=== PATIENT | female | born 1940 | race Caucasian/White ===

== ENCOUNTER 2020-11-07 09:26 | Emergency (ER) | payer MEDICARE, SELFPAY ==
[2020-11-07 09:35] VITALS: BP 140/78; PULSE 90; RESP 18; TEMP 36.7; O2SAT 95; BMI 16.9
--- NOTE | 2020-11-07 10:45 | ED.PSYCH ---
HPI - Psych General Chief Complaint: Psychiatric Symptoms Stated Complaint: CRISIS Time Seen by Provider: 11/07/20 09:52 Source: patient and family Mode of arrival: ambulatory Limitations: no limitations History of Present Illness HPI Narrative: Patient is brought to the emergency room by her family. Over the last 6 weeks, patient has gradually been decompensating, the family states that the patient has been eating less, unable to function, daily tasks are a major chore. Patient states that she has been depressed, states that she does not want to live but states that she would never hurt herself. According to the family, patient has similar episode 12 years ago, patient went to [place] and was there for 2 weeks, then had 3 weeks of outpatient partial hospitalization. The reports that towards the beginning of September, him and the patient started talking and planning arrangements for both of them, seems that since then the patient has been decompensating. The also states that the patient has problems with her 2 children. Patient has been recently evaluated by her psychiatrist, there have been new medication changes including an increase in dose of mirtazapine and Ativan complaint: feels depressed Related Data Allergies Allergy/AdvReac Type Severity Reaction Status Date / Time No Known Allergies Allergy Verified 11/07/20 10:45 Review of Systems Review of Systems: Constitutional : No Weight loss, No Fever, No Chills, No Night Sweats, No Fatigue, No Malaise ENT/Mouth : No Hearing loss, No Ear Pain, No Nasal Congestion, No Sinus Pain, No Hoarseness, No sore throat, No Rhinorrhea, No Swallowing Difficulty Eyes: No Eye Pain, No Swelling, No Redness, No Foreign Body, No Discharge, No Vision Changes Cardiovascular : No Chest Pain, No SOB, No Dyspnea on Exertion, No Orthopnea, No Edema, No Palpitations Respiratory : No Cough, No Sputum, No Wheezing, No Smoke Exposure, No Dyspnea Gastrointestinal : No Nausea, No Vomiting, No Diarrhea, No Constipation, No abdominal Pain, No Hematochezia, No Melena Genitourinary : no irregular bleeding, No Dysuria, No Urinary Frequency, No Hematuria, No Urinary Incontinence, No Urgency, No Flank Pain, No Urinary Flow Changes, No Hesitancy Musculoskeletal : No joint pain, No Myalgias, No Joint Swelling Skin : No Skin Lesions, No rash Neuro : No Weakness, No Numbness, No Paresthesias, No Loss of Consciousness, No Dizziness, No Headache Psych : Complaining of feeling anxious, depressed, no suicidal or homicidal ideation Heme/Lymph: No Bruising, No Bleeding,No Lymphadenopathy Endocrine : No Polyuria, No Polydipsia, No Temperature Intolerance PMFSH Past Medical History Medical History (Updated 11/07/20 @ 16:21 by Leonora Jimenes MD) Breast cancer Depression Surgical History (Updated 11/07/20 @ 09:38 by Theersa Leavitt RN) H/O mastectomy Social History Social History Smoking Status: Never smoker Use of substances other than those prescribed or required for medical reasons: No Advance Directives: Yes Advance Directives Information Provided: No Advance Directives on File: No Physical Exam Vital Signs: Vital Signs: Last Vital Signs Temp 98.0 F 11/07/20 09:35 Pulse 79 11/07/20 13:59 Resp 16 11/07/20 13:59 BP 131/76 11/07/20 13:59 Pulse Ox 98 11/07/20 13:59 Body Mass Index 16.9 Appearance: Alert. Oriented X3. No acute distress. Eyes: Pupils equal, round and reactive to light. ENT: Pharynx normal. Neck: Normal inspection. Neck supple. No lymph nodes noted. No crepitus CVS: Normal heart rate and rhythm. Pulses normal. Normal S1 and S2 Respiratory: No respiratory distress. Breath sounds normal. No Wheezing. No rales Abdomen: Soft and nontender. No rigidity. No distention. good BS x4 Skin: Skin warm and dry. Normal skin color. Normal skin turgor. Extremities: No lower extremity edema. No lower extremity edema. No Lacerations. No Rash Neuro: Oriented X 3. No motor deficit. No sensory deficit. Moving all extermities. No slurred speech. Psych: Anxious, keeps rolling her hands in circles, states that she is concerned and suspicious of people who are here in the emergency room Course Course Course Narrative: Labs and UA pending, behavioral health network consult pending 12:30 I received a phone call from the patient's psychiatrist, Dr. Oksana Burk. Twelve years ago, patient stabilized on lithium and mirtazapine. Yesterday the mirtazapine dose was increased to 45mg. Patient's psychiatrist strongly suggests that the patient meets inpatient psychiatric care. Earlier today, patient requested Ativan for anxiety. Patient now calm, cooperative. Labs pending. Sign-out given to Dr. Carter, as mentioned above, patient will likely benefit from inpatient level care. Sign-out given to Dr. Pepe [facility] - Psych Lab Data Labs: Lab Results 11/07/20 Range/Units 11:28 Urine Color YELLOW Urine Appearance CLEAR Urine pH 5.5 (5.0-8.0) Ur Specific [place] >= 1.030 H (1.005-1.025) Urine Protein NEG (NEG-TRACE) MG/DL Urine Glucose (UA) NEG (NEG) MG/DL Urine Ketones NEG (NEG) MG/DL Urine Blood NEG (NEG) Urine Nitrite NEG (NEG) Ur Leukocyte Esterase NEG (NEG) Discharge Plan Discharge Clinical Impression: Depression
--- NOTE | 2020-11-07 11:07 | PC.NURSE ---
Pt guarded, does not offer much information on why she is here but reports sadness and doesn't feel right This RN and Dr Jimenes to waiting room to speak to Mk and daughter who state pt has been declining since 09/29 after visiting a home to arrange end of life decisions and since pt has been not eating and little motivation for daily activities such as attending the grocery store. Pt has had similar episode in past approx 12 years ago per after having mastectomy and argument with children. At that time pt went inpatient at [place] for 14 days. Since pt has had no further episodes. Consulted with Dr Oksana Hoang and new med started yesterday, pt also has been trying to have telehealth appts but unable d/t audio issues. Contact for Mk [phone] Pt denies pain/discomfort but does reports issues with constipation and uterine prolapse, seen by OBGYN and had internal exam completed per daughter
[2020-11-07 11:34] VITALS: BP 150/77; PULSE 71; RESP 16; O2SAT 98
[2020-11-07 11:36] LABS: Glucose Urine UA NEG (NEG); Leukocyte Esterase Urine NEG (NEG); Nitrite Urine NEG (NEG); PH 5.5 (5.0-8.0); Specific Gravity - Urine >= 1.030 (1.005-1.025); Urine Blood NEG (NEG); Urine Ketones NEG (NEG); Urine Protein NEG (NEG-TRACE)
[2020-11-07 11:39] LABS: Appearance Urine CLEAR; Color Urine YELLOW
--- NOTE | 2020-11-07 12:45 | PC.NURSE ---
MICHELN called and aware of pt refferral
[2020-11-07] MEDS: LORazepam 1 MG TABLET 2 MG PO (13:51)
[2020-11-07 13:59] VITALS: BP 131/76; PULSE 79; RESP 16; O2SAT 98
--- NOTE | 2020-11-07 14:00 | PC.NURSE ---
Pt visibilly anxious, fidgeting with straw in hand. Agreeable to Ativan 1mg out of 2mg ordered, Dr Jimenes aware. Pt tearful. Encouraged to call but states she will call later
--- NOTE | 2020-11-07 14:43 | PC.NURSE ---
This RN updated , [facility] aware of pt here and will send clinician out to eval when available. upset, refers to prior time when pt was admitted right away This RN relays to proicess in ED at this time and unaware of time exactly when [facility] shall arrive for eval. and pt reassured that pt needs will be met while in ED. Offered lunch but declined at this time.
--- NOTE | 2020-11-07 14:46 | PC.NURSE ---
Pt speaking to on phone at this time
--- NOTE | 2020-11-07 16:24 | PC.NURSE ---
Pt appears much better s/p Ativan given, no longer restless or fidgeting. Request pencil and paper and writing a letter at this time.
[2020-11-07 16:39] LABS: MANUAL DIFF FLAG NO
[2020-11-07 16:42] LABS: Basophils Percent Auto 0.9 % (0-2); Eosinophils Absolute Auto 0.2 X10*3/uL (0.0-0.4); Eosinophils Percent Auto 4.8 % (0-4); Hematocrit 37.7 % (37-47); Hemoglobin 12.4 g/dl (12.0-16.0); Imm Gran Abs Auto 0.01 X10*3/uL (0.00-0.03); Imm Gran Pct Auto 0.2 % (0.0-0.4); Lymphocytes Absolute Auto 1.1 X10*3/uL (1.2-4.9); Lymphocytes Percent Auto 24.3 % (20-40); Mean Corpuscular HGB Conc 32.9 g/dl (31.0-35.0); Mean Corpuscular Volume 97.2 fL (80-98); Monocytes Absolute Auto 0.4 X10*3/uL (0.1-1.2); Monocytes Percent Auto 8.2 % (2-11); Neutrophils Absolute Auto 2.7 X10*3/uL (2.0-8.3); Neutrophils Percent Auto 61.6 % (45-73); Platelet Count 243 X10*3/uL (160-400); Red Blood Count 3.88 X10*6/uL (4.20-5.50); Red Cell Distribution Width 12.3 % (11.0-16.0); White Blood Count 4.4 X10*3/uL (4.8-10.8)
--- NOTE | 2020-11-07 17:15 | PC.NURSE ---
CARE Team speaking with pt at this time
[2020-11-07 17:16] LABS: Alanine Aminotransferase 23 U/L (0-31); Albumin Level 3.8 g/dL (3.5-5.0); Alkaline Phosphatase 52 U/L (39-117); Anion Gap 9 (12-20); Aspartate Amino Transferase 24 U/L (5-31); Bilirubin Direct 0.2 mg/dL (0.0-0.5); Bilirubin Total 0.5 mg/dL (0.0-1.0); Blood Urea Nitrogen 16 mg/dL (9-16); Calcium 8.5 mg/dL (8.4-10.2); Carbon Dioxide 30 mmol/L (22-29); Chloride 99 mmol/L (96-108); Creatinine Clr Calc Pharmacy 42.8; Estimated Glomerular Filt Rate > 60; Glucose Random 169 mg/dL (60-115); Potassium 3.9 mmol/L (3.3-5.1); Sodium 134 mmol/L (135-145); Total Protein 5.9 g/dL (6.5-8.0)
[2020-11-07 18:05] VITALS: BP 121/83; PULSE 69; RESP 16; O2SAT 97
[2020-11-07 18:14] VITALS: BP 157/106; PULSE 88; RESP 16; O2SAT 96
--- NOTE | 2020-11-07 20:44 | MHC.CARE ---
CARE Team has completed assessment. Plan is for pt to discharge home and return to the ED for medical clearance when there is an open bed on M5. agrees to hold a bed for pt.
== END 2020-11-07 21:00 | disposition home or self-care (01) ==
PROVIDERS: Emergency Provider Emergency Medicine; PCP Internal Medicine
DX: F32.9 Major depressive disorder, single episode, unspecified (principal); Z85.3 Personal history of malignant neoplasm of breast; F41.9 Anxiety disorder, unspecified
CPT/HCPCS: 36415; 80048; 80076; 81003; 85025; 99285

== ENCOUNTER 2020-11-11 11:01 | Inpatient (IN) | payer MEDICARE, SELFPAY ==
[2020-11-11 11:06] VITALS: BP 123/73; PULSE 106; RESP 16; TEMP 36.7; O2SAT 96; BMI 17.9
--- NOTE | 2020-11-11 12:04 | PC.NURSE ---
pt alert and oriented, skin pwd, respirations even and unlabored pt reports feeling very restless, keeps moving/shaking her legs, does not want to feel like this, pt slightly vague in her answers. pt keeps stating that she was told there was a bed for her on the [facility] floor. sitter in place
--- NOTE | 2020-11-11 12:11 | PC.NURSE ---
leonardo from care team speaking to pt
--- NOTE | 2020-11-11 13:14 | ED_ITS ---
HPI - Psych General Chief Complaint: Psychiatric Symptoms Stated Complaint: crisis Time Seen by Provider: 11/11/20 13:00 Source: patient Mode of arrival: ambulatory Limitations: no limitations History of Present Illness HPI Narrative: Patient is a 79-year-old female with a past medical history of depression who is on Ativan daily complaining of ?not feeling well?, she cannot articulate how she is feeling but is declining any medical interventions at this time. She says she needs some time to think. Patient denies SI/HI. She only states that she knows she needs to be admitted to the Behavioral Health cerda . Will give the patient some time in reassess in a little while. According to the patient's records, she was just evaluated in this ED 4 days ago. Patient has been gradually be compensating over the last 6 weeks. She eats last unable to function on a daily basis an any tasks she needs to perform become a major chore. The patient's family says that she has been depressed ever since her nurse has been started pre- planning their arrangements. The patient's psychiatrist, Dr. Oksana Burk, called the ED stating that the patient has been taking lithium and mirtazapine since she had a similar episode 12 years ago. Apparently the day before she came into the ED last time, her mirtazapine dose was increased to 45 mg but apparently patient is now 130 mg according to her psychiatrist. And the patient's psychiatrist strongly suggested that she needs inpatient care. However, the patient was discharged. The Care team was texting with patient's psychiatrist today. [place] was restarted yesterday, it needs to be titrated up to the 300, it is unclear what her does she has taken yesterday and today. pt takes trazodone and ativan prn. We will Section 12 the pt and plan for admission. They also spoke with the patient's , he is unable to care for his . He accidentally dialed the Care Team and left a message on her voicemail where he can be heard yelling at his . Spoke with patient again, she is states she does not want to feel like this anymore but does not want to hurt herself, she states she has not been eating much at home, has not been sleeping much and states she washes up daily but not that she takes a shower daily. She states she has not been cleaning her house in isn't much her cooking. Related Data Previous Rx's Medication Instructions Recorded lorazepam [Ativan] 0.5 mg PO TID PRN #7 tab 11/07/20 polyethylene glycol 3350 [Miralax] 17 g PO DAILY #510 g 11/07/20 Allergies Allergy/AdvReac Type Severity Reaction Status Date / Time No Known Allergies Allergy Verified 11/07/20 10:45 Review of Systems Review of Systems: Yes all other systems are reviewed and are negative [facility] Past Medical History Medical History Breast cancer Depression Surgical History H/O mastectomy Social History Social History Smoking Status: Never smoker Use of substances other than those prescribed or required for medical reasons: No Advance Directives: No Advance Directives Information Provided: No Physical Exam Vital Signs: Vital Signs: Last Vital Signs Temp 99.2 F 11/11/20 14:00 Pulse 93 11/11/20 14:00 Resp 18 11/11/20 14:00 BP 136/71 11/11/20 14:00 Pulse Ox 96 11/11/20 14:00 Body Mass Index 17.9 Const: General: cooperative, no acute distress and anxious Nutritional Appearance: thin Orientation/consciousness: patient oriented x3 HENMT: Head: Yes normal to inspection, Yes normocephalic and Yes atraumatic Face and sinus: Yes normal facial exam Eyes: General: appearance normal, both eyes and all related structures Pupils: Equal, round and reactive pupils present Neck: Neck: Yes normal visual inspection, Yes full ROM and Yes supple Resp: Effort & Inspection: normal respiratory effort and able to speak in complete sentences Auscultation: clear to auscultation bilaterally, no crackles, no rales, no rhonchi and no wheezes Cardio: Rate: regular rate Rhythm: regular rhythm Neuro: General: patient oriented x3 Cranial nerves: Yes Equal, round and reactive pupils present Psych: Speech and movement: Restless speech present Affect: Sad affect pr esent and Anxious affect present Attitude: cooperative Thought content: suicidality and no homicidality Insight: Fair insight present (Psych) Judgement: Fair judgement present (Psych) Course Course Course Narrative: 79-year-old female past medical history of depression presents for the 2nd time in the past week for decompensation at home, patient psychiatrist recommends admission to titrate her meds up to a level of where she is functioning. Care team recommends Section 12 patient for admission on M5. We will move her to the pod once medically cleared. Labs and EKG have been ordered. All labs within normal limits, EKG no acute changes, will medically clear patient. 11/11/2020 9pm sign out to Angela Parra NP MDM - Psych Differential Diagnosis Differential diagnosis: Likely depression (Needs medication adjustment) and acute anxiety Lab Data Attestation: I reviewed the patient's lab results. Result diagrams: 11/11/20 14:42 11/11/20 14:42 Labs: Lab Results 11/11/20 11/11/20 11/11/20 Range/Units 14:36 14:42 14:42 WBC 6.8 (4.8-10.8) X10*3/uL RBC 3.96 L (4.20-5.50) X10*6/uL Hgb 12.7 (12.0-16.0) g/dl Hct 38.7 (37-47) % MCV 97.7 (80-98) fL MCH 32.1 (27.0-33.0) pg MCHC 32.8 (31.0-35.0) g/dl RDW 12.4 (11.0-16.0) % Plt Count 254 (160-400) X10*3/uL MPV 9.0 L (9.4-12.3) fL Immature Gran % (Auto) 0.4 (0.0-0.4) % Neut % (Auto) 65.6 (45-73) % Lymph % (Auto) 20.7 (20-40) % [place] % (Auto) 8.7 (2-11) % Eos % (Auto) 3.9 (0-4) % Baso % (Auto) 0.7 (0-2) % Lymph # (Auto) 1.4 (1.2-4.9) X10*3/uL [place] # (Auto) 0.6 (0.1-1.2) X10*3/uL Eos # (Auto) 0.3 (0.0-0.4) X10*3/uL Baso # (Auto) 0.1 (0.0-0.2) X10*3/uL Abs Immat Gran (auto) 0.03 (0.00-0.03) X10*3/uL Absolute Neuts (auto) 4.4 (2.0-8.3) X10*3/uL Absolute Nucleated RBC 0.000 (0.0-0.012) X10*3/uL Nucleated RBC % (auto) 0.0 (0.0-0.2) /100WBC Sodium 140 (135-145) mmol/L Potassium 4.6 (3.3-5.1) mmol/L Chloride 106 (96-108) mmol/L Carbon Dioxide 28 (22-29) mmol/L Anion Gap 11 L (12-20) BUN 27 H D (9-16) mg/dL Creatinine 0.73 (0.5-1.4) mg/dL Estim Creat Clear Calc 43.8 Estimated GFR > 60 Random Glucose 98 D (60-115) mg/dL Calcium 9.3 D (8.4-10.2) mg/dL Total Bilirubin < 0.2 (0.0-1.0) mg/dL AST 25 (5-31) U/L ALT 25 (0-31) U/L Alkaline Phosphatase 66 D (39-117) U/L Total Protein 6.4 L (6.5-8.0) g/dL Albumin 4.1 (3.5-5.0) g/dL Salicylates < 5.0 L (15-30) mg/dL Urine Opiates Screen Not Detected (Not Detect) Acetaminophen < 1 (<30) mcg/mL Ur Barbiturates Screen Not Detected (Not Detect) Ur Phencyclidine Scrn Not Detected (Not Detect) Ur Amphetamines Screen Not Detected (Not Detect) U Benzodiazepines Scrn Not Detected (Not Detect) Urine Cocaine Screen Not Detected (Not Detect) U Marijuana (THC) Screen Not Detected (Not Detect) Ethyl Alcohol mg/dL 11/11/20 Range/Units 14:42 WBC (4.8-10.8) X10*3/uL RBC (4.20-5.50) X10*6/uL Hgb (12.0-16.0) g/dl Hct (37-47) % MCV (80-98) fL MCH (27.0-33.0) pg MCHC (31.0-35.0) g/dl RDW (11.0-16.0) % Plt Count (160-400) X10*3/uL MPV (9.4-12.3) fL Immature Gran % (Auto) (0.0-0.4) % Neut % (Auto) (45-73) % Lymph % (Auto) (20-40) % [place] % (Auto) (2-11) % Eos % (Auto) (0-4) % Baso % (Auto) (0-2) % Lymph # (Auto) (1.2-4.9) X10*3/uL [place] # (Auto) (0.1-1.2) X10*3/uL Eos # (Auto) (0.0-0.4) X10*3/uL Baso # (Auto) (0.0-0.2) X10*3/uL Abs Immat Gran (auto) (0.00-0.03) X10*3/uL Absolute Neuts (auto) (2.0-8.3) X10*3/uL Absolute Nucleated RBC (0.0-0.012) X10*3/uL Nucleated RBC % (auto) (0.0-0.2) /100WBC Sodium (135-145) mmol/L Potassium (3.3-5.1) mmol/L Chloride (96-108) mmol/L Carbon Dioxide (22-29) mmol/L Anion Gap (12-20) BUN (9-16) mg/dL Creatinine (0.5-1.4) mg/dL Estim Creat Clear Calc Estimated GFR Random Glucose (60-115) mg/dL Calcium (8.4-10.2) mg/dL Total Bilirubin (0.0-1.0) mg/dL AST (5-31) U/L ALT (0-31) U/L Alkaline Phosphatase (39-117) U/L Total Protein (6.5-8.0) g/dL Albumin (3.5-5.0) g/dL Salicylates (15-30) mg/dL Urine Opiates Screen (Not Detect) Acetaminophen (<30) mcg/mL Ur Barbiturates Screen (Not Detect) Ur Phencyclidine Scrn (Not Detect) Ur Amphetamines Screen (Not Detect) U Benzodiazepines Scrn (Not Detect) Urine Cocaine Screen (Not Detect) U Marijuana (THC) Screen (Not Detect) Ethyl Alcohol < 10 mg/dL ECG Data Attestation: I personally reviewed and interpreted this ECG as follows: ECG interpretation date: 11/11/20 ECG interpretation time: 14:01 Prior ECG tracings: available for review Interpretation: Peaked T-waves V3, V4 and V5, similar to prior. Q-waves in V1 and V2, septal infarct, age determine. EKG is identical to the one done 4 days ago Discharge Plan Discharge Prescriptions: No Action lorazepam [Ativan] 0.5 mg tablet 0.5 mg PO TID PRN (Reason: anxiety) Qty: 7 RF: 0 polyethylene glycol 3350 [Miralax] 17 gram/dose powder 17 g PO DAILY Qty: 510 RF: 0
--- NOTE | 2020-11-11 13:36 | ECG_ITS ---
Test Reason : AMS Blood Pressure : / mmHG Vent. Rate : 097 BPM Atrial Rate : 097 BPM P-R Int : 180 ms QRS Dur : 064 ms QT Int : 336 ms P-R-T Axes : 078 087 065 degrees QTc Int : 426 ms Normal sinus rhythm with sinus arrhythmia Septal infarct , age undetermined Abnormal ECG No previous ECGs available Referred By: Lizeth Cordero Electronically Signed By:Yaniv Travis
[2020-11-11 14:00] VITALS: BP 136/71; PULSE 93; RESP 18; TEMP 37.3; O2SAT 96
[2020-11-11 14:46] LABS: MANUAL DIFF FLAG NO
[2020-11-11 14:49] LABS: Basophils Absolute Auto 0.1 X10*3/uL (0.0-0.2); Basophils Percent Auto 0.7 % (0-2); Eosinophils Absolute Auto 0.3 X10*3/uL (0.0-0.4); Eosinophils Percent Auto 3.9 % (0-4); Hematocrit 38.7 % (37-47); Hemoglobin 12.7 g/dl (12.0-16.0); Imm Gran Abs Auto 0.03 X10*3/uL (0.00-0.03); Imm Gran Pct Auto 0.4 % (0.0-0.4); Lymphocytes Absolute Auto 1.4 X10*3/uL (1.2-4.9); Lymphocytes Percent Auto 20.7 % (20-40); Mean Corpuscular HGB Conc 32.8 g/dl (31.0-35.0); Mean Corpuscular Hemoglobin 32.1 pg (27.0-33.0); Mean Corpuscular Volume 97.7 fL (80-98); Monocytes Absolute Auto 0.6 X10*3/uL (0.1-1.2); Monocytes Percent Auto 8.7 % (2-11); Neutrophils Absolute Auto 4.4 X10*3/uL (2.0-8.3); Neutrophils Percent Auto 65.6 % (45-73); Platelet Count 254 X10*3/uL (160-400); Red Blood Count 3.96 X10*6/uL (4.20-5.50); Red Cell Distribution Width 12.4 % (11.0-16.0); White Blood Count 6.8 X10*3/uL (4.8-10.8)
[2020-11-11 15:17] LABS: Ethanol < 10 mg/dL
[2020-11-11 15:20] LABS: Amphetamine Screen Urine Not Detected (Not Detect); Barbiturates, Urine Not Detected (Not Detect); Benzodiazepines Screen Urine Not Detected (Not Detect); Cannabinoid Screen Urine Not Detected (Not Detect); Cocaine Screen Urine Not Detected (Not Detect); Opiate Screen Urine Not Detected (Not Detect); Phencyclidine Screen Urine Not Detected (Not Detect)
[2020-11-11] MEDS: LORazepam 0.5 MG TABLET PO ×2 (15:20→22:16)
[2020-11-11 15:23] LABS: Acetaminophen LAB < 1 mcg/mL (<30); Alanine Aminotransferase 25 U/L (0-31); Albumin Level 4.1 g/dL (3.5-5.0); Alkaline Phosphatase 66 U/L (39-117); Anion Gap 11 (12-20); Aspartate Amino Transferase 25 U/L (5-31); Bilirubin Total < 0.2 mg/dL (0.0-1.0); Blood Urea Nitrogen 27 mg/dL (9-16); Calcium 9.3 mg/dL (8.4-10.2); Carbon Dioxide 28 mmol/L (22-29); Chloride 106 mmol/L (96-108); Creatinine Clr Calc Pharmacy 43.8; Estimated Glomerular Filt Rate > 60; Glucose Random 98 mg/dL (60-115); Potassium 4.6 mmol/L (3.3-5.1); Salicylate < 5.0 mg/dL (15-30); Sodium 140 mmol/L (135-145); Total Protein 6.4 g/dL (6.5-8.0)
--- NOTE | 2020-11-11 15:27 | PC.NURSE ---
pt finally took the ativan 0.5mg, pt is very anxious at this time/ fidgety. pt states that she is not sure if the ativan 0.5mg will work pt thinks she might need additional 0.5mg if this one does not work. sitter at bedside
--- NOTE | 2020-11-11 17:36 | PM.EVENT ---
Event Note Date of Service: 11/11/20 Event Note: Psychiatry note: Patient currently in ED awaiting psychiatric admission. Previous evaluation reviewed and communication with outpatient provider regarding current medications. Current home medications ordered. Full consult to be completed in the AM by this typewriter aligner
--- NOTE | 2020-11-11 17:47 | PC.NURSE ---
pt appears to be calmer/relaxed but is concern about being constipated sitter at bedside
--- NOTE | 2020-11-11 18:20 | MHC.CARE ---
Bedsearch note: [facility] (p: [phone] f: [phone]) no beds available tonight, eval faxed for review for tomorrow if there are discharges [facility] (p: [phone] f: [phone]) no beds available tonight, sada faxed for review for tomorrow if there are discharges [facility] (p: [phone] f: [phone]) no bed available tonight, call in morning to check if there are any discharges [facility] (p: [phone] f: [phone]) no beds available tonight, did not fax eval because they lose them if sent ahead of time
[2020-11-11 22:04] LABS: Lithium 0.13 mmol/L (0.60-1.20)
--- NOTE | 2020-11-11 22:05 | PC.NURSE ---
Patient got transferred from main ED, seems scared and anxious, HS PO medication offered, patient was very hesitant and suspicious of her medication seems like trust issues, showed patient her entire pharmacy claim history and prescriber, patient finally agreed to take medication, called her had good conversation, [place] level for lab was added on and it was 0.13, compliant with COVID swabbed result pending, will continue to monitor.,
[2020-11-11] MEDS: Mirtazapine 30 MG TABLET PO (22:16)
[2020-11-11] MEDS: Lithium Carbonate ER 300 MG TABLET.ER PO (22:16)
[2020-11-11] MEDS: traZODone HCL 50 MG TABLET PO (22:16)
[2020-11-11 22:37] LABS: COVID-19 Test Negative (Negative); IDNOW Serial# 9DD0AD1C
[2020-11-12 00:18] VITALS: BP 146/79; PULSE 80; RESP 15; TEMP 36.6; O2SAT 98
[2020-11-12] MEDS: LORazepam 0.5 MG TABLET PO ×2 (06:01→12:02)
[2020-11-12] MEDS: polyethylene glycoL 3350 17 GM POWD.PACK PO (06:57)
--- NOTE | 2020-11-12 08:54 | PC.NURSE ---
SITTING ON BED. CLOSE OBSERVATION MAINTAINED. BEDSEARCH CONTINUES
[2020-11-12 08:57] VITALS: BP 133/72; PULSE 80; RESP 16; TEMP 36.8; O2SAT 97
--- NOTE | 2020-11-12 11:55 | PC.NURSE ---
CARE TEAM IN SPEAKING WITH PT AT [facility]. ALSO SPOKE WITH IN .
--- NOTE | 2020-11-12 15:29 | MHC.CARE ---
CARE team met w pt at length and also with pts privately (due to limited visiting hrs). Pt was ambivalent but after discussion was willing to have a bedsearch to other units. Pt stated she enjoys having contact with staff even if she is not overly talkative. Pt discussed that her feelings of anxiety have increased and she feels she is hopeless about if her sxs will improve. Pt was more willing today to accept as needed medications with staff support. Pt voiced how she fears overuse of medications but also admitted to feeling heightened suffering. Pts continues to offer his support in the bedsearch process as well. CARE spoke with him again for briefing at 1530.
--- NOTE | 2020-11-12 15:35 | P.CNPS_ITS ---
History of Present Illness Date of Service: 11/12/2020 Chief Complaint: crisis Reason for Consult: medication eval Requesting physician: Lizeth Cordero Discussed with referring provider: Yes Sources of Information: patient interviewed and chart reviewed HPI Narrative: Patient is a 79 year old female with history of MDD currently in [facility] awaiting psychiatric admission for worsening depression.. Recently started on Mirtazipine and [place] by psychiatric provider. CARE team evaluation reviewed. Patient evaluated in room 6 of area of ED. Awake, alert, engaged in interview. Visibly anxious, fidgeting with her hands, difficulty answering questions--appearing overwhelmed by information that is provided to her. Help seeking, though also somewhat dismissive of therapeutic recommendations being made. Reports that she is experiencing racing thoughts, perseverating on things in her life, negative self dialogue. She reports poor sleep, though she is sleeping from 10p-5am uninterrupted --but feels that waking that early makes for a very long day . Collateral from psychiatric provider is that patient has not been seen for psychiatric care for about 12 years, until several weeks ago when she re- established care d/t depressive and anxiety sx. Past Psychiatric History: one previous psychiatric admission greater than 10 years ago Medical Evaluation Reviewed: Yes Personal & Social History: Review of Systems Constitutional: Reports lethargy, Reports poor appetite and Reports weight loss Psychiatric: Reports anxiety, Reports change in appetite, Reports depression, Reports difficulty concentrating, Reports hopelessness and Reports anhedonia PMFSH Medical History Breast cancer Depression Surgical History H/O mastectomy Diagnostics Vital Signs (24Hr): Vital Signs - 24 hr 11/12/20 00:18 11/12/20 08:57 Temperature 97.9 F 98.3 F Pulse Rate 80 80 Respiratory Rate 15 16 Blood Pressure 146/79 H 133/72 Pulse Oximetry 98 97 Body Mass Index 17.9 Labs Results: 11/11/20 14:42 11/11/20 14:42 Labs: Laboratory Results - last 48 hr 11/11/20 11/11/20 11/11/20 14:36 14:42 14:42 WBC 6.8 RBC 3.96 L Hgb 12.7 Hct 38.7 MCV 97.7 MCH 32.1 MCHC 32.8 RDW 12.4 Plt Count 254 MPV 9.0 L Immature Gran % (Auto) 0.4 Neut % (Auto) 65.6 Lymph % (Auto) 20.7 Bland % (Auto) 8.7 Eos % (Auto) 3.9 Baso % (Auto) 0.7 Lymph # (Auto) 1.4 Bland # (Auto) 0.6 Eos # (Auto) 0.3 Baso # (Auto) 0.1 Abs Immat Gran (auto) 0.03 Absolute Neuts (auto) 4.4 Absolute Nucleated RBC 0.000 Nucleated RBC % (auto) 0.0 Sodium 140 Potassium 4.6 Chloride 106 Carbon Dioxide 28 Anion Gap 11 L BUN 27 H D Creatinine 0.73 Estim Creat Clear Calc 43.8 Estimated GFR > 60 Random Glucose 98 D Calcium 9.3 D Total Bilirubin < 0.2 AST 25 ALT 25 Alkaline Phosphatase 66 D Total Protein 6.4 L Albumin 4.1 Salicylates < 5.0 L Urine Opiates Screen Not Detected Acetaminophen < 1 Ur Barbiturates Screen Not Detected Ur Phencyclidine Scrn Not Detected Ur Amphetamines Screen Not Detected U Benzodiazepines Scrn Not Detected [place] Urine Cocaine Screen Not Detected U Marijuana (THC) Screen Not Detected Ethyl Alcohol COVID-19 (AV) COVID-19 [place] Friend 11/11/20 11/11/20 11/11/20 14:42 14:42 22:00 WBC RBC Hgb Hct MCV MCH MCHC RDW Plt Count MPV Immature Gran % (Auto) Neut % (Auto) Lymph % (Auto) Bland % (Auto) Eos % (Auto) Baso % (Auto) Lymph # (Auto) Bland # (Auto) Eos # (Auto) Baso # (Auto) Abs Immat Gran (auto) Absolute Neuts (auto) Absolute Nucleated RBC Nucleated RBC % (auto) Sodium Potassium Chloride Carbon Dioxide Anion Gap BUN Creatinine Estim Creat Clear Calc Estimated GFR Random Glucose Calcium Total Bilirubin AST ALT Alkaline Phosphatase Total Protein Albumin Salicylates Urine Opiates Screen Acetaminophen Ur Barbiturates Screen Ur Phencyclidine Scrn Ur Amphetamines Screen U Benzodiazepines Scrn [place] 0.13 L Urine Cocaine Screen U Marijuana (THC) Screen Ethyl Alcohol < 10 COVID-19 (AV) Negative COVID-19 Clin Com See Note Mental Status Exam Mental Status Exam Patient Appearance: Well Grooomed and Appropriate Patient Orientation: Person, Place, Time and Situation Level of Consciousness: Awake, Appropriate, Restless and Alert Patient Behavior: Appropriate, Passive, Anxious and Fearful Mood Description: Anxious Affect Description: Withdrawn and Anxious Patient Cognition Impaired: No Ability to Follow Directions: Excellent Speech Pattern: Soft-Spoken and Long Pauses Memory Description: Intact Hallucinations: None Delusions: Not Present Thought Process: Rumination Thought Content: positive for Perseveration and positive for Slowed Thinking Depressive Symptoms: Increased Anxiety, Diff. Making Decisions, Feelings of Worthlessness, Hopelessness, Feelings of Guilt, Unhappiness, Low Self Esteem, Loss of Energy and Difficulty Concentrating Abnormal Motor Activity Signs and Symptoms: Restlessness Judgement: Fair Medications Medications Current Medications Generic Name Dose Route Start Last Admin Trade Name Freq PRN Reason Stop Dose Admin Docusate Sodium 100 mg 11/12/20 12:22 Docusate Sodium 100 Mg Capsule PO BID PRN Constipation [place] Carbonate 300 mg 11/11/20 21:00 11/11/20 22:16 [place] Carbonate Er 300 Mg Tablet.Er PO 300 mg BEDTIME JILLIAN Administration Lorazepam 0.5 mg 11/11/20 13:37 11/12/20 12:02 Lorazepam 0.5 Mg Tablet PO 0.5 mg Q6H PRN Administration Restlessness Mirtazapine 30 mg 11/11/20 21:00 11/11/20 22:16 Mirtazapine 30 Mg Tablet PO 30 mg BEDTIME JILLIAN Administration Polyethylene Glycol 17 gm 11/12/20 09:00 11/12/20 06:57 Polyethylene Glycol 3350 17 Gm Powd.Pack PO 17 gm DAILY JILLIAN Administration Senna 17.2 mg 11/12/20 12:22 Sennosides 8.6 Mg Tablet PO BEDTIME PRN Constipation Trazodone HCl 50 mg 11/11/20 21:00 11/11/20 22:16 Trazodone Hcl 50 Mg Tablet PO 50 mg BEDTIME JILLIAN Administration Allergies Allergies Allergy/AdvReac Type Severity Reaction Status Date / Time No Known Allergies Allergy Verified 11/07/20 10:45 Assessment & Plan Assessment & Plan (1) Major depressive disorder, severe: Status: Acute Code(s): F32.2 - Major depressive disorder, single episode, severe without psychotic f eatures Recommendations: Discussed case with outpatient provider agreed to trial low dose risperidone Patient agreeable. Will also change lorazepam to klonopin BID encourage fluids Greater than 50% of the session was spent on counseling and/or coordination of care
--- NOTE | 2020-11-12 15:38 | PC.NURSE ---
Report received. Pt awake, sitting on bed at current. No complaints at this time.
[2020-11-12 16:19] VITALS: BP 136/82; PULSE 71; RESP 18; TEMP 36.6; O2SAT 99
--- NOTE | 2020-11-12 17:57 | PC.NURSE ---
Pt resting in bed at current. No complaints at this time. Depressed mood.
[2020-11-12] MEDS: clonazePAM 0.5 MG TABLET PO (18:45)
--- NOTE | 2020-11-12 19:40 | PC.NURSE ---
Patient is on phone talking to her , good behavioral control. no distress reported, came up with questions r/t risperidone she is starting on tonight, educated about the medication, will continue to monitor.
[2020-11-12] MEDS: Lithium Carbonate ER 300 MG TABLET.ER PO (20:29)
[2020-11-12] MEDS: Mirtazapine 30 MG TABLET PO (20:29)
[2020-11-12] MEDS: risperiDONE 0.25 MG TABLET PO (20:29)
[2020-11-12] MEDS: traZODone HCL 50 MG TABLET PO (20:30)
--- NOTE | 2020-11-12 21:56 | PC.NURSE ---
Patient is up in her room, calm and quiet, received her first dose of riperidone 0.25 mg, no adverse reaction so far, will continue to monitor.
[2020-11-13 06:00] VITALS: RESP 16
--- NOTE | 2020-11-13 07:04 | PC.NURSE ---
Report received. PT currently sleeping, respirations even and unlabored, in no apparent distress. PT is inpatient bedsearch.
[2020-11-13] MEDS: clonazePAM 0.5 MG TABLET PO (08:40)
[2020-11-13] MEDS: polyethylene glycoL 3350 17 GM POWD.PACK PO (08:40)
[2020-11-13 09:03] VITALS: BP 130/89; PULSE 88; RESP 18; TEMP 37.1; O2SAT 96
--- NOTE | 2020-11-13 14:15 | MHC.CARE ---
Local bedsearch exhausted. Patient and her were updated that has planned discharges for tomorrow.
[2020-11-13 18:00] VITALS: BP 139/78; PULSE 71; RESP 16; TEMP 36.9; O2SAT 96
[2020-11-13] MEDS: Docusate Sodium 100 MG CAPSULE PO (20:01)
--- NOTE | 2020-11-13 20:06 | PC.NURSE ---
pt co of constipation, pt states she doesnt drink alot of water. pt encouraged to stay hydrated and treated with colace. pt has steady gait, calm and cooperative. skin pink warm and dry.
[2020-11-13] MEDS: Lithium Carbonate ER 300 MG TABLET.ER PO (20:58)
[2020-11-13] MEDS: traZODone HCL 50 MG TABLET PO (20:59)
[2020-11-13] MEDS: Mirtazapine 30 MG TABLET PO (20:59)
[2020-11-13 21:28] VITALS: BP 134/76; PULSE 67; RESP 18; TEMP 36.4; O2SAT 99
[2020-11-13 22:00] VITALS: BP 157/76; RESP 18; TEMP 36.6; O2SAT 97
[2020-11-13] MEDS: risperiDONE 0.25 MG TABLET PO (22:47)
--- NOTE | 2020-11-14 07:05 | PC.NURSE ---
Report received. PT currently resting, calm and cooperative. PT is inpatient bedsearch.
[2020-11-14] MEDS: polyethylene glycoL 3350 17 GM POWD.PACK PO (07:16)
[2020-11-14] MEDS: clonazePAM 0.5 MG TABLET PO (07:16)
[2020-11-14 09:58] VITALS: BP 132/81; PULSE 91; RESP 16; TEMP 37; O2SAT 98
[2020-11-14] MEDS: Docusate Sodium 100 MG CAPSULE PO ×2 (11:05→20:57)
--- NOTE | 2020-11-14 13:40 | PC.NURSE ---
Nurse to Nurse completed with Ana LIVE from
[2020-11-14 15:12] VITALS: BP 157/73; PULSE 69; RESP 18; TEMP 36.3; O2SAT 98
[2020-11-14 17:21] VITALS: BP 157/73; PULSE 69; RESP 18; TEMP 36.3; O2SAT 98
--- NOTE | 2020-11-14 18:42 | PC.ADMIT ---
medications-there are discrepancies with medications per rec done in the er, what patient reports and changes that were made while awaiting placement on M5. will notify .
--- NOTE | 2020-11-14 18:45 | PC.ADMIT ---
this is the first m5 admission for this 79 year old female. legal CV. DX: MDD, UNSPECIFIED ANXIETY D/O. pt was cooperative to admission process and presented with depressed mood/affect. reports that she has been having depression since september. symptoms include low energy, decreased appetite, thoughts of hopelessness. reports some thoughts of wanting to but identifies feeling supported in the hospital environment. no major medical issues does have hx of constipation as patient is on colace. no drug or alcohol issues. reports she feels as if she has a prolapsed uterus but has no formal diagnosis.
--- NOTE | 2020-11-14 18:56 | PC.ADMIT ---
medications per pharmacy-lorazepam 0.5 mg po q8 hrs, lithium 300mg daily, remeron 45 mg po hs, trazodone 50 mg po hs, citalopram 20 mg po daily, polyethylene glycol 17 gn daily.
[2020-11-14 19:29] VITALS: BP 150/81; PULSE 94
[2020-11-14] MEDS: traZODone HCL 50 MG TABLET PO (20:57)
[2020-11-14] MEDS: Lithium Carbonate ER 300 MG TABLET.ER PO (20:57)
[2020-11-14] MEDS: Sennosides 8.6 MG TABLET 17.2 MG PO (20:57)
[2020-11-14] MEDS: risperiDONE 0.25 MG TABLET PO (20:57)
[2020-11-14] MEDS: Mirtazapine 30 MG TABLET PO (20:57)
[2020-11-15] MEDS: clonazePAM 0.5 MG TABLET PO (04:24)
[2020-11-15 06:05] VITALS: BP 119/82; PULSE 95; RESP 16; TEMP 36.6; O2SAT 95
[2020-11-15] MEDS: polyethylene glycoL 3350 17 GM POWD.PACK PO (08:51)
--- NOTE | 2020-11-15 10:19 | P.HPPS_ITS ---
HPI Chief Complaint: SI Sources of Information: patient interviewed, chart reviewed and crisis/core team assessment reviewed HPI Subjective Notes: Conditional Voluntary Narrative: The this is a 79-year-old white woman, outpatient of Dr. Coy. Patient was referred by a who became increasingly concerned about worsening depression. The patient was earlier seen in the emergency room on 11/07/2020 but decided to return home. states that this episode of depression started around September 2020 after they visited with a director writing to make arrangements. Since then the patient has been increasingly anxious unable to sit still increasing the indecisive poor sleep weight loss. In the emergency room patient stated I cannot go on like this things are not good at all. Her there is no obvious comorbid psychotic symptoms but there is a mention of patient stating that she had been tricked. Patient did not elaborate on this. Another stressor is conflict with her daughters who have not been in touch with her for a number of years. Patient denies auditory and visual hallucinations In the emergency room patient was noted to be restless repeatedly pulling hospital gown and scratching at the bed sheets and only spoken whispers. She has not seen Dr. Zack torres for over 10 years but recently was in contact with her after a relapse in symptoms. Patient has made statements stating that she was a bad person and failed appare nt. There is some history of this evaluation and disordered eating in the remote past. No report of suicidality. Patient expressively erick she would never hurt herself. Past Psychiatric History: one previous psychiatric admission greater than 10 years ago at [facility]. Patient also attended partial hospitalization program. Past medication trials not known but should be explored further. Medical Evaluation Reviewed: Yes History of breast cancer with mastectomy. Patient currently has you trying and or rectal prolapse. [facility] Medical History Breast cancer Depression Narrative: Rectal uterine prolapse Surgical History H/O mastectomy Family History: Alcohol use disorder in father depression in patient's mother Social History: Patient lives at home with her Mk. He is supportive and concerned about her deterioration. Patient has 2 daughters in the 50s there is significant stress in that area and no contact with 1 of her daughters in [place] for over 5 years. The reason for friction is not known. Substance History: Unremarkable Trauma History: Unknown Diagnostics Vital Signs (24Hr): Vital Signs - 24 hr 11/14/20 15:12 11/14/20 17:21 11/14/20 19:29 Temperature 97.4 F 97.4 F Pulse Rate 69 69 94 Respiratory Rate 18 18 Blood Pressure 157/73 H 157/73 H 150/81 H Pulse Oximetry 98 98 11/15/20 06:05 Temperature 98 F Pulse Rate 95 Respiratory Rate 16 Blood Pressure 119/82 Pulse Oximetry 95 Body Mass Index 17.9 Labs Results: 11/11/20 14:42 11/11/20 14:42 Meds/Allergies Meds Home Medications Acetaminophen (Acetaminophen 325 Mg Tablet) 650 mg PO Q6H PRN PRN Reason: Headache/Pain Mild Scale (1-3) Al Hydroxide/Mg Hydroxide (Magnesium Hydrox/Alum Hydrox 30 Ml Oral.Susp) 30 ml PO Q6H PRN PRN Reason: Heartburn/Nausea Docusate Sodium (Docusate Sodium 100 Mg Capsule) 100 mg PO BID PRN PRN Reason: Constipation Last Admin: 11/14/20 20:57 Dose: 100 mg Documented by: [place] Carbonate ([place] Carbonate Er 300 Mg Tablet.Er) 300 mg PO BEDTIME JILLIAN Last Admin: 11/14/20 20:57 Dose: 300 mg Documented by: Lorazepam (Lorazepam 0.5 Mg Tablet) 0.5 mg PO TID [facility] Last Admin: 11/15/20 14:48 Dose: 0.5 mg Documented by: Magnesium Hydroxide (Milk Of Magnesia 30 Ml Oral.Susp) 30 ml PO DAILY PRN PRN Reason: Constipation Mirtazapine (Mirtazapine 15 Mg Tablet) 45 mg PO BEDTIME [facility] Polyethylene Glycol (Polyethylene Glycol 3350 17 Gm Powd.Pack) 17 gm PO DAILY JILLIAN Last Admin: 11/15/20 08:51 Dose: 17 gm Documented by: Risperidone (Risperidone 0.25 Mg Tablet) 0.25 mg PO BEDTIME JILLIAN Last Admin: 11/14/20 20:57 Dose: 0.25 mg Documented by: Senna (Sennosides 8.6 Mg Tablet) 17.2 mg PO BEDTIME PRN PRN Reason: Constipation Last Admin: 11/14/20 20:57 Dose: 17.2 mg Documented by: Trazodone HCl (Trazodone Hcl 50 Mg Tablet) 50 mg PO BEDTIME PRN PRN Reason: Insomnia Trazodone HCl (Trazodone Hcl 50 Mg Tablet) 50 mg PO BEDTIME [id number] JILLIAN Allergies Allergies Allergy/AdvReac Type Severity Reaction Status Date / Time erythromycin base Allergy Hives Verified 11/14/20 23:32 Mental Status Exam Mental Status Exam Patient Appearance: Well Grooomed and Fatigued Patient Orientation: Person, Place, Time and Situation Level of Consciousness: Restless Behavior Comments: restless easily overwhelmed with questions Mood Description: Depressed and Fearful Affect Description: Anxious Ability to Follow Directions: Excellent Speech Pattern: Clear, Perseverating, Impoverished and Whisper Memory Description: Intact Hallucinations: None Delusions: Bizarre (Some overvalued ideas about guilt. This should be explored) Thought Process: Goal Oriented Depressive Symptoms: Increased Anxiety Abnormal Motor Activity Signs and Symptoms: Agitation Judgement: Fair Assessment & Plan Assessment & Plan (1) Major depressive disorder, severe: Status: Acute Code(s): F32.2 - Major depressive disorder, single episode, severe without psychotic features Assessment and Plan: Q 15 minutes checks condition on voluntary status. We will continue current medications. Switched to lorazepam as the dose needs to be optimized. Schedule lorazepam to 0.5 mg t.i.d. Increase mirtazapine to 45 mg. Risperidone was added in the ED at a small dose this could be optimized. Increase lithium. I deferred as patient was overwhelmed with changes. Referred to Occupational therapy for MOCA when patient is able and not overwhelmed. Defer imaging to primary team Coordinated care with Dr. Coy. Expected length of stay 2 weeks. Patient educated on: diagnosis Informed Consent: understands Reason for continued inpatient stay Substantial Risk for: inability to function and rapid decompensation
[2020-11-15] MEDS: LORazepam 0.5 MG TABLET PO ×3 (11:18→21:15)
[2020-11-15 15:12] VITALS: BP 128/75; PULSE 97; RESP 16; TEMP 36.9; O2SAT 97
[2020-11-15 17:56] VITALS: BP 144/79; PULSE 86; RESP 16; TEMP 36.6
[2020-11-15] MEDS: Docusate Sodium 100 MG CAPSULE PO (21:14)
[2020-11-15] MEDS: Milk of Magnesia 30 ML ORAL.SUSP PO (21:14)
[2020-11-15] MEDS: Mirtazapine 15 MG TABLET 45 MG PO (21:15)
[2020-11-15] MEDS: risperiDONE 0.25 MG TABLET PO (21:15)
[2020-11-15] MEDS: Lithium Carbonate ER 300 MG TABLET.ER PO (21:15)
[2020-11-15] MEDS: traZODone HCL 50 MG TABLET PO (21:15)
[2020-11-16 06:10] VITALS: BP 120/57; PULSE 72; RESP 16; TEMP 37.1; O2SAT 96
--- NOTE | 2020-11-16 08:03 | HO.PSYCHPN ---
Subjective Subjective Date of Service: 11/16/20 Reason For Visit: SI Subjective Notes: Conditional Voluntary Interim History: Patient had a good night sleep. Appears less anxious. States she is trying to understand the process of improvement. Appears more relaxed. I explained that [place] will need to be increased in the next few days. But no changes for today will defer to primary team. Medication Compliance: Yes Side effects from medications: No Attending Groups: Yes Review of Systems Review of Systems Yes all other systems are reviewed and are negative Constitutional: Reports lethargy, Reports poor appetite and Reports weight loss Psychiatric: Reports anxiety, Reports change in appetite, Reports depression, Reports difficulty concentrating, Reports hopelessness and Reports anhedonia Mental Status Exam Mental Status Exam Patient Appearance: Well Grooomed and Fatigued Patient Orientation: Person, Place, Time and Situation Level of Consciousness: Restless Patient Behavior: Appropriate, Passive, Anxious and Fearful Behavior Comments: restless easily overwhelmed with questions Mood Description: Depressed and Fearful Affect Description: Anxious Patient Cognition Impaired: No Ability to Follow Directions: Excellent Speech Pattern: Clear, Perseverating, Impoverished and Whisper Memory Description: Intact Diagnostics Vital Signs (24Hr): Vital Signs - 24 hr 11/15/20 15:12 11/15/20 17:56 11/16/20 06:10 Temperature 98.5 F 97.8 F 98.8 F Pulse Rate 97 86 72 Respiratory Rate 16 16 16 Blood Pressure 128/75 144/79 H 120/57 L Pulse Oximetry 97 96 Body Mass Index 17.9 Labs Results: 11/11/20 14:42 11/11/20 14:42 Medications Medications Current Medications Generic Name Dose Route Start Last Admin Trade Name Andreq PRN Reason Stop Dose Admin Acetaminophen 650 mg 11/14/20 15:12 Acetaminophen 325 Mg Tablet PO Q6H PRN Headache/Pain Mild Scale (1-3) Al Hydroxide/Mg Hydroxide 30 ml 11/14/20 15:12 Magnesium Hydrox/Alum Hydrox 30 Ml Oral.Susp PO Q6H PRN Heartburn/Nausea Docusate Sodium 100 mg 11/12/20 12:22 11/15/20 21:14 Docusate Sodium 100 Mg Capsule PO 100 mg BID PRN Administration Constipation [place] Carbonate 300 mg 11/11/20 21:00 11/15/20 21:15 [place] Carbonate Er 300 Mg Tablet.Er PO 300 mg BEDTIME JILLIAN Administration Lorazepam 0.5 mg 11/15/20 10:25 11/15/20 21:15 Lorazepam 0.5 Mg Tablet PO 0.5 mg TID JILLIAN Administration Magnesium Hydroxide 30 ml 11/14/20 15:12 11/15/20 21:14 Milk Of Magnesia 30 Ml Oral.Susp PO 30 ml DAILY PRN Administration Constipation Mirtazapine 45 mg 11/15/20 21:00 11/15/20 21:15 Mirtazapine 15 Mg Tablet PO 45 mg BEDTIME JILLIAN Administration Polyethylene Glycol 17 gm 11/12/20 09:00 11/15/20 08:51 Polyethylene Glycol 3350 17 Gm Powd.Pack PO 17 gm DAILY JILLIAN Administration Risperidone 0.25 mg 11/12/20 21:00 11/15/20 21:15 Risperidone 0.25 Mg Tablet PO 0.25 mg BEDTIME JILLIAN Administration Senna 17.2 mg 11/12/20 12:22 11/14/20 20:57 Sennosides 8.6 Mg Tablet PO 17.2 mg BEDTIME PRN Administration Constipation Trazodone HCl 50 mg 11/14/20 21:00 Trazodone Hcl 50 Mg Tablet PO BEDTIME PRN Insomnia Trazodone HCl 50 mg 11/15/20 21:00 11/16/20 07:11 Trazodone Hcl 50 Mg Tablet PO Not Given BEDTIME MRX1 JILLIAN Allergies Allergies Allergy/AdvReac Type Severity Reaction Status Date / Time erythromycin base Allergy Hives Verified 11/14/20 23:32 Assessment & Plan Assessment & Plan (1) Major depressive disorder, severe: Status: Acute Code(s): F32.2 - Major depressive disorder, single episode, severe without psychotic features Assessment and Plan: Q 15 minutes checks condition on voluntary status. We will continue current medications. Switched to lorazepam as the dose needs to be optimized. Schedule lorazepam to 0.5 mg t.i.d. Increase mirtazapine to 45 mg. Risperidone was added in the ED at a small dose this could be optimized. Increase lithium. I deferred as patient was overwhelmed with changes. Referred to Occupational therapy for MOCA when patient is able and not overwhelmed. Defer imaging to primary team Coordinate care with Dr. Burk. Expected length of stay 2 weeks. Greater than 50% of the session was spent on counseling and/or coordination of care Reason for contiued inpatient stay Substantial Risk for: inability to function
[2020-11-16] MEDS: polyethylene glycoL 3350 17 GM POWD.PACK PO (08:19)
[2020-11-16] MEDS: LORazepam 0.5 MG TABLET PO ×3 (08:19→21:07)
[2020-11-16 15:00] VITALS: BP 137/81; PULSE 89; RESP 16; TEMP 36.5; O2SAT 97
[2020-11-16 17:12] VITALS: BP 140/75; PULSE 75; RESP 16; TEMP 36.9
[2020-11-16] MEDS: Mirtazapine 15 MG TABLET 45 MG PO (21:07)
[2020-11-16] MEDS: Lithium Carbonate ER 300 MG TABLET.ER PO (21:07)
[2020-11-16] MEDS: risperiDONE 0.25 MG TABLET PO (21:07)
[2020-11-16] MEDS: traZODone HCL 50 MG TABLET PO (21:07)
[2020-11-16] MEDS: Sennosides 8.6 MG TABLET 17.2 MG PO (21:08)
[2020-11-16] MEDS: Docusate Sodium 100 MG CAPSULE PO (21:08)
[2020-11-17 05:55] VITALS: BP 127/93; PULSE 96; RESP 16; TEMP 37; O2SAT 97
[2020-11-17] MEDS: LORazepam 0.5 MG TABLET PO ×3 (07:14→21:05)
[2020-11-17] MEDS: polyethylene glycoL 3350 17 GM POWD.PACK PO (08:23)
[2020-11-17] MEDS: Docusate Sodium 100 MG CAPSULE PO ×2 (08:37→21:50)
[2020-11-17 18:00] VITALS: BP 145/75; PULSE 89; RESP 16; TEMP 36.8; O2SAT 97
--- NOTE | 2020-11-17 18:25 | HO.PSYCHPN ---
Subjective Subjective Date of Service: 11/17/20 Reason For Visit: SI Subjective Notes: Conditional Voluntary Interim History: Pt seen with clinician Karen. Pt endorses depressed mood, anhedonia. She presents as anxious and very ruminative. She reports decrease concentration as consequence of ruminative thoughts. She reports fair sleep. She endorses passive suicidal ideation but denies any plan or intent. Medication Compliance: Yes Side effects from medications: Yes (polydipsia, constipation) Attending Groups: Intermittent Review of Systems Constitutional: Reports fatigue Cardiovascular: Denies chest pain and Denies dyspnea Respiratory: Denies dyspnea Gastrointestinal: Reports constipation Genitourinary: Reports nocturia Endocrine: Reports fatigue, Reports polydipsia and Reports polyuria Mental Status Exam Mental Status Exam Narrative: Appearance: casually groomed, thin woman appears her stated age, anxious, fair hygiene in NAD Behavior: somewhat guarded but cooperative Psychomotor: some retardation noted Speech: clear, somewhat delayed response rate, regular rhythm, soft volume, spontaneous TP: repetition, mostly linear TC: no overt signs of psychosis, hopeless, very anxious Mood: depressed Affect: blunted VH/AH: none Delusions: none Insight/judgment: fair x 2. Memory/cog: alert, oriented x 3. pending MOCA as mood improves. Diagnostics Vital Signs (24Hr): Vital Signs - 24 hr 11/17/20 05:55 Temperature 98.6 F Pulse Rate 96 Respiratory Rate 16 Blood Pressure 127/93 H Pulse Oximetry 97 Body Mass Index 17.9 Labs Results: 11/11/20 14:42 11/11/20 14:42 Medications Medications Current Medications Generic Name Dose Route Start Last Admin Trade Name Freq PRN Reason Stop Dose Admin Acetaminophen 650 mg 11/14/20 15:12 Acetaminophen 325 Mg Tablet PO Q6H PRN Headache/Pain Mild Scale (1-3) Al Hydroxide/Mg Hydroxide 30 ml 11/14/20 15:12 Magnesium Hydrox/Alum Hydrox 30 Ml Oral.Susp PO Q6H PRN Heartburn/Nausea Docusate Sodium 100 mg 11/12/20 12:22 11/17/20 08:37 Docusate Sodium 100 Mg Capsule PO 100 mg BID PRN Administration Constipation [place] Carbonate 300 mg 11/11/20 21:00 11/16/20 21:07 [place] Carbonate Er 300 Mg Tablet.Er PO 300 mg BEDTIME JILLIAN Administration Lorazepam 0.5 mg 11/15/20 10:25 11/17/20 15:14 Lorazepam 0.5 Mg Tablet PO 0.5 mg TID JILLIAN Administration Magnesium Hydroxide 30 ml 11/14/20 15:12 11/15/20 21:14 Milk Of Magnesia 30 Ml Oral.Susp PO 30 ml DAILY PRN Administration Constipation Mirtazapine 30 mg 11/17/20 21:00 Mirtazapine 30 Mg Tablet PO BEDTIME JILLIAN Polyethylene Glycol 17 gm 11/12/20 09:00 11/17/20 08:23 Polyethylene Glycol 3350 17 Gm Powd.Pack PO 17 gm DAILY JILLIAN Administration Risperidone 0.25 mg 11/17/20 21:00 Risperidone 0.25 Mg Tablet PO BID JILLIAN Senna 17.2 mg 11/12/20 12:22 11/16/20 21:08 Sennosides 8.6 Mg Tablet PO 17.2 mg BEDTIME PRN Administration Constipation Trazodone HCl 50 mg 11/14/20 21:00 Trazodone Hcl 50 Mg Tablet PO BEDTIME PRN Insomnia Trazodone HCl 50 mg 11/15/20 21:00 11/17/20 05:17 Trazodone Hcl 50 Mg Tablet PO Not Given BEDTIME MRX1 JILLIAN Allergies Allergies Allergy/AdvReac Type Severity Reaction Status Date / Time erythromycin base Allergy Hives Verified 11/14/20 23:32 Assessment & Plan Assessment & Plan (1) Major depressive disorder, severe: Status: Acute Code(s): F32.2 - Major depressive disorder, single episode, severe without psychotic features Assessment and Plan: 1. We discussed lowering remeron due to constipation and considering switch to Effexor. 2. continue lithium- pt reports polydipsia/polyuria, will check levels. 3. increase risperidone to 0.25mg po BID for intrusive thoughts/ruminations Greater than 50% of the session was spent on counseling and/or coordination of care Reason for contiued inpatient stay Substantial Risk for: inability to function
[2020-11-17] MEDS: risperiDONE 0.25 MG TABLET PO (21:05)
[2020-11-17] MEDS: traZODone HCL 50 MG TABLET PO (21:05)
[2020-11-17] MEDS: Mirtazapine 30 MG TABLET PO (21:05)
[2020-11-17] MEDS: Lithium Carbonate ER 300 MG TABLET.ER PO (21:27)
[2020-11-17] MEDS: Sennosides 8.6 MG TABLET 17.2 MG PO (21:50)
[2020-11-18 06:10] VITALS: BP 149/69; PULSE 84; RESP 16; TEMP 36.5; O2SAT 97
[2020-11-18] MEDS: LORazepam 0.5 MG TABLET PO ×3 (08:07→20:46)
[2020-11-18] MEDS: polyethylene glycoL 3350 17 GM POWD.PACK PO (08:07)
[2020-11-18] MEDS: risperiDONE 0.25 MG TABLET PO (08:08)
[2020-11-18 08:29] LABS: Estimated Average Glucose 105 mg/dL; Hemoglobin A1c % 5.3 %
[2020-11-18 08:40] LABS: Cholesterol 179 mg/dL; HDL Cholesterol 73 mg/dL; LDL Cholesterol Calculated 95 mg/dl; Triglycerides 56 mg/dL
[2020-11-18 09:02] LABS: TSH reflex Free T4 1.92 uIU/mL (0.32-4.0)
--- NOTE | 2020-11-18 09:18 | P.PNPSI_ITS ---
Subjective Subjective Date of Service: 11/19/20 Reason For Visit: SI Interim History: Pt continues to endorsed depressed mood, anhedonia, low energy. She continues to ruminate about her strained relationships with her daughters and siblings. she reports feeling anxious. She reports passive suicidal ideation but denies any plan or intent. She has been visible in the unit and has attended some groups. She has difficulty making decisions including those related to treatment. Review of Systems Review of Systems Yes all other systems are reviewed and are negative Constitutional: Reports fatigue, Reports lethargy, Reports poor appetite and Reports weight loss Cardiovascular: Denies chest pain and Denies dyspnea Respiratory: Denies dyspnea Gastrointestinal: Reports constipation Psychiatric: Reports anxiety, Reports change in appetite, Reports depression, Reports difficulty concentrating, Reports hopelessness and Reports anhedonia Endocrine: Reports fatigue, Reports polydipsia and Reports polyuria Mental Status Exam Mental Status Exam Narrative: Appearance: casually groomed, thin woman appears her stated age, anxious, fair hygiene in NAD Behavior: somewhat guarded but cooperative Psychomotor: some retardation noted Speech: clear, somewhat delayed response rate, regular rhythm, soft volume, spontaneous TP: repetition, mostly linear TC: no overt signs of psychosis, hopeless, very anxious Mood: depressed Affect: blunted VH/AH: none Delusions: none Insight/judgment: fair x 2. Memory/cog: alert, oriented x 3. pending MOCA as mood improves. Diagnostics Vital Signs (24Hr): Vital Signs - 24 hr 11/18/20 20:23 11/19/20 06:15 11/19/20 20:13 Temperature 97.2 F 99.1 F 98.4 F Pulse Rate 88 79 66 Respiratory Rate 18 16 16 Blood Pressure 142/69 H 126/71 Pulse Oximetry 99 96 98 Body Mass Index 17.9 Labs Results: 11/11/20 14:42 11/19/20 07:50 Labs: Laboratory Results - last 48 hr 11/18/20 11/18/20 11/18/20 07:51 07:51 07:51 Sodium Potassium Chloride Carbon Dioxide Anion Gap BUN Creatinine Estim Creat Clear Calc Estimated GFR Fasting Glucose Estimat Average Glucose Hemoglobin A1c % Calcium Total Bilirubin AST ALT Alkaline Phosphatase Total Protein Albumin Triglycerides 56 Cholesterol 179 LDL Cholesterol, Calc 95 HDL Cholesterol 73 Vitamin B12 566 Folate 19.0 TSH 1.92 11/18/20 11/19/20 07:51 07:50 Sodium 134 L Potassium 4.6 Chloride 98 Carbon Dioxide 29 Anion Gap 12 BUN 15 Creatinine 0.73 Estim Creat Clear Calc 43.8 Estimated GFR > 60 Fasting Glucose 77 Estimat Average Glucose 105 Hemoglobin A1c % 5.3 Calcium 9.1 Total Bilirubin 0.7 AST 27 ALT 22 Alkaline Phosphatase 55 Total Protein 6.2 L Albumin 4.0 Triglycerides Cholesterol LDL Cholesterol, Calc HDL Cholesterol Vitamin B12 Folate TSH Medications Medications Current Medications Generic Name Dose Route Start Last Admin Trade Name Freq PRN Reason Stop Dose Admin Acetaminophen 650 mg 11/14/20 15:12 Acetaminophen 325 Mg Tablet PO Q6H PRN Headache/Pain Mild Scale (1-3) Al Hydroxide/Mg Hydroxide 30 ml 11/14/20 15:12 Magnesium Hydrox/Alum Hydrox 30 Ml Oral.Susp PO Q6H PRN Heartburn/Nausea Docusate Sodium 100 mg 11/12/20 12:22 11/18/20 20:47 Docusate Sodium 100 Mg Capsule PO 100 mg BID PRN Administration Constipation [place] Carbonate 150 mg 11/18/20 21:00 11/18/20 20:46 [place] Carbonate 300 Mg Tablet PO 150 mg BEDTIME JILLIAN Administration Lorazepam 1 mg 11/19/20 21:00 Lorazepam 1 Mg Tablet PO BEDTIME JILLIAN Lorazepam 0.5 mg 11/20/20 09:00 Lorazepam 0.5 Mg Tablet PO DAILY JILLIAN Magnesium Hydroxide 30 ml 11/14/20 15:12 11/15/20 21:14 Milk Of Magnesia 30 Ml Oral.Susp PO 30 ml DAILY PRN Administration Constipation Mirtazapine 15 mg 11/18/20 21:00 11/18/20 20:46 Mirtazapine 15 Mg Tablet PO 15 mg BEDTIME JILLIAN Administration Polyethylene Glycol 17 gm 11/12/20 09:00 11/19/20 09:01 Polyethylene Glycol 3350 17 Gm Powd.Pack PO 17 gm DAILY JILLIAN Administration Senna 17.2 mg 11/12/20 12:22 11/17/20 21:50 Sennosides 8.6 Mg Tablet PO 17.2 mg BEDTIME PRN Administration Constipation Venlafaxine HCl 37.5 mg 11/19/20 09:00 11/19/20 09:01 Venlafaxine Hcl Er 37.5 Mg Cap.Er.24h PO 37.5 mg DAILY JILLIAN Administration Allergies Allergies Allergy/AdvReac Type Severity Reaction Status Date / Time erythromycin base Allergy Hives Verified 11/14/20 23:32 Assessment & Plan Assessment & Plan (1) Major depressive disorder, severe: Status: Acute Code(s): F32.2 - Major depressive disorder, single episode, severe without psychotic features Assessment and Plan: 1. We discussed lowering remeron to 15 mg po qhs. Start Venlafaxine ER 37.5mg po daily. 2. will decrease lithium due to polydipsya/polyuria- will check renal function 3. d/c risperidone dizziness and sedation Greater than 50% of the session was spent on counseling and/or coordination of care Reason for contiued inpatient stay Substantial Risk for: harm to self and inability to function
[2020-11-18 09:19] LABS: Vitamin B12 566 pg/mL (200-900)
[2020-11-18 15:00] VITALS: BP 123/82; PULSE 82; O2SAT 98
[2020-11-18 20:23] VITALS: BP 142/69; PULSE 88; RESP 18; TEMP 36.2; O2SAT 99
[2020-11-18] MEDS: Lithium Carbonate 300 MG TABLET 150 MG PO (20:46)
[2020-11-18] MEDS: Mirtazapine 15 MG TABLET PO (20:46)
[2020-11-18] MEDS: Docusate Sodium 100 MG CAPSULE PO (20:47)
[2020-11-19 06:15] VITALS: PULSE 79; RESP 16; TEMP 37.3; O2SAT 96
[2020-11-19 08:33] LABS: Alanine Aminotransferase 22 U/L (0-31); Alkaline Phosphatase 55 U/L (39-117); Anion Gap 12 (12-20); Aspartate Amino Transferase 27 U/L (5-31); Bilirubin Total 0.7 mg/dL (0.0-1.0); Blood Urea Nitrogen 15 mg/dL (9-16); Calcium 9.1 mg/dL (8.4-10.2); Carbon Dioxide 29 mmol/L (22-29); Chloride 98 mmol/L (96-108); Creatinine Clr Calc Pharmacy 43.8; Estimated Glomerular Filt Rate > 60; Glucose Fasting 77 mg/dL (60-99); Potassium 4.6 mmol/L (3.3-5.1); Sodium 134 mmol/L (135-145); Total Protein 6.2 g/dL (6.5-8.0)
[2020-11-19] MEDS: LORazepam 0.5 MG TABLET PO ×2 (09:01→15:21)
[2020-11-19] MEDS: Venlafaxine HCl ER 37.5 MG CAP.ER.24H PO (09:01)
[2020-11-19] MEDS: polyethylene glycoL 3350 17 GM POWD.PACK PO (09:01)
[2020-11-19 20:13] VITALS: BP 126/71; PULSE 66; RESP 16; TEMP 36.9; O2SAT 98
--- NOTE | 2020-11-19 20:22 | HO.PSYCHPN ---
Subjective Subjective Date of Service: 11/19/20 Reason For Visit: SI Interim History: Pt continues to present with ruminations about the past, strained relationships with siblings and daughters. She ruminates about things she should have done differently. She reports poor sleep, frequent awakenings, feeling tired in the morning. She started Venlafaxine this morning. She continues to endorse passive suicidal thoughts but denies any plan or intent. She has been more visible in the unit, attends some groups. Will increase ativan qhs to 1mg po. Review of Systems Review of Systems Yes all other systems are reviewed and are negative Constitutional: Reports fatigue, Reports lethargy, Reports poor appetite and Reports weight loss Cardiovascular: Denies chest pain and Denies dyspnea Respiratory: Denies dyspnea Gastrointestinal: Reports constipation Psychiatric: Reports anxiety, Reports change in appetite, Reports depression, Reports difficulty concentrating, Reports hopelessness and Reports anhedonia Endocrine: Reports fatigue, Reports polydipsia and Reports polyuria Mental Status Exam Mental Status Exam Narrative: Appearance: casually groomed, thin woman appears her stated age, anxious, fair hygiene in NAD Behavior: somewhat guarded but cooperative Psychomotor: some retardation noted Speech: clear, somewhat delayed response rate, regular rhythm, soft volume, spontaneous TP: repetition, mostly linear TC: no overt signs of psychosis, hopeless, very anxious Mood: depressed Affect: blunted VH/AH: none Delusions: none Insight/judgment: fair x 2. Memory/cog: alert, oriented x 3. pending MOCA as mood improves. Patient Appearance: Well Grooomed and Fatigued Patient Orientation: Person, Place, Time and Situation Level of Consciousness: Restless Patient Behavior: Appropriate, Passive, Anxious and Fearful Behavior Comments: restless easily overwhelmed with questions Mood Description: Depressed and Fearful Affect Description: Anxious Patient Cognition Impaired: No Ability to Follow Directions: Excellent Speech Pattern: Clear, Perseverating, Impoverished and Whisper Memory Description: Intact Diagnostics Vital Signs (24Hr): Vital Signs - 24 hr 11/18/20 20:23 11/19/20 06:15 11/19/20 20:13 Temperature 97.2 F 99.1 F 98.4 F Pulse Rate 88 79 66 Respiratory Rate 18 16 16 Blood Pressure 142/69 H 126/71 Pulse Oximetry 99 96 98 Body Mass Index 17.9 Labs Results: 11/11/20 14:42 11/19/20 07:50 Labs: Laboratory Results - last 48 hr 11/18/20 11/18/20 11/18/20 07:51 07:51 07:51 Sodium Potassium Chloride Carbon Dioxide Anion Gap BUN Creatinine Estim Creat Clear Calc Estimated GFR Fasting Glucose Estimat Average Glucose Hemoglobin A1c % Calcium Total Bilirubin AST ALT Alkaline Phosphatase Total Protein Albumin Triglycerides 56 Cholesterol 179 LDL Cholesterol, Calc 95 HDL Cholesterol 73 Vitamin B12 566 Folate 19.0 TSH 1.92 11/18/20 11/19/20 07:51 07:50 Sodium 134 L Potassium 4.6 Chloride 98 Carbon Dioxide 29 Anion Gap 12 BUN 15 Creatinine 0.73 Estim Creat Clear Calc 43.8 Estimated GFR > 60 Fasting Glucose 77 Estimat Average Glucose 105 Hemoglobin A1c % 5.3 Calcium 9.1 Total Bilirubin 0.7 AST 27 ALT 22 Alkaline Phosphatase 55 Total Protein 6.2 L Albumin 4.0 Triglycerides Cholesterol LDL Cholesterol, Calc HDL Cholesterol Vitamin B12 Folate TSH Medications Medications Current Medications Generic Name Dose Route Start Last Admin Trade Name Freq PRN Reason Stop Dose Admin Acetaminophen 650 mg 11/14/20 15:12 Acetaminophen 325 Mg Tablet PO Q6H PRN Headache/Pain Mild Scale (1-3) Al Hydroxide/Mg Hydroxide 30 ml 11/14/20 15:12 Magnesium Hydrox/Alum Hydrox 30 Ml Oral.Susp PO Q6H PRN Heartburn/Nausea Docusate Sodium 100 mg 11/12/20 12:22 11/18/20 20:47 Docusate Sodium 100 Mg Capsule PO 100 mg BID PRN Administration Constipation [place] Carbonate 150 mg 11/18/20 21:00 11/18/20 20:46 [place] Carbonate 300 Mg Tablet PO 150 mg BEDTIME JILLIAN Administration Lorazepam 1 mg 11/19/20 21:00 Lorazepam 1 Mg Tablet PO BEDTIME JILLIAN Lorazepam 0.5 mg 11/20/20 09:00 Lorazepam 0.5 Mg Tablet PO DAILY JILLIAN Magnesium Hydroxide 30 ml 11/14/20 15:12 11/15/20 21:14 Milk Of Magnesia 30 Ml Oral.Susp PO 30 ml DAILY PRN Administration Constipation Mirtazapine 15 mg 11/18/20 21:00 11/18/20 20:46 Mirtazapine 15 Mg Tablet PO 15 mg BEDTIME JILLIAN Administration Polyethylene Glycol 17 gm 11/12/20 09:00 11/19/20 09:01 Polyethylene Glycol 3350 17 Gm Powd.Pack PO 17 gm DAILY JILLIAN Administration Senna 17.2 mg 11/12/20 12:22 11/17/20 21:50 Sennosides 8.6 Mg Tablet PO 17.2 mg BEDTIME PRN Administration Constipation Venlafaxine HCl 37.5 mg 11/19/20 09:00 11/19/20 09:01 Venlafaxine Hcl Er 37.5 Mg Cap.Er.24h PO 37.5 mg DAILY JILLIAN Administration Allergies Allergies Allergy/AdvReac Type Severity Reaction Status Date / Time erythromycin base Allergy Hives Verified 11/14/20 23:32 Assessment & Plan Assessment & Plan (1) Major depressive disorder, severe: Status: Acute Code(s): F32.2 - Major depressive disorder, single episode, severe without psychotic features Assessment and Plan: 1. We discussed lowering remeron to 15 mg po qhs. Start Venlafaxine ER 37.5mg po daily. 2. will decrease lithium due to polydipsya/polyuria- will check renal function 3. d/c risperidone dizziness and sedation Greater than 50% of the session was spent on counseling and/or coordination of care Reason for contiued inpatient stay Substantial Risk for: harm to self
[2020-11-19] MEDS: LORazepam 1 MG TABLET PO (21:24)
[2020-11-19] MEDS: Lithium Carbonate 300 MG TABLET 150 MG PO (21:24)
[2020-11-19] MEDS: Mirtazapine 15 MG TABLET PO (21:24)
[2020-11-19] MEDS: Sennosides 8.6 MG TABLET 17.2 MG PO (21:25)
[2020-11-19] MEDS: Docusate Sodium 100 MG CAPSULE PO (21:25)
[2020-11-20 06:10] VITALS: BP 132/68; PULSE 80; RESP 16; TEMP 37.3; O2SAT 96
[2020-11-20] MEDS: Venlafaxine HCl ER 37.5 MG CAP.ER.24H PO (08:39)
[2020-11-20] MEDS: LORazepam 0.5 MG TABLET PO (08:39)
[2020-11-20] MEDS: polyethylene glycoL 3350 17 GM POWD.PACK PO (08:39)
[2020-11-20 15:00] VITALS: BP 144/80; PULSE 75; TEMP 36.8
[2020-11-20 18:00] VITALS: BP 174/81; PULSE 78; TEMP 36.8
--- NOTE | 2020-11-20 18:00 | HO.PSYCHPN ---
Subjective Subjective Date of Service: 11/22/20 Reason For Visit: SI Interim History: Pt continues to present with ruminations about the past, strained relationships with siblings and daughters. She ruminates about things she should have done differently. She reports poor sleep, frequent awakenings, feeling tired in the morning. She started Venlafaxine this morning. She continues to endorse passive suicidal thoughts but denies any plan or intent. She has been more visible in the unit, attends some groups. Will increase ativan qhs to 1mg po. Her affect appears more blunted today. Review of Systems Review of Systems Yes all other systems are reviewed and are negative Constitutional: Reports fatigue, Reports lethargy, Reports poor appetite and Reports weight loss Cardiovascular: Denies chest pain and Denies dyspnea Respiratory: Denies dyspnea Gastrointestinal: Reports constipation Psychiatric: Reports anxiety, Reports change in appetite, Reports depression, Reports difficulty concentrating, Reports hopelessness and Reports anhedonia Endocrine: Reports fatigue, Reports polydipsia and Reports polyuria Mental Status Exam Mental Status Exam Patient Appearance: Well Grooomed and Fatigued Diagnostics Vital Signs (24Hr): Vital Signs - 24 hr 11/19/20 20:13 11/20/20 06:10 11/20/20 15:00 Temperature 98.4 F 99.2 F 98.2 F Pulse Rate 66 80 75 Respiratory Rate 16 16 Blood Pressure 126/71 132/68 144/80 H Pulse Oximetry 98 96 Body Mass Index 17.9 Labs Results: 11/11/20 14:42 11/19/20 07:50 Labs: Laboratory Results - last 48 hr 11/19/20 07:50 Sodium 134 L Potassium 4.6 Chloride 98 Carbon Dioxide 29 Anion Gap 12 BUN 15 Creatinine 0.73 Estim Creat Clear Calc 43.8 Estimated GFR > 60 Fasting Glucose 77 Calcium 9.1 Total Bilirubin 0.7 AST 27 ALT 22 Alkaline Phosphatase 55 Total Protein 6.2 L Albumin 4.0 Medications Medications Current Medications Generic Name Dose Route Start Last Admin Trade Name Freq PRN Reason Stop Dose Admin Acetaminophen 650 mg 11/14/20 15:12 Acetaminophen 325 Mg Tablet PO Q6H PRN Headache/Pain Mild Scale (1-3) Al Hydroxide/Mg Hydroxide 30 ml 11/14/20 15:12 Magnesium Hydrox/Alum Hydrox 30 Ml Oral.Susp PO Q6H PRN Heartburn/Nausea Docusate Sodium 100 mg 11/12/20 12:22 11/19/20 21:25 Docusate Sodium 100 Mg Capsule PO 100 mg BID PRN Administration Constipation [place] Carbonate 150 mg 11/18/20 21:00 11/19/20 21:24 [place] Carbonate 300 Mg Tablet PO 150 mg BEDTIME JILLIAN Administration Lorazepam 1 mg 11/19/20 21:00 11/19/20 21:24 Lorazepam 1 Mg Tablet PO 1 mg BEDTIME JILLIAN Administration Lorazepam 0.5 mg 11/20/20 09:00 11/20/20 08:39 Lorazepam 0.5 Mg Tablet PO 0.5 mg DAILY JILLIAN Administration Magnesium Hydroxide 30 ml 11/14/20 15:12 11/15/20 21:14 Milk Of Magnesia 30 Ml Oral.Susp PO 30 ml DAILY PRN Administration Constipation Mirtazapine 15 mg 11/18/20 21:00 11/19/20 21:24 Mirtazapine 15 Mg Tablet PO 15 mg BEDTIME JILLIAN Administration Polyethylene Glycol 17 gm 11/12/20 09:00 11/20/20 08:39 Polyethylene Glycol 3350 17 Gm Powd.Pack PO 17 gm DAILY JILLIAN Administration Senna 17.2 mg 11/12/20 12:22 11/19/20 21:25 Sennosides 8.6 Mg Tablet PO 17.2 mg BEDTIME PRN Administration Constipation Venlafaxine HCl 75 mg 11/21/20 09:00 Venlafaxine Hcl Er 37.5 Mg Cap.Er.24h PO DAILY JILLIAN Allergies Allergies Allergy/AdvReac Type Severity Reaction Status Date / Time erythromycin base Allergy Hives Verified 11/14/20 23:32 Assessment & Plan Assessment & Plan (1) Major depressive disorder, severe: Status: Acute Code(s): F32.2 - Major depressive disorder, single episode, severe without psychotic features Assessment and Plan: 1. We discussed lowering remeron to 15 mg po qhs. Start Venlafaxine ER 37.5mg po daily. 2. will decrease lithium due to polydipsya/polyuria- will check renal function 3. d/c risperidone dizziness and sedation Greater than 50% of the session was spent on counseling and/or coordination of care Reason for contiued inpatient stay Substantial Risk for: inability to function
[2020-11-20] MEDS: Mirtazapine 15 MG TABLET PO (20:18)
[2020-11-20] MEDS: Lithium Carbonate 300 MG TABLET 150 MG PO (20:18)
[2020-11-20] MEDS: LORazepam 1 MG TABLET PO (20:18)
--- NOTE | 2020-11-20 21:15 | PC.NURSE ---
called and feels zoltan is more agitated, not as focused, and having trouble focusing on reading. feels is not doing well. would like prescriber to call him in am.
[2020-11-21 06:00] VITALS: BP 128/63; PULSE 83; RESP 16; TEMP 36.9; O2SAT 96
[2020-11-21] MEDS: LORazepam 0.5 MG TABLET PO (08:17)
[2020-11-21] MEDS: polyethylene glycoL 3350 17 GM POWD.PACK PO (08:17)
[2020-11-21] MEDS: Venlafaxine HCl ER 75 MG CAP.ER.24H PO (08:17)
--- NOTE | 2020-11-21 09:58 | P.PNPSI_ITS ---
Subjective Subjective Date of Service: 11/22/20 Reason For Visit: SI Subjective Notes: Conditional Voluntary Interim History: Pt continues to endorse depressed mood, anhedonia. She is very somatically preoccupied, reports ruminations about not being able to function as she was. She endorses poor energy, anxious mood. She reports passive suicidal ideation but denies plan or intent. Medication Compliance: Yes Side effects from medications: No Attending Groups: Yes Review of Systems Review of Systems Yes all other systems are reviewed and are negative Constitutional: Reports fatigue, Reports lethargy, Reports poor appetite and Reports weight loss Cardiovascular: Denies chest pain and Denies dyspnea Respiratory: Denies dyspnea Gastrointestinal: Reports constipation Psychiatric: Reports anxiety, Reports change in appetite, Reports depression, Reports difficulty concentrating, Reports hopelessness and Reports anhedonia Endocrine: Reports fatigue, Reports polydipsia and Reports polyuria Mental Status Exam Mental Status Exam Narrative: Appearance: casually groomed, thin woman appears her stated age, anxious, fair hygiene in NAD Behavior: somewhat guarded but cooperative Psychomotor: some retardation noted Speech: clear, somewhat delayed response rate, regular rhythm, soft volume, spontaneous TP: repetition, mostly linear TC: no overt signs of psychosis, hopeless, very anxious Mood: depressed Affect: blunted VH/AH: none Delusions: none Insight/judgment: fair x 2. Memory/cog: alert, oriented x 3. pending MOCA as mood improves. Diagnostics Vital Signs (24Hr): Vital Signs - 24 hr 11/21/20 13:43 11/21/20 18:00 11/22/20 06:00 Temperature 97.9 F 98 F 98.4 F Pulse Rate 96 64 76 Respiratory Rate 16 Blood Pressure 142/77 H 145/67 H 121/59 L Pulse Oximetry 96 Body Mass Index 17.9 Labs Results: 11/11/20 14:42 11/19/20 07:50 Medications Medications Current Medications Generic Name Dose Route Start Last Admin Trade Name Freq PRN Reason Stop Dose Admin Acetaminophen 650 mg 11/14/20 15:12 Acetaminophen 325 Mg Tablet PO Q6H PRN Headache/Pain Mild Scale (1-3) Al Hydroxide/Mg Hydroxide 30 ml 11/14/20 15:12 Magnesium Hydrox/Alum Hydrox 30 Ml Oral.Susp PO Q6H PRN Heartburn/Nausea Lactulose 20 gm 11/21/20 11:40 11/22/20 09:40 Lactulose 20 Gm/30 Ml Solution PO Not Given BID JILLIAN [place] Carbonate 300 mg 11/21/20 21:00 11/21/20 20:42 [place] Carbonate 300 Mg Tablet PO 300 mg BEDTIME JILLIAN Administration Lorazepam 1 mg 11/19/20 21:00 11/21/20 20:41 Lorazepam 1 Mg Tablet PO 1 mg BEDTIME JILLIAN Administration Lorazepam 0.5 mg 11/20/20 09:00 11/22/20 08:17 Lorazepam 0.5 Mg Tablet PO 0.5 mg DAILY JILLIAN Administration Magnesium Hydroxide 30 ml 11/14/20 15:12 11/15/20 21:14 Milk Of Magnesia 30 Ml Oral.Susp PO 30 ml DAILY PRN Administration Constipation Mirtazapine 15 mg 11/18/20 21:00 11/21/20 20:42 Mirtazapine 15 Mg Tablet PO 15 mg BEDTIME JILLIAN Administration Polyethylene Glycol 17 gm 11/12/20 09:00 11/22/20 08:17 Polyethylene Glycol 3350 17 Gm Powd.Pack PO 17 gm DAILY JILLIAN Administration Senna 17.2 mg 11/12/20 12:22 11/19/20 21:25 Sennosides 8.6 Mg Tablet PO 17.2 mg BEDTIME PRN Administration Constipation Venlafaxine HCl 75 mg 11/21/20 09:00 11/22/20 08:17 Venlafaxine Hcl Er 75 Mg Cap.Er.24h PO 75 mg DAILY JILLIAN Administration Allergies Allergies Allergy/AdvReac Type Severity Reaction Status Date / Time erythromycin base Allergy Hives Verified 11/14/20 23:32 Assessment & Plan Assessment & Plan (1) Major depressive disorder, severe: Status: Acute Code(s): F32.2 - Major depressive disorder, single episode, severe without psychotic features Assessment and Plan: 1. Continue Venlafaxine 75mg po daily 2. increase lithium to 300mg po qhs 3. continue ativan 0.5mg po in AM and at 2pm, 1mg po qhs 4. consider adding abilify. Greater than 50% of the session was spent on counseling and/or coordination of care Reason for contiued inpatient stay Substantial Risk for: inability to function
[2020-11-21] MEDS: Lactulose 20 GM/30 ML SOLUTION PO ×2 (13:13→20:42)
[2020-11-21 13:43] VITALS: BP 142/77; PULSE 96; TEMP 36.6
[2020-11-21 18:00] VITALS: BP 145/67; PULSE 64; TEMP 36.6
[2020-11-21] MEDS: LORazepam 1 MG TABLET PO (20:41)
[2020-11-21] MEDS: Mirtazapine 15 MG TABLET PO (20:42)
[2020-11-21] MEDS: Lithium Carbonate 300 MG TABLET PO (20:42)
[2020-11-22 06:00] VITALS: BP 121/59; PULSE 76; RESP 16; TEMP 36.9; O2SAT 96
[2020-11-22] MEDS: LORazepam 0.5 MG TABLET PO (08:17)
[2020-11-22] MEDS: polyethylene glycoL 3350 17 GM POWD.PACK PO (08:17)
[2020-11-22] MEDS: Venlafaxine HCl ER 75 MG CAP.ER.24H PO (08:17)
--- NOTE | 2020-11-22 10:03 | HO.PSYCHPN ---
Subjective Subjective Date of Service: 11/22/20 Reason For Visit: SI Interim History: Pt slightly with brighter affect but continues to endorse depressed mood, anhedonia. She is very somatically preoccupied, reports ruminations about not being able to function as she was. She reports feeling frustated by the fact that she couldn't complete coping skill sheet in group today- ruminates about this most of our meeting. She endorses poor energy, anxious mood. She reports passive suicidal ideation but denies plan or intent. She does report improved sleep last night. Review of Systems Review of Systems Yes all other systems are reviewed and are negative Constitutional: Reports fatigue, Reports lethargy, Reports poor appetite and Reports weight loss Cardiovascular: Denies chest pain and Denies dyspnea Respiratory: Denies dyspnea Gastrointestinal: Reports constipation Psychiatric: Reports anxiety, Reports change in appetite, Reports depression, Reports difficulty concentrating, Reports hopelessness and Reports anhedonia Endocrine: Reports fatigue, Reports polydipsia and Reports polyuria Mental Status Exam Mental Status Exam Narrative: Appearance: casually groomed, thin woman appears her stated age, anxious, fair hygiene in NAD Behavior: somewhat guarded but cooperative Psychomotor: some retardation noted Speech: clear, somewhat delayed response rate, regular rhythm, soft volume, spontaneous TP: repetition, mostly linear TC: no overt signs of psychosis, hopeless, very anxious Mood: depressed Affect: blunted VH/AH: none Delusions: none Insight/judgment: fair x 2. Memory/cog: alert, oriented x 3. pending MOCA as mood improves. Patient Appearance: Well Grooomed and Fatigued Patient Orientation: Person, Place, Time and Situation Level of Consciousness: Restless Patient Behavior: Appropriate, Passive, Anxious and Fearful Mood Description: Depressed and Fearful Affect Description: Anxious Patient Cognition Impaired: No Ability to Follow Directions: Excellent Speech Pattern: Clear, Perseverating, Impoverished and Whisper Memory Description: Intact Diagnostics Vital Signs (24Hr): Vital Signs - 24 hr 11/21/20 13:43 11/21/20 18:00 11/22/20 06:00 Temperature 97.9 F 98 F 98.4 F Pulse Rate 96 64 76 Respiratory Rate 16 Blood Pressure 142/77 H 145/67 H 121/59 L Pulse Oximetry 96 Body Mass Index 17.9 Labs Results: 11/11/20 14:42 11/19/20 07:50 Medications Medications Current Medications Generic Name Dose Route Start Last Admin Trade Name Freq PRN Reason Stop Dose Admin Acetaminophen 650 mg 11/14/20 15:12 Acetaminophen 325 Mg Tablet PO Q6H PRN Headache/Pain Mild Scale (1-3) Al Hydroxide/Mg Hydroxide 30 ml 11/14/20 15:12 Magnesium Hydrox/Alum Hydrox 30 Ml Oral.Susp PO Q6H PRN Heartburn/Nausea Lactulose 20 gm 11/21/20 11:40 11/22/20 09:40 Lactulose 20 Gm/30 Ml Solution PO Not Given BID JILLIAN [place] Carbonate 300 mg 11/21/20 21:00 11/21/20 20:42 [place] Carbonate 300 Mg Tablet PO 300 mg BEDTIME JILLIAN Administration Lorazepam 1 mg 11/19/20 21:00 11/21/20 20:41 Lorazepam 1 Mg Tablet PO 1 mg BEDTIME JILLIAN Administration Lorazepam 0.5 mg 11/20/20 09:00 11/22/20 08:17 Lorazepam 0.5 Mg Tablet PO 0.5 mg DAILY JILLIAN Administration Magnesium Hydroxide 30 ml 11/14/20 15:12 11/15/20 21:14 Milk Of Magnesia 30 Ml Oral.Susp PO 30 ml DAILY PRN Administration Constipation Mirtazapine 15 mg 11/18/20 21:00 11/21/20 20:42 Mirtazapine 15 Mg Tablet PO 15 mg BEDTIME JILLIAN Administration Polyethylene Glycol 17 gm 11/12/20 09:00 11/22/20 08:17 Polyethylene Glycol 3350 17 Gm Powd.Pack PO 17 gm DAILY JILLIAN Administration Senna 17.2 mg 11/12/20 12:22 11/19/20 21:25 Sennosides 8.6 Mg Tablet PO 17.2 mg BEDTIME PRN Administration Constipation Venlafaxine HCl 75 mg 11/21/20 09:00 11/22/20 08:17 Venlafaxine Hcl Er 75 Mg Cap.Er.24h PO 75 mg DAILY JILLIAN Administration Allergies Allergies Allergy/AdvReac Type Severity Reaction Status Date / Time erythromycin base Allergy Hives Verified 11/14/20 23:32 Assessment & Plan Assessment & Plan (1) Major depressive disorder, severe: Status: Acute Code(s): F32.2 - Major depressive disorder, single episode, severe without psychotic features Assessment and Plan: 1. Continue Venlafaxine 75mg po daily 2. increase lithium to 300mg po qhs 3. continue ativan 0.5mg po in AM and at 2pm, 1mg po qhs 4. consider adding abilify. Greater than 50% of the session was spent on counseling and/or coordination of care Reason for contiued inpatient stay Substantial Risk for: harm to self and inability to function
--- NOTE | 2020-11-22 14:07 | PC.NURSE ---
PTS IN TO VISIT. WHEN ASKED TO HAVE THE BAG HE BROUGHT IN FOR HER SO WE COULD INVENTORY THE ITEMS AND THAT WE WOULD GIVE HER THE ITEMS SHORTLY. HE INITIALLY WOULD NOT HAND OVER THE BAG AND TRIED TO WALK AWAY FROM [facility]. I TOLD HIM THAT WE HAD TO GO THROUGH THE BAG AND THAT HE WAS NOT ALLOWED TO HAND OVER THE ITEMS WITHOUT US DOING SO.HE BECAME QUITE AGITATED STATING I WAS THE ONLY ONE SINCE HE HAS VISITTED THAT HAS ASKED TO DO SO. TRIED TO EXPLAIN TO HIM THAT WE JUST NEEDED TO MAKE SURE THERE WERENT ANY ITEMS IN THERE THAT WAS NOT ALLOWED AND STATED THERE WASNT ANYTHING THAT WASNT ALLOWED. SO I TOLD HIM WE COULD INVENTORY IT TOGETHER AND A PAIR OF PJ BOTTOMS FOUND WITH LONG TIE STRING AND A CUP OF PILLS (5 PILLS). I TOLD HIM THESE ITEMS WERE NOT ALLOWED. HE SAID THE PILLS WERE ONLY VITAMINS THAT WE ARE NOT GIVING HER HERE. HE STATED THIS HE WAS MORE AGITATED. HE STATED NEXT TIME HE COMES HE WILL JUST KEEP THEM IN HIS POCKET AND GIVE THEM TO HER THEN. I LET HIM KNOW WE COULD NOT ALLOW THAT AND WHEN HE COMES BACK TO VISIT WE WOULD HAVE TO SUPERVISE THE VISITS. I ASKED HIM IF HE PLANNED ON VISITING TOMORROW HE PROBABLY WE WOULD HAVE TO PLAN AHEAD FOR STAFF, HE SAID IT DEPENDS IF I WAS WORKING THEN PROBABLY NOT. ATTEMPTED TO EXPLAIN TO HIM I WAS NOT TRYING TO GIVE HIM A HARD TIME JUST WORRIED ABOUT THE SAFETY OF THE PT AND UNIT. HE ESCALATED AND WALKED AWAY FROM ME. 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
[2020-11-22 16:30] VITALS: BP 131/67; PULSE 69; TEMP 36.8
[2020-11-22] MEDS: LORazepam 1 MG TABLET PO (20:56)
[2020-11-22] MEDS: Mirtazapine 15 MG TABLET PO (20:56)
[2020-11-22] MEDS: Lithium Carbonate 300 MG TABLET PO (20:57)
[2020-11-23 06:10] VITALS: BP 132/67; PULSE 80; RESP 16; TEMP 37.3; O2SAT 95
[2020-11-23] MEDS: Venlafaxine HCl ER 75 MG CAP.ER.24H PO (08:53)
[2020-11-23] MEDS: LORazepam 0.5 MG TABLET PO ×2 (08:53→15:14)
--- NOTE | 2020-11-23 10:39 | HO.PSYCHPN ---
Subjective Subjective Date of Service: 11/23/20 Reason For Visit: SI Interim History: Pt slightly with brighter affect but continues to endorse depressed mood, anhedonia. She is very somatically preoccupied, reports ruminations about not being able to function as she was. She reports feeling frustated by the fact that she couldn't complete coping skill sheet in group today- ruminates about this most of our meeting. She endorses poor energy, anxious mood. She reports passive suicidal ideation but denies plan or intent. She does report improved sleep last night. Review of Systems Review of Systems Yes all other systems are reviewed and are negative Constitutional: Reports fatigue, Reports lethargy, Reports poor appetite and Reports weight loss Cardiovascular: Denies chest pain and Denies dyspnea Respiratory: Denies dyspnea Gastrointestinal: Reports constipation Psychiatric: Reports anxiety, Reports change in appetite, Reports depression, Reports difficulty concentrating, Reports hopelessness and Reports anhedonia Endocrine: Reports fatigue, Reports polydipsia and Reports polyuria Mental Status Exam Mental Status Exam Narrative: Appearance: casually groomed, thin woman appears her stated age, anxious, fair hygiene in NAD Behavior: somewhat guarded but cooperative Psychomotor: some retardation noted Speech: clear, somewhat delayed response rate, regular rhythm, soft volume, spontaneous TP: repetition, mostly linear TC: no overt signs of psychosis, hopeless, very anxious Mood: depressed Affect: blunted VH/AH: none Delusions: none Insight/judgment: fair x 2. Memory/cog: alert, oriented x 3. pending MOCA as mood improves. Diagnostics Vital Signs (24Hr): Vital Signs - 24 hr 11/22/20 16:30 11/23/20 06:10 Temperature 98.2 F 99.2 F Pulse Rate 69 80 Respiratory Rate 16 Blood Pressure 131/67 132/67 Pulse Oximetry 95 Body Mass Index 17.9 Labs Results: 11/11/20 14:42 11/19/20 07:50 Medications Medications Current Medications Generic Name Dose Route Start Last Admin Trade Name Freq PRN Reason Stop Dose Admin Acetaminophen 650 mg 11/14/20 15:12 Acetaminophen 325 Mg Tablet PO Q6H PRN Headache/Pain Mild Scale (1-3) Al Hydroxide/Mg Hydroxide 30 ml 11/14/20 15:12 Magnesium Hydrox/Alum Hydrox 30 Ml Oral.Susp PO Q6H PRN Heartburn/Nausea Aripiprazole 2 mg 11/23/20 10:40 Aripiprazole 2 Mg Tablet PO DAILY JILLIAN [place] Carbonate 300 mg 11/21/20 21:00 11/22/20 20:57 [place] Carbonate 300 Mg Tablet PO 300 mg BEDTIME JILLIAN Administration Lorazepam 1 mg 11/19/20 21:00 11/22/20 20:56 Lorazepam 1 Mg Tablet PO 1 mg BEDTIME JILLIAN Administration Lorazepam 0.5 mg 11/20/20 09:00 11/23/20 08:53 Lorazepam 0.5 Mg Tablet PO 0.5 mg DAILY JILLIAN Administration Magnesium Hydroxide 30 ml 11/14/20 15:12 11/15/20 21:14 Milk Of Magnesia 30 Ml Oral.Susp PO 30 ml DAILY PRN Administration Constipation Mirtazapine 15 mg 11/18/20 21:00 11/22/20 20:56 Mirtazapine 15 Mg Tablet PO 15 mg BEDTIME JILLIAN Administration Senna 17.2 mg 11/12/20 12:22 11/19/20 21:25 Sennosides 8.6 Mg Tablet PO 17.2 mg BEDTIME PRN Administration Constipation Venlafaxine HCl 75 mg 11/21/20 09:00 11/23/20 08:53 Venlafaxine Hcl Er 75 Mg Cap.Er.24h PO 75 mg DAILY JILLIAN Administration Allergies Allergies Allergy/AdvReac Type Severity Reaction Status Date / Time erythromycin base Allergy Hives Verified 11/14/20 23:32 Assessment & Plan Assessment & Plan (1) Major depressive disorder, severe: Status: Acute Code(s): F32.2 - Major depressive disorder, single episode, severe without psychotic features Assessment and Plan: 1. Continue Venlafaxine 75mg po daily 2. increase lithium to 300mg po qhs 3. continue ativan 0.5mg po in AM and at 2pm, 1mg po qhs 4. Start abilify 2 mg po daily. Greater than 50% of the session was spent on counseling and/or coordination of care Reason for contiued inpatient stay Substantial Risk for: inability to function
[2020-11-23] MEDS: ARIPiprazole 2 MG TABLET PO (11:11)
[2020-11-23] MEDS: Cholecalciferol (Vitamin D3) 10 MCG TABLET PO (12:16)
[2020-11-23 15:00] VITALS: BP 157/76; PULSE 69; TEMP 37
[2020-11-23 18:00] VITALS: BP 148/80; PULSE 78; TEMP 37.1
[2020-11-23] MEDS: Lithium Carbonate 300 MG TABLET PO (21:31)
[2020-11-23] MEDS: Mirtazapine 15 MG TABLET PO (21:31)
[2020-11-23] MEDS: LORazepam 1 MG TABLET PO (21:31)
[2020-11-24 05:55] VITALS: BP 118/68; PULSE 75; RESP 16; TEMP 36.9; O2SAT 99
[2020-11-24] MEDS: LORazepam 0.5 MG TABLET PO (08:27)
[2020-11-24] MEDS: Cholecalciferol (Vitamin D3) 10 MCG TABLET PO (08:28)
[2020-11-24] MEDS: Venlafaxine HCl ER 75 MG CAP.ER.24H PO (08:28)
[2020-11-24] MEDS: ARIPiprazole 2 MG TABLET PO (08:28)
--- NOTE | 2020-11-24 16:07 | HO.PSYCHPN ---
Subjective Subjective Date of Service: 11/24/20 Reason For Visit: SI Interim History: Pt presents with much brighter affect. She is not as somatically preoccupied, she is increasingly future oriented and not feeling as overwhelmed about relationship with daughters. She reports she slept well. She has been visible in the unit. She reports less ruminations. She smiled several times during our interview, which is a significant improvement. She denies SI/HI. Review of Systems Review of Systems Yes all other systems are reviewed and are negative Constitutional: Reports fatigue, Reports lethargy, Reports poor appetite and Reports weight loss Cardiovascular: Denies chest pain and Denies dyspnea Respiratory: Denies dyspnea Gastrointestinal: Reports constipation Psychiatric: Reports anxiety, Reports change in appetite, Reports depression, Reports difficulty concentrating, Reports hopelessness and Reports anhedonia Endocrine: Reports fatigue, Reports polydipsia and Reports polyuria Mental Status Exam Mental Status Exam Narrative: Appearance: casually groomed, thin woman appears her stated age, anxious, good hygiene in NAD Behavior: calmer, cooperative Psychomotor: no retardation or agitation noted Speech: clear, regular rate, regular rhythm, soft volume, spontaneous TP: repetition, mostly linear TC: no signs of psychosis, much less somatically preoccupied, future oriented Mood: better Affect: brighter, non labile VH/AH: none Delusions: none Insight/judgment: fair x 2. Memory/cog: alert, oriented x 3. Diagnostics Vital Signs (24Hr): Vital Signs - 24 hr 11/23/20 18:00 11/24/20 05:55 Temperature 98.8 F 98.4 F Pulse Rate 78 75 Respiratory Rate 16 Blood Pressure 148/80 H 118/68 Pulse Oximetry 99 Body Mass Index 17.9 Labs Results: 11/11/20 14:42 11/19/20 07:50 Medications Medications Current Medications Generic Name Dose Route Start Last Admin Trade Name Freq PRN Reason Stop Dose Admin Acetaminophen 650 mg 11/14/20 15:12 Acetaminophen 325 Mg Tablet PO Q6H PRN Headache/Pain Mild Scale (1-3) Al Hydroxide/Mg Hydroxide 30 ml 11/14/20 15:12 Magnesium Hydrox/Alum Hydrox 30 Ml Oral.Susp PO Q6H PRN Heartburn/Nausea Aripiprazole 2 mg 11/23/20 10:40 11/24/20 08:28 Aripiprazole 2 Mg Tablet PO 2 mg DAILY JILLIAN Administration [place] Carbonate 300 mg 11/21/20 21:00 11/23/20 21:31 [place] Carbonate 300 Mg Tablet PO 300 mg BEDTIME JILLIAN Administration Lorazepam 1 mg 11/19/20 21:00 11/23/20 21:31 Lorazepam 1 Mg Tablet PO 1 mg BEDTIME JILLIAN Administration Lorazepam 0.5 mg 11/20/20 09:00 11/24/20 08:27 Lorazepam 0.5 Mg Tablet PO 0.5 mg DAILY JILLIAN Administration Magnesium Hydroxide 30 ml 11/14/20 15:12 11/15/20 21:14 Milk Of Magnesia 30 Ml Oral.Susp PO 30 ml DAILY PRN Administration Constipation Mirtazapine 15 mg 11/18/20 21:00 11/23/20 21:31 Mirtazapine 15 Mg Tablet PO 15 mg BEDTIME JILLIAN Administration Multivitamins 1 tab 11/23/20 11:15 11/24/20 08:28 B-Complex With Vitamin C Tablet PO 1 tab DAILY JILLIAN Administration Pt Own: Kerasal 2 each 11/23/20 21:00 11/24/20 10:05 Topical Solution BUCCAL 2 each BID JILLIAN Administration Senna 17.2 mg 11/12/20 12:22 11/19/20 21:25 Sennosides 8.6 Mg Tablet PO 17.2 mg BEDTIME PRN Administration Constipation Venlafaxine HCl 75 mg 11/21/20 09:00 11/24/20 08:28 Venlafaxine Hcl Er 75 Mg Cap.Er.24h PO 75 mg DAILY JILLIAN Administration Vitamin D 10 mcg 11/23/20 11:15 11/24/20 08:28 Cholecalciferol (Vitamin D3) 10 Mcg Tablet PO 10 mcg DAILY JILLIAN Administration Allergies Allergies Allergy/AdvReac Type Severity Reaction Status Date / Time erythromycin base Allergy Hives Verified 11/14/20 23:32 Assessment & Plan Assessment & Plan (1) Major depressive disorder, severe: Status: Acute Code(s): F32.2 - Major depressive disorder, single episode, severe without psychotic features Assessment and Plan: 1. Increase Venlafaxine 112.5mg po daily 2. continue lithium to 300mg po qhs 3. continue ativan 0.5mg po in AM and at 2pm, 1mg po qhs 4. continue abilify 2 mg po daily. Greater than 50% of the session was spent on counseling and/or coordination of care Reason for contiued inpatient stay Substantial Risk for: inability to function
[2020-11-24 18:00] VITALS: BP 139/71; PULSE 79; TEMP 36.4
[2020-11-24] MEDS: Lithium Carbonate 300 MG TABLET PO (21:05)
[2020-11-24] MEDS: Mirtazapine 15 MG TABLET PO (21:05)
[2020-11-24] MEDS: LORazepam 1 MG TABLET PO (21:06)
[2020-11-25 06:05] VITALS: BP 118/64; PULSE 84; RESP 16; TEMP 36.6; O2SAT 98
[2020-11-25] MEDS: Venlafaxine HCl ER 75 MG CAP.ER.24H PO (09:02)
[2020-11-25] MEDS: Cholecalciferol (Vitamin D3) 10 MCG TABLET PO (09:02)
[2020-11-25] MEDS: ARIPiprazole 2 MG TABLET PO (09:02)
[2020-11-25] MEDS: LORazepam 0.5 MG TABLET PO ×3 (09:03→14:09)
--- NOTE | 2020-11-25 09:20 | P.PNPSI_ITS ---
Subjective Subjective Date of Service: 11/26/20 Reason For Visit: SI Interim History: Pt today again more ruminative, negative outlook about her future, thinking she may not get better from this episode of depression. She also presents as somewhat irritable. She reports waking up few times at night but overall sleeping better. She denies SI/HI. She reports that this morning was difficult to get out of bed. We discussed increasing venlafaxine to 112.5mg po daily and abilify to 5mg po daily. Review of Systems Review of Systems Yes all other systems are reviewed and are negative Constitutional: Reports fatigue, Reports lethargy, Reports poor appetite and Reports weight loss Cardiovascular: Denies chest pain and Denies dyspnea Respiratory: Denies dyspnea Gastrointestinal: Reports constipation Psychiatric: Reports anxiety, Reports change in appetite, Reports depression, Reports difficulty concentrating, Reports hopelessness and Reports anhedonia Endocrine: Reports fatigue, Reports polydipsia and Reports polyuria Mental Status Exam Mental Status Exam Narrative: Appearance: casually groomed, thin woman appears her stated age, anxious, good hygiene in NAD Behavior: calmer, cooperative Psychomotor: no retardation or agitation noted Speech: clear, regular rate, regular rhythm, soft volume, spontaneous TP: repetition, mostly linear TC: no signs of psychosis, somatically preoccupied, future oriented Mood: anxious Affect:blunted, some irritable edge VH/AH: none Delusions: none Insight/judgment: fair x 2. Memory/cog: alert, oriented x 3. Patient Appearance: Well Grooomed and Fatigued Patient Orientation: Person, Place, Time and Situation Level of Consciousness: Restless Patient Behavior: Appropriate, Passive, Anxious and Fearful Mood Description: Depressed and Fearful Affect Description: Anxious Patient Cognition Impaired: No Ability to Follow Directions: Excellent Speech Pattern: Clear, Perseverating, Impoverished and Whisper Memory Description: Intact Diagnostics Vital Signs (24Hr): Vital Signs - 24 hr 11/25/20 15:00 11/25/20 19:05 11/26/20 06:00 Temperature 98.5 F 98.5 F 98 F Pulse Rate 79 79 68 Respiratory Rate 18 18 Blood Pressure 107/63 107/63 133/62 Body Mass Index 17.9 Labs Results: 11/11/20 14:42 11/19/20 07:50 Medications Medications Current Medications Generic Name Dose Route Start Last Admin Trade Name Freq PRN Reason Stop Dose Admin Acetaminophen 650 mg 11/14/20 15:12 Acetaminophen 325 Mg Tablet PO Q6H PRN Headache/Pain Mild Scale (1-3) Al Hydroxide/Mg Hydroxide 30 ml 11/14/20 15:12 Magnesium Hydrox/Alum Hydrox 30 Ml Oral.Susp PO Q6H PRN Heartburn/Nausea Aripiprazole 5 mg 11/27/20 09:00 Aripiprazole 5 Mg Tablet PO DAILY JILLIAN [place] Carbonate 300 mg 11/21/20 21:00 11/25/20 20:56 [place] Carbonate 300 Mg Tablet PO 300 mg BEDTIME JILLIAN Administration Lorazepam 1 mg 11/19/20 21:00 11/25/20 20:54 Lorazepam 1 Mg Tablet PO 1 mg BEDTIME JILLIAN Administration Lorazepam 0.5 mg 11/20/20 09:00 11/26/20 08:08 Lorazepam 0.5 Mg Tablet PO 0.5 mg DAILY JILLIAN Administration Lorazepam 0.5 mg 11/25/20 14:00 11/25/20 14:09 Lorazepam 0.5 Mg Tablet PO 0.5 mg DAILY@1400 JILLIAN Administration Magnesium Hydroxide 30 ml 11/14/20 15:12 11/15/20 21:14 Milk Of Magnesia 30 Ml Oral.Susp PO 30 ml DAILY PRN Administration Constipation Mirtazapine 15 mg 11/18/20 21:00 11/25/20 20:54 Mirtazapine 15 Mg Tablet PO 15 mg BEDTIME JILLIAN Administration Multivitamins 1 tab 11/23/20 11:15 11/26/20 08:07 B-Complex With Vitamin C Tablet PO 1 tab DAILY JILLIAN Administration Pt Own: Kerasal 2 each 11/23/20 21:00 11/25/20 21:00 Topical Solution BUCCAL Not Given BID JILLIAN Senna 17.2 mg 11/12/20 12:22 11/19/20 21:25 Sennosides 8.6 Mg Tablet PO 17.2 mg BEDTIME PRN Administration Constipation Venlafaxine HCl 112.5 mg 11/27/20 09:00 Venlafaxine Hcl Er 75 Mg Cap.Er.24h PO DAILY JILLIAN Venlafaxine HCl 37.5 mg 11/26/20 09:19 Venlafaxine Hcl Er 37.5 Mg Cap.Er.24h PO 11/26/20 09:20 ONCE ONE Vitamin D 10 mcg 11/23/20 11:15 11/26/20 08:07 Cholecalciferol (Vitamin D3) 10 Mcg Tablet PO 10 mcg DAILY JILLIAN Administration Allergies Allergies Allergy/AdvReac Type Severity Reaction Status Date / Time erythromycin base Allergy Hives Verified 11/14/20 23:32 Assessment & Plan Assessment & Plan (1) Major depressive disorder, severe: Status: Acute Code(s): F32.2 - Major depressive disorder, single episode, severe without psychotic features Assessment and Plan: 1. Increase Venlafaxine 112.5mg po daily 2. continue lithium to 300mg po qhs 3. continue ativan 0.5mg po in AM and at 2pm, 1mg po qhs 4. Increase abilify 5 mg po daily. Greater than 50% of the session was spent on counseling and/or coordination of care Reason for contiued inpatient stay Substantial Risk for: inability to function
[2020-11-25 15:00] VITALS: BP 107/63; PULSE 79; RESP 18; TEMP 36.9
[2020-11-25 19:05] VITALS: BP 107/63; PULSE 79; RESP 18; TEMP 36.9
[2020-11-25] MEDS: LORazepam 1 MG TABLET PO (20:54)
[2020-11-25] MEDS: Mirtazapine 15 MG TABLET PO (20:54)
[2020-11-25] MEDS: Lithium Carbonate 300 MG TABLET PO (20:56)
[2020-11-26 06:00] VITALS: BP 133/62; PULSE 68; TEMP 36.6
[2020-11-26] MEDS: Venlafaxine HCl ER 75 MG CAP.ER.24H PO (08:06)
[2020-11-26] MEDS: Cholecalciferol (Vitamin D3) 10 MCG TABLET PO (08:07)
[2020-11-26] MEDS: ARIPiprazole 2 MG TABLET PO ×2 (08:07→10:33)
[2020-11-26] MEDS: LORazepam 0.5 MG TABLET PO ×2 (08:08→14:17)
[2020-11-26] MEDS: Venlafaxine HCl ER 37.5 MG CAP.ER.24H PO ×2 (11:25→11:26)
--- NOTE | 2020-11-26 13:52 | HO.PSYCHPN ---
Subjective Subjective Date of Service: 11/27/20 Reason For Visit: SI Interim History: Pt reports feeling anxious and depressed. She reports having difficulty getting up from bed. She continues to present with ruminations about what the triggers to the depression are, not being able to complete worksheet during psych groups. She reports fair sleep. She started higher dose of antidepressant today as well as higher dose of abilify. She reports passive suicidal ideation but denies any plan or intent. Review of Systems Review of Systems Yes all other systems are reviewed and are negative Constitutional: Reports fatigue, Reports lethargy, Reports poor appetite and Reports weight loss Cardiovascular: Denies chest pain and Denies dyspnea Respiratory: Denies dyspnea Gastrointestinal: Reports constipation Psychiatric: Reports anxiety, Reports change in appetite, Reports depression, Reports difficulty concentrating, Reports hopelessness and Reports anhedonia Endocrine: Reports fatigue, Reports polydipsia and Reports polyuria Mental Status Exam Mental Status Exam Narrative: Appearance: casually groomed, thin woman appears her stated age, anxious, good hygiene in NAD Behavior: calmer, cooperative Psychomotor: no retardation or agitation noted Speech: clear, regular rate, regular rhythm, soft volume, spontaneous TP: repetition, mostly linear TC: no signs of psychosis, somatically preoccupied, future oriented Mood: anxious Affect:blunted, some irritable edge VH/AH: none Delusions: none Insight/judgment: fair x 2. Memory/cog: alert, oriented x 3. Patient Appearance: Well Grooomed and Fatigued Patient Orientation: Person, Place, Time and Situation Level of Consciousness: Restless Patient Behavior: Appropriate, Passive, Anxious and Fearful Mood Description: Depressed and Fearful Affect Description: Anxious Patient Cognition Impaired: No Ability to Follow Directions: Excellent Speech Pattern: Clear, Perseverating, Impoverished and Whisper Memory Description: Intact Diagnostics Vital Signs (24Hr): Vital Signs - 24 hr 11/26/20 15:00 11/26/20 16:51 11/27/20 06:00 Temperature 97.9 F 97.9 F 98.8 F Pulse Rate 89 68 80 Respiratory Rate 16 16 14 Blood Pressure 106/58 L 144/66 H 130/83 Pulse Oximetry 96 96 Body Mass Index 17.9 Labs Results: 11/11/20 14:42 11/19/20 07:50 Medications Medications Current Medications Generic Name Dose Route Start Last Admin Trade Name Freq PRN Reason Stop Dose Admin Acetaminophen 650 mg 11/14/20 15:12 Acetaminophen 325 Mg Tablet PO Q6H PRN Headache/Pain Mild Scale (1-3) Al Hydroxide/Mg Hydroxide 30 ml 11/14/20 15:12 Magnesium Hydrox/Alum Hydrox 30 Ml Oral.Susp PO Q6H PRN Heartburn/Nausea Aripiprazole 5 mg 11/27/20 09:00 11/27/20 09:27 Aripiprazole 5 Mg Tablet PO 5 mg DAILY JILLIAN Administration [place] Carbonate 300 mg 11/21/20 21:00 11/26/20 20:38 [place] Carbonate 300 Mg Tablet PO 300 mg BEDTIME JILLIAN Administration Lorazepam 1 mg 11/19/20 21:00 11/26/20 20:38 Lorazepam 1 Mg Tablet PO 1 mg BEDTIME JILLIAN Administration Lorazepam 0.5 mg 11/20/20 09:00 11/27/20 09:27 Lorazepam 0.5 Mg Tablet PO 0.5 mg DAILY JILLIAN Administration Lorazepam 0.5 mg 11/25/20 14:00 11/26/20 14:17 Lorazepam 0.5 Mg Tablet PO 0.5 mg DAILY@1400 JILLIAN Administration Magnesium Hydroxide 30 ml 11/14/20 15:12 11/15/20 21:14 Milk Of Magnesia 30 Ml Oral.Susp PO 30 ml DAILY PRN Administration Constipation Mirtazapine 15 mg 11/18/20 21:00 11/26/20 20:38 Mirtazapine 15 Mg Tablet PO 15 mg BEDTIME JILLIAN Administration Multivitamins 1 tab 11/23/20 11:15 11/27/20 09:27 B-Complex With Vitamin C Tablet PO 1 tab DAILY JILLIAN Administration Pt Own: Kerasal 2 each 11/23/20 21:00 11/27/20 11:13 Topical Solution BUCCAL 2 each BID JILLIAN Administration Senna 17.2 mg 11/12/20 12:22 11/19/20 21:25 Sennosides 8.6 Mg Tablet PO 17.2 mg BEDTIME PRN Administration Constipation Venlafaxine HCl 75 mg 11/27/20 09:00 11/27/20 11:13 Venlafaxine Hcl Er 75 Mg Cap.Er.24h PO 75 mg DAILY JILLIAN Administration Venlafaxine HCl 37.5 mg 11/27/20 09:00 11/27/20 09:28 Venlafaxine Hcl Er 37.5 Mg Cap.Er.24h PO 37.5 mg DAILY JILLIAN Administration Vitamin D 10 mcg 11/23/20 11:15 11/27/20 09:27 Cholecalciferol (Vitamin D3) 10 Mcg Tablet PO 10 mcg DAILY JILLIAN Administration Allergies Allergies Allergy/AdvReac Type Severity Reaction Status Date / Time erythromycin base Allergy Hives Verified 11/14/20 23:32 Assessment & Plan Assessment & Plan (1) Major depressive disorder, severe: Status: Acute Code(s): F32.2 - Major depressive disorder, single episode, severe without psychotic features Assessment and Plan: 1. continue Venlafaxine 112.5mg po daily- started on 11/26/2020 2. continue lithium to 300mg po qhs 3. continue ativan 0.5mg po in AM and at 2pm, 1mg po qhs 4. continue abilify 5 mg po daily - started on 11/26/2020 Greater than 50% of the session was spent on counseling and/or coordination of care Reason for contiued inpatient stay Substantial Risk for: inability to function
[2020-11-26 15:00] VITALS: BP 106/58; PULSE 89; RESP 16; TEMP 36.6; O2SAT 96
[2020-11-26 16:51] VITALS: BP 144/66; PULSE 68; RESP 16; TEMP 36.6
[2020-11-26] MEDS: Mirtazapine 15 MG TABLET PO (20:38)
[2020-11-26] MEDS: Lithium Carbonate 300 MG TABLET PO (20:38)
[2020-11-26] MEDS: LORazepam 1 MG TABLET PO (20:38)
[2020-11-27 06:00] VITALS: BP 130/83; PULSE 80; RESP 14; TEMP 37.1; O2SAT 96
[2020-11-27] MEDS: Cholecalciferol (Vitamin D3) 10 MCG TABLET PO (09:27)
[2020-11-27] MEDS: ARIPiprazole 5 MG TABLET PO (09:27)
[2020-11-27] MEDS: LORazepam 0.5 MG TABLET PO ×3 (09:27→14:06)
[2020-11-27] MEDS: Venlafaxine HCl ER 37.5 MG CAP.ER.24H PO (09:28)
[2020-11-27] MEDS: Venlafaxine HCl ER 75 MG CAP.ER.24H PO (11:13)
--- NOTE | 2020-11-27 13:55 | P.PNPSI_ITS ---
Subjective Subjective Date of Service: 11/27/20 Reason For Visit: SI Interim History: Pt continues to present as hopeless, helpless, prominent ruminations are noted in that she can't think of triggers for this depression. She also ruminates about her health, vague concerns no specific symptoms. She reports cognitive fogginess She reports some passive suicidal thoughts but denies any plan or intent. She reports poor sleep last night. Review of Systems Review of Systems Yes all other systems are reviewed and are negative Constitutional: Reports fatigue, Reports lethargy, Reports poor appetite and Reports weight loss Cardiovascular: Denies chest pain and Denies dyspnea Respiratory: Denies dyspnea Gastrointestinal: Reports constipation Psychiatric: Reports anxiety, Reports change in appetite, Reports depression, Reports difficulty concentrating, Reports hopelessness and Reports anhedonia Endocrine: Reports fatigue, Reports polydipsia and Reports polyuria Mental Status Exam Mental Status Exam Narrative: Appearance: casually groomed, thin woman appears her stated age, anxious, good hygiene in NAD Behavior: calmer, cooperative Psychomotor: no retardation or agitation noted Speech: clear, regular rate, regular rhythm, soft volume, spontaneous TP: repetition, mostly linear TC: no signs of psychosis, somatically preoccupied, future oriented Mood: anxious Affect:blunted, some irritable edge VH/AH: none Delusions: none Insight/judgment: fair x 2. Memory/cog: alert, oriented x 3. Diagnostics Vital Signs (24Hr): Vital Signs - 24 hr 11/26/20 15:00 11/26/20 16:51 11/27/20 06:00 Temperature 97.9 F 97.9 F 98.8 F Pulse Rate 89 68 80 Respiratory Rate 16 16 14 Blood Pressure 106/58 L 144/66 H 130/83 Pulse Oximetry 96 96 Body Mass Index 17.9 Labs Results: 11/11/20 14:42 11/19/20 07:50 Medications Medications Current Medications Generic Name Dose Route Start Last Admin Trade Name Freq PRN Reason Stop Dose Admin Acetaminophen 650 mg 11/14/20 15:12 Acetaminophen 325 Mg Tablet PO Q6H PRN Headache/Pain Mild Scale (1-3) Al Hydroxide/Mg Hydroxide 30 ml 11/14/20 15:12 Magnesium Hydrox/Alum Hydrox 30 Ml Oral.Susp PO Q6H PRN Heartburn/Nausea Aripiprazole 5 mg 11/27/20 09:00 11/27/20 09:27 Aripiprazole 5 Mg Tablet PO 5 mg DAILY JILLIAN Administration [place] Carbonate 300 mg 11/21/20 21:00 11/26/20 20:38 [place] Carbonate 300 Mg Tablet PO 300 mg BEDTIME JILLIAN Administration Lorazepam 1 mg 11/19/20 21:00 11/26/20 20:38 Lorazepam 1 Mg Tablet PO 1 mg BEDTIME JILLIAN Administration Lorazepam 0.5 mg 11/20/20 09:00 11/27/20 09:27 Lorazepam 0.5 Mg Tablet PO 0.5 mg DAILY JILLIAN Administration Lorazepam 0.5 mg 11/25/20 14:00 11/26/20 14:17 Lorazepam 0.5 Mg Tablet PO 0.5 mg DAILY@1400 JILLIAN Administration Magnesium Hydroxide 30 ml 11/14/20 15:12 11/15/20 21:14 Milk Of Magnesia 30 Ml Oral.Susp PO 30 ml DAILY PRN Administration Constipation Mirtazapine 15 mg 11/18/20 21:00 11/26/20 20:38 Mirtazapine 15 Mg Tablet PO 15 mg BEDTIME JILLIAN Administration Multivitamins 1 tab 11/23/20 11:15 11/27/20 09:27 B-Complex With Vitamin C Tablet PO 1 tab DAILY JILLIAN Administration Pt Own: Kerasal 2 each 11/23/20 21:00 11/27/20 11:13 Topical Solution BUCCAL 2 each BID JILLIAN Administration Senna 17.2 mg 11/12/20 12:22 11/19/20 21:25 Sennosides 8.6 Mg Tablet PO 17.2 mg BEDTIME PRN Administration Constipation Venlafaxine HCl 75 mg 11/27/20 09:00 11/27/20 11:13 Venlafaxine Hcl Er 75 Mg Cap.Er.24h PO 75 mg DAILY JILLIAN Administration Venlafaxine HCl 37.5 mg 11/27/20 09:00 11/27/20 09:28 Venlafaxine Hcl Er 37.5 Mg Cap.Er.24h PO 37.5 mg DAILY JILLIAN Administration Vitamin D 10 mcg 11/23/20 11:15 11/27/20 09:27 Cholecalciferol (Vitamin D3) 10 Mcg Tablet PO 10 mcg DAILY JILLIAN Administration Allergies Allergies Allergy/AdvReac Type Severity Reaction Status Date / Time erythromycin base Allergy Hives Verified 11/14/20 23:32 Assessment & Plan Assessment & Plan (1) Major depressive disorder, severe: Status: Acute Code(s): F32.2 - Major depressive disorder, single episode, severe without psychotic features Assessment and Plan: 1. continue Venlafaxine 112.5mg po daily- started on 11/26/2020 2. continue lithium to 300mg po qhs- lithium level on 11/27/2020 will titrate dose as needed. 3. continue ativan 0.5mg po in AM and at 2pm, 1mg po qhs 4. continue abilify 5 mg po daily - started on 11/26/2020 Greater than 50% of the session was spent on counseling and/or coordination of care Reason for contiued inpatient stay Substantial Risk for: inability to function
[2020-11-27 14:09] VITALS: BMI 17.2
[2020-11-27 15:29] VITALS: BP 119/63; PULSE 75; RESP 18; TEMP 36.6; O2SAT 98
[2020-11-27 17:44] VITALS: BP 111/65; PULSE 77; TEMP 36.5
[2020-11-27 18:23] LABS: Alanine Aminotransferase 26 U/L (0-31); Albumin Level 4.2 g/dL (3.5-5.0); Alkaline Phosphatase 53 U/L (39-117); Anion Gap 16 (12-20); Aspartate Amino Transferase 33 U/L (5-31); Bilirubin Total 0.2 mg/dL (0.0-1.0); Blood Urea Nitrogen 19 mg/dL (9-16); Carbon Dioxide 25 mmol/L (22-29); Chloride 92 mmol/L (96-108); Creatinine Clr Calc Pharmacy 46.6; Estimated Glomerular Filt Rate > 60; Glucose Fasting 92 mg/dL (60-99); Potassium 4.6 mmol/L (3.3-5.1); Sodium 128 mmol/L (135-145); Total Protein 6.5 g/dL (6.5-8.0)
[2020-11-27 18:43] LABS: TSH reflex Free T4 2.51 uIU/mL (0.32-4.0)
[2020-11-27] MEDS: Milk of Magnesia 30 ML ORAL.SUSP PO (20:31)
[2020-11-27] MEDS: LORazepam 1 MG TABLET PO (21:22)
[2020-11-27] MEDS: Lithium Carbonate 300 MG TABLET PO (21:22)
[2020-11-27] MEDS: Mirtazapine 15 MG TABLET PO (21:22)
[2020-11-28 05:50] VITALS: BP 126/59; PULSE 72; RESP 16; TEMP 36.8; O2SAT 98
[2020-11-28 08:31] VITALS: BP 133/72; PULSE 69; RESP 18; TEMP 36.8; O2SAT 96
[2020-11-28] MEDS: ARIPiprazole 5 MG TABLET PO (08:56)
[2020-11-28] MEDS: Venlafaxine HCl ER 75 MG CAP.ER.24H PO (08:57)
[2020-11-28] MEDS: Venlafaxine HCl ER 37.5 MG CAP.ER.24H PO (08:57)
[2020-11-28] MEDS: Cholecalciferol (Vitamin D3) 10 MCG TABLET PO (08:57)
[2020-11-28 11:29] LABS: Alanine Aminotransferase 25 U/L (0-31); Alkaline Phosphatase 51 U/L (39-117); Anion Gap 12 (12-20); Aspartate Amino Transferase 30 U/L (5-31); Bilirubin Total 0.5 mg/dL (0.0-1.0); Blood Urea Nitrogen 17 mg/dL (9-16); Calcium 8.8 mg/dL (8.4-10.2); Carbon Dioxide 28 mmol/L (22-29); Chloride 93 mmol/L (96-108); Creatinine Clr Calc Pharmacy 43.4; Estimated Glomerular Filt Rate > 60; Glucose Random 85 mg/dL (60-115); Potassium 5.2 mmol/L (3.3-5.1); Sodium 128 mmol/L (135-145); Total Protein 6.2 g/dL (6.5-8.0)
[2020-11-28] MEDS: LORazepam 0.5 MG TABLET PO (14:20)
--- NOTE | 2020-11-28 16:59 | P.PNPSI_ITS ---
Subjective Subjective Date of Service: 11/28/20 Reason For Visit: SI Interim History: Pt continues to present as hopeless, helpless, prominent ruminations are noted in that she can't think of triggers for this depression. She also ruminates about her health, vague concerns no specific symptoms. She reports cognitive fogginess She reports some passive suicidal thoughts but denies any plan or intent. She reports poor sleep last night. Review of Systems Review of Systems Yes all other systems are reviewed and are negative Constitutional: Reports fatigue, Reports lethargy, Reports poor appetite and Reports weight loss Cardiovascular: Denies chest pain and Denies dyspnea Respiratory: Denies dyspnea Gastrointestinal: Reports constipation Psychiatric: Reports anxiety, Reports change in appetite, Reports depression, Reports difficulty concentrating, Reports hopelessness and Reports anhedonia Endocrine: Reports fatigue, Reports polydipsia and Reports polyuria Mental Status Exam Mental Status Exam Narrative: Appearance: casually groomed, thin woman appears her stated age, anxious, good hygiene in NAD Behavior: calmer, cooperative Psychomotor: no retardation or agitation noted Speech: clear, regular rate, regular rhythm, soft volume, spontaneous TP: repetition, mostly linear TC: no signs of psychosis, somatically preoccupied, future oriented Mood: anxious Affect:blunted, some irritable edge VH/AH: none Delusions: none Insight/judgment: fair x 2. Memory/cog: alert, oriented x 3. Patient Appearance: Well Grooomed and Fatigued Patient Orientation: Person, Place, Time and Situation Level of Consciousness: Restless Patient Behavior: Appropriate, Passive, Anxious and Fearful Mood Description: Depressed and Fearful Affect Description: Anxious Patient Cognition Impaired: No Ability to Follow Directions: Excellent Speech Pattern: Clear, Perseverating, Impoverished and Whisper Memory Description: Intact Diagnostics Vital Signs (24Hr): Vital Signs - 24 hr 11/27/20 17:44 11/28/20 05:50 11/28/20 08:31 Temperature 97.7 F 98.3 F 98.2 F Pulse Rate 77 72 69 Respiratory Rate 16 18 Blood Pressure 111/65 126/59 L 133/72 Pulse Oximetry 98 96 Body Mass Index 17.2 Labs Results: 11/11/20 14:42 11/28/20 10:54 Labs: Laboratory Results - last 48 hr 11/27/20 11/27/20 11/27/20 17:45 17:46 17:46 Sodium 128 L Potassium 4.6 Chloride 92 L Carbon Dioxide 25 Anion Gap 16 BUN 19 H Creatinine 0.66 Estim Creat Clear Calc 46.6 Estimated GFR > 60 Random Glucose Fasting Glucose 92 Calcium 9.0 Total Bilirubin 0.2 AST 33 H ALT 26 Alkaline Phosphatase 53 Total Protein 6.5 Albumin 4.2 TSH 2.51 [place] 0.30 L 11/28/20 10:54 Sodium 128 L Potassium 5.2 H Chloride 93 L Carbon Dioxide 28 Anion Gap 12 BUN 17 H Creatinine 0.71 Estim Creat Clear Calc 43.4 Estimated GFR > 60 Random Glucose 85 Fasting Glucose Calcium 8.8 Total Bilirubin 0.5 AST 30 ALT 25 Alkaline Phosphatase 51 Total Protein 6.2 L Albumin 4.0 TSH [place] Medications Medications Current Medications Generic Name Dose Route Start Last Admin Trade Name Freq PRN Reason Stop Dose Admin Acetaminophen 650 mg 11/14/20 15:12 Acetaminophen 325 Mg Tablet PO Q6H PRN Headache/Pain Mild Scale (1-3) Al Hydroxide/Mg Hydroxide 30 ml 11/14/20 15:12 Magnesium Hydrox/Alum Hydrox 30 Ml Oral.Susp PO Q6H PRN Heartburn/Nausea Aripiprazole 5 mg 11/27/20 09:00 11/28/20 08:56 Aripiprazole 5 Mg Tablet PO 5 mg DAILY JILLIAN Administration Lorazepam 1 mg 11/19/20 21:00 11/27/20 21:22 Lorazepam 1 Mg Tablet PO 1 mg BEDTIME JILLIAN Administration Lorazepam 0.5 mg 11/20/20 09:00 11/27/20 14:04 Lorazepam 0.5 Mg Tablet PO 0.5 mg DAILY JILLIAN Administration Lorazepam 0.5 mg 11/25/20 14:00 11/28/20 14:20 Lorazepam 0.5 Mg Tablet PO 0.5 mg DAILY@1400 JILLIAN Administration Magnesium Hydroxide 30 ml 11/14/20 15:12 11/27/20 20:31 Milk Of Magnesia 30 Ml Oral.Susp PO 30 ml DAILY PRN Administration Constipation Mirtazapine 15 mg 11/18/20 21:00 11/27/20 21:22 Mirtazapine 15 Mg Tablet PO 15 mg BEDTIME JILLIAN Administration Multivitamins 1 tab 11/23/20 11:15 11/28/20 08:57 B-Complex With Vitamin C Tablet PO 1 tab DAILY JILLIAN Administration Pt Own: Kerasal 2 each 11/23/20 21:00 11/28/20 10:08 Topical Solution BUCCAL 2 each BID JILLIAN Administration Senna 17.2 mg 11/12/20 12:22 11/19/20 21:25 Sennosides 8.6 Mg Tablet PO 17.2 mg BEDTIME PRN Administration Constipation Venlafaxine HCl 75 mg 11/27/20 09:00 11/28/20 08:57 Venlafaxine Hcl Er 75 Mg Cap.Er.24h PO 75 mg DAILY JILLIAN Administration Venlafaxine HCl 37.5 mg 11/27/20 09:00 11/28/20 08:57 Venlafaxine Hcl Er 37.5 Mg Cap.Er.24h PO 37.5 mg DAILY JILLIAN Administration Vitamin D 10 mcg 11/23/20 11:15 11/28/20 08:57 Cholecalciferol (Vitamin D3) 10 Mcg Tablet PO 10 mcg DAILY JILLIAN Administration Allergies Allergies Allergy/AdvReac Type Severity Reaction Status Date / Time erythromycin base Allergy Hives Verified 11/14/20 23:32 Assessment & Plan Assessment & Plan (1) Major depressive disorder, severe: Status: Acute Code(s): F32.2 - Major depressive disorder, single episode, severe without psychotic features Assessment and Plan: 1. continue Venlafaxine 112.5mg po daily- started on 11/26/2020 2. D/C lithium- due to possible hyponatremia, pending consult 3. continue ativan 0.5mg po in AM and at 2pm, 1mg po qhs 4. continue abilify 5 mg po daily - started on 11/26/2020 Greater than 50% of the session was spent on counseling and/or coordination of care Reason for contiued inpatient stay Substantial Risk for: inability to function
[2020-11-28 18:00] VITALS: BP 162/79; PULSE 73; TEMP 36.9
[2020-11-28 18:02] LABS: MANUAL DIFF FLAG NO
[2020-11-28 18:05] LABS: Basophils Percent Auto 0.5 % (0-2); Eosinophils Absolute Auto 0.3 X10*3/uL (0.0-0.4); Hematocrit 36.3 % (37-47); Hemoglobin 12.4 g/dl (12.0-16.0); Imm Gran Abs Auto 0.02 X10*3/uL (0.00-0.03); Imm Gran Pct Auto 0.3 % (0.0-0.4); Lymphocytes Absolute Auto 1.3 X10*3/uL (1.2-4.9); Lymphocytes Percent Auto 21.9 % (20-40); Mean Corpuscular HGB Conc 34.2 g/dl (31.0-35.0); Mean Corpuscular Hemoglobin 32.4 pg (27.0-33.0); Mean Corpuscular Volume 94.8 fL (80-98); Mean Platelet Volume 9.1 fL (9.4-12.3); Monocytes Absolute Auto 0.6 X10*3/uL (0.1-1.2); Monocytes Percent Auto 10.3 % (2-11); Neutrophils Absolute Auto 3.6 X10*3/uL (2.0-8.3); Platelet Count 266 X10*3/uL (160-400); Red Blood Count 3.83 X10*6/uL (4.20-5.50); Red Cell Distribution Width 11.8 % (11.0-16.0); White Blood Count 5.8 X10*3/uL (4.8-10.8)
[2020-11-28 18:07] LABS: Glucose Urine UA NEG (NEG); Leukocyte Esterase Urine NEG (NEG); Nitrite Urine NEG (NEG); PH 6.5 (5.0-8.0); Urine Blood NEG (NEG); Urine Ketones NEG (NEG); Urine Protein NEG (NEG-TRACE)
[2020-11-28 18:13] LABS: Appearance Urine CLEAR; Color Urine YELLOW
[2020-11-28 18:30] LABS: RBC Urine 0 /HPF (0); Renal Epithelial Cells Urine TRACE /LPF; Squamous Epithelial Cell Urine TRACE /LPF; WBC Urine 0-2 /HPF (0-4)
[2020-11-28 18:42] LABS: Alanine Aminotransferase 29 U/L (0-31); Albumin Level 4.1 g/dL (3.5-5.0); Alkaline Phosphatase 56 U/L (39-117); Anion Gap 14 (12-20); Aspartate Amino Transferase 33 U/L (5-31); Bilirubin Total 0.4 mg/dL (0.0-1.0); Blood Urea Nitrogen 18 mg/dL (9-16); Calcium 8.6 mg/dL (8.4-10.2); Carbon Dioxide 27 mmol/L (22-29); Chloride 89 mmol/L (96-108); Creatinine Clr Calc Pharmacy 46.6; Estimated Glomerular Filt Rate > 60; Glucose Random 102 mg/dL (60-115); Potassium 4.6 mmol/L (3.3-5.1); Sodium 125 mmol/L (135-145); Total Protein 6.2 g/dL (6.5-8.0)
--- NOTE | 2020-11-28 18:58 | PM.IMCN ---
History of Present Illness Data of Consult Service Date: 11/28/20 Primary Care Provider: Swapnil Dukes MD [facility] Reason for consult: HypOnatremia 79 year female with history of breasth cancer s/p surgery about 12 years ago, no chemo per her report. She is presently admitted for increasing depression and is being managed pharmacologically with Efffexor, Onton, Remron and lorazepam. At home she is on Remron, trazadone, ativan and Citalopram. I am asked to assess for worsening hyponatremia. On 11/19 there was a sodium level of 135, on 11/27 128, repeated 11/28 128, then later same day 125. She reports no symptoms associated with this. She admit to drinking lots of water.She also reports that she get some burning vaginal area at night only, no adelina dysuria, no discharge, no itch, and no redness, no fever Review of Systems Review of Systems: Gen: no fever Resp: no sob, no cough CV: no chest, no LOVETT, no leg edema GI: No n/v, no abd pain Neuro: No confusion : vaginal area burning as stated Yes all other systems are reviewed and are negative [facility] Medical History Breast cancer Depression Pertinent family history: Mother had colon cancer and father had heart disease Family history: reviewed and not pertinent Surgical History H/O mastectomy Social History Household Members: Spouse Housing: House Do you presently have visiting nurse or other home services: No Smoking Status: Never smoker Use of substances other than those prescribed or required for medical reasons: No Currently Displaying Signs/Symptoms of Drug Intoxication Withdrawal: No Have you been hit, kicked, punched, or otherwise hurt by someone within the past year? If so, by whom?: No Do you feel safe in your current relationship?: Yes Is there a partner from a previous relationship who is making you feel unsafe now?: No Are you made to feel afraid or neglected: No Advance Directives: No Advance Directives Information Provided: No Do you have thoughts of harming others: None Do you have a plan to hurt others: No Plan Recently lost weight without trying: Yes service: No Sexual orientation: Straight/Heterosexual Narrative: 79/with depression on SSRI and lithium with worsening hyponatremia, no symptoms at this ... I suspect hypOnatremia liekely related to medication such as SSRI, Onton and possibly polydypsia.. -Obtain urine studies -Fluid restriction -repeat level tomorrow and if worsening Nephrology consult Burning in vaginal area--This as been ongoing for weeks, UA is clean, she doesn't want to be examined at this time and may change her mind later, and it is not affecting her in any signficant way at this time.--I had female RN as escort during this portion of her evaluation.. Meds Allergies Allergy/AdvReac Type Severity Reaction Status Date / Time erythromycin base Allergy Hives Verified 11/14/20 23:32 Active Medications: Current Medications Generic Name Dose Route Start Last Admin Trade Name Freq PRN Reason Stop Dose Admin Acetaminophen 650 mg 11/14/20 15:12 Acetaminophen 325 Mg Tablet PO Q6H PRN Headache/Pain Mild Scale (1-3) Al Hydroxide/Mg Hydroxide 30 ml 11/14/20 15:12 Magnesium Hydrox/Alum Hydrox 30 Ml Oral.Susp PO Q6H PRN Heartburn/Nausea Aripiprazole 5 mg 11/27/20 09:00 11/28/20 08:56 Aripiprazole 5 Mg Tablet PO 5 mg DAILY JILLIAN Administration Lorazepam 1 mg 11/19/20 21:00 11/27/20 21:22 Lorazepam 1 Mg Tablet PO 1 mg BEDTIME JILLIAN Administration Lorazepam 0.5 mg 11/20/20 09:00 11/27/20 14:04 Lorazepam 0.5 Mg Tablet PO 0.5 mg DAILY JILLIAN Administration Lorazepam 0.5 mg 11/25/20 14:00 11/28/20 14:20 Lorazepam 0.5 Mg Tablet PO 0.5 mg DAILY@1400 JILLIAN Administration Magnesium Hydroxide 30 ml 11/14/20 15:12 11/27/20 20:31 Milk Of Magnesia 30 Ml Oral.Susp PO 30 ml DAILY PRN Administration Constipation Mirtazapine 15 mg 11/18/20 21:00 11/27/20 21:22 Mirtazapine 15 Mg Tablet PO 15 mg BEDTIME JILLIAN Administration Multivitamins 1 tab 11/23/20 11:15 11/28/20 08:57 B-Complex With Vitamin C Tablet PO 1 tab DAILY JILLIAN Administration Pt Own: Kerasal 2 each 11/23/20 21:00 11/28/20 10:08 Topical Solution BUCCAL 2 each BID JILLIAN Administration Senna 17.2 mg 11/12/20 12:22 11/19/20 21:25 Sennosides 8.6 Mg Tablet PO 17.2 mg BEDTIME PRN Administration Constipation Venlafaxine HCl 75 mg 11/27/20 09:00 11/28/20 08:57 Venlafaxine Hcl Er 75 Mg Cap.Er.24h PO 75 mg DAILY JILLIAN Administration Venlafaxine HCl 37.5 mg 11/27/20 09:00 11/28/20 08:57 Venlafaxine Hcl Er 37.5 Mg Cap.Er.24h PO 37.5 mg DAILY JILLIAN Administration Vitamin D 10 mcg 11/23/20 11:15 11/28/20 08:57 Cholecalciferol (Vitamin D3) 10 Mcg Tablet PO 10 mcg DAILY JILLIAN Administration Home Medications Medication Instructions Recorded Confirmed Last Taken Type Remeron 45 mg PO BEDTIME 11/14/20 11/14/20 Unknown History citalopram 20 mg PO DAILY 11/14/20 11/14/20 Unknown History lithium carbonate 300 mg PO DAILY 11/14/20 11/14/20 Unknown History trazodone 50 mg PO BEDTIME 11/14/20 11/14/20 Unknown History Physical Exam Vital Signs and Narrative: Vital Signs: Last Vital Signs Temp 98.2 F 11/28/20 08:31 Pulse 69 11/28/20 08:31 Resp 18 11/28/20 08:31 BP 133/72 11/28/20 08:31 Pulse Ox 96 11/28/20 08:31 Body Mass Index 17.2 Constitutional Awake and Alert, No apparent distress Neck Supple, No lymphadenopathy Cardiovascular RRR, No M/R/G, S1 S2, No S3 S4, No pedal edema Respiratory Lungs clear, No respiratory distress Gastrointestinal Non tender, Non-distended exam deffered Skin No rash Neurological Alert & oriented x3 Psychological Appropriate affect Results Labs CBC and Chem 7: 11/28/20 17:47 11/28/20 17:47 Labs: Laboratory Results - last 24 hr 11/11/20 11/19/20 11/27/20 14:42 07:50 17:45 MCV MCH MCHC RDW Plt Count MPV Immature Gran % (Auto) Neut % (Auto) Lymph % (Auto) [place] % (Auto) Eos % (Auto) Baso % (Auto) Lymph # (Auto) [place] # (Auto) Eos # (Auto) Baso # (Auto) Abs Immat Gran (auto) Absolute Neuts (auto) Absolute Nucleated RBC Nucleated RBC % (auto) Sodium 140 134 L 128 L Anion Gap Estim Creat Clear Calc Estimated GFR Random Glucose Calcium Total Bilirubin AST ALT Alkaline Phosphatase Total Protein Albumin Urine Color Urine Appearance Urine pH Ur Specific [place] Urine Protein Urine Glucose (UA) Urine Ketones Urine Blood Urine Nitrite Ur Leukocyte Esterase Urine RBC Urine WBC Ur Squamous Epith Cells Ur Renal Epithelial Cell Urine Bacteria 11/28/20 11/28/20 11/28/20 10:54 17:00 17:47 MCV 94.8 MCH 32.4 MCHC 34.2 RDW 11.8 Plt Count 266 MPV 9.1 L Immature Gran % (Auto) 0.3 Neut % (Auto) 62.0 Lymph % (Auto) 21.9 [place] % (Auto) 10.3 Eos % (Auto) 5.0 H Baso % (Auto) 0.5 Lymph # (Auto) 1.3 [place] # (Auto) 0.6 Eos # (Auto) 0.3 Baso # (Auto) 0.0 Abs Immat Gran (auto) 0.02 Absolute Neuts (auto) 3.6 Absolute Nucleated RBC 0.000 Nucleated RBC % (auto) 0.0 Sodium 128 L Anion Gap 12 Estim Creat Clear Calc 43.4 Estimated GFR > 60 Random Glucose 85 Calcium 8.8 Total Bilirubin 0.5 AST 30 ALT 25 Alkaline Phosphatase 51 Total Protein 6.2 L Albumin 4.0 Urine Color YELLOW Urine Appearance CLEAR Urine pH 6.5 Ur Specific [place] 1.020 Urine Protein NEG Urine Glucose (UA) NEG Urine Ketones NEG Urine Blood NEG Urine Nitrite NEG Ur Leukocyte Esterase NEG Urine RBC 0 Urine WBC 0-2 Ur Squamous Epith Cells TRACE Ur Renal Epithelial Cell TRACE Urine Bacteria NONE 11/28/20 17:47 MCV MCH MCHC RDW Plt Count MPV Immature Gran % (Auto) Neut % (Auto) Lymph % (Auto) [place] % (Auto) Eos % (Auto) Baso % (Auto) Lymph # (Auto) [place] # (Auto) Eos # (Auto) Baso # (Auto) Abs Immat Gran (auto) Absolute Neuts (auto) Absolute Nucleated RBC Nucleated RBC % (auto) Sodium 125 L Anion Gap 14 Estim Creat Clear Calc 46.6 Estimated GFR > 60 Random Glucose 102 Calcium 8.6 Total Bilirubin 0.4 AST 33 H ALT 29 Alkaline Phosphatase 56 Total Protein 6.2 L Albumin 4.1 Urine Color Urine Appearance Urine pH Ur Specific [place] Urine Protein Urine Glucose (UA) Urine Ketones Urine Blood Urine Nitrite Ur Leukocyte Esterase Urine RBC Urine WBC Ur Squamous Epith Cells Ur Renal Epithelial Cell Urine Bacteria
[2020-11-28] MEDS: Mirtazapine 15 MG TABLET PO (20:54)
[2020-11-28] MEDS: LORazepam 1 MG TABLET PO (20:54)
[2020-11-28 22:15] VITALS: BP 145/78; PULSE 80
[2020-11-29 06:00] VITALS: BP 115/57; PULSE 80; TEMP 37.1
[2020-11-29 08:00] VITALS: BP 100/61; PULSE 71; RESP 16; TEMP 37; O2SAT 100
[2020-11-29] MEDS: Venlafaxine HCl ER 75 MG CAP.ER.24H PO (08:34)
[2020-11-29] MEDS: ARIPiprazole 5 MG TABLET PO (08:35)
[2020-11-29] MEDS: Venlafaxine HCl ER 37.5 MG CAP.ER.24H PO (08:35)
[2020-11-29] MEDS: Cholecalciferol (Vitamin D3) 10 MCG TABLET PO (08:35)
[2020-11-29] MEDS: LORazepam 0.5 MG TABLET PO ×2 (08:35→14:07)
[2020-11-29 09:02] LABS: Anion Gap 14 (12-20); Blood Urea Nitrogen 14 mg/dL (9-16); Calcium 8.8 mg/dL (8.4-10.2); Carbon Dioxide 28 mmol/L (22-29); Chloride 94 mmol/L (96-108); Creatinine Clr Calc Pharmacy 44.6; Estimated Glomerular Filt Rate > 60; Glucose Random 88 mg/dL (60-115); Sodium 131 mmol/L (135-145)
--- NOTE | 2020-11-29 15:32 | HO.PSYCHPN ---
Subjective Subjective Date of Service: 11/29/20 Reason For Visit: SI Subjective Notes: Conditional Voluntary Interim History: Pt reports she is OK, but depressed. Denies sx. Team reports lability, anxiety, depression. Na 131, an increase from 125 11/28. K=5.0. Pt has declined vaginal exam for sx reported. Fluid restriction in place. Pt reports no adverse medication SE. Denies SI, HI. Visable on the unit Medication Compliance: Yes Side effects from medications: Yes (?Hyponatremia) Review of Systems Review of Systems Yes Other (pt denies-watching electrolytes) Psychiatric: Reports anxiety, Reports depression, Reports mood swings and Reports suicidal ideation (denies) Mental Status Exam Mental Status Exam Patient Appearance: Appropriate Patient Orientation: Person, Place and Situation Level of Consciousness: Alert Patient Behavior: Appropriate Mood Description: Depressed Affect Description: Depressed and Flat Patient Cognition Impaired: No Ability to Follow Directions: Good Speech Pattern: Spontaneous Speech and Soft-Spoken Hallucinations: None (denied) Thought Process: Intact Thought Content: positive for Intact Depressive Symptoms: Hopelessness Judgement: Fair Diagnostics Vital Signs (24Hr): Vital Signs - 24 hr 11/28/20 18:00 11/28/20 22:15 11/29/20 06:00 Temperature 98.5 F 98.7 F Pulse Rate 73 80 80 Respiratory Rate Blood Pressure 162/79 H 145/78 H 115/57 L Pulse Oximetry 11/29/20 08:00 Temperature 98.6 F Pulse Rate 71 Respiratory Rate 16 Blood Pressure 100/61 Pulse Oximetry 100 Body Mass Index 17.2 Labs Results: 11/28/20 17:47 11/29/20 08:24 Labs: Laboratory Results - last 48 hr 11/27/20 11/27/20 11/27/20 17:45 17:46 17:46 WBC RBC Hgb Hct MCV MCH MCHC RDW Plt Count MPV Immature Gran % (Auto) Neut % (Auto) Lymph % (Auto) [place] % (Auto) Eos % (Auto) Baso % (Auto) Lymph # (Auto) [place] # (Auto) Eos # (Auto) Baso # (Auto) Abs Immat Gran (auto) Absolute Neuts (auto) Absolute Nucleated RBC Nucleated RBC % (auto) Sodium 128 L Potassium 4.6 Chloride 92 L Carbon Dioxide 25 Anion Gap 16 BUN 19 H Creatinine 0.66 Estim Creat Clear Calc 46.6 Estimated GFR > 60 Random Glucose Fasting Glucose 92 Calcium 9.0 Total Bilirubin 0.2 AST 33 H ALT 26 Alkaline Phosphatase 53 Total Protein 6.5 Albumin 4.2 TSH 2.51 Urine Color Urine Appearance Urine pH Ur Specific [place] Urine Protein Urine Glucose (UA) Urine Ketones Urine Blood Urine Nitrite Ur Leukocyte Esterase Urine RBC Urine WBC Ur Squamous Epith Cells Ur Renal Epithelial Cell Urine Bacteria [place] 0.30 L 11/28/20 11/28/20 11/28/20 10:54 17:00 17:47 WBC 5.8 RBC 3.83 L Hgb 12.4 Hct 36.3 L MCV 94.8 MCH 32.4 MCHC 34.2 RDW 11.8 Plt Count 266 MPV 9.1 L Immature Gran % (Auto) 0.3 Neut % (Auto) 62.0 Lymph % (Auto) 21.9 [place] % (Auto) 10.3 Eos % (Auto) 5.0 H Baso % (Auto) 0.5 Lymph # (Auto) 1.3 [place] # (Auto) 0.6 Eos # (Auto) 0.3 Baso # (Auto) 0.0 Abs Immat Gran (auto) 0.02 Absolute Neuts (auto) 3.6 Absolute Nucleated RBC 0.000 Nucleated RBC % (auto) 0.0 Sodium 128 L Potassium 5.2 H Chloride 93 L Carbon Dioxide 28 Anion Gap 12 BUN 17 H Creatinine 0.71 Estim Creat Clear Calc 43.4 Estimated GFR > 60 Random Glucose 85 Fasting Glucose Calcium 8.8 Total Bilirubin 0.5 AST 30 ALT 25 Alkaline Phosphatase 51 Total Protein 6.2 L Albumin 4.0 TSH Urine Color YELLOW Urine Appearance CLEAR Urine pH 6.5 Ur Specific [place] 1.020 Urine Protein NEG Urine Glucose (UA) NEG Urine Ketones NEG Urine Blood NEG Urine Nitrite NEG Ur Leukocyte Esterase NEG Urine RBC 0 Urine WBC 0-2 Ur Squamous Epith Cells TRACE Ur Renal Epithelial Cell TRACE Urine Bacteria NONE [place] 11/28/20 11/29/20 17:47 08:24 WBC RBC Hgb Hct MCV MCH MCHC RDW Plt Count MPV Immature Gran % (Auto) Neut % (Auto) Lymph % (Auto) [place] % (Auto) Eos % (Auto) Baso % (Auto) Lymph # (Auto) [place] # (Auto) Eos # (Auto) Baso # (Auto) Abs Immat Gran (auto) Absolute Neuts (auto) Absolute Nucleated RBC Nucleated RBC % (auto) Sodium 125 L 131 L Potassium 4.6 5.0 Chloride 89 L 94 L Carbon Dioxide 27 28 Anion Gap 14 14 BUN 18 H 14 Creatinine 0.66 0.69 Estim Creat Clear Calc 46.6 44.6 Estimated GFR > 60 > 60 Random Glucose 102 88 Fasting Glucose Calcium 8.6 8.8 Total Bilirubin 0.4 AST 33 H ALT 29 Alkaline Phosphatase 56 Total Protein 6.2 L Albumin 4.1 TSH Urine Color Urine Appearance Urine pH Ur Specific [place] Urine Protein Urine Glucose (UA) Urine Ketones Urine Blood Urine Nitrite Ur Leukocyte Esterase Urine RBC Urine WBC Ur Squamous Epith Cells Ur Renal Epithelial Cell Urine Bacteria [place] Medications Medications Current Medications Generic Name Dose Route Start Last Admin Trade Name Freq PRN Reason Stop Dose Admin Acetaminophen 650 mg 11/14/20 15:12 Acetaminophen 325 Mg Tablet PO Q6H PRN Headache/Pain Mild Scale (1-3) Al Hydroxide/Mg Hydroxide 30 ml 11/14/20 15:12 Magnesium Hydrox/Alum Hydrox 30 Ml Oral.Susp PO Q6H PRN Heartburn/Nausea Aripiprazole 5 mg 11/27/20 09:00 11/29/20 08:35 Aripiprazole 5 Mg Tablet PO 5 mg DAILY JILLIAN Administration Lorazepam 1 mg 11/19/20 21:00 11/28/20 20:54 Lorazepam 1 Mg Tablet PO 1 mg BEDTIME JILLIAN Administration Lorazepam 0.5 mg 11/20/20 09:00 11/29/20 08:35 Lorazepam 0.5 Mg Tablet PO 0.5 mg DAILY JILLIAN Administration Lorazepam 0.5 mg 11/25/20 14:00 11/29/20 14:07 Lorazepam 0.5 Mg Tablet PO 0.5 mg DAILY@1400 JILLIAN Administration Magnesium Hydroxide 30 ml 11/14/20 15:12 11/27/20 20:31 Milk Of Magnesia 30 Ml Oral.Susp PO 30 ml DAILY PRN Administration Constipation Mirtazapine 15 mg 11/18/20 21:00 11/28/20 20:54 Mirtazapine 15 Mg Tablet PO 15 mg BEDTIME JILLIAN Administration Multivitamins 1 tab 11/23/20 11:15 11/29/20 08:35 B-Complex With Vitamin C Tablet PO 1 tab DAILY JILLIAN Administration Pt Own: Kerasal 2 each 11/23/20 21:00 11/29/20 10:05 Topical Solution BUCCAL 2 each BID JILLIAN Administration Senna 17.2 mg 11/12/20 12:22 11/19/20 21:25 Sennosides 8.6 Mg Tablet PO 17.2 mg BEDTIME PRN Administration Constipation Venlafaxine HCl 75 mg 11/27/20 09:00 11/29/20 08:34 Venlafaxine Hcl Er 75 Mg Cap.Er.24h PO 75 mg DAILY JILLIAN Administration Venlafaxine HCl 37.5 mg 11/27/20 09:00 11/29/20 08:35 Venlafaxine Hcl Er 37.5 Mg Cap.Er.24h PO 37.5 mg DAILY JILLIAN Administration Vitamin D 10 mcg 11/23/20 11:15 11/29/20 08:35 Cholecalciferol (Vitamin D3) 10 Mcg Tablet PO 10 mcg DAILY JILLIAN Administration Allergies Allergies Allergy/AdvReac Type Severity Reaction Status Date / Time erythromycin base Allergy Hives Verified 11/14/20 23:32 Assessment & Plan Assessment & Plan (1) Major depressive disorder, severe: Status: Acute Code(s): F32.2 - Major depressive disorder, single episode, severe without psychotic features Greater than 50% of the session was spent on counseling and/or coordination of care Reason for contiued inpatient stay Substantial Risk for: rapid decompensation
[2020-11-29 18:00] VITALS: BP 146/74; PULSE 79; RESP 18; TEMP 36.2; O2SAT 98
[2020-11-29] MEDS: LORazepam 1 MG TABLET PO (20:52)
[2020-11-29] MEDS: Mirtazapine 15 MG TABLET PO (20:52)
[2020-11-30 06:55] VITALS: BP 129/70; PULSE 73; RESP 16; TEMP 37.3; O2SAT 98
[2020-11-30 08:00] VITALS: BP 142/76; PULSE 83; RESP 16; TEMP 36.7; O2SAT 98
[2020-11-30] MEDS: LORazepam 0.5 MG TABLET PO ×2 (08:15→14:49)
[2020-11-30] MEDS: Cholecalciferol (Vitamin D3) 10 MCG TABLET PO (08:15)
[2020-11-30] MEDS: Venlafaxine HCl ER 37.5 MG CAP.ER.24H PO (08:15)
[2020-11-30] MEDS: ARIPiprazole 5 MG TABLET PO (08:15)
[2020-11-30] MEDS: Venlafaxine HCl ER 75 MG CAP.ER.24H PO (08:15)
--- NOTE | 2020-11-30 08:28 | HO.PSYCHPN ---
Subjective Subjective Date of Service: 11/30/20 Reason For Visit: SI Subjective Notes: Conditional Voluntary Interim History: I felt better yesterday. I am not feeling well today, depressed. Pt requested to meet today and discussed her current symptoms. Reports feeling an increase of depressive sx with hopelessness, helplessness, feeling overwhelmed and unable to function as she would if feeling well. Reports blurred vision-?SE of Abilify which was recently started. Pt asked several questions about medications, took notes, had technical proposal writer review labs with her. Discussed [place]-possible effects upon her electrolytes. States she was feeling somewhat improved with [place] and is sorry it has had this effect. Discussed physical concerns-vaginal infection sx are primarily at night-pt believes she has a prolapse (record affirms this). Also believes she has chronic constipation/diarrhea and sx are increased with prolapse and straining. Asks for a prn strong laxative-decided upon colace 100 mg daily as needed to begin. Review of Systems Eyes: Reports blurry vision Gastrointestinal: Reports constipation and Reports diarrhea Genitourinary: Reports prolapse symptoms and Reports vaginal discharge Psychiatric: Reports anxiety, Reports depression, Reports difficulty concentrating, Reports hopelessness and Reports anhedonia Mental Status Exam Mental Status Exam Patient Appearance: Well Grooomed Patient Orientation: Person, Place and Situation Level of Consciousness: Alert Patient Behavior: Talkative, Cooperative, Passive, Anxious, Fearful, Fatigued and Good Eye Contact Mood Description: Depressed, Anxious and Angry Affect Description: Flat Patient Cognition Impaired: No Ability to Follow Directions: Good Speech Pattern: Spontaneous Speech, Soft-Spoken, Delayed and Long Pauses (3) Memory Description: Episodic Impaired Hallucinations: None Delusions: Not Present Thought Process: Rumination and Slowed Thinking Thought Content: positive for [place], positive for Perseveration, positive for Slowed Thinking, positive for Logical and positive for Suicidal Ideation (denies currently) Depressive Symptoms: Increased Anxiety, Hopelessness, Unhappiness, Increased Fatigue, Loss of Energy and Difficulty Concentrating Judgement: Fair Diagnostics Vital Signs (24Hr): Vital Signs - 24 hr 11/29/20 18:00 11/30/20 06:55 Temperature 97.2 F 99.2 F Pulse Rate 79 73 Respiratory Rate 18 16 Blood Pressure 146/74 H 129/70 Pulse Oximetry 98 98 Body Mass Index 17.2 Labs Results: 11/28/20 17:47 11/29/20 08:24 Labs: Laboratory Results - last 48 hr 11/28/20 11/28/20 11/28/20 10:54 17:00 17:47 WBC 5.8 RBC 3.83 L Hgb 12.4 Hct 36.3 L MCV 94.8 MCH 32.4 MCHC 34.2 RDW 11.8 Plt Count 266 MPV 9.1 L Immature Gran % (Auto) 0.3 Neut % (Auto) 62.0 Lymph % (Auto) 21.9 [place] % (Auto) 10.3 Eos % (Auto) 5.0 H Baso % (Auto) 0.5 Lymph # (Auto) 1.3 [place] # (Auto) 0.6 Eos # (Auto) 0.3 Baso # (Auto) 0.0 Abs Immat Gran (auto) 0.02 Absolute Neuts (auto) 3.6 Absolute Nucleated RBC 0.000 Nucleated RBC % (auto) 0.0 Sodium 128 L Potassium 5.2 H Chloride 93 L Carbon Dioxide 28 Anion Gap 12 BUN 17 H Creatinine 0.71 Estim Creat Clear Calc 43.4 Estimated GFR > 60 Random Glucose 85 Calcium 8.8 Total Bilirubin 0.5 AST 30 ALT 25 Alkaline Phosphatase 51 Total Protein 6.2 L Albumin 4.0 Urine Color YELLOW Urine Appearance CLEAR Urine pH 6.5 Ur Specific [place] 1.020 Urine Protein NEG Urine Glucose (UA) NEG Urine Ketones NEG Urine Blood NEG Urine Nitrite NEG Ur Leukocyte Esterase NEG Urine RBC 0 Urine WBC 0-2 Ur Squamous Epith Cells TRACE Ur Renal Epithelial Cell TRACE Urine Bacteria NONE 11/28/20 11/29/20 17:47 08:24 WBC RBC Hgb Hct MCV MCH MCHC RDW Plt Count MPV Immature Gran % (Auto) Neut % (Auto) Lymph % (Auto) [place] % (Auto) Eos % (Auto) Baso % (Auto) Lymph # (Auto) [place] # (Auto) Eos # (Auto) Baso # (Auto) Abs Immat Gran (auto) Absolute Neuts (auto) Absolute Nucleated RBC Nucleated RBC % (auto) Sodium 125 L 131 L Potassium 4.6 5.0 Chloride 89 L 94 L Carbon Dioxide 27 28 Anion Gap 14 14 BUN 18 H 14 Creatinine 0.66 0.69 Estim Creat Clear Calc 46.6 44.6 Estimated GFR > 60 > 60 Random Glucose 102 88 Calcium 8.6 8.8 Total Bilirubin 0.4 AST 33 H ALT 29 Alkaline Phosphatase 56 Total Protein 6.2 L Albumin 4.1 Urine Color Urine Appearance Urine pH Ur Specific [place] Urine Protein Urine Glucose (UA) Urine Ketones Urine Blood Urine Nitrite Ur Leukocyte Esterase Urine RBC Urine WBC Ur Squamous Epith Cells Ur Renal Epithelial Cell Urine Bacteria Medications Medications Current Medications Generic Name Dose Route Start Last Admin Trade Name Freq PRN Reason Stop Dose Admin Acetaminophen 650 mg 11/14/20 15:12 Acetaminophen 325 Mg Tablet PO Q6H PRN Headache/Pain Mild Scale (1-3) Al Hydroxide/Mg Hydroxide 30 ml 11/14/20 15:12 Magnesium Hydrox/Alum Hydrox 30 Ml Oral.Susp PO Q6H PRN Heartburn/Nausea Aripiprazole 5 mg 11/27/20 09:00 11/30/20 08:15 Aripiprazole 5 Mg Tablet PO 5 mg DAILY JILLIAN Administration Lorazepam 1 mg 11/19/20 21:00 11/29/20 20:52 Lorazepam 1 Mg Tablet PO 1 mg BEDTIME JILLIAN Administration Lorazepam 0.5 mg 11/20/20 09:00 11/30/20 08:15 Lorazepam 0.5 Mg Tablet PO 0.5 mg DAILY JILLIAN Administration Lorazepam 0.5 mg 11/25/20 14:00 11/29/20 14:07 Lorazepam 0.5 Mg Tablet PO 0.5 mg DAILY@1400 JILLIAN Administration Magnesium Hydroxide 30 ml 11/14/20 15:12 11/27/20 20:31 Milk Of Magnesia 30 Ml Oral.Susp PO 30 ml DAILY PRN Administration Constipation Mirtazapine 15 mg 11/18/20 21:00 11/29/20 20:52 Mirtazapine 15 Mg Tablet PO 15 mg BEDTIME JILLIAN Administration Multivitamins 1 tab 11/23/20 11:15 11/30/20 08:15 B-Complex With Vitamin C Tablet PO 1 tab DAILY JILLIAN Administration Pt Own: Kerasal 2 each 11/23/20 21:00 11/29/20 20:52 Topical Solution BUCCAL Not Given BID JILLIAN Senna 17.2 mg 11/12/20 12:22 11/19/20 21:25 Sennosides 8.6 Mg Tablet PO 17.2 mg BEDTIME PRN Administration Constipation Venlafaxine HCl 75 mg 11/27/20 09:00 11/30/20 08:15 Venlafaxine Hcl Er 75 Mg Cap.Er.24h PO 75 mg DAILY JILLIAN Administration Venlafaxine HCl 37.5 mg 11/27/20 09:00 11/30/20 08:15 Venlafaxine Hcl Er 37.5 Mg Cap.Er.24h PO 37.5 mg DAILY JILLIAN Administration Vitamin D 10 mcg 11/23/20 11:15 11/30/20 08:15 Cholecalciferol (Vitamin D3) 10 Mcg Tablet PO 10 mcg DAILY JILLIAN Administration Allergies Allergies Allergy/AdvReac Type Severity Reaction Status Date / Time erythromycin base Allergy Hives Verified 11/14/20 23:32 Assessment & Plan Assessment & Plan (1) Major depressive disorder, severe: Status: Acute Code(s): F32.2 - Major depressive disorder, single episode, severe without psychotic features Assessment and Plan: -Repeat labs on 12/01/20. -Decrease Abilify to 2 mg daily due to pt reporting blurred vision. Greater than 50% of the session was spent on counseling and/or coordination of care Reason for contiued inpatient stay Substantial Risk for: inability to function, rapid decompensation and med/psych decompensation
[2020-11-30 15:26] LABS: Osmolality Urine 737 mosm/kg (373-1093)
[2020-11-30 16:51] VITALS: BP 131/63; PULSE 72; RESP 16; TEMP 36.3; O2SAT 99
[2020-11-30] MEDS: LORazepam 1 MG TABLET PO (20:44)
[2020-11-30] MEDS: Mirtazapine 15 MG TABLET PO (20:44)
[2020-12-01 05:50] VITALS: BP 120/56; PULSE 75; RESP 14; TEMP 37.1; O2SAT 95
[2020-12-01 08:00] VITALS: BP 120/56; PULSE 75; RESP 18; TEMP 37.1; O2SAT 95
[2020-12-01 08:23] LABS: MANUAL DIFF FLAG NO
[2020-12-01 08:42] LABS: Basophils Percent Auto 0.9 % (0-2); Eosinophils Absolute Auto 0.4 X10*3/uL (0.0-0.4); Eosinophils Percent Auto 9.4 % (0-4); Hematocrit 35.4 % (37-47); Imm Gran Abs Auto 0.01 X10*3/uL (0.00-0.03); Imm Gran Pct Auto 0.2 % (0.0-0.4); Lymphocytes Absolute Auto 1.7 X10*3/uL (1.2-4.9); Lymphocytes Percent Auto 38.7 % (20-40); Mean Corpuscular HGB Conc 33.9 g/dl (31.0-35.0); Mean Corpuscular Volume 94.4 fL (80-98); Mean Platelet Volume 9.2 fL (9.4-12.3); Monocytes Absolute Auto 0.5 X10*3/uL (0.1-1.2); Monocytes Percent Auto 12.2 % (2-11); Neutrophils Absolute Auto 1.7 X10*3/uL (2.0-8.3); Neutrophils Percent Auto 38.6 % (45-73); Platelet Count 269 X10*3/uL (160-400); Red Blood Count 3.75 X10*6/uL (4.20-5.50); Red Cell Distribution Width 11.8 % (11.0-16.0); White Blood Count 4.3 X10*3/uL (4.8-10.8)
[2020-12-01 08:59] LABS: Alanine Aminotransferase 27 U/L (0-31); Albumin Level 3.5 g/dL (3.5-5.0); Alkaline Phosphatase 50 U/L (39-117); Anion Gap 12 (12-20); Aspartate Amino Transferase 28 U/L (5-31); Bilirubin Total 0.6 mg/dL (0.0-1.0); Blood Urea Nitrogen 13 mg/dL (9-16); Calcium 8.4 mg/dL (8.4-10.2); Carbon Dioxide 28 mmol/L (22-29); Chloride 94 mmol/L (96-108); Creatinine Clr Calc Pharmacy 44.6; Estimated Glomerular Filt Rate > 60; Glucose Random 83 mg/dL (60-115); Potassium 5.1 mmol/L (3.3-5.1); Sodium 129 mmol/L (135-145); Total Protein 5.4 g/dL (6.5-8.0)
[2020-12-01] MEDS: Venlafaxine HCl ER 37.5 MG CAP.ER.24H PO (09:40)
[2020-12-01] MEDS: LORazepam 0.5 MG TABLET PO (09:40)
[2020-12-01] MEDS: Cholecalciferol (Vitamin D3) 10 MCG TABLET PO (09:41)
[2020-12-01] MEDS: Venlafaxine HCl ER 75 MG CAP.ER.24H PO (09:43)
[2020-12-01] MEDS: ARIPiprazole 2 MG TABLET PO (09:45)
--- NOTE | 2020-12-01 14:32 | HO.PSYCHPN ---
Subjective Subjective Date of Service: 12/01/20 Reason For Visit: SI Interim History: The patient reported that she has some tremors with Abilify. On physical exam, there was no evidence of shakes or tremors. She remains withdrawn but able to contract for safety. Over the weekend, she discussed other treatment options besides [place] or Abilify and she wanted to explore about Lamictal. Her reported that she has an intake at [facility] on and he is hoping to get the discharge earlier. Medication Compliance: Yes Side effects from medications: No Review of Systems Acute medical concerns: No Medical Review of Systems: changed Mental Status Exam Mental Status Exam Patient Appearance: Well Grooomed Patient Orientation: Person, Place and Situation Level of Consciousness: Awake Patient Behavior: Cooperative Mood Description: Calm Affect Description: Withdrawn Patient Cognition Impaired: Yes Ability to Follow Directions: Good Speech Pattern: Clear Hallucinations: None Delusions: Not Present Thought Process: Intact Thought Content: positive for Circumstantial Diagnostics Vital Signs (24Hr): Vital Signs - 24 hr 11/30/20 16:51 12/01/20 05:50 12/01/20 08:00 Temperature 97.3 F 98.8 F 98.8 F Pulse Rate 72 75 75 Respiratory Rate 16 14 18 Blood Pressure 131/63 120/56 L 120/56 L Pulse Oximetry 99 95 95 Body Mass Index 17.2 Labs Results: 12/01/20 07:37 12/01/20 07:37 Labs: Laboratory Results - last 48 hr 11/30/20 11/30/20 12/01/20 15:01 15:01 07:37 WBC RBC Hgb Hct MCV MCH MCHC RDW Plt Count MPV Immature Gran % (Auto) Neut % (Auto) Lymph % (Auto) [place] % (Auto) Eos % (Auto) Baso % (Auto) Lymph # (Auto) [place] # (Auto) Eos # (Auto) Baso # (Auto) Abs Immat Gran (auto) Absolute Neuts (auto) Absolute Nucleated RBC Nucleated RBC % (auto) Sodium 129 L Potassium 5.1 Chloride 94 L Carbon Dioxide 28 Anion Gap 12 BUN 13 Creatinine 0.69 Estim Creat Clear Calc 44.6 Estimated GFR > 60 Random Glucose 83 Calcium 8.4 Total Bilirubin 0.6 AST 28 ALT 27 Alkaline Phosphatase 50 Total Protein 5.4 L Albumin 3.5 Urine Osmolality 737 Ur Random Sodium 23.0 12/01/20 07:37 WBC 4.3 L RBC 3.75 L Hgb 12.0 Hct 35.4 L MCV 94.4 MCH 32.0 MCHC 33.9 RDW 11.8 Plt Count 269 MPV 9.2 L Immature Gran % (Auto) 0.2 Neut % (Auto) 38.6 L Lymph % (Auto) 38.7 [place] % (Auto) 12.2 H Eos % (Auto) 9.4 H Baso % (Auto) 0.9 Lymph # (Auto) 1.7 [place] # (Auto) 0.5 Eos # (Auto) 0.4 Baso # (Auto) 0.0 Abs Immat Gran (auto) 0.01 Absolute Neuts (auto) 1.7 L Absolute Nucleated RBC 0.000 Nucleated RBC % (auto) 0.0 Sodium Potassium Chloride Carbon Dioxide Anion Gap BUN Creatinine Estim Creat Clear Calc Estimated GFR Random Glucose Calcium Total Bilirubin AST ALT Alkaline Phosphatase Total Protein Albumin Urine Osmolality Ur Random Sodium Medications Medications Current Medications Generic Name Dose Route Start Last Admin Trade Name Freq PRN Reason Stop Dose Admin Acetaminophen 650 mg 11/14/20 15:12 Acetaminophen 325 Mg Tablet PO Q6H PRN Headache/Pain Mild Scale (1-3) Al Hydroxide/Mg Hydroxide 30 ml 11/14/20 15:12 Magnesium Hydrox/Alum Hydrox 30 Ml Oral.Susp PO Q6H PRN Heartburn/Nausea Aripiprazole 2 mg 12/01/20 09:00 12/01/20 09:45 Aripiprazole 2 Mg Tablet PO 2 mg DAILY JILLIAN Administration Docusate Sodium 100 mg 11/30/20 11:32 Docusate Sodium 100 Mg Capsule PO DAILY PRN Constipation Lorazepam 1 mg 11/19/20 21:00 11/30/20 20:44 Lorazepam 1 Mg Tablet PO 1 mg BEDTIME JILLIAN Administration Lorazepam 0.5 mg 11/20/20 09:00 12/01/20 09:40 Lorazepam 0.5 Mg Tablet PO 0.5 mg DAILY JILLIAN Administration Lorazepam 0.5 mg 12/01/20 14:00 11/30/20 14:49 Lorazepam 0.5 Mg Tablet PO 0.5 mg 1400 JILLIAN Administration Magnesium Hydroxide 30 ml 11/14/20 15:12 11/27/20 20:31 Milk Of Magnesia 30 Ml Oral.Susp PO 30 ml DAILY PRN Administration Constipation Mirtazapine 15 mg 11/18/20 21:00 11/30/20 20:44 Mirtazapine 15 Mg Tablet PO 15 mg BEDTIME JILLIAN Administration Multivitamins 1 tab 11/23/20 11:15 12/01/20 09:40 B-Complex With Vitamin C Tablet PO 1 tab DAILY JILLIAN Administration Pt Own: Kerasal 2 each 11/23/20 21:00 12/01/20 11:08 Topical Solution BUCCAL 2 each BID JILLIAN Administration Senna 17.2 mg 11/12/20 12:22 11/19/20 21:25 Sennosides 8.6 Mg Tablet PO 17.2 mg BEDTIME PRN Administration Constipation Venlafaxine HCl 75 mg 11/27/20 09:00 12/01/20 09:43 Venlafaxine Hcl Er 75 Mg Cap.Er.24h PO 75 mg DAILY JILLIAN Administration Venlafaxine HCl 37.5 mg 11/27/20 09:00 12/01/20 09:40 Venlafaxine Hcl Er 37.5 Mg Cap.Er.24h PO 37.5 mg DAILY JILLIAN Administration Vitamin D 10 mcg 11/23/20 11:15 12/01/20 09:41 Cholecalciferol (Vitamin D3) 10 Mcg Tablet PO 10 mcg DAILY JILLIAN Administration Allergies Allergies Allergy/AdvReac Type Severity Reaction Status Date / Time erythromycin base Allergy Hives Verified 11/14/20 23:32 Assessment & Plan Assessment & Plan (1) Major depressive disorder, severe: Status: Acute Code(s): F32.2 - Major depressive disorder, single episode, severe without psychotic features Assessment and Plan: Continue with same treatment. MOCA test when her mood is brighter. Greater than 50% of the session was spent on counseling and/or coordination of care Reason for contiued inpatient stay Substantial Risk for: inability to function
[2020-12-01 16:17] VITALS: BP 145/65; PULSE 68; RESP 16; TEMP 36.5; O2SAT 98
[2020-12-01] MEDS: Mirtazapine 15 MG TABLET PO (20:51)
[2020-12-01] MEDS: LORazepam 1 MG TABLET PO (20:51)
[2020-12-02 06:20] VITALS: BP 119/56; BP 128/60; PULSE 75; PULSE 77; RESP 16; RESP 18; TEMP 36.9; TEMP 37.2; O2SAT 97; O2SAT 98
[2020-12-02] MEDS: Cholecalciferol (Vitamin D3) 10 MCG TABLET PO (08:39)
[2020-12-02] MEDS: ARIPiprazole 2 MG TABLET PO (08:39)
[2020-12-02] MEDS: LORazepam 0.5 MG TABLET PO ×2 (08:41→14:25)
[2020-12-02] MEDS: Venlafaxine HCl ER 75 MG CAP.ER.24H PO (08:41)
[2020-12-02] MEDS: Venlafaxine HCl ER 37.5 MG CAP.ER.24H PO (08:42)
--- NOTE | 2020-12-02 14:27 | PC.NURSE ---
Pt participated on [facility] screen, 7.1 version, on this date. Pt scored 26/30, indicating cognition is within normal limits. ROLL SLICING MACHINE TENDER made aware.
--- NOTE | 2020-12-02 14:42 | HO.PSYCHPN ---
Subjective Subjective Date of Service: 12/02/20 Reason For Visit: SI Interim History: Pt reports minimal improvement in symptoms of depression. She reports having difficulty in the morning, getting up from bed. She reports improved sleep. She reports eating better. She denies SI/HI. She continues to present as anxious but slightly less ruminative. She had MOCA completed today, score 26/30, most difficulty with recall 3/5, otherwise intact. Review of Systems Review of Systems Gen: no fever Resp: no sob, no cough CV: no chest, no LOVETT, no leg edema GI: No n/v, no abd pain Neuro: No confusion : vaginal area burning as stated Yes all other systems are reviewed and are negative and Other (pt denies-watching electrolytes) Constitutional: Reports fatigue, Reports lethargy, Reports poor appetite and Reports weight loss Eyes: Reports blurry vision Cardiovascular: Denies chest pain and Denies dyspnea Respiratory: Denies dyspnea Gastrointestinal: Reports constipation and Reports diarrhea Psychiatric: Reports anxiety, Reports change in appetite, Reports depression, Reports difficulty concentrating, Reports hopelessness, Reports anhedonia, Reports mood swings and Reports suicidal ideation (denies) Endocrine: Reports fatigue, Reports polydipsia and Reports polyuria Mental Status Exam Mental Status Exam Narrative: Appearance: casually groomed, thin woman appears her stated age, anxious, good hygiene in NAD Behavior: calmer, cooperative Psychomotor: no retardation or agitation noted Speech: clear, regular rate, regular rhythm, soft volume, spontaneous TP: repetition, mostly linear TC: no signs of psychosis, somatically preoccupied, future oriented Mood: depressed Affect: blunted, brighten at times VH/AH: none Delusions: none Insight/judgment: fair x 2. Memory/cog: alert, oriented x 3. Diagnostics Vital Signs (24Hr): Vital Signs - 24 hr 12/01/20 16:17 12/02/20 06:20 Temperature 97.7 F 98.4 F Pulse Rate 68 77 Respiratory Rate 16 18 Blood Pressure 145/65 H 119/56 L Pulse Oximetry 98 98 Body Mass Index 17.2 Labs Results: 12/01/20 07:37 12/01/20 07:37 Labs: Laboratory Results - last 48 hr 11/30/20 11/30/20 12/01/20 15:01 15:01 07:37 WBC RBC Hgb Hct MCV MCH MCHC RDW Plt Count MPV Immature Gran % (Auto) Neut % (Auto) Lymph % (Auto) [place] % (Auto) Eos % (Auto) Baso % (Auto) Lymph # (Auto) [place] # (Auto) Eos # (Auto) Baso # (Auto) Abs Immat Gran (auto) Absolute Neuts (auto) Absolute Nucleated RBC Nucleated RBC % (auto) Sodium 129 L Potassium 5.1 Chloride 94 L Carbon Dioxide 28 Anion Gap 12 BUN 13 Creatinine 0.69 Estim Creat Clear Calc 44.6 Estimated GFR > 60 Random Glucose 83 Calcium 8.4 Total Bilirubin 0.6 AST 28 ALT 27 Alkaline Phosphatase 50 Total Protein 5.4 L Albumin 3.5 Urine Osmolality 737 Ur Random Sodium 23.0 12/01/20 07:37 WBC 4.3 L RBC 3.75 L Hgb 12.0 Hct 35.4 L MCV 94.4 MCH 32.0 MCHC 33.9 RDW 11.8 Plt Count 269 MPV 9.2 L Immature Gran % (Auto) 0.2 Neut % (Auto) 38.6 L Lymph % (Auto) 38.7 [place] % (Auto) 12.2 H Eos % (Auto) 9.4 H Baso % (Auto) 0.9 Lymph # (Auto) 1.7 [place] # (Auto) 0.5 Eos # (Auto) 0.4 Baso # (Auto) 0.0 Abs Immat Gran (auto) 0.01 Absolute Neuts (auto) 1.7 L Absolute Nucleated RBC 0.000 Nucleated RBC % (auto) 0.0 Sodium Potassium Chloride Carbon Dioxide Anion Gap BUN Creatinine Estim Creat Clear Calc Estimated GFR Random Glucose Calcium Total Bilirubin AST ALT Alkaline Phosphatase Total Protein Albumin Urine Osmolality Ur Random Sodium Medications Medications Current Medications Generic Name Dose Route Start Last Admin Trade Name Freq PRN Reason Stop Dose Admin Acetaminophen 650 mg 11/14/20 15:12 Acetaminophen 325 Mg Tablet PO Q6H PRN Headache/Pain Mild Scale (1-3) Al Hydroxide/Mg Hydroxide 30 ml 11/14/20 15:12 Magnesium Hydrox/Alum Hydrox 30 Ml Oral.Susp PO Q6H PRN Heartburn/Nausea Aripiprazole 2 mg 12/01/20 09:00 12/02/20 08:39 Aripiprazole 2 Mg Tablet PO 2 mg DAILY JILLIAN Administration Docusate Sodium 100 mg 11/30/20 11:32 Docusate Sodium 100 Mg Capsule PO DAILY PRN Constipation Lorazepam 1 mg 11/19/20 21:00 12/01/20 20:51 Lorazepam 1 Mg Tablet PO 1 mg BEDTIME JILLIAN Administration Lorazepam 0.5 mg 11/20/20 09:00 12/02/20 08:41 Lorazepam 0.5 Mg Tablet PO 0.5 mg DAILY JILLIAN Administration Lorazepam 0.5 mg 12/01/20 14:00 12/02/20 14:25 Lorazepam 0.5 Mg Tablet PO 0.5 mg 1400 JILLIAN Administration Magnesium Hydroxide 30 ml 11/14/20 15:12 11/27/20 20:31 Milk Of Magnesia 30 Ml Oral.Susp PO 30 ml DAILY PRN Administration Constipation Mirtazapine 15 mg 11/18/20 21:00 12/01/20 20:51 Mirtazapine 15 Mg Tablet PO 15 mg BEDTIME JILLIAN Administration Multivitamins 1 tab 11/23/20 11:15 12/02/20 08:39 B-Complex With Vitamin C Tablet PO 1 tab DAILY JILLIAN Administration Pt Own: Kerasal 2 each 11/23/20 21:00 12/02/20 08:39 Topical Solution BUCCAL 2 each BID JILLIAN Administration Senna 17.2 mg 11/12/20 12:22 11/19/20 21:25 Sennosides 8.6 Mg Tablet PO 17.2 mg BEDTIME PRN Administration Constipation Venlafaxine HCl 75 mg 11/27/20 09:00 12/02/20 08:41 Venlafaxine Hcl Er 75 Mg Cap.Er.24h PO 75 mg DAILY JILLIAN Administration Venlafaxine HCl 37.5 mg 11/27/20 09:00 12/02/20 08:42 Venlafaxine Hcl Er 37.5 Mg Cap.Er.24h PO 37.5 mg DAILY JILLIAN Administration Vitamin D 10 mcg 11/23/20 11:15 12/02/20 08:39 Cholecalciferol (Vitamin D3) 10 Mcg Tablet PO 10 mcg DAILY JILLIAN Administration Allergies Allergies Allergy/AdvReac Type Severity Reaction Status Date / Time erythromycin base Allergy Hives Verified 11/14/20 23:32 Assessment & Plan Assessment & Plan (1) Major depressive disorder, severe: Status: Acute Code(s): F32.2 - Major depressive disorder, single episode, severe without psychotic features Assessment and Plan: Continue with same treatment. MOCA test when her mood is brighter. Greater than 50% of the session was spent on counseling and/or coordination of care Reason for contiued inpatient stay Substantial Risk for: inability to function
[2020-12-02 18:00] VITALS: BP 159/77; PULSE 75; TEMP 37.1
[2020-12-02] MEDS: LORazepam 1 MG TABLET PO (21:09)
[2020-12-02] MEDS: Mirtazapine 15 MG TABLET PO (21:09)
[2020-12-03 05:49] VITALS: BP 133/62; PULSE 71; RESP 16; TEMP 37.3; O2SAT 97
[2020-12-03] MEDS: ARIPiprazole 2 MG TABLET PO (08:07)
[2020-12-03] MEDS: Cholecalciferol (Vitamin D3) 10 MCG TABLET PO (08:08)
[2020-12-03] MEDS: Venlafaxine HCl ER 37.5 MG CAP.ER.24H PO (08:08)
[2020-12-03] MEDS: LORazepam 0.5 MG TABLET PO ×2 (08:08→14:05)
[2020-12-03] MEDS: Venlafaxine HCl ER 75 MG CAP.ER.24H PO (08:08)
[2020-12-03 12:14] LABS: Alanine Aminotransferase 31 U/L (0-31); Albumin Level 3.9 g/dL (3.5-5.0); Alkaline Phosphatase 53 U/L (39-117); Anion Gap 12 (12-20); Aspartate Amino Transferase 30 U/L (5-31); Bilirubin Total 0.4 mg/dL (0.0-1.0); Blood Urea Nitrogen 17 mg/dL (9-16); Calcium 8.6 mg/dL (8.4-10.2); Carbon Dioxide 28 mmol/L (22-29); Chloride 92 mmol/L (96-108); Creatinine Clr Calc Pharmacy 44.6; Estimated Glomerular Filt Rate > 60; Glucose Random 85 mg/dL (60-115); Potassium 4.4 mmol/L (3.3-5.1); Sodium 128 mmol/L (135-145)
--- NOTE | 2020-12-03 15:24 | P.PNPSI_ITS ---
Subjective Subjective Date of Service: 12/03/20 Reason For Visit: SI Interim History: Pt reports improved sleep. She reports some improvement in symptoms of depression in that she is eating and sleeping better. She is less hopeless. She reports slight decrease in depressed mood. She is less anxious. She does continue to worry that she may not complete get better. She continues to show ambivalence when making decisions. She denies SI/HI. Pt continues to have hyponatremia. Pt should continue fluid restriction to 1200ml. No symptoms noted or reported. Review of Systems Review of Systems Gen: no fever Resp: no sob, no cough CV: no chest, no LOVETT, no leg edema GI: No n/v, no abd pain Neuro: No confusion : vaginal area burning as stated Yes all other systems are reviewed and are negative and Other (pt denies- watching electrolytes) Constitutional: Reports fatigue, Reports lethargy, Reports poor appetite and Reports weight loss Eyes: Reports blurry vision Cardiovascular: Denies chest pain and Denies dyspnea Respiratory: Denies dyspnea Gastrointestinal: Reports constipation and Reports diarrhea Psychiatric: Reports anxiety, Reports change in appetite, Reports depression, Reports difficulty concentrating, Reports hopelessness, Reports anhedonia, Reports mood swings and Reports suicidal ideation (denies) Endocrine: Reports fatigue, Reports polydipsia and Reports polyuria Mental Status Exam Mental Status Exam Narrative: Appearance: casually groomed, thin woman appears her stated age, anxious, good hygiene in NAD Behavior: calmer, cooperative Psychomotor: no retardation or agitation noted Speech: clear, regular rate, regular rhythm, soft volume, spontaneous TP: repetition, mostly linear TC: no signs of psychosis, somatically preoccupied, future oriented Mood: depressed Affect: blunted, brighten at times VH/AH: none Delusions: none Insight/judgment: fair x 2. Memory/cog: alert, oriented x 3. Diagnostics Vital Signs (24Hr): Vital Signs - 24 hr 12/02/20 18:00 12/03/20 05:49 Temperature 98.7 F 99.2 F Pulse Rate 75 71 Respiratory Rate 16 Blood Pressure 159/77 H 133/62 Pulse Oximetry 97 Body Mass Index 17.2 Labs Results: 12/01/20 07:37 12/03/20 11:23 Labs: Laboratory Results - last 48 hr 12/03/20 11:23 Sodium 128 L Potassium 4.4 Chloride 92 L Carbon Dioxide 28 Anion Gap 12 BUN 17 H Creatinine 0.69 Estim Creat Clear Calc 44.6 Estimated GFR > 60 Random Glucose 85 Calcium 8.6 Total Bilirubin 0.4 AST 30 ALT 31 Alkaline Phosphatase 53 Total Protein 6.0 L Albumin 3.9 Medications Medications Current Medications Generic Name Dose Route Start Last Admin Trade Name Freq PRN Reason Stop Dose Admin Acetaminophen 650 mg 11/14/20 15:12 Acetaminophen 325 Mg Tablet PO Q6H PRN Headache/Pain Mild Scale (1-3) Al Hydroxide/Mg Hydroxide 30 ml 11/14/20 15:12 Magnesium Hydrox/Alum Hydrox 30 Ml Oral.Susp PO Q6H PRN Heartburn/Nausea Aripiprazole 2 mg 12/01/20 09:00 12/03/20 08:07 Aripiprazole 2 Mg Tablet PO 2 mg DAILY JILLIAN Administration Docusate Sodium 100 mg 11/30/20 11:32 Docusate Sodium 100 Mg Capsule PO DAILY PRN Constipation Lorazepam 1 mg 11/19/20 21:00 12/02/20 21:09 Lorazepam 1 Mg Tablet PO 1 mg BEDTIME JILLIAN Administration Lorazepam 0.5 mg 11/20/20 09:00 12/03/20 08:08 Lorazepam 0.5 Mg Tablet PO 0.5 mg DAILY JILLIAN Administration Lorazepam 0.5 mg 12/01/20 14:00 12/03/20 14:05 Lorazepam 0.5 Mg Tablet PO 0.5 mg 1400 JILLIAN Administration Magnesium Hydroxide 30 ml 11/14/20 15:12 11/27/20 20:31 Milk Of Magnesia 30 Ml Oral.Susp PO 30 ml DAILY PRN Administration Constipation Multivitamins 1 tab 11/23/20 11:15 12/03/20 08:08 B-Complex With Vitamin C Tablet PO 1 tab DAILY JILLIAN Administration Pt Own: Kerasal 2 each 11/23/20 21:00 12/03/20 08:41 Topical Solution BUCCAL 2 each BID JILLIAN Administration Senna 17.2 mg 11/12/20 12:22 11/19/20 21:25 Sennosides 8.6 Mg Tablet PO 17.2 mg BEDTIME PRN Administration Constipation Venlafaxine HCl 75 mg 11/27/20 09:00 12/03/20 08:08 Venlafaxine Hcl Er 75 Mg Cap.Er.24h PO 75 mg DAILY JILLIAN Administration Venlafaxine HCl 37.5 mg 11/27/20 09:00 12/03/20 08:08 Venlafaxine Hcl Er 37.5 Mg Cap.Er.24h PO 37.5 mg DAILY JILLIAN Administration Vitamin D 10 mcg 11/23/20 11:15 12/03/20 08:08 Cholecalciferol (Vitamin D3) 10 Mcg Tablet PO 10 mcg DAILY JILLIAN Administration Allergies Allergies Allergy/AdvReac Type Severity Reaction Status Date / Time erythromycin base Allergy Hives Verified 11/14/20 23:32 Assessment & Plan Assessment & Plan (1) Major depressive disorder, severe: Status: Acute Code(s): F32.2 - Major depressive disorder, single episode, severe without psychotic features Assessment and Plan: 1. continue current treatment. Greater than 50% of the session was spent on counseling and/or coordination of care Reason for contiued inpatient stay Substantial Risk for: inability to function
[2020-12-03 16:37] VITALS: BP 136/73; PULSE 75; RESP 16; TEMP 37.1; O2SAT 96
[2020-12-03] MEDS: LORazepam 1 MG TABLET PO (21:23)
[2020-12-04 06:07] VITALS: BP 108/63; PULSE 83; RESP 16; TEMP 36.7; O2SAT 96
[2020-12-04] MEDS: ARIPiprazole 2 MG TABLET PO (08:47)
[2020-12-04] MEDS: LORazepam 0.5 MG TABLET PO ×2 (08:47→13:35)
[2020-12-04] MEDS: Venlafaxine HCl ER 37.5 MG CAP.ER.24H PO (08:47)
[2020-12-04] MEDS: Cholecalciferol (Vitamin D3) 10 MCG TABLET PO (08:47)
[2020-12-04] MEDS: Venlafaxine HCl ER 75 MG CAP.ER.24H PO (08:47)
[2020-12-04 13:22] LABS: Anion Gap 12 (12-20); Blood Urea Nitrogen 17 mg/dL (9-16); Calcium 8.6 mg/dL (8.4-10.2); Carbon Dioxide 30 mmol/L (22-29); Chloride 92 mmol/L (96-108); Creatinine Clr Calc Pharmacy 46.6; Estimated Glomerular Filt Rate > 60; Glucose Random 84 mg/dL (60-115); Potassium 4.6 mmol/L (3.3-5.1); Sodium 129 mmol/L (135-145)
--- NOTE | 2020-12-04 13:23 | PM.CNNEP ---
History of Present Illness Reason for Consult Consult date: 12/04/20 Reason for consult: Hyponatremia Chief Complaint Chief complaint: SI History of Present Illness Narrative: 79 year female with history of breast cancer s/p surgery about 12 years ago presently admitted for increasing depression and is being managed pharmacologically with Effexor, [place], Remron and lorazepam. At home she is on Remron, trazadone, ativan and Citalopram. She is having hyponatremia. She reports no symptoms due to hyponatremia. She does not have any nausea, vomiting, diarrhea, SOB, edema, PND or orthopnea. She has no H/O hyperkalemia, renal insufficiency, uncontrolled hypothyroidism, congestive failure or liver failure. She has no edema and admit to drinking lots of water. Nephrology has been consulted to assist in the management of her hyponatremia. Review of Systems Review of Systems Yes all other systems are reviewed and are negative PMF Past Medical History Medical History Breast cancer Depression Family History Family history: reviewed and not pertinent Surgical History Surgical History H/O mastectomy Social History Social History Household Members: Spouse Housing: House Do you presently have visiting nurse or other home services: No Smoking Status: Never smoker Use of substances other than those prescribed or required for medical reasons: No Currently Displaying Signs/Symptoms of Drug Intoxication Withdrawal: No Have you been hit, kicked, punched, or otherwise hurt by someone within the past year? If so, by whom?: No Do you feel safe in your current relationship?: Yes Is there a partner from a previous relationship who is making you feel unsafe now?: No Are you made to feel afraid or neglected: No Advance Directives: No Advance Directives Information Provided: No Do you have thoughts of harming others: None Do you have a plan to hurt others: No Plan Recently lost weight without trying: Yes service: No Sexual orientation: Straight/Heterosexual Meds Allergies Allergy/AdvReac Type Severity Reaction Status Date / Time erythromycin base Allergy Hives Verified 11/14/20 23:32 Active Medications: Current Medications Generic Name Dose Route Start Last Admin Trade Name Freq PRN Reason Stop Dose Admin Acetaminophen 650 mg 11/14/20 15:12 Acetaminophen 325 Mg Tablet PO Q6H PRN Headache/Pain Mild Scale (1-3) Al Hydroxide/Mg Hydroxide 30 ml 11/14/20 15:12 Magnesium Hydrox/Alum Hydrox 30 Ml Oral.Susp PO Q6H PRN Heartburn/Nausea Aripiprazole 2 mg 12/01/20 09:00 12/04/20 08:47 Aripiprazole 2 Mg Tablet PO 2 mg DAILY JILLIAN Administration Docusate Sodium 100 mg 11/30/20 11:32 Docusate Sodium 100 Mg Capsule PO DAILY PRN Constipation Lorazepam 1 mg 11/19/20 21:00 12/03/20 21:23 Lorazepam 1 Mg Tablet PO 1 mg BEDTIME JILLIAN Administration Lorazepam 0.5 mg 11/20/20 09:00 12/04/20 08:47 Lorazepam 0.5 Mg Tablet PO 0.5 mg DAILY JILLIAN Administration Lorazepam 0.5 mg 12/01/20 14:00 12/03/20 14:05 Lorazepam 0.5 Mg Tablet PO 0.5 mg 1400 JILLIAN Administration Magnesium Hydroxide 30 ml 11/14/20 15:12 11/27/20 20:31 Milk Of Magnesia 30 Ml Oral.Susp PO 30 ml DAILY PRN Administration Constipation Multivitamins 1 tab 11/23/20 11:15 12/04/20 08:47 B-Complex With Vitamin C Tablet PO 1 tab DAILY JILLIAN Administration Pt Own: Kerasal 2 each 11/23/20 21:00 12/04/20 08:47 Topical Solution BUCCAL 2 each BID JILLIAN Administration Senna 17.2 mg 11/12/20 12:22 11/19/20 21:25 Sennosides 8.6 Mg Tablet PO 17.2 mg BEDTIME PRN Administration Constipation Venlafaxine HCl 75 mg 11/27/20 09:00 12/04/20 08:47 Venlafaxine Hcl Er 75 Mg Cap.Er.24h PO 75 mg DAILY JILLIAN Administration Venlafaxine HCl 37.5 mg 11/27/20 09:00 12/04/20 08:47 Venlafaxine Hcl Er 37.5 Mg Cap.Er.24h PO 37.5 mg DAILY JILLIAN Administration Vitamin D 10 mcg 11/23/20 11:15 12/04/20 08:47 Cholecalciferol (Vitamin D3) 10 Mcg Tablet PO 10 mcg DAILY JILLIAN Administration Home Medications Medication Instructions Recorded Confirmed Last Taken Type Remeron 45 mg PO BEDTIME 11/14/20 11/14/20 Unknown History citalopram 20 mg PO DAILY 11/14/20 11/14/20 Unknown History lithium carbonate 300 mg PO DAILY 11/14/20 11/14/20 Unknown History trazodone 50 mg PO BEDTIME 11/14/20 11/14/20 Unknown History Physical Exam Vital Signs: Last Vital Signs Temp 98.0 F 12/04/20 06:07 Pulse 83 12/04/20 06:07 Resp 16 12/04/20 06:07 BP 108/63 12/04/20 06:07 Pulse Ox 96 12/04/20 06:07 Body Mass Index 17.2 Const General: no acute distress HENMT Other: Moist mucous membranes Neck Neck: Yes normal visual inspection Resp Effort & Inspection: no respiratory distress Cardio Jugular venous distension: no JVD GI Palpation (GI): Soft to palpation Neuro Other: No edema General: moves all extremities Results Lab Results Result Diagrams: 12/01/20 07:37 12/04/20 12:30 Lab results: Chemistry 12/03/20 12/04/20 11:23 12:30 Sodium 128 L 129 L Potassium 4.4 4.6 Carbon Dioxide 28 30 H BUN 17 H 17 H Creatinine 0.69 0.66 Calcium 8.6 8.6 Assessment and Plan (1) Hyponatremia: Problem details: Euvolemic Hyponatremia due to excess ADH No hyperkalemia, orthostasis or hypervolemia No H/O renal failure/CHF / liver failure or uncontrolled hypothyroidism Continue to fluid restrict 40 oz of fluid/24 hours No indication for PO urea, demeclocycline or NaCl tablets Could be discharged home from a renal perspective Shall be happy to arrange outpatient follow up Follow up blood work to be done by PCP next week if D/Jonathan Status: Acute
--- NOTE | 2020-12-04 14:21 | PM.PSYDC ---
DS: Providers Provider Date of Service: 12/12/20 <Lizzie Juliennicholas - Last Filed: 12/12/20 10:50> 12/18/20 <Enoc Guzman MD - Last Filed: 12/18/20 21:07> Date of admission: 11/14/20 15:12 <Lizzie Jo - Last Filed: 12/12/20 10:50> Primary care physician: Swapnil Dukes MD <Lizzie Wilynicholas - Last Filed: 12/12/20 10:50> Consults: 11/28/20 15:45 Consult to Hospitalist Stat Consulting Provider: Hospitalist Reason For Exam: hyponatremia/hyperkalemia 11/28/20 19:16 Consult to Nephrology Routine Consulting Provider: Luciano Mondragon Reason for consultation: Hyponatremia Has provider been notified: No <Lizzie Jo - Last Filed: 12/12/20 10:50> DS: Diagnosis Discharge Diagnosis (1) Hyponatremia: Status: Acute <Lizzie Jo - Last Filed: 12/12/20 10:50> Problem details: Euvolemic Hyponatremia due to excess ADH No hyperkalemia, orthostasis or hypervolemia No H/O renal failure/CHF / liver failure or uncontrolled hypothyroidism Continue to fluid restrict 40 oz of fluid/24 hours No indication for PO urea, demeclocycline or NaCl tablets Could be discharged home from a renal perspective Shall be happy to arrange outpatient follow up Follow up blood work to be done by PCP next week if D/Jonathan <Lizzie Rutherfordkiana - Last Filed: 12/12/20 10:50> (2) Major depressive disorder, recurrent episode, severe with anxious distress: Status: Acute <Lizzie Jo - Last Filed: 12/12/20 10:50> DS: Medications Discharge Medications Home Medications: Previous Rx's Medication Instructions Recorded B-complex with vitamin C 1 tab PO DAILY 30 Days #30 tab 12/04/20 aripiprazole [Abilify] 2 mg PO DAILY 30 Days #30 tab 12/04/20 cholecalciferol (vitamin D3) 10 mcg PO DAILY 30 Days #30 tab 12/04/20 [Vitamin D3] docusate sodium 100 mg PO DAILY PRN 30 Days #30 cap 04/01/21 lorazepam 0.5 mg PO 1400 30 Days #30 tab 12/04/20 lorazepam 0.5 mg PO DAILY 30 Days #30 tab 12/04/20 venlafaxine 37.5 mg PO DAILY 30 Days #30 cap 12/04/20 venlafaxine 75 mg PO DAILY 30 Days #30 cap 12/04/20 <Lizzie Juliennicholas - Last Filed: 12/12/20 10:50> Discharge Plan Discharge Patient Disposition: Home, Self-Care <Lizzie Juliennicholas - Last Filed: 12/12/20 10:50> Discharge Diagnosis: major depression recurrent <Lizzie Jo - Last Filed: 12/12/20 10:50> major depression recurrent <Enoc Guzman MD - Last Filed: 12/18/20 21:07> Referrals: Oksana Coy (psychiatrist) [Other] - 12/23/20 10:00 am (Video appointment) Theresa Cervantes (therapist) [Other] - 12/24/20 2:00 pm (Telehealth appointment) [facility] [Other] - 12/05/20 8:15 am (You will start the program after completing the intake. Expect for the day to finish around 2:30/2:45pm. Lunch is provided, although you can bring your own food. A mask will be provided for you to wear. Please bring your insurance card and photo ID for intake appointment) Swapnil Dukes MD [Primary Care Provider] - 12/12/20 3:00 pm (IN HOUSE) <Lizziejeimy Juliennicholas - Last Filed: 12/12/20 10:50> Discharge Medications: New aripiprazole [Abilify] 2 mg Tablet 2 mg PO DAILY 30 Days Qty: 30 RF: 0 lorazepam 0.5 mg Tablet 0.5 mg PO DAILY 30 Days Qty: 30 RF: 0 lorazepam 0.5 mg Tablet 0.5 mg PO 1400 30 Days Qty: 30 RF: 0 venlafaxine 37.5 mg Capsule,Extended Release 24hr 37.5 mg PO DAILY 30 Days Qty: 30 RF: 0 venlafaxine 75 mg Capsule,Extended Release 24hr 75 mg PO DAILY 30 Days Qty: 30 RF: 0 docusate sodium 100 mg Capsule 100 mg PO DAILY PRN (Reason: Constipation) 30 Days Qty: 30 RF: 0 B-complex with vitamin C Tablet 1 tab PO DAILY 30 Days Qty: 30 RF: 0 cholecalciferol (vitamin D3) [Vitamin D3] 10 mcg (400 unit) Tablet 10 mcg PO DAILY 30 Days Qty: 30 RF: 0 trazodone 50 mg tablet 50 mg PO BEDTIME 30 Days Qty: 30 RF: 0 Discontinued lithium carbonate 300 mg tablet 300 mg PO DAILY RF: 0 Remeron 45 mg tablet 45 mg PO BEDTIME RF: 0 citalopram 20 MG tablet 20 mg PO DAILY RF: 0 trazodone 50 mg tablet 50 mg PO BEDTIME RF: 0 lorazepam [Ativan] 0.5 mg tablet 0.5 mg PO TID PRN (Reason: anxiety) Qty: 7 RF: 0 polyethylene glycol 3350 [Miralax] 17 gram/dose powder 17 g PO DAILY Qty: 510 RF: 0 <Lizzie Jo - Last Filed: 12/12/20 10:50> Discharge Orders: Discharge Order (Routine); Ordered 12/04/20 Ordered By: Lizzie Jo <Lizzie Jo - Last Filed: 12/12/20 10:50> Diet: regular diet <Lizzie Jo - Last Filed: 12/12/20 10:50> regular diet <Enoc Guzman MD - Last Filed: 12/18/20 21:07> Activity on Discharge: As tolerated <Lizzie Jo - Last Filed: 12/12/20 10:50> As tolerated <Enoc Guzman MD - Last Filed: 12/18/20 21:07> Stand Alone Forms: Patient Portal Discharge page, Community Support <Lizzie Jo - Last Filed: 12/12/20 10:50> Care Plan Goals: 1. Follow up with referrals <Lizzie Jo - Last Filed: 12/12/20 10:50> Health Concerns: 1. Follow up PCP <Lizzie Jo - Last Filed: 12/12/20 10:50> Plan of Treatment: 1. Take medications as prescribed. <Lizzie Jo - Last Filed: 12/12/20 10:50> Assessment: Stable <Lizzie Jo - Last Filed: 12/12/20 10:50> Discharge Date/Time: 12/04/20 16:30 <Lizzie Jo - Last Filed: 12/12/20 10:50> Mental Status Exam Mental Status Exam Narrative: Appearance: casually groomed, thin woman appears her stated age, anxious, good hygiene in NAD Behavior: calmer, cooperative Psychomotor: no retardation or agitation noted Speech: clear, regular rate, regular rhythm, soft volume, spontaneous TP: repetition, mostly linear TC: no signs of psychosis, somatically preoccupied, future oriented Mood: better Affect: brighten at times VH/AH: none Delusions: none Insight/judgment: fair x 2. Memory/cog: alert, oriented x 3. MOCA , most difficulty with recall 3/5, visual spatial (trail). <Lizzie Jo - Last Filed: 12/12/20 10:50> Data Data Completed and Pending Completed studies during hospitalization [Text1]: 11/27/20 11/27/20 11/27/20 17:45 17:46 17:46 WBC RBC Hgb Hct MCV MCH MCHC RDW Plt Count MPV Immature Gran % (Auto) Neut % (Auto) Lymph % (Auto) [place] % (Auto) Eos % (Auto) Baso % (Auto) Lymph # (Auto) [place] # (Auto) Eos # (Auto) Baso # (Auto) Abs Immat Gran (auto) Absolute Neuts (auto) Absolute Nucleated RBC Nucleated RBC % (auto) Sodium 128 L Potassium 4.6 Chloride 92 L Carbon Dioxide 25 Anion Gap 16 BUN 19 H Creatinine 0.66 Estim Creat Clear Calc 46.6 Estimated GFR > 60 Random Glucose Fasting Glucose 92 Calcium 9.0 Total Bilirubin 0.2 AST 33 H ALT 26 Alkaline Phosphatase 53 Total Protein 6.5 Albumin 4.2 TSH 2.51 Urine Color Urine Appearance Urine pH Ur Specific [place] Urine Protein Urine Glucose (UA) Urine Ketones Urine Blood Urine Nitrite Ur Leukocyte Esterase Urine RBC Urine WBC Ur Squamous Epith Cells Ur Renal Epithelial Cell Urine Bacteria Urine Osmolality Ur Random Sodium [place] 0.30 L 11/28/20 11/28/20 11/28/20 10:54 17:00 17:47 WBC 5.8 RBC 3.83 L Hgb 12.4 Hct 36.3 L MCV 94.8 MCH 32.4 MCHC 34.2 RDW 11.8 Plt Count 266 MPV 9.1 L Immature Gran % (Auto) 0.3 Neut % (Auto) 62.0 Lymph % (Auto) 21.9 [place] % (Auto) 10.3 Eos % (Auto) 5.0 H Baso % (Auto) 0.5 Lymph # (Auto) 1.3 [place] # (Auto) 0.6 Eos # (Auto) 0.3 Baso # (Auto) 0.0 Abs Immat Gran (auto) 0.02 Absolute Neuts (auto) 3.6 Absolute Nucleated RBC 0.000 Nucleated RBC % (auto) 0.0 Sodium 128 L Potassium 5.2 H Chloride 93 L Carbon Dioxide 28 Anion Gap 12 BUN 17 H Creatinine 0.71 Estim Creat Clear Calc 43.4 Estimated GFR > 60 Random Glucose 85 Fasting Glucose Calcium 8.8 Total Bilirubin 0.5 AST 30 ALT 25 Alkaline Phosphatase 51 Total Protein 6.2 L Albumin 4.0 TSH Urine Color YELLOW Urine Appearance CLEAR Urine pH 6.5 Ur Specific [place] 1.020 Urine Protein NEG Urine Glucose (UA) NEG Urine Ketones NEG Urine Blood NEG Urine Nitrite NEG Ur Leukocyte Esterase NEG Urine RBC 0 Urine WBC 0-2 Ur Squamous Epith Cells TRACE Ur Renal Epithelial Cell TRACE Urine Bacteria NONE Urine Osmolality Ur Random Sodium [place] 11/28/20 11/29/20 11/30/20 17:47 08:24 15:01 WBC RBC Hgb Hct MCV MCH MCHC RDW Plt Count MPV Immature Gran % (Auto) Neut % (Auto) Lymph % (Auto) [place] % (Auto) Eos % (Auto) Baso % (Auto) Lymph # (Auto) [place] # (Auto) Eos # (Auto) Baso # (Auto) Abs Immat Gran (auto) Absolute Neuts (auto) Absolute Nucleated RBC Nucleated RBC % (auto) Sodium 125 L 131 L Potassium 4.6 5.0 Chloride 89 L 94 L Carbon Dioxide 27 28 Anion Gap 14 14 BUN 18 H 14 Creatinine 0.66 0.69 Estim Creat Clear Calc 46.6 44.6 Estimated GFR > 60 > 60 Random Glucose 102 88 Fasting Glucose Calcium 8.6 8.8 Total Bilirubin 0.4 AST 33 H ALT 29 Alkaline Phosphatase 56 Total Protein 6.2 L Albumin 4.1 TSH Urine Color Urine Appearance Urine pH Ur Specific [place] Urine Protein Urine Glucose (UA) Urine Ketones Urine Blood Urine Nitrite Ur Leukocyte Esterase Urine RBC Urine WBC Ur Squamous Epith Cells Ur Renal Epithelial Cell Urine Bacteria Urine Osmolality Ur Random Sodium 23.0 [place] 11/30/20 12/01/20 12/01/20 15:01 07:37 07:37 WBC 4.3 L RBC 3.75 L Hgb 12.0 Hct 35.4 L MCV 94.4 MCH 32.0 MCHC 33.9 RDW 11.8 Plt Count 269 MPV 9.2 L Immature Gran % (Auto) 0.2 Neut % (Auto) 38.6 L Lymph % (Auto) 38.7 [place] % (Auto) 12.2 H Eos % (Auto) 9.4 H Baso % (Auto) 0.9 Lymph # (Auto) 1.7 [place] # (Auto) 0.5 Eos # (Auto) 0.4 Baso # (Auto) 0.0 Abs Immat Gran (auto) 0.01 Absolute Neuts (auto) 1.7 L Absolute Nucleated RBC 0.000 Nucleated RBC % (auto) 0.0 Sodium 129 L Potassium 5.1 Chloride 94 L Carbon Dioxide 28 Anion Gap 12 BUN 13 Creatinine 0.69 Estim Creat Clear Calc 44.6 Estimated GFR > 60 Random Glucose 83 Fasting Glucose Calcium 8.4 Total Bilirubin 0.6 AST 28 ALT 27 Alkaline Phosphatase 50 Total Protein 5.4 L Albumin 3.5 TSH Urine Color Urine Appearance Urine pH Ur Specific [place] Urine Protein Urine Glucose (UA) Urine Ketones Urine Blood Urine Nitrite Ur Leukocyte Esterase Urine RBC Urine WBC Ur Squamous Epith Cells Ur Renal Epithelial Cell Urine Bacteria Urine Osmolality 737 Ur Random Sodium [place] 12/03/20 12/04/20 11:23 12:30 WBC RBC Hgb Hct MCV MCH MCHC RDW Plt Count MPV Immature Gran % (Auto) Neut % (Auto) Lymph % (Auto) [place] % (Auto) Eos % (Auto) Baso % (Auto) Lymph # (Auto) [place] # (Auto) Eos # (Auto) Baso # (Auto) Abs Immat Gran (auto) Absolute Neuts (auto) Absolute Nucleated RBC Nucleated RBC % (auto) Sodium 128 L 129 L Potassium 4.4 4.6 Chloride 92 L 92 L Carbon Dioxide 28 30 H Anion Gap 12 12 BUN 17 H 17 H Creatinine 0.69 0.66 Estim Creat Clear Calc 44.6 46.6 Estimated GFR > 60 > 60 Random Glucose 85 84 Fasting Glucose Calcium 8.6 8.6 Total Bilirubin 0.4 AST 30 ALT 31 Alkaline Phosphatase 53 Total Protein 6.0 L Albumin 3.9 TSH Urine Color Urine Appearance Urine pH Ur Specific [place] Urine Protein Urine Glucose (UA) Urine Ketones Urine Blood Urine Nitrite Ur Leukocyte Esterase Urine RBC Urine WBC Ur Squamous Epith Cells Ur Renal Epithelial Cell Urine Bacteria Urine Osmolality Ur Random Sodium [place] 11/28/20 00:00 Urine clean catch - Clean Catch Midstream Urine Culture - Final No growth. <Lizzie Jo - Last Filed: 12/12/20 10:50> DS: Summary Hospital Course Hospital Course: HPI: Mrs. Huber is a 79-year-old white woman, outpatient of Dr. Coy. Patient was referred by a who became increasingly concerned about worsening depression. The patient was earlier seen in the emergency room on 11/07/2020 but decided to return home. states that this episode of depression started around September 2020 after they visited with a director quality assurance to make arrangements. Since then the patient has been increasingly anxious unable to sit still increasing the indecisive poor sleep weight loss. In the emergency room patient stated I cannot go on like this things are not good at all. Her there is no obvious comorbid psychotic symptoms but there is a mention of patient stating that she had been tricked. Patient did not elaborate on this. Another stressor is conflict with her daughters who have not been in touch with her for a number of years. Patient denies auditory and visual hallucinations In the emergency room patient was noted to be restless repeatedly pulling hospital gown and scratching at the bed sheets and only spoken whispers. She has not seen Dr. Zack torres for over 10 years but recently was in contact with her after a relapse in symptoms. Patient has made statements stating that she was a bad person and failed parent. HOSPITAL COURSE Mrs. Huber was placed on 15 minutes checks for safety. On the unit, she presented with mostly neurovegetative symptoms of depression including poor sleep, poor appetite, anhedonia, ruminative thoughts, unable to make decisions, significant anxious mood. She expressed passive suicidal ideation but denied any plan or intent to hurt herself. After discussing risks, benefits and alternative treatment options, pt agreed to continue psychotropic medication that in past had been helpful including combination of remeron and lithium. She had recently been on citalopram prescribed by her PCP, which was discontinued prior to this admission. Pt reported constipation with remeron and continued to present severely depressed after trial of remeron at 45mg for about 5 weeks. We discussed switching to effexor, which was gradually titrated to 112.5mg po daily. remeron was kept on low dose for sleep. Pt was continued on dose of lithium 300mg po qhs. However, she developed euvolemic hyponatremia that was possibly caused by combination of decrease sodium reabsorption in renal tubules and decrease sensitivity to ADH in kidneys secondary to lithium in addition to polydypsia. Pt was taken off lithium for this reason. Pt was seen by nephrology who recommended fluid restriction and follow up OP. Her affect gradually brighten, but she continued to endorse depressed mood, anxious mood although to lesser degree. She denied SI/HI. She was sleeping and eating better. Her ruminative thoughts decrease as well as inability to make decisions. However, she was not fully back to her baseline. Plan was to continue PHP for further treatment, which both patient and her agreed. As mood improved, MOCA was completed to screen for underlying cognitive/memory impairments. Pt scored 26/30 most difficulty with recall (3/5), visual spatial (trail). Pt was visible in the unit. She attended assigned groups. There were no incidences of disruptive behaviors nor use of restraints. <Lizzie Jo - Last Filed: 12/12/20 10:50> Status at Discharge Cognitive/behavioral status at discharge: Pt presents with less symptoms of depression, especially improve sleep and appetite. She also reports decreased anxious mood, less depressed mood although not back to baseline. She denied SI/HI. No signs of aggression towards self or others. <Lizzie Jo - Last Filed: 12/12/20 10:50> Functional status at discharge: independent ambulation <Lizzie Jo - Last Filed: 12/12/20 10:50> Overall status at discharge: patient is progressing back to baseline <Lizzie Jo - Last Filed: 12/12/20 10:50> Time Spent with Patient Time attestation: Total time spent providing and/or coordinating discharge services: <Lizzie Jo - Last Filed: 12/12/20 10:50> Time spent: Greater than 30 minutes <Lizzie Jo - Last Filed: 12/12/20 10:50>
== END 2020-12-04 16:30 | disposition home or self-care (01) | DRG 885 ==
LOC: HO.ED 21:19 → HO.PM5 11-14 15:21
PROVIDERS: Clinical Nurse Specialist Psychiatric/Mental Health, Adult; Internal Medicine; Nurse Practitioner Family; Physician Assistant; Admitting Provider Psychiatry & Neurology Psychiatry; Emergency Provider Emergency Medicine Emergency Medical Services; PCP Internal Medicine; Visit Provider Social Worker
DX: F32.2 Major depressive disorder, single episode, severe without psychotic features (principal); R45.851 Suicidal ideations; E87.1 Hypo-osmolality and hyponatremia; Z85.3 Personal history of malignant neoplasm of breast; Z20.822 Contact with and (suspected) exposure to COVID-19; Z79.899 Other long term (current) drug therapy
CPT/HCPCS: 36415; 80048; 80053; 80061; 80143; 80178; 80179; 80307; 80320; 81001; 82607; 82746; 83036; 83935; 84300; 84443; 85025; 87086; 87635; 93005; 99232; 99283; 99285

== ENCOUNTER 2021-11-19 18:07 | Inpatient (IN) | payer MEDICARE, SELFPAY ==
--- NOTE | 2021-11-19 | ECG_ITS ---
Test Reason : PRE ETC EGK Blood Pressure : / mmHG Vent. Rate : 062 BPM Atrial Rate : 062 BPM P-R Int : 178 ms QRS Dur : 066 ms QT Int : 444 ms P-R-T Axes : 072 073 064 degrees QTc Int : 450 ms Normal sinus rhythm Normal ECG When compared with ECG of 11-NOV-2020 13:46, Vent. rate has decreased BY 35 BPM Referred By: Generic ED Physician Electronically Signed By:LAURENCE VASQUEZ
--- NOTE | ~2021-11-19 | US_ITS ---
EXAMINATION: US ABDOMEN COMPLETE CLINICAL INFORMATION: Transaminitis. COMPARISON: None TECHNIQUE: Real-time imaging of the abdominal viscera. FINDINGS: PANCREAS: Normal. ABDOMINAL AORTA: The proximal, mid, and distal segments are normal in caliber. INFERIOR VENA CAVA: Visualized portions are normal. LIVER: Normal in size and contour. Normal parenchymal echogenicity. Subtle 1.3 x 1.6 x 1.1 cm hyperechoic lesion is noted in the right hepatic lobe (image 50 to 54/105). No intrahepatic biliary ductal dilatation. GALLBLADDER: The gallbladder is physiologically distended. Mobile gallstone versus sludge wall measuring 2.7 x 1.1 x 1.6 cm. Wall of the gallbladder is not thickened. No pericholecystic fluid. COMMON BILE DUCT: The visualized common bile duct is normal in caliber measuring 0.1 cm in diameter. RIGHT KIDNEY: Normal. No hydronephrosis. No renal calculi or focal parenchymal lesions. The kidney measures 10.0 cm in maximum dimension. LEFT KIDNEY: Normal. No hydronephrosis. No renal calculi or focal parenchymal lesions. The kidney measures 9.0 cm in maximum dimension. SPLEEN: Normal. The spleen measures 7.9 cm in maximum dimension. FREE FLUID: None. US/US abdomen complete IMPRESSION: 1. No sonographic evidence of abnormal liver parenchymal echogenicity. Subtle hyperechoic lesion in the right hepatic lobe statistically may represent a hemangioma. If clinically deemed necessary, contrast-enhanced abdominal MRI will be helpful for further evaluation. 2. Sludge versus mobile gallstone in the gallbladder. No sonographic evidence of acute cholecystitis. No biliary ductal dilatation.
--- NOTE | ~2021-11-19 | CT_ITS ---
EXAMINATION: CT HEAD WITHOUT CONTRAST CLINICAL INFORMATION: Pre-ECT. Cognitive slowing. COMPARISON: Previous head CT November 2007 TECHNIQUE: Contiguous axial imaging was performed from the skull base to vertex without intravenous administration of contrast. This CT examination was performed using dose optimization techniques as appropriate, variously including the following: *Automated exposure control *Adjustment of mA and/or kV according to patient size (this includes techniques or standardized protocols for targeted exams where dose is matched to indication/reason for exam; i.e. extremities or head) *Use of iterative reconstruction technique DLP: 712 mGy-cm FINDINGS: There is no evidence of acute intracranial hemorrhage or territorial infarction. No abnormal mass effect or midline shift is seen. [place] to white matter differentiation is well preserved. No extra-axial fluid collections are identified. The ventricles are normal in size. There is no abnormal attenuation within the brain parenchyma. The osseous structures and soft tissues are normal. There is soft tissue thickening in the right maxillary sinus. The mastoid air cells and visualized portions of the paranasal sinuses are otherwise clear. CT/CT head/brain wo con IMPRESSION: No acute intracranial pathology.
[2021-11-19 18:34] VITALS: BP 115/64; PULSE 67; RESP 18; TEMP 36.5; O2SAT 95; BMI 18.8
--- NOTE | 2021-11-19 18:57 | MHC.CARE ---
CARE Team is in communication with Dr. Oksana Burk pt's outpatient psychiatrist, who reports that pt is profoundly depressed, not functioning well at all and has very poor quality of life. Pt has not been responding to outpatient medication changes, so was referred for ECT consult. Dr. Guzman met with this pt and agrees that pt meets criteria for IPLOC. Plan is for pt to be medically cleared and then admitted to S1 to start ECT. CARE Team speaks to pt's who is in support of this plan and brings pt to ED for med clearance.
[2021-11-19 19:13] LABS: MANUAL DIFF FLAG NO
[2021-11-19 19:15] LABS: Basophils Percent Auto 0.2 % (0-2); Eosinophils Absolute Auto 0.4 X10*3/uL (0.0-0.4); Hematocrit 37.3 % (37.0-47.0); Hemoglobin 11.8 g/dl (12.0-16.0); Imm Gran Abs Auto 0.01 X10*3/uL (0.00-0.03); Imm Gran Pct Auto 0.2 % (0.0-0.4); Lymphocytes Absolute Auto 1.1 X10*3/uL (1.2-4.9); Lymphocytes Percent Auto 24.7 % (20-40); Mean Corpuscular HGB Conc 31.6 g/dl (31.0-35.0); Mean Corpuscular Volume 101.1 fL (80.0-98.0); Mean Platelet Volume 9.3 fL (9.4-12.3); Monocytes Absolute Auto 0.6 X10*3/uL (0.1-1.2); Monocytes Percent Auto 13.7 % (2-11); Neutrophils Absolute Auto 2.2 x10*3/uL (2.0-8.3); Neutrophils Percent Auto 51.2 % (45-73); Platelet Count 216 X10*3/uL (160-400); Red Blood Count 3.69 X10*6/uL (4.20-5.50); Red Cell Distribution Width 13.6 % (11.0-16.0); White Blood Count 4.4 X10*3/uL (4.8-10.8)
[2021-11-19 19:31] LABS: Alanine Aminotransferase 70 U/L (0-31); Albumin Level 3.9 g/dL (3.5-5.0); Alkaline Phosphatase 78 U/L (39-117); Anion Gap 13 (12-20); Aspartate Amino Transferase 46 U/L (5-31); Bilirubin Total < 0.2 mg/dL (0.0-1.0); Blood Urea Nitrogen 14 mg/dL (9-16); COVID-19 Test Negative (Negative); Calcium 8.8 mg/dL (8.4-10.2); Carbon Dioxide 28 mmol/L (22-29); Chloride 103 mmol/L (96-108); Creatinine Clr Calc Pharmacy 43.6; Estimated Glomerular Filt Rate > 60; Glucose Random 100 mg/dL (60-115); Potassium 4.6 mmol/L (3.3-5.1); Sodium 139 mmol/L (135-145); Total Protein 6.2 g/dL (6.5-8.0)
[2021-11-19 19:33] LABS: Amphetamine Screen Urine Not Detected (Not Detect); Barbiturates, Urine Not Detected (Not Detect); Benzodiazepines Screen Urine Not Detected (Not Detect); Cannabinoid Screen Urine Not Detected (Not Detect); Cocaine Screen Urine Not Detected (Not Detect); Fentanyl, urine POSITIVE (Not Detect); Opiate Screen Urine Not Detected (Not Detect); Phencyclidine Screen Urine Not Detected (Not Detect)
--- NOTE | 2021-11-19 20:37 | ED.MEDCLEAR ---
HPI - Medical Clearance General Chief complaint: Medical Clearance Stated complaint: ref by Time Seen by Provider: 11/19/21 20:37 Source: patient Mode of arrival: ambulatory Limitations: no limitations History of Present Illness HPI Narrative: This is a 80-year-old female past medical history significant for treatment resistant chronic depression presenting to the emergency department for medical clearance. Patient is scheduled for a admission on to the [facility] psych self 1 unit. At this time patient reports severe depression. No specific triggers. She is hoping to get ECT therapy while here. She denies SI and HI. Denies visual, auditory and tactile hallucinations. Denies drugs, alcohol and tobacco. MD complaint: medical clearance requested Alleged Intoxication: No Compliant with Home Medications: Yes Traumatic Symptoms: denies traumatic injury Associated Symptoms: denies other symptoms Treatments Prior to Arrival: none Related Information Previous Rx's Medication Instructions Recorded B-complex with vitamin C 1 tab PO DAILY 30 Days #30 tab 12/04/20 aripiprazole 2 mg tablet (Abilify) 2 mg PO DAILY 30 Days #30 tab 12/04/20 cholecalciferol (vitamin D3) 10 10 mcg PO DAILY 30 Days #30 tab 12/04/20 mcg (400 unit) tablet (Vitamin D3) docusate sodium 100 mg capsule 100 mg PO DAILY PRN 30 Days #30 cap 12/04/20 lorazepam 0.5 mg tablet 0.5 mg PO 1400 30 Days #30 tab 12/04/20 lorazepam 0.5 mg tablet 0.5 mg PO DAILY 30 Days #30 tab 12/04/20 trazodone 50 mg tablet 50 mg PO BEDTIME 30 Days #30 tab 12/04/20 venlafaxine 37.5 mg 37.5 mg PO DAILY 30 Days #30 cap 12/04/20 capsule,extended release 24 hr venlafaxine 75 mg capsule,extended 75 mg PO DAILY 30 Days #30 cap 12/04/20 release 24 hr Allergies Allergy/AdvReac Type Severity Reaction Status Date / Time erythromycin base Allergy Hives Verified 11/19/21 18:34 Review of Systems Review of Systems: Constitutional : No Fever, No Chills ENT/Mouth : No Ear Pain, No Nasal Congestion, No sore throat Eyes: No Eye Pain, No Swelling, No Redness Cardiovascular : No Chest Pain, No SOB Respiratory : No Cough, No Sputum, No Dyspnea Gastrointestinal : No Nausea, No Vomiting, No Diarrhea, No Hematochezia, No Melena Genitourinary : No Dysuria, No Urinary Frequency, No Hematuria Musculoskeletal : No Myalgias Skin : No Skin Lesions, No rash Neuro : No Weakness, No Numbness, No Paresthesias, No Dizziness, No Headache Psych : No Anxiety, positive Depression, No SI/HI All other systems reviewed and are negative Yes all other systems are reviewed and are negative [facility] Past Medical History Attestation statement: The following information was validated with the patient. Source: old records reviewed and nursing notes reviewed Medical History Breast cancer Surgical History H/O mastectomy Social History Social History Household Members: Spouse Housing: House Do you presently have visiting nurse or other home services: No Advance Directives: No Advance Directives Information Provided: Yes service: No Sexual orientation: Straight/Heterosexual Physical Exam Vital Signs: Vital Signs: Last Vital Signs Temp 97.7 F 11/19/21 18:34 Pulse 67 11/19/21 18:34 Resp 18 11/19/21 18:34 BP 115/64 11/19/21 18:34 Pulse Ox 95 11/19/21 18:34 BMI result Body Mass Index 18.8 Vital signs stable. Appearance: Alert.? Oriented X3.? No acute distress.? Head: Normocephalic, atraumatic, no step-offs or deformities Eyes: Pupils equal, round and reactive to light.? ENT: Pharynx normal.? Neck: Normal inspection.? Neck supple.? CVS: Normal heart rate and rhythm.? Pulses normal.? Respiratory: No respiratory distress.? Breath sounds normal.? Abdomen: Soft and nontender.? Skin: Skin warm and dry.? Normal skin color.? Normal skin turgor.? Extremities: No lower extremity edema.? No calf ttp. 5/5 strength to bilateral upper and lower extremities Neuro: Oriented X 3.? No motor deficit.? No sensory deficit. CN 2-12 intact Course Reevaluation(s) Reevaluation #1: Patient appears to have a leukopenia at baseline. CBC appears to be at baseline. Chemistry with no acute electrolyte abnormalities. Transaminases slightly elevated however patient not complaining of abdominal pain. Urine positive for fentanyl. Patient is COVID negative. Time: 20:47 Reevaluation #2: UA clean. This time patient will be placed in physician observation to allow more time for patient to go upstairs status [address] psychiatric unit. At time observation was started patient, cooperative no acute distress. Time: 21:03 MDM - Medical Clearance MDM Narrative Medical decision making narrative: 20[birth year] 80 yo F pmhx significant for treatment resistant chronic depression presents for medical clearance to be admitted on to [address] No medical complaints at this time Physical exam benign Plan is basic labs, urine and medical clearance. Medical Records Attestation: I reviewed the patient's medical records. Lab Data Attestation: I reviewed the patient's lab results. Result diagrams: 11/19/21 19:07 11/19/21 19:07 Labs: Lab Results 11/19/21 11/19/21 11/19/21 Range/Units 19:07 19:07 19:07 WBC 4.4 L (4.8-10.8) X10*3/uL RBC 3.69 L (4.20-5.50) X10*6/uL Hgb 11.8 L (12.0-16.0) g/dl Hct 37.3 (37.0-47.0) % MCV 101.1 H (80.0-98.0) fL MCH 32.0 (27.0-33.0) pg MCHC 31.6 (31.0-35.0) g/dl RDW 13.6 (11.0-16.0) % Plt Count 216 (160-400) X10*3/uL MPV 9.3 L (9.4-12.3) fL Immature Gran % (Auto) 0.2 (0.0-0.4) % Neut % (Auto) 51.2 (45-73) % Lymph % (Auto) 24.7 (20-40) % [place] % (Auto) 13.7 H (2-11) % Eos % (Auto) 10.0 H (0-4) % Baso % (Auto) 0.2 (0-2) % Lymph # (Auto) 1.1 L (1.2-4.9) X10*3/uL [place] # (Auto) 0.6 (0.1-1.2) X10*3/uL Eos # (Auto) 0.4 (0.0-0.4) X10*3/uL Baso # (Auto) 0.0 (0.0-0.2) X10*3/uL Abs Immat Gran (auto) 0.01 (0.00-0.03) X10*3/uL Absolute Neuts (auto) 2.2 (2.0-8.3) x10*3/uL Absolute Nucleated RBC 0.000 (0.0-0.012) X10*3/uL Nucleated RBC % (auto) 0.0 (0.0-0.2) /100WBC Sodium 139 (135-145) mmol/L Potassium 4.6 (3.3-5.1) mmol/L Chloride 103 (96-108) mmol/L Carbon Dioxide 28 (22-29) mmol/L Anion Gap 13 (12-20) BUN 14 (9-16) mg/dL Creatinine 0.76 (0.5-1.4) mg/dL Estim Creat Clear Calc 43.6 Estimated GFR > 60 Random Glucose 100 (60-115) mg/dL Calcium 8.8 (8.4-10.2) mg/dL Total Bilirubin < 0.2 (0.0-1.0) mg/dL AST 46 H D (5-31) U/L ALT 70 H (0-31) U/L Alkaline Phosphatase 78 D (39-117) U/L Total Protein 6.2 L (6.5-8.0) g/dL Albumin 3.9 (3.5-5.0) g/dL Urine Color Urine Appearance Urine pH (5.0-8.0) Ur Specific [place] (1.005-1.025) Urine Protein (NEG-TRACE) MG/DL Urine Glucose (UA) (NEG) MG/DL Urine Ketones (NEG) MG/DL Urine Blood (NEG) Urine Nitrite (NEG) Ur Leukocyte Esterase (NEG) Urine Opiates Screen (Not Detect) Urine Fentanyl Screen (Not Detect) Ur Barbiturates Screen (Not Detect) Ur Phencyclidine Scrn (Not Detect) Ur Amphetamines Screen (Not Detect) U Benzodiazepines Scrn (Not Detect) Urine Cocaine Screen (Not Detect) U Marijuana (THC) Screen (Not Detect) COVID-19 (AV) Negative (Negative) COVID-19 Clin Com See Note 11/19/21 11/19/21 Range/Units 19:07 19:07 WBC (4.8-10.8) X10*3/uL RBC (4.20-5.50) X10*6/uL Hgb (12.0-16.0) g/dl Hct (37.0-47.0) % MCV (80.0-98.0) fL MCH (27.0-33.0) pg MCHC (31.0-35.0) g/dl RDW (11.0-16.0) % Plt Count (160-400) X10*3/uL MPV (9.4-12.3) fL Immature Gran % (Auto) (0.0-0.4) % Neut % (Auto) (45-73) % Lymph % (Auto) (20-40) % [place] % (Auto) (2-11) % Eos % (Auto) (0-4) % Baso % (Auto) (0-2) % Lymph # (Auto) (1.2-4.9) X10*3/uL [place] # (Auto) (0.1-1.2) X10*3/uL Eos # (Auto) (0.0-0.4) X10*3/uL Baso # (Auto) (0.0-0.2) X10*3/uL Abs Immat Gran (auto) (0.00-0.03) X10*3/uL Absolute Neuts (auto) (2.0-8.3) x10*3/uL Absolute Nucleated RBC (0.0-0.012) X10*3/uL Nucleated RBC % (auto) (0.0-0.2) /100WBC Sodium (135-145) mmol/L Potassium (3.3-5.1) mmol/L Chloride (96-108) mmol/L Carbon Dioxide (22-29) mmol/L Anion Gap (12-20) BUN (9-16) mg/dL Creatinine (0.5-1.4) mg/dL Estim Creat Clear Calc Estimated GFR Random Glucose (60-115) mg/dL Calcium (8.4-10.2) mg/dL Total Bilirubin (0.0-1.0) mg/dL AST (5-31) U/L ALT (0-31) U/L Alkaline Phosphatase (39-117) U/L Total Protein (6.5-8.0) g/dL Albumin (3.5-5.0) g/dL Urine Color YELLOW Urine Appearance CLEAR Urine pH 5.5 (5.0-8.0) Ur Specific [place] 1.020 (1.005-1.025) Urine Protein NEG (NEG-TRACE) MG/DL Urine Glucose (UA) NEG (NEG) MG/DL Urine Ketones NEG (NEG) MG/DL Urine Blood NEG (NEG) Urine Nitrite NEG (NEG) Ur Leukocyte Esterase NEG (NEG) Urine Opiates Screen Not Detected (Not Detect) Urine Fentanyl Screen POSITIVE H (Not Detect) Ur Barbiturates Screen Not Detected (Not Detect) Ur Phencyclidine Scrn Not Detected (Not Detect) Ur Amphetamines Screen Not Detected (Not Detect) U Benzodiazepines Scrn Not Detected (Not Detect) Urine Cocaine Screen Not Detected (Not Detect) U Marijuana (THC) Screen Not Detected (Not Detect) COVID-19 (AV) (Negative) COVID-19 Clin Com Critical Care Time Critical Care Time Critical Care Time: No Discharge Plan Discharge Clinical Impression: Major depressive disorder, severe Patient Disposition: Still a Patient
[2021-11-19 21:01] LABS: Appearance Urine CLEAR; Color Urine YELLOW; Glucose Urine UA NEG (NEG); Leukocyte Esterase Urine NEG (NEG); Nitrite Urine NEG (NEG); PH 5.5 (5.0-8.0); Urine Blood NEG (NEG); Urine Ketones NEG (NEG); Urine Protein NEG (NEG-TRACE)
--- NOTE | 2021-11-19 21:08 | PC.NURSE ---
assumed care of pt. pt resting in hallway stretcher in nad. pt awaiting to go upstairs for admission.
--- NOTE | 2021-11-19 21:17 | PC.NURSE ---
Report given to RN. Security called for transport to floor.
--- NOTE | 2021-11-19 21:21 | PHA.MEDREC ---
Addendum entered by Luz Duran RPh 11/20/21 11:45: Confirm with patient's Mk that patient is no longer on lithium. Medication was discontinued last week. Original Note: Pharmacy Consult ? Medication Reconciliation Pharmacy has completed the medication reconciliation. Patient had list of medications in chart that matched claim history. Will need to follow up in the morning - unsure if patient is on lithium (looks like med was filled at pharmacy on 10/15/21).
[2021-11-19 21:31] LABS: Appearance Urine CLEAR; Color Urine YELLOW; Glucose Urine UA NEG (NEG); Leukocyte Esterase Urine TRACE (NEG); Nitrite Urine NEG (NEG); PH 5.5 (5.0-8.0); UACC Culture Trigger YES; Urine Blood NEG (NEG); Urine Ketones NEG (NEG); Urine Protein NEG (NEG-TRACE)
[2021-11-19 21:45] VITALS: BP 136/74; PULSE 92; RESP 18; TEMP 36.2; O2SAT 97
[2021-11-19 21:50] LABS: RBC Urine 0 /HPF (0); Squamous Epithelial Cell Urine TRACE /LPF; WBC Urine 0-2 /HPF (0-4)
[2021-11-19] MEDS: traZODone HCL 100 MG TABLET PO (22:42)
[2021-11-19] MEDS: LORazepam 0.5 MG TABLET PO (22:43)
--- NOTE | 2021-11-20 02:11 | PC.ADMIT ---
PT is 80 year old, , female admitted from home at 2126 for MDD severe without psychotic features and ECT PT signed on CV before coming into unit. It was reported to CARE team by PT psychiatrist DR Oksana Burk, that PT has not been responding to outpatient medication changes and PT decompensating and has poor quality of life. Orders received from MD Rey Devi, PT calm and compliant during admission process, med compliant. PT reports anxiety, depression and 'being in a funk'. When asked about an old scab on her right stephens PT replied that she fell. PT is A+Ox4, walks independently and looks younger than stated age. PT lives with , it was reported to this contract technical writer that was screaming and being mean to PT while in ER. PT refused flu vaccine, PT COVID negative, urine tox in ED tested positive for fentanyl. PT VSS, EKG done in ED but MD wants repeat EKG in am.
[2021-11-20 08:00] VITALS: BP 157/77; PULSE 65; RESP 16; TEMP 36.3; O2SAT 96
[2021-11-20 08:05] LABS: Estimated Average Glucose 97 mg/dL
[2021-11-20 08:08] LABS: Alanine Aminotransferase 64 U/L (0-31); Albumin Level 3.6 g/dL (3.5-5.0); Alkaline Phosphatase 73 U/L (39-117); Anion Gap 11 (12-20); Aspartate Amino Transferase 43 U/L (5-31); Bilirubin Total 0.3 mg/dL (0.0-1.0); Blood Urea Nitrogen 11 mg/dL (9-16); Calcium 8.8 mg/dL (8.4-10.2); Carbon Dioxide 28 mmol/L (22-29); Chloride 106 mmol/L (96-108); Creatinine Clr Calc Pharmacy 45.5; Estimated Glomerular Filt Rate > 60; Glucose Fasting 82 mg/dL (60-99); Magnesium 2.1 mg/dL (1.6-2.6); Potassium 4.1 mmol/L (3.3-5.1); Sodium 141 mmol/L (135-145); Total Protein 5.8 g/dL (6.5-8.0)
[2021-11-20 08:28] LABS: Free T4 (Free Thyroxine) 0.93 ng/dL (0.71-1.85)
[2021-11-20 08:45] LABS: Folate 8.2 ng/mL (> or = 4.0); Vitamin B12 407 pg/mL (200-900)
[2021-11-20 12:46] LABS: HBc Num1 0.04 S/CO (0.00-0.79); Hepatitis B Core Antibody Nonreactive (Nonreactive); ~Hepatitis A Antibody IgM Nonreactive (Nonreactive); ~Hepatitis B Surface Antibody NONREACTIVE (Nonreactive); ~Hepatitis C Antibody Nonreactive (Nonreactive)
--- NOTE | 2021-11-20 13:06 | HO.PSYADMNOT ---
[facility] Date of Service: 11/20/21 Chief Complaint: Depression severe referred for ECT Sources of Information: patient interviewed and chart reviewed Additional Sources of Information: Records reviewed from hospital and Dr. Zack torres [facility] Subjective Notes: [place] Warning and Conditional Voluntary Guardianship: No Medical Problems Affecting Mental Status: No Narrative: The patient is a 80-year-old female recently seen in outpatient evaluation for ECT referred by Dr. Oksana torres secondary to unremitting profound depression. Patient has recently been on lorazepam up to 1 mg 3 times a day citalopram 20 mg a day quetiapine to 3 times a day as needed. Patient has been increasingly hopeless helpless despondent thinking that no treatment will be helpful. Her has become increasingly overwhelmed over the past year peer the patient has had trials of spravato citalopram fluoxetine quetiapine Abilify Risperdal mirtazapine venlafaxine and lithium has been increasingly hopeless helpless thinking that nothing can not help her. Past Psychiatric History: Had psychiatric hospitalization on [facility] psychiatric unit at [facility] last year continues to see Dr. Oksana torres one previous psychiatric admission greater than 10 years ago at [facility]. Patient also attended partial hospitalization program. Past medication trials not known but should be explored further. Medical Evaluation Reviewed: Hospitalist Eval Pending LFTs noted mild increased MCV noted to be increased PMFSH Medical History Breast cancer Surgical History H/O mastectomy Family History: Alcohol use disorder in father depression in patient's mother Social History: Patient lives at home with her Mk. He is supportive and concerned about her deterioration. Patient has 2 daughters in the 50s there is significant stress in that area and no contact with 1 of her daughters in [place] for over 5 years. The reason for friction is not known. Patient with limited current functioning taking care of most things Substance History: None noted Trauma History: Unknown Diagnostics Vital Signs (24Hr): Vital Signs - 24 hr 11/19/21 18:34 11/19/21 21:45 11/20/21 08:00 Temperature 97.7 F 97.2 F 97.4 F Pulse Rate 67 92 65 Respiratory Rate 18 18 16 Blood Pressure 115/64 136/74 157/77 H Pulse Oximetry 95 97 96 BMI result Body Mass Index 18.8 Labs Results: 11/19/21 19:07 11/20/21 07:40 Labs: Laboratory Results - last 48 hr 11/19/21 11/19/21 11/19/21 19:07 19:07 19:07 WBC 4.4 L RBC 3.69 L Hgb 11.8 L Hct 37.3 MCV 101.1 H MCH 32.0 MCHC 31.6 RDW 13.6 Plt Count 216 MPV 9.3 L Immature Gran % (Auto) 0.2 Neut % (Auto) 51.2 Lymph % (Auto) 24.7 [place] % (Auto) 13.7 H Eos % (Auto) 10.0 H Baso % (Auto) 0.2 Lymph # (Auto) 1.1 L [place] # (Auto) 0.6 Eos # (Auto) 0.4 Baso # (Auto) 0.0 Abs Immat Gran (auto) 0.01 Absolute Neuts (auto) 2.2 Absolute Nucleated RBC 0.000 Nucleated RBC % (auto) 0.0 Sodium 139 Potassium 4.6 Chloride 103 Carbon Dioxide 28 Anion Gap 13 BUN 14 Creatinine 0.76 Estim Creat Clear Calc 43.6 Estimated GFR > 60 Random Glucose 100 Fasting Glucose Estimat Average Glucose Hemoglobin A1c % Calcium 8.8 Magnesium Total Bilirubin < 0.2 AST 46 H D ALT 70 H Alkaline Phosphatase 78 D Total Protein 6.2 L Albumin 3.9 Vitamin B12 Folate Free T4 Urine Color Urine Appearance Urine pH Ur Specific [place] Urine Protein Urine Glucose (UA) Urine Ketones Urine Blood Urine Nitrite Ur Leukocyte Esterase Urine RBC Urine WBC Ur Squamous Epith Cells Urine Bacteria Urine Opiates Screen Urine Fentanyl Screen Ur Barbiturates Screen Ur Phencyclidine Scrn Ur Amphetamines Screen U Benzodiazepines Scrn Urine Cocaine Screen U Marijuana (THC) Screen COVID-19 (AV) Negative COVID-19 Clin Com See Note 11/19/21 11/19/21 11/19/21 19:07 19:07 21:22 WBC RBC Hgb Hct MCV MCH MCHC RDW Plt Count MPV Immature Gran % (Auto) Neut % (Auto) Lymph % (Auto) [place] % (Auto) Eos % (Auto) Baso % (Auto) Lymph # (Auto) [place] # (Auto) Eos # (Auto) Baso # (Auto) Abs Immat Gran (auto) Absolute Neuts (auto) Absolute Nucleated RBC Nucleated RBC % (auto) Sodium Potassium Chloride Carbon Dioxide Anion Gap BUN Creatinine Estim Creat Clear Calc Estimated GFR Random Glucose Fasting Glucose Estimat Average Glucose Hemoglobin A1c % Calcium Magnesium Total Bilirubin AST ALT Alkaline Phosphatase Total Protein Albumin Vitamin B12 Folate Free T4 Urine Color YELLOW YELLOW Urine Appearance CLEAR CLEAR Urine pH 5.5 5.5 Ur Specific [place] 1.020 1.020 Urine Protein NEG NEG Urine Glucose (UA) NEG NEG Urine Ketones NEG NEG Urine Blood NEG NEG Urine Nitrite NEG NEG Ur Leukocyte Esterase NEG TRACE H Urine RBC 0 Urine WBC 0-2 Ur Squamous Epith Cells TRACE Urine Bacteria NONE Urine Opiates Screen Not Detected Urine Fentanyl Screen POSITIVE H Ur Barbiturates Screen Not Detected Ur Phencyclidine Scrn Not Detected Ur Amphetamines Screen Not Detected U Benzodiazepines Scrn Not Detected Urine Cocaine Screen Not Detected U Marijuana (THC) Screen Not Detected COVID-19 (AV) COVID-19 [place] Com 11/20/21 11/20/21 11/20/21 07:40 07:40 07:40 WBC RBC Hgb Hct MCV MCH MCHC RDW Plt Count MPV Immature Gran % (Auto) Neut % (Auto) Lymph % (Auto) [place] % (Auto) Eos % (Auto) Baso % (Auto) Lymph # (Auto) [place] # (Auto) Eos # (Auto) Baso # (Auto) Abs Immat Gran (auto) Absolute Neuts (auto) Absolute Nucleated RBC Nucleated RBC % (auto) Sodium 141 Potassium 4.1 Chloride 106 Carbon Dioxide 28 Anion Gap 11 L BUN 11 Creatinine 0.73 Estim Creat Clear Calc 45.5 Estimated GFR > 60 Random Glucose Fasting Glucose 82 Estimat Average Glucose 97 Hemoglobin A1c % 5.0 Calcium 8.8 Magnesium 2.1 Total Bilirubin 0.3 AST 43 H ALT 64 H Alkaline Phosphatase 73 Total Protein 5.8 L Albumin 3.6 Vitamin B12 407 Folate 8.2 Free T4 0.93 Urine Color Urine Appearance Urine pH Ur Specific [place] Urine Protein Urine Glucose (UA) Urine Ketones Urine Blood Urine Nitrite Ur Leukocyte Esterase Urine RBC Urine WBC Ur Squamous Epith Cells Urine Bacteria Urine Opiates Screen Urine Fentanyl Screen Ur Barbiturates Screen Ur Phencyclidine Scrn Ur Amphetamines Screen U Benzodiazepines Scrn Urine Cocaine Screen U Marijuana (THC) Screen COVID-19 (AV) COVID-19 Clin Com Imaging Radiology Impressions: ITS Impressions Head CT 11/20/21 08:58 IMPRESSION: No acute intracranial pathology. Meds/Allergies Meds Home Medications Acetaminophen (Acetaminophen 325 Mg Tablet) 650 mg PO Q6H PRN PRN Reason: Headache/Pain Mild Scale (1-3) Al Hydroxide/Mg Hydroxide (Magnesium Hydrox/Alum Hydrox 30 Ml Oral.Susp) 30 ml PO Q6H PRN PRN Reason: Heartburn/Nausea Escitalopram Oxalate (Escitalopram Oxalate 10 Mg Tablet) 10 mg PO DAILY [facility] Last Admin: 11/20/21 15:02 Dose: 10 mg Documented by: Lorazepam (Lorazepam 0.5 Mg Tablet) 0.5 mg PO ONCE PRN PRN Reason: anxiety Last Admin: 11/19/21 22:43 Dose: 0.5 mg Documented by: Lorazepam (Lorazepam 1 Mg Tablet) 1 mg PO TID [facility] Last Admin: 11/20/21 21:54 Dose: 1 mg Documented by: Magnesium Hydroxide (Milk Of Magnesia 30 Ml Oral.Susp) 30 ml PO DAILY PRN PRN Reason: Constipation Nf Med Biotene (Lozenges) 1 each BUCCAL Q1H PRN PRN Reason: Dry Mouth Oxybutynin Chloride (Oxybutynin Chloride Er 5 Mg Tab.Er.24) 5 mg PO BEDTIME [facility] Last Admin: 11/20/21 21:54 Dose: 5 mg Documented by: Pharmacy Consult (Consult Rx Perform Med Rec) 1 each MISCELLANE ONCE PRN PRN Reason: Consult order Polyethylene Glycol (Polyethylene Glycol 3350 17 Gm Powd.Pack) 17 gm PO Q2D [facility] Quetiapine Fumarate (Quetiapine Fumarate 25 Mg Tablet) 25 mg PO BID@1000,1600 [facility] Last Admin: 11/20/21 16:06 Dose: 25 mg Documented by: Quetiapine Fumarate (Quetiapine Fumarate 50 Mg Tablet) 50 mg PO BEDTIME PRN PRN Reason: sleep Senna (Senna [place] Extract Oral Syrup 15 Ml Syrup) 7.5 ml PO BEDTIME [facility] Last Admin: 11/20/21 21:53 Dose: Not Given Documented by: Trazodone HCl (Trazodone Hcl 100 Mg Tablet) 100 mg PO BEDTIME [facility] Last Admin: 11/20/21 21:53 Dose: 100 mg Documented by: Allergies Allergies Allergy/AdvReac Type Severity Reaction Status Date / Time erythromycin base Allergy Hives Verified 11/19/21 18:34 Mental Status Exam Mental Status Exam Patient Appearance: Well Grooomed Patient Orientation: Person, Place and Situation Level of Consciousness: Awake Patient Behavior: Appropriate, Guarded and Passive Mood Description: Withdrawn, Constricted, Depressed and Apprehensive Affect Description: Constricted, Depressed and Apprehensive Speech Pattern: Clear and Monotone Memory Description: Intact Hallucinations: None Delusions: Not Present Thought Process: Rumination and Linear Depressive Symptoms: Increased Anxiety, Diff. Making Decisions, Loss of Int. in Activity, Hopelessness, Isolating-Friends/Family, Thoughts of /Suicide and Loss of Energy Judgement: Fair Judgement and Insight: Patient does have difficulty seeing how any treatment can help her has difficulty seeing her condition as an illness that can be helped Does listen to information Assessment & Plan Assessment & Plan (1) Major depressive disorder, recurrent episode, severe with anxious distress: Status: Acute Code(s): F33.2 - Major depressive disorder, recurrent severe without psychotic features Plan Patient with a history of severe depression unremitting failed multiple medication trials including multiple antidepressants TMS Chu Ramos referred by Dr. Zack torres for ECT evaluation and then referred for inpatient treatment to start ECT as soon as possible. Patient has been quite ambivalent extensive Education to patient and her she has reviewed material as did her . Will need to use flumazenil with ECT has patient is on lorazepam t.i.d. Head CT scan unremarkable slight increase in liver function test MCV mildly increased hospitalist consult ordered ECT ordered The patient is quite ambivalent profoundly depressed but actively suicidal. Plan and hopefully to start ECT I discussed with patient her transitioning is in is possible to outpatient ECT. Risks benefits and alternatives have been reviewed Patient educated on: diagnosis, ECT and medical condition Informed Consent: understands Reason for continued inpatient stay Substantial Risk for: inability to function and rapid decompensation
[2021-11-20 13:16] LABS: HBsAGNum1 0.21 S/CO (0.00-0.99); Hepatitis B Surface Antigen Negative (Negative)
[2021-11-20] MEDS: Escitalopram Oxalate 10 MG TABLET PO (15:02)
[2021-11-20] MEDS: LORazepam 1 MG TABLET PO ×2 (15:02→21:54)
[2021-11-20 15:24] VITALS: BMI 18.8
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
[2021-11-20] MEDS: QUEtiapine Fumarate 25 MG TABLET PO (16:06)
[2021-11-20 20:20] VITALS: BP 146/66; PULSE 62; RESP 16; TEMP 36.1; O2SAT 98
[2021-11-20] MEDS: traZODone HCL 100 MG TABLET PO (21:53)
[2021-11-21 08:00] VITALS: BP 135/64; PULSE 63; TEMP 36.5; O2SAT 96
[2021-11-21] MEDS: LORazepam 1 MG TABLET PO ×3 (08:52→21:56)
[2021-11-21] MEDS: QUEtiapine Fumarate 25 MG TABLET PO ×2 (08:53→16:36)
[2021-11-21] MEDS: Escitalopram Oxalate 10 MG TABLET PO (08:53)
[2021-11-21] MEDS: polyethylene glycoL 3350 17 GM POWD.PACK PO (08:59)
[2021-11-21 20:13] VITALS: BP 137/63; PULSE 63; RESP 16; TEMP 36.6; O2SAT 97
[2021-11-21] MEDS: traZODone HCL 100 MG TABLET PO (21:56)
[2021-11-22 08:00] VITALS: BP 146/72; PULSE 64; TEMP 36.2; O2SAT 95
[2021-11-22] MEDS: QUEtiapine Fumarate 25 MG TABLET PO (08:33)
[2021-11-22] MEDS: LORazepam 1 MG TABLET PO ×3 (08:33→20:03)
[2021-11-22] MEDS: Escitalopram Oxalate 10 MG TABLET PO (08:33)
--- NOTE | 2021-11-22 10:48 | HO.PSYCHPN ---
Subjective Subjective Date of Service: 11/22/21 Reason For Visit: Depression severe referred for ECT Subjective Notes: Conditional Voluntary Interim History: The patient is visible in the unit, cooperative, pleasant. On interview, she denied new symptoms, waiting for ECT tomorrow AM. She verbalized that she is very anxious for the procedure. Mental Status Exam Mental Status Exam Patient Appearance: Well Grooomed Patient Orientation: Person Level of Consciousness: Awake Patient Behavior: Cooperative Mood Description: Withdrawn Affect Description: Constricted Patient Cognition Impaired: No Ability to Follow Directions: Good Speech Pattern: Clear Hallucinations: None Delusions: Not Present Thought Process: Distracted Thought Content: positive for Circumstantial Judgement: Fair Diagnostics Vital Signs (24Hr): Vital Signs - 24 hr 11/21/21 20:13 Temperature 97.8 F Pulse Rate 63 Respiratory Rate 16 Blood Pressure 137/63 Pulse Oximetry 97 BMI result Body Mass Index 18.8 Labs Results: 11/19/21 19:07 11/20/21 07:40 Labs: Laboratory Results - last 48 hr 11/20/21 07:40 Hepatitis A IgM Ab Nonreactive Hep Bs Antigen Negative Hep Bs Antibody NONREACTIVE Hep B Core Total Ab Nonreactive Hepatitis C Ab (EIA) Nonreactive Imaging Radiology Impressions: ITS Impressions Head CT 11/20/21 08:58 IMPRESSION: No acute intracranial pathology. Abdomen Ultrasound 11/21/21 08:39 IMPRESSION: 1. No sonographic evidence of abnormal liver parenchymal echogenicity. Subtle hyperechoic lesion in the right hepatic lobe statistically may represent a hemangioma. If clinically deemed necessary, contrast-enhanced abdominal MRI will be helpful for further evaluation. 2. Sludge versus mobile gallstone in the gallbladder. No sonographic evidence of acute cholecystitis. No biliary ductal dilatation. Medications Medications Current Medications Acetaminophen (Acetaminophen 325 Mg Tablet) 650 mg PO Q6H PRN PRN Reason: Headache/Pain Mild Scale (1-3) Al Hydroxide/Mg Hydroxide (Magnesium Hydrox/Alum Hydrox 30 Ml Oral.Susp) 30 ml PO Q6H PRN PRN Reason: Heartburn/Nausea Escitalopram Oxalate (Escitalopram Oxalate 10 Mg Tablet) 10 mg PO DAILY [facility] Last Admin: 11/22/21 08:33 Dose: 10 mg Documented by: Lorazepam (Lorazepam 0.5 Mg Tablet) 0.5 mg PO ONCE PRN PRN Reason: anxiety Last Admin: 11/19/21 22:43 Dose: 0.5 mg Documented by: Lorazepam (Lorazepam 1 Mg Tablet) 1 mg PO TID [facility] Last Admin: 11/22/21 08:33 Dose: 1 mg Documented by: Magnesium Hydroxide (Milk Of Magnesia 30 Ml Oral.Susp) 30 ml PO DAILY PRN PRN Reason: Constipation Nf Med Biotene (Lozenges) 1 each BUCCAL Q1H PRN PRN Reason: Dry Mouth Last Admin: 11/21/21 08:53 Dose: 1 each Documented by: Oxybutynin Chloride (Oxybutynin Chloride Er 5 Mg Tab.Er.24) 5 mg PO BEDTIME [facility] Last Admin: 11/21/21 21:55 Dose: 5 mg Documented by: Pharmacy Consult (Consult Rx Perform Med Rec) 1 each MISCELLANE ONCE PRN PRN Reason: Consult order Polyethylene Glycol (Polyethylene Glycol 3350 17 Gm Powd.Pack) 17 gm PO Q2D [facility] Last Admin: 11/21/21 08:59 Dose: 17 gm Documented by: Quetiapine Fumarate (Quetiapine Fumarate 25 Mg Tablet) 25 mg PO BID@1000,1600 [facility] Last Admin: 11/22/21 08:33 Dose: 25 mg Documented by: Quetiapine Fumarate (Quetiapine Fumarate 50 Mg Tablet) 50 mg PO BEDTIME PRN PRN Reason: sleep Senna (Senna [place] Extract Oral Syrup 15 Ml Syrup) 7.5 ml PO BEDTIME [facility] Last Admin: 11/21/21 21:56 Dose: 7.5 ml Documented by: Trazodone HCl (Trazodone Hcl 100 Mg Tablet) 100 mg PO BEDTIME [facility] Last Admin: 11/21/21 21:56 Dose: 100 mg Documented by: Allergies Allergies Allergy/AdvReac Type Severity Reaction Status Date / Time erythromycin base Allergy Hives Verified 11/19/21 18:34 Assessment & Plan Assessment & Plan (1) Major depressive disorder, recurrent episode, severe with anxious distress: Status: Acute Code(s): F33.2 - Major depressive disorder, recurrent severe without psychotic features Plan Patient with a history of severe depression unremitting failed multiple medication trials including multiple antidepressants TMS Abilify Risperdal referred by Dr. Zack torres for ECT evaluation and then referred for inpatient treatment to start ECT as soon as possible. Patient has been quite ambivalent extensive Education to patient and her she has reviewed material as did her . Will need to use flumazenil with ECT has patient is on lorazepam t.i.d. Head CT scan unremarkable slight increase in liver function test MCV mildly increased hospitalist consult ordered ECT ordered The patient is quite ambivalent profoundly depressed but actively suicidal. Plan and hopefully to start ECT I discussed with patient her transitioning is in is possible to outpatient ECT. Risks benefits and alternatives have been reviewed I spent ___20___ minutes with the patient and/or on the patient floor today, greater than?50% of which was spent counseling/coordinating care. Patient educated on: diagnosis, ECT and therapeutic strategies Informed Consent: understands Reason for contiued inpatient stay Substantial Risk for: inability to function, rapid decompensation and med/psych decompensation
--- NOTE | 2021-11-22 10:49 | HO.PSYCHPN ---
Subjective Subjective Date of Service: 11/21/21 Reason For Visit: Depression severe referred for ECT Interim History: The patient reported that she feels safe in the unit, calm and cooperative. On interview, she was aware of ECT on Tuesday, still depressed. Mental Status Exam Mental Status Exam Patient Appearance: Well Grooomed Patient Orientation: Person Level of Consciousness: Awake Patient Behavior: Suspicious Mood Description: Depressed Affect Description: Constricted Patient Cognition Impaired: No Ability to Follow Directions: Good Speech Pattern: Clear Hallucinations: None Delusions: Not Present Thought Process: Linear Thought Content: positive for Circumstantial Judgement: Fair Diagnostics Vital Signs (24Hr): Vital Signs - 24 hr 11/21/21 20:13 Temperature 97.8 F Pulse Rate 63 Respiratory Rate 16 Blood Pressure 137/63 Pulse Oximetry 97 BMI result Body Mass Index 18.8 Labs Results: 11/19/21 19:07 11/20/21 07:40 Labs: Laboratory Results - last 48 hr 11/20/21 07:40 Hepatitis A IgM Ab Nonreactive Hep Bs Antigen Negative Hep Bs Antibody NONREACTIVE Hep B Core Total Ab Nonreactive Hepatitis C Ab (EIA) Nonreactive Imaging Radiology Impressions: ITS Impressions Head CT 11/20/21 08:58 IMPRESSION: No acute intracranial pathology. Abdomen Ultrasound 11/21/21 08:39 IMPRESSION: 1. No sonographic evidence of abnormal liver parenchymal echogenicity. Subtle hyperechoic lesion in the right hepatic lobe statistically may represent a hemangioma. If clinically deemed necessary, contrast-enhanced abdominal MRI will be helpful for further evaluation. 2. Sludge versus mobile gallstone in the gallbladder. No sonographic evidence of acute cholecystitis. No biliary ductal dilatation. Medications Medications Current Medications Acetaminophen (Acetaminophen 325 Mg Tablet) 650 mg PO Q6H PRN PRN Reason: Headache/Pain Mild Scale (1-3) Al Hydroxide/Mg Hydroxide (Magnesium Hydrox/Alum Hydrox 30 Ml Oral.Susp) 30 ml PO Q6H PRN PRN Reason: Heartburn/Nausea Escitalopram Oxalate (Escitalopram Oxalate 10 Mg Tablet) 10 mg PO DAILY [facility] Last Admin: 11/22/21 08:33 Dose: 10 mg Documented by: Lorazepam (Lorazepam 0.5 Mg Tablet) 0.5 mg PO ONCE PRN PRN Reason: anxiety Last Admin: 11/19/21 22:43 Dose: 0.5 mg Documented by: Lorazepam (Lorazepam 1 Mg Tablet) 1 mg PO TID [facility] Last Admin: 11/22/21 08:33 Dose: 1 mg Documented by: Magnesium Hydroxide (Milk Of Magnesia 30 Ml Oral.Susp) 30 ml PO DAILY PRN PRN Reason: Constipation Nf Med Biotene (Lozenges) 1 each BUCCAL Q1H PRN PRN Reason: Dry Mouth Last Admin: 11/21/21 08:53 Dose: 1 each Documented by: Oxybutynin Chloride (Oxybutynin Chloride Er 5 Mg Tab.Er.24) 5 mg PO BEDTIME [facility] Last Admin: 11/21/21 21:55 Dose: 5 mg Documented by: Pharmacy Consult (Consult Rx Perform Med Rec) 1 each MISCELLANE ONCE PRN PRN Reason: Consult order Polyethylene Glycol (Polyethylene Glycol 3350 17 Gm Powd.Pack) 17 gm PO Q2D [facility] Last Admin: 11/21/21 08:59 Dose: 17 gm Documented by: Quetiapine Fumarate (Quetiapine Fumarate 25 Mg Tablet) 25 mg PO BID@1000,1600 [facility] Last Admin: 11/22/21 08:33 Dose: 25 mg Documented by: Quetiapine Fumarate (Quetiapine Fumarate 50 Mg Tablet) 50 mg PO BEDTIME PRN PRN Reason: sleep Senna (Senna [place] Extract Oral Syrup 15 Ml Syrup) 7.5 ml PO BEDTIME [facility] Last Admin: 11/21/21 21:56 Dose: 7.5 ml Documented by: Trazodone HCl (Trazodone Hcl 100 Mg Tablet) 100 mg PO BEDTIME [facility] Last Admin: 11/21/21 21:56 Dose: 100 mg Documented by: Allergies Allergies Allergy/AdvReac Type Severity Reaction Status Date / Time erythromycin base Allergy Hives Verified 11/19/21 18:34 Assessment & Plan Assessment & Plan (1) Major depressive disorder, recurrent episode, severe with anxious distress: Status: Acute Code(s): F33.2 - Major depressive disorder, recurrent severe without psychotic features Plan Patient with a history of severe depression unremitting failed multiple medication trials including multiple antidepressants TMS Abilify Risperdal referred by Dr. Zack torres for ECT evaluation and then referred for inpatient treatment to start ECT as soon as possible. Patient has been quite ambivalent extensive Education to patient and her she has reviewed material as did her . Will need to use flumazenil with ECT has patient is on lorazepam t.i.d. Head CT scan unremarkable slight increase in liver function test MCV mildly increased hospitalist consult ordered ECT ordered The patient is quite ambivalent profoundly depressed but actively suicidal. Plan and hopefully to start ECT I discussed with patient her transitioning is in is possible to outpatient ECT. Risks benefits and alternatives have been reviewed I spent ___20___ minutes with the patient and/or on the patient floor today, greater than?50% of which was spent counseling/coordinating care. Patient educated on: diagnosis and ECT Guardian/Caregiver educated on: diagnosis and ECT Reason for contiued inpatient stay Substantial Risk for: inability to function, rapid decompensation and med/psych decompensation
[2021-11-22 20:00] VITALS: BP 160/74; PULSE 67; TEMP 36.2; O2SAT 97
[2021-11-22] MEDS: traZODone HCL 100 MG TABLET PO (20:03)
[2021-11-23] VITALS (10 sets, daily range): BP systolic 107–158; BP diastolic 64–78; PULSE 60–106; RESP 16–22; TEMP 36.6–37.3; O2SAT 93–99
--- NOTE | 2021-11-23 09:07 | MHC.SHP ---
Pre-Procedural Eval Section A Date of Service: 11/23/21 The patient is an INPATIENT: Yes Changes since office visit: Yes New Medical Problems and Yes Patient answered all questions; No Cold of Flu in the past 2 weeks and No Changes in Medication The History & Physical has been completed within 30 days and I have reviewed it.: Yes Section B Chief Complaint: Depression severe referred for ECT Allergies: Allergies Allergy/AdvReac Type Severity Reaction Status Date / Time erythromycin base Allergy Hives Verified 11/19/21 18:34 Plan I have reviewed the history and physical and performed a pertinent physical examination on my patient. No changes have occurred unless specified.
--- NOTE | 2021-11-23 09:13 | HO.ECTPROC ---
ECT Procedure Note Diagnosis/Treatment Date of Service: 11/23/21 Diagnosis: Major Depressive Disorder Current Treatment Number: 1 Treatment: Series Interval Clinical Notes: pt quite depressed flat anxious ruminating on lorazepam 1 tid will need flumazenil informed consent obtained ECT Settings Device: THYMATRON DGx Electrode Placement: Right Unilateral Program/Pulse Width: 0.25 Energy Percent: 100 Seizure Duration By EEG (in seconds): 78 Medications Administration General Anesthetic: Etomidate (12) Muscle Relaxant: Succinylcholine (80) Ancillary Medications Anti-emetics: Zofran - Pre ECT Miscillaneous Medications: Propofol, Midazolam (2mg ) and Flumazenil (250 mg after etomidate ) Airway Management Airway Management: Bag Mask Ventilation Treatment Recommendations Energy Percent: 50 Notes: would decrease midazolam 1 mg no zofran brief transient tachycardia resolved quickly Pt Tolerated Procedure w/o Issue: Yes
--- NOTE | 2021-11-23 09:38 | HO.PSYCHPN ---
Subjective Subjective Date of Service: 11/23/21 Reason For Visit: Depression severe referred for ECT Subjective Notes: Conditional Voluntary Guardianship: No Medical Problems Affecting Mental Status: No Interim History: pt had first ect was sedated out of soirts after Medication Compliance: Yes Attending Groups: No Review of Systems Acute medical concerns: No Mental Status Exam Mental Status Exam Patient Appearance: Well Grooomed Patient Orientation: Person Level of Consciousness: Awake Patient Behavior: Guarded and Passive Mood Description: Depressed Affect Description: Constricted Patient Cognition Impaired: No Ability to Follow Directions: Good Speech Pattern: Clear Hallucinations: None Delusions: Not Present Thought Process: Linear Thought Content: positive for Circumstantial Judgement: Fair Diagnostics Vital Signs (24Hr): Vital Signs - 24 hr 11/22/21 20:00 11/23/21 06:38 11/23/21 07:15 Temperature 97.1 F 97.8 F 99.2 F Pulse Rate 67 95 76 Respiratory Rate 18 18 Blood Pressure 160/74 H 133/64 131/72 Pulse Oximetry 97 94 99 BMI result Body Mass Index 18.8 Labs Results: 11/19/21 19:07 11/20/21 07:40 Imaging Radiology Impressions: ITS Impressions Head CT 11/20/21 08:58 IMPRESSION: No acute intracranial pathology. Abdomen Ultrasound 11/21/21 08:39 IMPRESSION: 1. No sonographic evidence of abnormal liver parenchymal echogenicity. Subtle hyperechoic lesion in the right hepatic lobe statistically may represent a hemangioma. If clinically deemed necessary, contrast-enhanced abdominal MRI will be helpful for further evaluation. 2. Sludge versus mobile gallstone in the gallbladder. No sonographic evidence of acute cholecystitis. No biliary ductal dilatation. Medications Medications Current Medications Acetaminophen (Acetaminophen 325 Mg Tablet) 650 mg PO Q6H PRN PRN Reason: Headache/Pain Mild Scale (1-3) Al Hydroxide/Mg Hydroxide (Magnesium Hydrox/Alum Hydrox 30 Ml Oral.Susp) 30 ml PO Q6H PRN PRN Reason: Heartburn/Nausea Escitalopram Oxalate (Escitalopram Oxalate 10 Mg Tablet) 10 mg PO DAILY [facility] Last Admin: 11/22/21 08:33 Dose: 10 mg Documented by: Lorazepam (Lorazepam 1 Mg Tablet) 1 mg PO TID [facility] Last Admin: 11/22/21 20:03 Dose: 1 mg Documented by: Magnesium Hydroxide (Milk Of Magnesia 30 Ml Oral.Susp) 30 ml PO DAILY PRN PRN Reason: Constipation Nf Med Biotene (Lozenges) 1 each BUCCAL Q1H PRN PRN Reason: Dry Mouth Last Admin: 11/21/21 08:53 Dose: 1 each Documented by: Oxybutynin Chloride (Oxybutynin Chloride Er 5 Mg Tab.Er.24) 5 mg PO BEDTIME [facility] Last Admin: 11/22/21 20:02 Dose: 5 mg Documented by: Pharmacy Consult (Consult Rx Perform Med Rec) 1 each MISCELLANE ONCE PRN PRN Reason: Consult order Polyethylene Glycol (Polyethylene Glycol 3350 17 Gm Powd.Pack) 17 gm PO Q2D [facility] Last Admin: 11/21/21 08:59 Dose: 17 gm Documented by: Quetiapine Fumarate (Quetiapine Fumarate 25 Mg Tablet) 25 mg PO BID@1000,1600 [facility] Last Admin: 11/22/21 18:21 Dose: Not Given Documented by: Quetiapine Fumarate (Quetiapine Fumarate 50 Mg Tablet) 50 mg PO BEDTIME PRN PRN Reason: sleep Senna (Senna [place] Extract Oral Syrup 15 Ml Syrup) 7.5 ml PO BEDTIME [facility] Last Admin: 11/22/21 20:02 Dose: 7.5 ml Documented by: Trazodone HCl (Trazodone Hcl 100 Mg Tablet) 100 mg PO BEDTIME [facility] Last Admin: 11/22/21 20:03 Dose: 100 mg Documented by: Allergies Allergies Allergy/AdvReac Type Severity Reaction Status Date / Time erythromycin base Allergy Hives Verified 11/19/21 18:34 Assessment & Plan Assessment & Plan (1) Major depressive disorder, recurrent episode, severe with anxious distress: Status: Acute Code(s): F33.2 - Major depressive disorder, recurrent severe without psychotic features Plan Patient with a history of severe depression unremitting failed multiple medication trials including multiple antidepressants TMS Abilify Risperdal referred by Dr. Zack torres for ECT evaluation and then referred for inpatient treatment to start ECT as soon as possible. Patient has been quite ambivalent extensive Education to patient and her she has reviewed material as did her . Will need to use flumazenil with ECT has patient is on lorazepam t.i.d. Head CT scan unremarkable slight increase in liver function test MCV mildly increased hospitalist consult ordered ECT ordered The patient is quite ambivalent profoundly depressed but actively suicidal. Plan and hopefully to start ECT I discussed with patient her transitioning is in is possible to outpatient ECT. Risks benefits and alternatives have been reviewed 11/23/21 had 1st ect will avoid flumazenil limit dosing of ect and meds next tx see ect note I spent minutes with the patient and/or on the patient floor today, greater than?50% of which was spent counseling/coordinating care. Reason for contiued inpatient stay Substantial Risk for: inability to function and rapid decompensation
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
--- NOTE | 2021-11-23 09:54 | HO.POSTANES ---
Post Anesthesia Evaluation Post Anesthesia Evaluation Vital Signs: Vital Signs Temp Pulse Resp BP Pulse Ox 11/23/21 09:52 106 H 22 H 98 11/23/21 09:47 104 H 18 11/23/21 09:42 60 17 137/78 97 11/23/21 09:36 98.4 F 60 16 126/74 99 11/23/21 07:15 99.2 F 76 18 131/72 99 11/23/21 06:38 97.8 F 95 18 133/64 94 Anesthesia: General Mental Status: Awake Pain Control: Satisfactory Nausea/Vomiting: None Hydration: Adequate Anesthesia-Related Issues: No Anes. Related Issues
[2021-11-23] MEDS: QUEtiapine Fumarate 25 MG TABLET PO ×2 (11:06→16:25)
[2021-11-23] MEDS: Escitalopram Oxalate 10 MG TABLET PO (11:06)
[2021-11-23] MEDS: polyethylene glycoL 3350 17 GM POWD.PACK PO (11:44)
[2021-11-23] MEDS: LORazepam 1 MG TABLET PO ×2 (14:22→21:57)
--- NOTE | 2021-11-23 15:19 | MHC.CLN ---
F/U DIET=REGULAR. DISLIKES SUPPLEMENTS. NPO FOR ECT TUESDAY, TUESDAY, TUESDAY IN AM. VISITED PATIENT AFTER LUNCH. APPEARED TIRED AND DID NOT EAT LUNCH. CONTINUE TO FOLLOW INTAKE AT MEALS.
[2021-11-23] MEDS: traZODone HCL 100 MG TABLET PO (21:58)
[2021-11-24 07:25] VITALS: BP 107/55; PULSE 110; RESP 16; TEMP 37.4; O2SAT 95
[2021-11-24] MEDS: QUEtiapine Fumarate 25 MG TABLET PO ×2 (09:01→16:40)
[2021-11-24] MEDS: LORazepam 1 MG TABLET PO ×2 (09:01→14:01)
[2021-11-24] MEDS: Escitalopram Oxalate 10 MG TABLET PO (09:01)
[2021-11-24] MEDS: polyethylene glycoL 3350 17 GM POWD.PACK PO (09:40)
--- NOTE | 2021-11-24 17:08 | P.PNPSI_ITS ---
Subjective Subjective Date of Service: 11/24/21 Reason For Visit: Depression severe referred for ECT Subjective Notes: Conditional Voluntary Healthcare Proxy: No Guardianship: No Medical Problems Affecting Mental Status: No Interim History: The patient is status post ECT x1 day ECT 1.. She was somewhat over-sedated that day and discussed with patient lowering medication from anesthesia. P atient has some dukes affect improved mood more verbal regarding issues related to her daughter's how her and she met and is generally more forthcoming Medication Compliance: Yes Side effects from medications: Yes (Some sedation) Attending Groups: No Review of Systems Some confusion status post ECT Review of Systems: Mild neck pain noted Mental Status Exam Mental Status Exam Patient Appearance: Well Grooomed Patient Orientation: Person, Place and Situation Level of Consciousness: Awake Patient Behavior: Cooperative and Passive Behavior Comments: Less guarded Mood Description: Constricted and Depressed Affect Description: Constricted, Depressed and Apprehensive Patient Cognition Impaired: No Ability to Follow Directions: Good Speech Pattern: Clear Memory Description: Immediate Impaired Hallucinations: None Delusions: Not Present Thought Process: Linear Thought Content: positive for Circumstantial and positive for Poverty of Content Depressive Symptoms: Increased Anxiety, Diff. Making Decisions and Thoughts of /Suicide Judgement: Fair Judgement and Insight: Dukes affect noted more engaged in treatment Diagnostics Vital Signs (24Hr): Vital Signs - 24 hr 11/23/21 20:40 11/24/21 07:25 Temperature 98.4 F 99.3 F Pulse Rate 92 110 H Respiratory Rate 16 16 Blood Pressure 107/64 107/55 L Pulse Oximetry 93 95 BMI result Body Mass Index 18.8 Labs Results: 11/19/21 19:07 11/20/21 07:40 Imaging Radiology Impressions: ITS Impressions Head CT 11/20/21 08:58 IMPRESSION: No acute intracranial pathology. Abdomen Ultrasound 11/21/21 08:39 IMPRESSION: 1. No sonographic evidence of abnormal liver parenchymal echogenicity. Subtle hyperechoic lesion in the right hepatic lobe statistically may represent a hemangioma. If clinically deemed necessary, contrast-enhanced abdominal MRI will be helpful for further evaluation. 2. Sludge versus mobile gallstone in the gallbladder. No sonographic evidence of acute cholecystitis. No biliary ductal dilatation. Medications Medications Current Medications Acetaminophen (Acetaminophen 325 Mg Tablet) 650 mg PO Q6H PRN PRN Reason: Headache/Pain Mild Scale (1-3) Al Hydroxide/Mg Hydroxide (Magnesium Hydrox/Alum Hydrox 30 Ml Oral.Susp) 30 ml PO Q6H PRN PRN Reason: Heartburn/Nausea Escitalopram Oxalate (Escitalopram Oxalate 10 Mg Tablet) 10 mg PO DAILY [facility] Last Admin: 11/24/21 09:01 Dose: 10 mg Documented by: Lorazepam (Lorazepam 1 Mg Tablet) 1 mg PO TID [facility] Last Admin: 11/24/21 14:01 Dose: 1 mg Documented by: Magnesium Hydroxide (Milk Of Magnesia 30 Ml Oral.Susp) 30 ml PO DAILY PRN PRN Reason: Constipation Nf Med Biotene (Lozenges) 1 each BUCCAL Q1H PRN PRN Reason: Dry Mouth Last Admin: 11/21/21 08:53 Dose: 1 each Documented by: Oxybutynin Chloride (Oxybutynin Chloride Er 5 Mg Tab.Er.24) 5 mg PO BEDTIME [facility] Last Admin: 11/23/21 21:57 Dose: 5 mg Documented by: Pharmacy Consult (Consult Rx Perform Med Rec) 1 each MISCELLANE ONCE PRN PRN Reason: Consult order Polyethylene Glycol (Polyethylene Glycol 3350 17 Gm Powd.Pack) 17 gm PO Q2D [facility] Last Admin: 11/24/21 09:40 Dose: 17 gm Documented by: Quetiapine Fumarate (Quetiapine Fumarate 25 Mg Tablet) 25 mg PO BID@1000,1600 [facility] Last Admin: 11/24/21 09:01 Dose: 25 mg Documented by: Quetiapine Fumarate (Quetiapine Fumarate 50 Mg Tablet) 50 mg PO BEDTIME PRN PRN Reason: sleep Senna (Senna [place] Extract Oral Syrup 15 Ml Syrup) 7.5 ml PO BEDTIME [facility] Last Admin: 11/23/21 21:58 Dose: 7.5 ml Documented by: Trazodone HCl (Trazodone Hcl 100 Mg Tablet) 100 mg PO BEDTIME [facility] Last Admin: 11/23/21 21:58 Dose: 100 mg Documented by: Allergies Allergies Allergy/AdvReac Type Severity Reaction Status Date / Time erythromycin base Allergy Hives Verified 11/19/21 18:34 Assessment & Plan Assessment & Plan (1) Major depressive disorder, recurrent episode, severe with anxious distress: Status: Acute Code(s): F33.2 - Major depressive disorder, recurrent severe without psychotic features Plan Patient with a history of severe depression unremitting failed multiple medication trials including multiple antidepressants TMS Abilify Risperdal referred by Dr. Zack torres for ECT evaluation and then referred for inpatient treatment to start ECT as soon as possible. Patient has been quite ambivalent extensive Education to patient and her she has reviewed material as did her . Will need to use flumazenil with ECT has patient is on lorazepam t.i.d. Head CT scan unremarkable slight increase in liver function test MCV mildly increased hospitalist consult ordered ECT ordered The patient is quite ambivalent profoundly depressed but actively suicidal. Plan and hopefully to start ECT I discussed with patient her transitioning is in is possible to outpatient ECT. Risks benefits and alternatives have been reviewed 11/23/21 had 1st ect will avoid flumazenil limit dosing of ect and meds next tx see ect note 11/24/2021 Patient on escitalopram automatic switch from citalopram consider lowering lorazepam Case also reviewed with and patient seen I spent ___30___ minutes with the patient and/or on the patient floor today, greater than?50% of which was spent counseling/coordinating care. Patient educated on: diagnosis, medication risk/benefits, ECT and medical condition Informed Consent: further education needed Reason for contiued inpatient stay Substantial Risk for: inability to function and rapid decompensation
[2021-11-24 20:34] VITALS: BP 122/57; PULSE 75; RESP 16; TEMP 36.4; O2SAT 97
[2021-11-24] MEDS: traZODone HCL 100 MG TABLET PO (20:42)
[2021-11-25] VITALS (12 sets, daily range): BP systolic 113–151; BP diastolic 58–78; PULSE 54–96; RESP 14–17; TEMP 36.3–36.8; O2SAT 95–99
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
--- NOTE | 2021-11-25 07:07 | MHC.SHP ---
Pre-Procedural Eval Section A Date of Service: 11/25/21 The patient is an INPATIENT: Yes Changes since office visit: Yes Changes in Medication and Yes Patient answered all questions; No Cold of Flu in the past 2 weeks and No New Medical Problems The History & Physical has been completed within 30 days and I have reviewed it.: Yes Section B Chief Complaint: Depression severe referred for ECT Allergies: Allergies Allergy/AdvReac Type Severity Reaction Status Date / Time erythromycin base Allergy Hives Verified 11/19/21 18:34 Plan I have reviewed the history and physical and performed a pertinent physical examination on my patient. No changes have occurred unless specified.
--- NOTE | 2021-11-25 07:27 | HO.ECTPROC ---
ECT Procedure Note Diagnosis/Treatment Date of Service: 11/25/21 Diagnosis: Major Depressive Disorder Previous ECT Date: 11/23/21 Current Treatment Number: 2 Treatment: Series Interval Clinical Notes: PT WITH SOME MATTHEWS AFFECT ECT Settings Device: THYMATRON DGx Electrode Placement: Right Unilateral Program/Pulse Width: 0.25 Energy Percent: 40 Seizure Duration By EEG (in seconds): 72 Medications Administration General Anesthetic: Etomidate (10) Muscle Relaxant: Succinylcholine (80) Ancillary Medications Analgesics: Torodol - Pre ECT (15) Miscillaneous Medications: Propofol (30) Airway Management Airway Management: Bag Mask Ventilation Treatment Recommendations Electrode Placement: Right Unilateral Program/Pulse Width: 0.25 Energy Percent: 25 Notes: needed to move hairpeace briefly to place stimulus electrodes NO FLUMAZENIL ! DID NOT TOLERATE FIRST TX LOWER ENERGY Pt Tolerated Procedure w/o Issue: Yes
[2021-11-25] MEDS: Lactated Ringers 1,000 ML 50 ML IVCONT (09:09)
[2021-11-25] MEDS: LORazepam 1 MG TABLET PO ×3 (09:26→21:50)
[2021-11-25] MEDS: Escitalopram Oxalate 10 MG TABLET PO (09:26)
[2021-11-25] MEDS: QUEtiapine Fumarate 25 MG TABLET PO ×2 (09:26→15:16)
--- NOTE | 2021-11-25 14:31 | MHC.CLN ---
F/U DIET=REGULAR. FAIR INTAKE. DISLIKES SUPPLEMENTS. CONTINUE TO ENCOURAGE PATIENT TO EAT IN COMMON AREA AND ENCOURAGE INTAKE AT MEALS.
[2021-11-25] MEDS: traZODone HCL 100 MG TABLET PO (21:51)
[2021-11-26 06:00] VITALS: BP 104/58; PULSE 84; RESP 12; TEMP 37.3; O2SAT 96
[2021-11-26 07:00] VITALS: BMI 18.4
[2021-11-26] MEDS: LORazepam 1 MG TABLET PO (08:37)
[2021-11-26] MEDS: QUEtiapine Fumarate 25 MG TABLET PO (08:37)
[2021-11-26] MEDS: Escitalopram Oxalate 10 MG TABLET PO (08:37)
[2021-11-26 10:00] VITALS: BP 104/58; PULSE 84; RESP 12; TEMP 37.3; O2SAT 96
--- NOTE | 2021-11-26 12:10 | P.PNPSI_ITS ---
Subjective Subjective Date of Service: 11/25/21 Reason For Visit: Depression severe referred for ECT Subjective Notes: Conditional Voluntary Healthcare Proxy: No Guardianship: No Medical Problems Affecting Mental Status: No Interim History: pt seen in f/u with flat dysphoric has some improvenet in range affect alert o x 3 discussed tx ooptions pt and needs much encouragement Diagnostics Vital Signs (24Hr): Vital Signs - 24 hr 11/26/21 06:00 11/26/21 10:00 Temperature 99.1 F 99.1 F Pulse Rate 84 84 Respiratory Rate 12 12 Blood Pressure 104/58 L 104/58 L Pulse Oximetry 96 96 BMI result Body Mass Index 18.8 Labs Results: 11/19/21 19:07 11/20/21 07:40 Imaging Radiology Impressions: ITS Impressions Head CT 11/20/21 08:58 IMPRESSION: No acute intracranial pathology. Abdomen Ultrasound 11/21/21 08:39 IMPRESSION: 1. No sonographic evidence of abnormal liver parenchymal echogenicity. Subtle hyperechoic lesion in the right hepatic lobe statistically may represent a hemangioma. If clinically deemed necessary, contrast-enhanced abdominal MRI will be helpful for further evaluation. 2. Sludge versus mobile gallstone in the gallbladder. No sonographic evidence of acute cholecystitis. No biliary ductal dilatation. Medications Medications Current Medications Acetaminophen (Acetaminophen 325 Mg Tablet) 650 mg PO Q6H PRN PRN Reason: Headache/Pain Mild Scale (1-3) Al Hydroxide/Mg Hydroxide (Magnesium Hydrox/Alum Hydrox 30 Ml Oral.Susp) 30 ml PO Q6H PRN PRN Reason: Heartburn/Nausea Escitalopram Oxalate (Escitalopram Oxalate 10 Mg Tablet) 10 mg PO DAILY [facility] Last Admin: 11/26/21 08:37 Dose: 10 mg Documented by: Lactated Ringer's (Lr) 1,000 mls @ 50 mls/hr IVCONT .Q20H [facility] Last Infusion: 11/25/21 09:10 Dose: Infused Documented by: Lorazepam (Lorazepam 0.5 Mg Tablet) 0.5 mg PO BID@0830,1430 [facility] Lorazepam (Lorazepam 1 Mg Tablet) 1 mg PO BEDTIME [facility] Magnesium Hydroxide (Milk Of Magnesia 30 Ml Oral.Susp) 30 ml PO DAILY PRN PRN Reason: Constipation Nf Med Biotene (Lozenges) 1 each BUCCAL Q1H PRN PRN Reason: Dry Mouth Last Admin: 11/21/21 08:53 Dose: 1 each Documented by: Oxybutynin Chloride (Oxybutynin Chloride Er 5 Mg Tab.Er.24) 5 mg PO BEDTIME [facility] Last Admin: 11/25/21 21:50 Dose: 5 mg Documented by: Pharmacy Consult (Consult Rx Perform Med Rec) 1 each MISCELLANE ONCE PRN PRN Reason: Consult order Polyethylene Glycol (Polyethylene Glycol 3350 17 Gm Powd.Pack) 17 gm PO Q2D [facility] Last Admin: 11/25/21 09:31 Dose: Not Given Documented by: Quetiapine Fumarate (Quetiapine Fumarate 50 Mg Tablet) 50 mg PO BEDTIME PRN PRN Reason: sleep Quetiapine Fumarate (Quetiapine Fumarate 25 Mg Tablet) 25 mg PO BID@1000,1600 PRN PRN Reason: anxiety Senna (Senna [place] Extract Oral Syrup 15 Ml Syrup) 7.5 ml PO BEDTIME [facility] Last Admin: 11/25/21 21:51 Dose: 7.5 ml Documented by: Trazodone HCl (Trazodone Hcl 100 Mg Tablet) 100 mg PO BEDTIME [facility] Last Admin: 11/25/21 21:51 Dose: 100 mg Documented by: Allergies Allergies Allergy/AdvReac Type Severity Reaction Status Date / Time erythromycin base Allergy Hives Verified 11/19/21 18:34 Assessment & Plan Assessment & Plan (1) Major depressive disorder, recurrent episode, severe with anxious distress: Status: Acute Code(s): F33.2 - Major depressive disorder, recurrent severe without psychotic features Plan Patient with a history of severe depression unremitting failed multiple medication trials including multiple antidepressants TMS Abilify Risperdal referred by Dr. Zack torres for ECT evaluation and then referred for inpatient treatment to start ECT as soon as possible. Patient has been quite ambivalent extensive Education to patient and her she has reviewed material as did her . Will need to use flumazenil with ECT has patient is on lorazepam t.i.d. Head CT scan unremarkable slight increase in liver function test MCV mildly increased hospitalist consult ordered ECT ordered The patient is quite ambivalent profoundly depressed but actively suicidal. Plan and hopefully to start ECT I discussed with patient her transitioning is in is possible to outpatient ECT. Risks benefits and alternatives have been reviewed 11/23/21 had 1st ect will avoid flumazenil limit dosing of ect and meds next tx see ect note 11/24/2021 Patient on escitalopram automatic switch from citalopram consider lowering lorazepam Case also reviewed with and patient seen 11/25/21 See ect note pt seen with needs much encouragement education intense hopelessness tolerated tx well I spent minutes with the patient and/or on the patient floor today, greater than?50% of which was spent counseling/coordinating care. Reason for contiued inpatient stay Substantial Risk for: inability to function and rapid decompensation
[2021-11-26] MEDS: LORazepam 0.5 MG TABLET PO (15:29)
[2021-11-26] MEDS: traZODone HCL 100 MG TABLET PO (20:51)
[2021-11-26] MEDS: Milk of Magnesia 30 ML ORAL.SUSP PO (20:52)
[2021-11-26 21:10] VITALS: BP 115/57; PULSE 77; RESP 17; TEMP 36.8; O2SAT 96
--- NOTE | 2021-11-26 23:07 | P.PNPSI_ITS ---
Subjective Subjective Date of Service: 11/26/21 Reason For Visit: Depression severe referred for ECT Subjective Notes: Conditional Voluntary Healthcare Proxy: No Guardianship: No Medical Problems Affecting Mental Status: No Interim History: Pt flat remains somewhat hopeless helpless sedated agreeable to decreasing lorazepam cont ect felt better after first tx Medication Compliance: Yes Side effects from medications: Yes Attending Groups: No Mental Status Exam Mental Status Exam Patient Appearance: Well Grooomed Patient Orientation: Person, Place and Situation Level of Consciousness: Awake Patient Behavior: Cooperative and Passive Behavior Comments: Less guarded Mood Description: Constricted, Depressed, Blunted and Apprehensive Affect Description: Constricted, Depressed, Blunted and Apprehensive Patient Cognition Impaired: No Ability to Follow Directions: Fair Speech Pattern: Clear Memory Description: Immediate Impaired Hallucinations: None Delusions: Not Present Thought Process: Linear Thought Content: positive for Circumstantial and positive for Poverty of Content Depressive Symptoms: Increased Anxiety, Diff. Making Decisions and Thoughts of /Suicide Judgement: Fair Judgement and Insight: Dukes affect noted more engaged in treatment Diagnostics Vital Signs (24Hr): Vital Signs - 24 hr 11/26/21 06:00 11/26/21 10:00 11/26/21 21:10 Temperature 99.1 F 99.1 F 98.3 F Pulse Rate 84 84 77 Respiratory Rate 12 12 17 Blood Pressure 104/58 L 104/58 L 115/57 L Pulse Oximetry 96 96 96 BMI result Body Mass Index 18.8 Labs Results: 11/19/21 19:07 11/20/21 07:40 Imaging Radiology Impressions: ITS Impressions Head CT 11/20/21 08:58 IMPRESSION: No acute intracranial pathology. Abdomen Ultrasound 11/21/21 08:39 IMPRESSION: 1. No sonographic evidence of abnormal liver parenchymal echogenicity. Subtle hyperechoic lesion in the right hepatic lobe statistically may represent a hemangioma. If clinically deemed necessary, contrast-enhanced abdominal MRI will be helpful for further evaluation. 2. Sludge versus mobile gallstone in the gallbladder. No sonographic evidence of acute cholecystitis. No biliary ductal dilatation. Medications Medications Current Medications Acetaminophen (Acetaminophen 325 Mg Tablet) 650 mg PO Q6H PRN PRN Reason: Headache/Pain Mild Scale (1-3) Al Hydroxide/Mg Hydroxide (Magnesium Hydrox/Alum Hydrox 30 Ml Oral.Susp) 30 ml PO Q6H PRN PRN Reason: Heartburn/Nausea Escitalopram Oxalate (Escitalopram Oxalate 10 Mg Tablet) 10 mg PO DAILY [facility] Last Admin: 11/26/21 08:37 Dose: 10 mg Documented by: Lactated Ringer's (Lr) 1,000 mls @ 50 mls/hr IVCONT .Q20H [facility] Last Admin: 11/26/21 13:54 Dose: Not Given Documented by: Lorazepam (Lorazepam 0.5 Mg Tablet) 0.5 mg PO BID@0830,1430 [facility] Last Admin: 11/26/21 15:29 Dose: 0.5 mg Documented by: Lorazepam (Lorazepam 1 Mg Tablet) 1 mg PO BEDTIME [facility] Last Admin: 11/26/21 22:38 Dose: Not Given Documented by: Magnesium Hydroxide (Milk Of Magnesia 30 Ml Oral.Susp) 30 ml PO DAILY PRN PRN Reason: Constipation Last Admin: 11/26/21 20:52 Dose: 30 ml Documented by: Nf Med Biotene (Lozenges) 1 each BUCCAL Q1H PRN PRN Reason: Dry Mouth Last Admin: 11/21/21 08:53 Dose: 1 each Documented by: Oxybutynin Chloride (Oxybutynin Chloride Er 5 Mg Tab.Er.24) 5 mg PO BEDTIME [facility] Last Admin: 11/26/21 20:50 Dose: 5 mg Documented by: Pharmacy Consult (Consult Rx Perform Med Rec) 1 each MISCELLANE ONCE PRN PRN Reason: Consult order Polyethylene Glycol (Polyethylene Glycol 3350 17 Gm Powd.Pack) 17 gm PO Q2D [facility] Last Admin: 11/25/21 09:31 Dose: Not Given Documented by: Quetiapine Fumarate (Quetiapine Fumarate 50 Mg Tablet) 50 mg PO BEDTIME PRN PRN Reason: sleep Quetiapine Fumarate (Quetiapine Fumarate 25 Mg Tablet) 25 mg PO BID@1000,1600 PRN PRN Reason: anxiety Senna (Senna [place] Extract Oral Syrup 15 Ml Syrup) 7.5 ml PO BEDTIME [facility] Last Admin: 11/26/21 20:51 Dose: 7.5 ml Documented by: Trazodone HCl (Trazodone Hcl 100 Mg Tablet) 100 mg PO BEDTIME [facility] Last Admin: 11/26/21 20:51 Dose: 100 mg Documented by: Allergies Allergies Allergy/AdvReac Type Severity Reaction Status Date / Time erythromycin base Allergy Hives Verified 11/19/21 18:34 Assessment & Plan Assessment & Plan (1) Major depressive disorder, recurrent episode, severe with anxious distress: Status: Acute Code(s): F33.2 - Major depressive disorder, recurrent severe without psychotic features Plan Patient with a history of severe depression unremitting failed multiple me dication trials including multiple antidepressants TMS Abilify Risperdal referred by Dr. Zack torres for ECT evaluation and then referred for inpatient treatment to start ECT as soon as possible. Patient has been quite ambivalent extensive Education to patient and her she has reviewed material as did her . Will need to use flumazenil with ECT has patient is on lorazepam t.i.d. Head CT scan unremarkable slight increase in liver function test MCV mildly increased hospitalist consult ordered ECT ordered The patient is quite ambivalent profoundly depressed but actively suicidal. Plan and hopefully to start ECT I discussed with patient her transitioning is in is possible to outpatient ECT. Risks benefits and alternatives have been reviewed 11/23/21 had 1st ect will avoid flumazenil limit dosing of ect and meds next tx see ect note 11/24/2021 Patient on escitalopram automatic switch from citalopram consider lowering lorazepam Case also reviewed with and patient seen 11/25/21 See ect note pt seen with needs much encouragement education intense hop elessness tolerated tx well 11/26/21 Pt seen with lower lorazepam cont ect discussed diff options ? d/c sat vs recommendation of tue after 4 ect I spent minutes with the patient and/or on the patient floor today, greater than?50% of which was spent counseling/coordinating care. Reason for contiued inpatient stay Substantial Risk for: inability to function and rapid decompensation
[2021-11-27] VITALS (8 sets, daily range): BP systolic 94–137; BP diastolic 48–69; PULSE 56–85; RESP 16–18; TEMP 36.2–36.9; O2SAT 92–98
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
--- NOTE | 2021-11-27 07:05 | MHC.SHP ---
Pre-Procedural Eval Section A Date of Service: 11/27/21 The patient is an INPATIENT: Yes Changes since office visit: No Cold of Flu in the past 2 weeks, No New Medical Problems, No Changes in Medication and No Patient answered all questions The History & Physical has been completed within 30 days and I have reviewed it.: Yes Section B Chief Complaint: Depression severe referred for ECT Allergies: Allergies Allergy/AdvReac Type Severity Reaction Status Date / Time erythromycin base Allergy Hives Verified 11/19/21 18:34 Plan I have reviewed the history and physical and performed a pertinent physical examination on my patient. No changes have occurred unless specified.
--- NOTE | 2021-11-27 07:06 | HO.ECTPROC ---
ECT Procedure Note Diagnosis/Treatment Date of Service: 11/27/21 Diagnosis: Major Depressive Disorder Previous ECT Date: 11/25/21 Current Treatment Number: 3 Treatment: Series Interval Clinical Notes: The paitient reported mild improvement of dysphoria. No side effects with previous ECT. ECT Settings Device: THYMATRON DGx Electrode Placement: Right Unilateral Program/Pulse Width: 0.25 Energy Percent: 40 Seizure Duration By EEG (in seconds): 61 By Motor Observation (in seconds): 40 Medications Administration General Anesthetic: Etomidate (10) Muscle Relaxant: Succinylcholine (80) Ancillary Medications Anti-emetics: Zofran - Pre ECT Airway Management Airway Management: Bag Mask Ventilation Treatment Recommendations No Changes Recommended: No change Pt Tolerated Procedure w/o Issue: Yes
--- NOTE | 2021-11-27 09:09 | HO.POSTANES ---
Post Anesthesia Evaluation Post Anesthesia Evaluation Vital Signs: Vital Signs Temp Pulse Resp BP Pulse Ox 11/27/21 08:18 98.5 F 62 18 137/65 95 11/27/21 08:03 98.1 F 82 18 133/48 L 95 11/27/21 07:48 98.2 F 85 17 105/69 93 11/27/21 07:43 79 18 96/69 93 11/27/21 07:38 80 17 121/50 L 92 11/27/21 07:33 98.5 F 56 16 118/52 L 98 11/27/21 05:36 98.3 F 80 17 94/60 93 11/26/21 21:10 98.3 F 77 17 115/57 L 96 Anesthesia: General Mental Status: Awake Pain Control: Satisfactory Nausea/Vomiting: None Hydration: Adequate Anesthesia-Related Issues: No Anes. Related Issues
[2021-11-27] MEDS: Escitalopram Oxalate 10 MG TABLET PO (09:32)
[2021-11-27] MEDS: polyethylene glycoL 3350 17 GM POWD.PACK PO (09:41)
--- NOTE | 2021-11-27 12:56 | HO.PSYCHPN ---
Subjective Subjective Date of Service: 11/27/21 Reason For Visit: Depression severe referred for ECT Subjective Notes: Conditional Voluntary Interim History: The nursing staff reported the patient has been pleasant and cooperative, fully compliant with treatment. Yesterday she was a little irritable. Today we have ECT without any complications. Today after the ECT, several hours after the procedure, she reported that she is doing fine her mood is much better. No side effects with ECT Mental Status Exam Mental Status Exam Patient Appearance: Well Grooomed Patient Orientation: Person Level of Consciousness: Awake and Alert Patient Behavior: Cooperative Mood Description: Depressed Affect Description: Constricted Patient Cognition Impaired: No Ability to Follow Directions: Good Speech Pattern: Clear Hallucinations: None Delusions: Not Present Thought Process: Linear Thought Content: positive for Circumstantial Judgement: Fair Diagnostics Vital Signs (24Hr): Vital Signs - 24 hr 11/26/21 21:10 11/27/21 05:36 11/27/21 07:33 Temperature 98.3 F 98.3 F 98.5 F Pulse Rate 77 80 56 Respiratory Rate 17 17 16 Blood Pressure 115/57 L 94/60 118/52 L Pulse Oximetry 96 93 98 11/27/21 07:38 11/27/21 07:43 11/27/21 07:48 Temperature 98.2 F Pulse Rate 80 79 85 Respiratory Rate 17 18 17 Blood Pressure 121/50 L 96/69 105/69 Pulse Oximetry 92 93 93 11/27/21 08:03 11/27/21 08:18 11/27/21 09:10 Temperature 98.1 F 98.5 F 97.2 F Pulse Rate 82 62 73 Respiratory Rate 18 18 16 Blood Pressure 133/48 L 137/65 123/58 L Pulse Oximetry 95 95 93 BMI result Body Mass Index 18.4 Labs Results: 11/19/21 19:07 11/20/21 07:40 Imaging Radiology Impressions: ITS Impressions Head CT 11/20/21 08:58 IMPRESSION: No acute intracranial pathology. Abdomen Ultrasound 11/21/21 08:39 IMPRESSION: 1. No sonographic evidence of abnormal liver parenchymal echogenicity. Subtle hyperechoic lesion in the right hepatic lobe statistically may represent a hemangioma. If clinically deemed necessary, contrast-enhanced abdominal MRI will be helpful for further evaluation. 2. Sludge versus mobile gallstone in the gallbladder. No sonographic evidence of acute cholecystitis. No biliary ductal dilatation. Medications Medications Current Medications Acetaminophen (Acetaminophen 325 Mg Tablet) 650 mg PO Q6H PRN PRN Reason: Headache/Pain Mild Scale (1-3) Al Hydroxide/Mg Hydroxide (Magnesium Hydrox/Alum Hydrox 30 Ml Oral.Susp) 30 ml PO Q6H PRN PRN Reason: Heartburn/Nausea Escitalopram Oxalate (Escitalopram Oxalate 10 Mg Tablet) 10 mg PO DAILY [facility] Last Admin: 11/27/21 09:32 Dose: 10 mg Documented by: Lorazepam (Lorazepam 0.5 Mg Tablet) 0.5 mg PO BID@0830,1430 [facility] Last Admin: 11/27/21 09:41 Dose: Not Given Documented by: Lorazepam (Lorazepam 1 Mg Tablet) 1 mg PO BEDTIME [facility] Last Admin: 11/26/21 22:38 Dose: Not Given Documented by: Magnesium Hydroxide (Milk Of Magnesia 30 Ml Oral.Susp) 30 ml PO DAILY PRN PRN Reason: Constipation Last Admin: 11/26/21 20:52 Dose: 30 ml Documented by: Nf Med Biotene (Lozenges) 1 each BUCCAL Q1H PRN PRN Reason: Dry Mouth Last Admin: 11/21/21 08:53 Dose: 1 each Documented by: Oxybutynin Chloride (Oxybutynin Chloride Er 5 Mg Tab.Er.24) 5 mg PO BEDTIME [facility] Last Admin: 11/26/21 20:50 Dose: 5 mg Documented by: Pharmacy Consult (Consult Rx Perform Med Rec) 1 each MISCELLANE ONCE PRN PRN Reason: Consult order Polyethylene Glycol (Polyethylene Glycol 3350 17 Gm Powd.Pack) 17 gm PO Q2D [facility] Last Admin: 11/27/21 09:41 Dose: 17 gm Documented by: Quetiapine Fumarate (Quetiapine Fumarate 50 Mg Tablet) 50 mg PO BEDTIME PRN PRN Reason: sleep Quetiapine Fumarate (Quetiapine Fumarate 25 Mg Tablet) 25 mg PO BID@1000,1600 PRN PRN Reason: anxiety Senna (Senna [place] Extract Oral Syrup 15 Ml Syrup) 7.5 ml PO BEDTIME [facility] Last Admin: 11/26/21 20:51 Dose: 7.5 ml Documented by: Trazodone HCl (Trazodone Hcl 100 Mg Tablet) 100 mg PO BEDTIME [facility] Last Admin: 11/26/21 20:51 Dose: 100 mg Documented by: Allergies Allergies Allergy/AdvReac Type Severity Reaction Status Date / Time erythromycin base Allergy Hives Verified 11/19/21 18:34 Assessment & Plan Assessment & Plan (1) Major depressive disorder, recurrent episode, severe with anxious distress: Status: Acute Code(s): F33.2 - Major depressive disorder, recurrent severe without psychotic features Plan Patient with a history of severe depression unremitting failed multiple medication trials including multiple antidepressants TMS Chu Ramos referred by Dr. Zack torres for ECT evaluation and then referred for inpatient treatment to start ECT as soon as possible. Patient has been quite ambivalent extensive Education to patient and her she has reviewed material as did her . Will need to use flumazenil with ECT has patient is on lorazepam t.i.d. Head CT scan unremarkable slight increase in liver function test MCV mildly increased hospitalist consult ordered ECT ordered The patient is quite ambivalent profoundly depressed but actively suicidal. Plan and hopefully to start ECT I discussed with patient her transitioning is in is possible to outpatient ECT. Risks benefits and alternatives have been reviewed 11/23/21 had 1st ect will avoid flumazenil limit dosing of ect and meds next tx see ect note 11/24/2021 Patient on escitalopram automatic switch from citalopram consider lowering lorazepam Case also reviewed with and patient seen 11/25/21 See ect note pt seen with needs much encouragement education intense hopelessness tolerated tx well 11/26/21 Pt seen with lower lorazepam cont ect discussed diff options ? d/c sat vs recommendation of tue after 4 ect I spent ___20___ minutes with the patient and/or on the patient floor today, greater than?50% of which was spent counseling/coordinating care. Reason for contiued inpatient stay Substantial Risk for: inability to function, rapid decompensation and med/psych decompensation
--- NOTE | 2021-11-27 13:25 | MHC.CLN ---
F/U DIET=REGULAR. VISITED WITH PATIENT AT LUNCH. ATE VERY WELL. SEATED IN COMMON AREA. CONTINUE TO ENCOURAGE INTAKE AT MEALS. RD TO FOLLOW WEEKLY.
--- NOTE | 2021-11-27 14:12 | PM.PSYDC ---
DS: Providers Provider Date of Service: 11/27/21 Date of admission: 11/19/21 20:37 Date of discharge: 11/28/21 Primary care physician: Swapnil Dukes MD DS: Diagnosis Discharge Diagnosis (1) Major depressive disorder, recurrent episode, severe with anxious distress: Status: Acute DS: Medications Discharge Medications Home Medications: Home Medications Medication Instructions Recorded Confirmed citalopram 20 mg tablet 1 tab PO DAILY 11/19/21 11/19/21 lorazepam 1 mg tablet 1 tab PO TID 11/19/21 11/19/21 oxybutynin chloride 5 mg 1 tab PO BEDTIME 11/19/21 11/19/21 tablet,extended release 24 hr quetiapine 25 mg tablet 1 tab PO BID@1000,1600 11/19/21 11/19/21 sennosides 8.6 mg-docusate sodium 1 tab-cap PO BID 11/19/21 11/19/21 50 mg capsule (Senna Plus) trazodone 50 mg tablet 2 tab PO BEDTIME 11/19/21 11/19/21 polyethylene glycol 3350 17 gram 17 g PO Q48H 11/20/21 11/20/21 oral powder packet (Miralax) Mental Status Exam Mental Status Exam Patient Appearance: Well Grooomed Patient Orientation: Person Level of Consciousness: Awake Patient Behavior: Cooperative Mood Description: Appropriate Affect Description: Constricted Patient Cognition Impaired: Yes Ability to Follow Directions: Good Speech Pattern: Clear Memory Description: Intact Hallucinations: None Delusions: Not Present Thought Process: Linear Thought Content: positive for Circumstantial Judgement: Fair Data Data Completed and Pending Completed studies during hospitalization [Text1]: 11/19/21 Unknown Urine clean catch - Urine long top Urine Culture - Final No growth. Imaging Diagnostic Imaging Impressions Head CT 11/20/21 08:58 IMPRESSION: No acute intracranial pathology. Abdomen Ultrasound 11/21/21 08:39 IMPRESSION: 1. No sonographic evidence of abnormal liver parenchymal echogenicity. Subtle hyperechoic lesion in the right hepatic lobe statistically may represent a hemangioma. If clinically deemed necessary, contrast-enhanced abdominal MRI will be helpful for further evaluation. 2. Sludge versus mobile gallstone in the gallbladder. No sonographic evidence of acute cholecystitis. No biliary ductal dilatation. DS: Summary Hospital Course Hospital Course: The patient was admitted for exacerbation of depression and she needed ECT please see H&P of the admission note for further details. On admission, the patient was restarted on her regular antidepressants and we started a workout for ECT. She received at least 3 treatments of ECT. On her last 2 treatments, the parameters of the ACT was changed, increased from frequency from 0.252.5 by the same person touch. Her seizure activity was much better. The patient's mood improved, she was pleasant and cooperative she stated that she was feeling much better and since there were no safety concerns discharge planning was discussed. Time spent discussing smoking cessation with patient: 3 to 10 minutes Status at Discharge Cognitive/behavioral status at discharge: at baseline Functional status at discharge: independent ambulation Overall status at discharge: patient is back to baseline Time Spent with Patient Time attestation: Total time spent providing and/or coordinating discharge services: Time spent: Less than 30 minutes Discharge Plan Discharge Patient Disposition: Home, Self-Care Discharge Diagnosis: major depressive disorder recurrent episode severe Referrals: Oksana Burk [Other] - 12/08/21 2:20 pm (Your next appointment with Oksana Burk is on Tuesday12/08/21 at 2:20pm. ) Swapnil Dukes MD [Primary Care Provider] - 1 Week Discharge Medications: New quetiapine 25 mg Tablet 25 mg PO BID@1000,1600 PRN (Reason: anxiety) 30 Days Qty: 60 0RF lorazepam 0.5 mg Tablet 0.5 mg PO BID@0830,1430 30 Days Qty: 60 0RF trazodone 100 mg Tablet 100 mg PO BEDTIME 30 Days Qty: 30 0RF lorazepam 1 mg Tablet 1 mg PO BEDTIME 30 Days Qty: 30 0RF escitalopram oxalate 10 mg Tablet 10 mg PO DAILY 30 Days Qty: 30 0RF quetiapine 50 mg Tablet 50 mg PO BEDTIME PRN (Reason: sleep) 30 Days Qty: 30 0RF Continued polyethylene glycol 3350 [Miralax] 17 gram Powder In Packet 17 g PO Q48H 30 Days Qty: 30 0RF oxybutynin chloride 5 mg tablet extended release 24 hr 1 tab PO BEDTIME 30 Days Qty: 30 0RF Senna Plus 8.6-50 mg Capsule 1 tab-cap PO BID 30 Days Qty: 60 0RF Discontinued quetiapine 25 mg tablet 1 tab PO BID@1000,1600 0RF trazodone 50 mg tablet 2 tab PO BEDTIME 0RF citalopram 20 mg tablet 1 tab PO DAILY 0RF lorazepam 1 mg tablet 1 tab PO TID 0RF Discharge Orders: Discharge Order (Routine); Ordered 11/28/21 Ordered By: Gold Peacock Diet: advance to usual diet Activity on Discharge: As tolerated Stand Alone Forms: Patient Portal Discharge page Care Plan Goals: care plan goals achieved in this admission Health Concerns: continue treatment by primary care physician Plan of Treatment: continue treatment with regular prescriber Assessment: elderly female with a long history of major depressive disorder recurrent episode that was admitted for exacerbation of depression and to start ECT. ECT was started with for improvement, at this moment safe to be discharged in the community
[2021-11-27] MEDS: LORazepam 0.5 MG TABLET PO (14:52)
[2021-11-27] MEDS: LORazepam 1 MG TABLET PO (20:16)
[2021-11-27] MEDS: traZODone HCL 100 MG TABLET PO (20:16)
[2021-11-28] MEDS: Escitalopram Oxalate 10 MG TABLET PO (08:10)
[2021-11-28] MEDS: LORazepam 0.5 MG TABLET PO (08:10)
[2021-11-28 09:01] VITALS: BP 118/62; PULSE 76; RESP 16; TEMP 36.4; O2SAT 94
--- NOTE | 2021-11-28 10:58 | P.PNGPS_ITS ---
Subjective/Objective Subjective Date of Service: 11/28/21 Interval History: Patient being discharged today- primary team have completed relevant discharge paperwork etc.. Overall patient seen, agree with discharge plan and evaluation. Patient looking forward to 4th ECT as outpatient after weekend. Family involved and supportive. No SI, HI , psychosis etc.. Aware of crisis services and h ospital if needed again in the future Current Medications: Active Medications Generic Name Dose Route Start Last Admin Trade Name Freq PRN Reason Stop Dose Admin Acetaminophen 650 mg 11/19/21 20:36 Acetaminophen 325 Mg Tablet PO Q6H PRN Headache/Pain Mild Scale (1-3) Al Hydroxide/Mg Hydroxide 30 ml 11/19/21 20:36 Magnesium Hydrox/Alum Hydrox 30 Ml Oral.Susp PO Q6H PRN Heartburn/Nausea Escitalopram Oxalate 10 mg 11/20/21 14:50 11/28/21 08:10 Escitalopram Oxalate 10 Mg Tablet PO 10 mg DAILY JILLIAN Administration Lorazepam 0.5 mg 11/26/21 14:30 11/28/21 08:10 Lorazepam 0.5 Mg Tablet PO 0.5 mg BID@0830,1430 JILLIAN Administration Lorazepam 1 mg 11/26/21 21:00 11/27/21 20:16 Lorazepam 1 Mg Tablet PO 1 mg BEDTIME JILLIAN Administration Magnesium Hydroxide 30 ml 11/19/21 20:36 11/26/21 20:52 Milk Of Magnesia 30 Ml Oral.Susp PO 30 ml DAILY PRN Administration Constipation Nf Med Biotene 1 each 11/20/21 14:50 11/21/21 08:53 Lozenges BUCCAL 1 each Q1H PRN Administration Dry Mouth Oxybutynin Chloride 5 mg 11/20/21 21:00 11/27/21 20:16 Oxybutynin Chloride Er 5 Mg Tab.Er.24 PO 5 mg BEDTIME JILILAN Administration Pharmacy Consult 1 each 11/19/21 20:38 Consult Rx Perform Med Rec MISCELLANE ONCE PRN Consult order Polyethylene Glycol 17 gm 11/21/21 09:00 11/27/21 09:41 Polyethylene Glycol 3350 17 Gm Powd.Pack PO 17 gm Q2D JILLIAN Administration Quetiapine Fumarate 50 mg 11/20/21 22:12 Quetiapine Fumarate 50 Mg Tablet PO BEDTIME PRN sleep Quetiapine Fumarate 25 mg 11/26/21 11:43 Quetiapine Fumarate 25 Mg Tablet PO BID@1000,1600 PRN anxiety Senna 7.5 ml 11/20/21 21:00 11/27/21 20:17 Senna [place] Extract Oral Syrup 15 Ml Syrup PO 7.5 ml BEDTIME JILLIAN Administration Trazodone HCl 100 mg 11/20/21 21:00 11/27/21 20:16 Trazodone Hcl 100 Mg Tablet PO 100 mg BEDTIME JILLIAN Administration Data Labs CBC & Chem 7: 11/19/21 19:07 11/20/21 07:40
--- NOTE | 2021-11-28 12:03 | PC.NURSE ---
Patient alert and oriented. Memory intact. Expresses readiness for discharge. Dressed appropriately and neatly. All discharge instructions/medications/appointments reviewed with patient who vebralized understanding. Patient was walked to front of hospital with and staff.
--- NOTE | 2021-11-28 16:42 | P.PNPSI_ITS ---
Subjective Subjective Date of Service: 11/28/21 Reason For Visit: Depression severe referred for ECT Subjective Notes: Conditional Voluntary Interim History: Patient being discharged today- primary team have completed relevant discharge paperwork etc.. Overall patient seen, agree with discharge plan and evaluation. Patient looking forward to 4th ECT as outpatient after weekend. Brighter mood. SLeep better. No SI. No psychosis. Aware of crisis services and hospital if needed again in the future Medication Compliance: Yes Side effects from medications: No Attending Groups: Yes Review of Systems Acute medical concerns: No Review of Systems Review of Systems unremarkable Mental Status Exam Mental Status Exam Narrative: pleasant and engaged. Organized, articulate. Affect is restricted, but reportedly brighter than admission. No SI. No psychosis. No agitation. Insight and judgment fair Diagnostics Vital Signs (24Hr): Vital Signs - 24 hr 11/28/21 09:01 Temperature 97.6 F Pulse Rate 76 Respiratory Rate 16 Blood Pressure 118/62 Pulse Oximetry 94 BMI result Body Mass Index 18.4 Labs Results: 11/19/21 19:07 11/20/21 07:40 Imaging Radiology Impressions: ITS Impressions Head CT 11/20/21 08:58 IMPRESSION: No acute intracranial pathology. Abdomen Ultrasound 11/21/21 08:39 IMPRESSION: 1. No sonographic evidence of abnormal liver parenchymal echogenicity. Subtle hyperechoic lesion in the right hepatic lobe statistically may represent a hemangioma. If clinically deemed necessary, contrast-enhanced abdominal MRI will be helpful for further evaluation. 2. Sludge versus mobile gallstone in the gallbladder. No sonographic evidence of acute cholecystitis. No biliary ductal dilatation. Medications Allergies Allergies Allergy/AdvReac Type Severity Reaction Status Date / Time erythromycin base Allergy Hives Verified 11/19/21 18:34 Assessment & Plan Assessment & Plan (1) Major depressive disorder, recurrent episode, severe with anxious distress: Status: Acute Code(s): F33.2 - Major depressive disorder, recurrent severe without psychotic features Plan Patient with a history of severe depression unremitting failed multiple medication trials including multiple antidepressants TMS Abilify Risperdal referred by Dr. Zack torres for ECT evaluation and then referred for inpatient treatment to start ECT as soon as possible. Patient has been quite ambivalent extensive Education to patient and her she has reviewed material as did her . Will need to use flumazenil with ECT has patient is on lorazepam t.i.d. Head CT scan unremarkable slight increase in liver function test MCV mildly increased hospitalist consult ordered ECT ordered The patient is quite ambivalent profoundly depressed but actively suicidal. Plan and hopefully to start ECT I discussed with patient her transitioning is in is possible to outpatient ECT. Risks benefits and alter natives have been reviewed 11/23/21 had 1st ect will avoid flumazenil limit dosing of ect and meds next tx see ect note 11/24/2021 Patient on escitalopram automatic switch from citalopram consider lowering lorazepam Case also reviewed with and patient seen 11/25/21 See ect note pt seen with needs much encouragement education intense hopelessness tolerated tx well 11/26/21 Pt seen with lower lorazepam cont ect discussed diff options ? d/c sat vs recommendation of mon tue after 4 ect 11/28/2021: Discharge today as planned with primary treatment team and family. Will continue ECT as an outpatient I spent minutes with the patient and/or on the patient floor today, greater than?50% of which was spent counseling/coordinating care. Patient educated on: ECT Reason for contiued inpatient stay Substantial Risk for: stable for discharge
== END 2021-11-28 11:55 | disposition home or self-care (01) | DRG 885 ==
LOC: HO.ED 20:37 → HO.PGERI 20:46
PROVIDERS: Physician Assistant; Psychiatry & Neurology Psychiatry; Admitting Provider Clinical Nurse Specialist Psychiatric/Mental Health, Adult; Emergency Provider Emergency Medicine; PCP Internal Medicine; Visit Provider Psychiatry & Neurology Psychiatry
PROC: (CPT 90870; principal; 2021-11-23 16:40)
PROC: GZB4ZZZ Other Electroconvulsive Therapy (ICD-10-PCS; CPT 90870; principal; 2021-11-25 08:00)
DX: F32.2 Major depressive disorder, single episode, severe without psychotic features (principal); Z20.822 Contact with and (suspected) exposure to COVID-19; Z79.899 Other long term (current) drug therapy
CPT/HCPCS: 36415; 70450; 76700; 80053; 80307; 81001; 81003; 82607; 82746; 83036; 83735; 84439; 85025; 86704; 86706; 86709; 86803; 87086; 87340; 87635; 90870; 93005; 99285; J0330; J2250; J2405

== ENCOUNTER → 2021-11-30 07:32 | Day surgery (SDC) | payer MEDICARE, SELFPAY | PROVIDERS: Visit Provider Psychiatry & Neurology Psychiatry | DX: F33.3 Major depressive disorder, recurrent, severe with psychotic symptoms (principal); Z53.8 Procedure and treatment not carried out for other reasons ==

== ENCOUNTER 2021-12-02 05:56 | Day surgery (SDC) | payer MEDICARE, SELFPAY ==
[2021-12-02] VITALS (9 sets, daily range): BP systolic 126–150; BP diastolic 63–77; PULSE 53–78; RESP 15–19; TEMP 36.7–37.3; O2SAT 95–100; BMI 17.4
--- NOTE | 2021-12-02 06:46 | HO.ANESPROP2 ---
[facility] Active Problems Active Problems: All Active Problems (Updated 11/19/21 @ 20:47 by GARY Prater) Major depressive disorder, recurrent episode, severe with anxious distress (Acute) Hyponatremia (Acute) Major depressive disorder, severe (Acute) Past Medical History Medical History Breast cancer Family History Family history of problems with anesthesia: No Surgical History Surgical History H/O mastectomy History of Problems with Anesthesia: No Social History Social History Household Members: Spouse Housing: House Do you presently have visiting nurse or other home services: No Patient Tobacco Use Status: Never used Tobacco e-Cigarette/Vaping Use: Never Used Second Hand Smoke Exposure: Yes Advance Directives: No Advance Directives Information Provided: Yes service: No Sexual orientation: Straight/Heterosexual Meds Allergies Allergy/AdvReac Type Severity Reaction Status Date / Time erythromycin base Allergy Hives Verified 11/19/21 18:34 Active Medications: Current Medications Lactated Ringer's (Lr) 1,000 mls @ 50 mls/hr IVCONT .Q20H JILLIAN Exam Exam Date and Time: December 02, 2021 0646 Height,Weight and Vital Signs: Height 5 ft 2 in Weight 43.091 kg Last Vital Signs Temp 98.1 F 12/02/21 06:34 Pulse 53 12/02/21 06:34 Resp 18 12/02/21 06:34 BP 140/70 H 12/02/21 06:34 Pulse Ox 100 12/02/21 06:34 Airway Mallampati Class: II TM Dist: >3cm Neck ROM: Full Partial: Upper and Lower Heart: rrr Lungs: cta Assessment and Plan Assessment Anesthesia Assessment: Anesthesia Plan Discussed and Chart Reviewed Final Anesthetic Review Family History of Problems with Anesthesia: No History of Problems with Anesthesia: No NPO: Yes ASA Class: III Final Preanesthetic Review: No Changes in Pt Med Stat, Meds/Allgs Chart Reviewed and Consent Obtained/Reviewed Patient Risk: Intermediate Procedure Risk: Intermediate Anesthetic Plan Anesthetic Plan: GA Disposition: Standard PACU
[2021-12-02 06:47] LABS: COVID-19 Test Negative (Negative)
--- NOTE | 2021-12-02 07:07 | MHC.SHP ---
Pre-Procedural Eval Section A Date of Service: 12/02/21 The patient is an INPATIENT: No Changes since office visit: Yes Patient answered all questions; No Cold of Flu in the past 2 weeks, No New Medical Problems and No Changes in Medication The History & Physical has been completed within 30 days and I have reviewed it.: Yes Section B Chief Complaint: depression Allergies: Allergies Allergy/AdvReac Type Severity Reaction Status Date / Time erythromycin base Allergy Hives Verified 11/19/21 18:34 Plan I have reviewed the history and physical and performed a pertinent physical examination on my patient. No changes have occurred unless specified.
--- NOTE | 2021-12-02 07:23 | HO.ECTPROC ---
ECT Procedure Note Diagnosis/Treatment Date of Service: 12/02/21 Diagnosis: Major Depressive Disorder Previous ECT Date: 11/27/21 Current Treatment Number: 4 Treatment: Series Interval Clinical Notes: pt with some liu affect ECT Settings Device: THYMATRON DGx Electrode Placement: Right Unilateral Program/Pulse Width: 0.25 Energy Percent: 35 Seizure Duration By EEG (in seconds): 65 Medications Administration General Anesthetic: Etomidate (10) Muscle Relaxant: Succinylcholine (80) Ancillary Medications Anti-emetics: Zofran - Pre ECT Miscillaneous Medications: Propofol (30) and Flumazenil (250 pre tx ) Airway Management Airway Management: Bag Mask Ventilation Treatment Recommendations No Changes Recommended: No change Notes: continue tx series Pt Tolerated Procedure w/o Issue: Yes
== END 2021-12-02 09:09 | disposition home or self-care (01) ==
PROVIDERS: PCP Internal Medicine; Visit Provider Psychiatry & Neurology Psychiatry
PROC: (CPT 90870; principal; 2021-12-02 07:30)
DX: F33.2 Major depressive disorder, recurrent severe without psychotic features (principal); Z85.3 Personal history of malignant neoplasm of breast; Z20.822 Contact with and (suspected) exposure to COVID-19; Z88.1 Allergy status to other antibiotic agents
CPT/HCPCS: 87635; 90870; J0330; J2405

== ENCOUNTER 2021-12-04 05:56 | Day surgery (SDC) | payer MEDICARE, SELFPAY ==
[2021-12-04] VITALS (7 sets, daily range): BP systolic 122–148; BP diastolic 62–71; PULSE 54–79; RESP 16–22; TEMP 36.7–36.8; O2SAT 94–99; BMI 17.4
[2021-12-04 06:40] LABS: COVID-19 Test Negative (Negative); IDNOW Serial# 08D9AD1C
--- NOTE | 2021-12-04 06:50 | P.CONAN_ITS ---
[facility] Active Problems Active Problems: All Active Problems (Updated 11/19/21 @ 20:47 by GARY Prater) Major depressive disorder, recurrent episode, severe with anxious distress (Acute) Hyponatremia (Acute) Major depressive disorder, severe (Acute) Past Medical History Medical History Breast cancer Family History Family history of problems with anesthesia: No Surgical History Surgical History H/O mastectomy History of Problems with Anesthesia: No Social History Social History Household Members: Spouse Housing: House Do you presently have visiting nurse or other home services: No Patient Tobacco Use Status: Never used Tobacco e-Cigarette/Vaping Use: Never Used Second Hand Smoke Exposure: Yes Advance Directives: No Advance Directives Information Provided: Yes service: No Sexual orientation: Straight/Heterosexual Meds Allergies Allergy/AdvReac Type Severity Reaction Status Date / Time erythromycin base Allergy Hives Verified 11/19/21 18:34 Exam Exam Date and Time: December 04, 2021 0650 Height,Weight and Vital Signs: Height 5 ft 2 in Weight 43.091 kg Last Vital Signs Temp 98.3 F 12/04/21 06:34 Pulse 54 12/04/21 06:34 Resp 16 12/04/21 06:34 BP 144/68 H 12/04/21 06:34 Pulse Ox 97 12/04/21 06:34 Airway Mallampati Class: II TM Dist: >3cm Neck ROM: Full Partial: Upper and Lower Heart: rrr Lungs: cta Assessment and Plan Assessment Anesthesia Assessment: Anesthesia Plan Discussed and Chart Reviewed Final Anesthetic Review Family History of Problems with Anesthesia: No History of Problems with Anesthesia: No NPO: Yes ASA Class: III Final Preanesthetic Review: No Changes in Pt Med Stat, Meds/Allgs Chart Reviewed and Consent Obtained/Reviewed Patient Risk: Intermediate Procedure Risk: Intermediate Anesthetic Plan Anesthetic Plan: GA Disposition: Standard PACU
--- NOTE | 2021-12-04 07:28 | MHC.SHP ---
Pre-Procedural Eval Section A Date of Service: 12/04/21 The patient is an INPATIENT: No Changes since office visit: Yes Cold of Flu in the past 2 weeks, Yes New Medical Problems, Yes Changes in Medication and Yes Patient answered all questions The History & Physical has been completed within 30 days and I have reviewed it.: Yes Section B Chief Complaint: depression Allergies: Allergies Allergy/AdvReac Type Severity Reaction Status Date / Time erythromycin base Allergy Hives Verified 11/19/21 18:34 Plan I have reviewed the history and physical and performed a pertinent physical examination on my patient. No changes have occurred unless specified.
--- NOTE | 2021-12-04 07:29 | HO.ECTPROC ---
ECT Procedure Note Diagnosis/Treatment Date of Service: 12/04/21 Diagnosis: Major Depressive Disorder Previous ECT Date: 12/02/21 Current Treatment Number: 5 Treatment: Series Interval Clinical Notes: The patient reports improvement of mood, no side effects with the previous procedure besides mild headache. ECT Settings Device: THYMATRON DGx Electrode Placement: Right Unilateral Program/Pulse Width: 0.25 Energy Percent: 35 Seizure Duration By EEG (in seconds): 0 (but seizure activity seen until 62s) By Motor Observation (in seconds): 31 Medications Administration General Anesthetic: Etomidate (12) Muscle Relaxant: Succinylcholine (80) Ancillary Medications Analgesics: Torodol - Pre ECT Anti-emetics: Zofran - Pre ECT Miscillaneous Medications: Propofol and Flumazenil Airway Management Airway Management: Bag Mask Ventilation Treatment Recommendations No Changes Recommended: No change Pt Tolerated Procedure w/o Issue: Yes
== END 2021-12-04 09:02 | disposition home or self-care (01) ==
PROVIDERS: PCP Internal Medicine; Visit Provider Psychiatry & Neurology Psychiatry
PROC: (CPT 90870; principal; 2021-12-04 07:30)
DX: F33.2 Major depressive disorder, recurrent severe without psychotic features (principal); Z20.822 Contact with and (suspected) exposure to COVID-19
CPT/HCPCS: 87635; 90870; J0330; J2405

== ENCOUNTER 2021-12-07 05:56 | Day surgery (SDC) | payer MEDICARE, SELFPAY ==
[2021-12-07] VITALS (7 sets, daily range): BP systolic 148–158; BP diastolic 69–80; PULSE 54–84; RESP 10–18; TEMP 36.4–36.9; O2SAT 97–100; BMI 17.4
[2021-12-07 06:45] LABS: COVID-19 Test Negative (Negative)
--- NOTE | 2021-12-07 07:05 | HO.ECTPROC ---
ECT Procedure Note Diagnosis/Treatment Date of Service: 12/07/21 Diagnosis: Major Depressive Disorder Previous ECT Date: 12/04/21 Current Treatment Number: 6 Treatment: Series Interval Clinical Notes: pt with much liu range of affect ECT Settings Device: THYMATRON DGx Electrode Placement: Right Unilateral Program/Pulse Width: 0.25 Energy Percent: 45 Seizure Duration By EEG (in seconds): 61 Medications Administration General Anesthetic: Etomidate (10) and Propofol (30 mg at 33 s) Muscle Relaxant: Succinylcholine (80) Ancillary Medications Anti-emetics: Zofran - Pre ECT Miscillaneous Medications: Flumazenil (250 mg) Airway Management Airway Management: Bag Mask Ventilation Treatment Recommendations No Changes Recommended: No change Notes: pt showing significant improvement propofol 30 mg at 33 s Pt Tolerated Procedure w/o Issue: Yes
--- NOTE | 2021-12-07 07:05 | MHC.SHP ---
Pre-Procedural Eval Section A Date of Service: 12/07/21 The patient is an INPATIENT: No Changes since office visit: Yes Patient answered all questions; No Cold of Flu in the past 2 weeks, No New Medical Problems and No Changes in Medication The History & Physical has been completed within 30 days and I have reviewed it.: Yes Section B Chief Complaint: depression Allergies: Allergies Allergy/AdvReac Type Severity Reaction Status Date / Time erythromycin base Allergy Hives Verified 11/19/21 18:34 Plan I have reviewed the history and physical and performed a pertinent physical examination on my patient. No changes have occurred unless specified.
--- NOTE | 2021-12-07 07:16 | HO.ANESPROP2 ---
[facility], [facility] Active Problems Active Problems: All Active Problems (Updated 11/19/21 @ 20:47 by GARY Prater) Major depressive disorder, recurrent episode, severe with anxious distress (Acute) Hyponatremia (Acute) Major depressive disorder, severe (Acute) Past Medical History Medical History Breast cancer Family History Family history of problems with anesthesia: No Surgical History Surgical History H/O mastectomy History of Problems with Anesthesia: No Social History Social History Household Members: Spouse Housing: House Do you presently have visiting nurse or other home services: No Patient Tobacco Use Status: Never used Tobacco e-Cigarette/Vaping Use: Never Used Second Hand Smoke Exposure: Yes Advance Directives: No Advance Directives Information Provided: Yes service: No Sexual orientation: Straight/Heterosexual Meds Allergies Allergy/AdvReac Type Severity Reaction Status Date / Time erythromycin base Allergy Hives Verified 11/19/21 18:34 Exam Exam Date and Time: December 07, 2021 0716 Height,Weight and Vital Signs: Height 5 ft 2 in Weight 43.091 kg Last Vital Signs Temp 97.6 F 12/07/21 06:37 Pulse 54 12/07/21 06:37 Resp 18 12/07/21 06:37 BP 153/71 H 12/07/21 06:37 Pulse Ox 98 12/07/21 06:37 Pertinent Lab Results Pertinent Lab Results: Laboratory Tests 12/07/21 06:16 COVID-19 (AV) Negative COVID-19 Clin Com See Note Airway Mallampati Class: II TM Dist: >3cm Neck ROM: Full Loose/Missing/Broken Teeth: No Heart: RRR Lungs: CTA Assessment and Plan Assessment Anesthesia Assessment: Anesthesia Plan Discussed and Chart Reviewed Final Anesthetic Review Family History of Problems with Anesthesia: No History of Problems with Anesthesia: No ASA Class: II Final Preanesthetic Review: Meds/Allgs Chart Reviewed, Consent Obtained/Reviewed and Anes Risks/Benef Reviewed Patient Risk: Low Procedure Risk: Intermediate Anesthetic Plan Anesthetic Plan: GA Disposition: Standard PACU
== END 2021-12-07 08:25 | disposition home or self-care (01) ==
PROVIDERS: Psychiatry & Neurology Psychiatry; PCP Internal Medicine; Visit Provider Psychiatry & Neurology Psychiatry
PROC: (CPT 90870; principal; 2021-12-07 07:30)
DX: F33.2 Major depressive disorder, recurrent severe without psychotic features (principal); R79.89 Other specified abnormal findings of blood chemistry; Z85.3 Personal history of malignant neoplasm of breast; Z79.899 Other long term (current) drug therapy; Z20.822 Contact with and (suspected) exposure to COVID-19
CPT/HCPCS: 87635; 90870; J0330; J2405

== ENCOUNTER 2021-12-14 05:57 | Day surgery (SDC) | payer MEDICARE, SELFPAY ==
[2021-12-14] VITALS (7 sets, daily range): BP systolic 131–162; BP diastolic 56–84; PULSE 55–77; RESP 16–18; TEMP 36.2–36.4; O2SAT 95–100; BMI 17.2
[2021-12-14 06:46] LABS: COVID-19 Test Negative (Negative); IDNOW Serial# 16C4AD1C
--- NOTE | 2021-12-14 06:48 | P.CONAN_ITS ---
[facility] Active Problems Active Problems: All Active Problems (Updated 11/19/21 @ 20:47 by GARY Prater) Major depressive disorder, recurrent episode, severe with anxious distress (Acute) Hyponatremia (Acute) Major depressive disorder, severe (Acute) Past Medical History Medical History Breast cancer Family History Family history of problems with anesthesia: No Surgical History Surgical History H/O mastectomy History of Problems with Anesthesia: No Social History Social History Household Members: Spouse Housing: House Do you presently have visiting nurse or other home services: No Patient Tobacco Use Status: Never used Tobacco e-Cigarette/Vaping Use: Never Used Second Hand Smoke Exposure: Yes Use of substances other than those prescribed or required for medical reasons: No Are you DNR?: No Advance Directives: No Advance Directives Information Provided: Yes Recently lost weight without trying: No Patient : No service: No Sexual orientation: Straight/Heterosexual Meds Allergies Allergy/AdvReac Type Severity Reaction Status Date / Time erythromycin base Allergy Hives Verified 11/19/21 18:34 Active Medications: Current Medications Lactated Ringer's (Lr) 1,000 mls @ 50 mls/hr IVCONT .Q20H JILLIAN Exam Exam Date and Time: December 14, 2021 0648 Height,Weight and Vital Signs: Height 5 ft 2 in Weight 42.638 kg Pertinent Lab Results Pertinent Lab Results: Laboratory Tests 12/14/21 06:10 COVID-19 (AV) Negative COVID-19 Clin Com See Note Airway Mallampati Class: II TM Dist: >3cm Neck ROM: Full Partial: Upper Heart: rrr Lungs: cta Assessment and Plan Assessment Anesthesia Assessment: Anesthesia Plan Discussed and Chart Reviewed Final Anesthetic Review Family History of Problems with Anesthesia: No History of Problems with Anesthesia: No NPO: Yes ASA Class: III Final Preanesthetic Review: No Changes in Pt Med Stat, Meds/Allgs Chart Reviewed and Consent Obtained/Reviewed Patient Risk: Intermediate Procedure Risk: Intermediate Anesthetic Plan Anesthetic Plan: GA Disposition: Standard PACU
[2021-12-14] MEDS: Lactated Ringers 1,000 ML 50 ML IVCONT (06:58)
--- NOTE | 2021-12-14 07:07 | MHC.SHP ---
Pre-Procedural Eval Section A Date of Service: 12/14/21 The patient is an INPATIENT: No Changes since office visit: Yes Patient answered all questions; No Cold of Flu in the past 2 weeks, No New Medical Problems and No Changes in Medication The History & Physical has been completed within 30 days and I have reviewed it.: Yes Section B Chief Complaint: depression Allergies: Allergies Allergy/AdvReac Type Severity Reaction Status Date / Time erythromycin base Allergy Hives Verified 11/19/21 18:34 Plan I have reviewed the history and physical and performed a pertinent physical examination on my patient. No changes have occurred unless specified.
--- NOTE | 2021-12-14 07:23 | HO.ECTPROC ---
ECT Procedure Note Diagnosis/Treatment Date of Service: 12/14/21 Diagnosis: Major Depressive Disorder Previous ECT Date: 12/07/21 Current Treatment Number: 7 Treatment: Maintenance Interval Clinical Notes: pt continues to feel well much improved ECT Settings Device: THYMATRON DGx Electrode Placement: Right Unilateral Program/Pulse Width: 0.25 Energy Percent: 30 Seizure Duration By EEG (in seconds): 76 Medications Administration General Anesthetic: Etomidate (10) and Propofol (30) Muscle Relaxant: Succinylcholine (80) Ancillary Medications Anti-emetics: Zofran - Pre ECT Miscillaneous Medications: Flumazenil (250 mcg pre tx) Airway Management Airway Management: Bag Mask Ventilation Treatment Recommendations Energy Percent: 20 Notes: f/u 1 week Pt Tolerated Procedure w/o Issue: Yes
== END 2021-12-14 08:40 | disposition home or self-care (01) ==
PROVIDERS: PCP Internal Medicine; Visit Provider Psychiatry & Neurology Psychiatry
PROC: (CPT 90870; principal; 2021-12-14 07:30)
DX: F33.9 Major depressive disorder, recurrent, unspecified (principal); Z20.822 Contact with and (suspected) exposure to COVID-19
CPT/HCPCS: 87635; 90870; J0330; J2405

== ENCOUNTER 2021-12-23 05:59 | Day surgery (SDC) | payer MEDICARE, SELFPAY ==
[2021-12-23] VITALS (9 sets, daily range): BP systolic 133–161; BP diastolic 60–79; PULSE 57–82; RESP 12–18; TEMP 36.2–37.2; O2SAT 97–100; BMI 17.4
[2021-12-23 06:35] LABS: COVID-19 Test Negative (Negative)
--- NOTE | 2021-12-23 06:52 | MHC.SHP ---
Pre-Procedural Eval Section A Date of Service: 12/23/21 The patient is an INPATIENT: No Changes since office visit: Yes Patient answered all questions; No Cold of Flu in the past 2 weeks, No New Medical Problems and No Changes in Medication Section B Chief Complaint: depression Relevant Family History (Specify if Yes): No Relevant Social History: None Present Medications: see Short Stay Collaborative assessment History of Previous Operations: Relevant previous surgery/procedure and date(s) (ect) Allergies: Allergies Allergy/AdvReac Type Severity Reaction Status Date / Time erythromycin base Allergy Hives Verified 11/19/21 18:34 Review of Systems Sugical H&P ROS: Negative: Cardiovascular and Respiratory Exam Surgical H&P Exam: Normal: Heart and Normal: Lungs Plan Diagnosis/Plan: Unchanged I have reviewed the history and physical and performed a pertinent physical examination on my patient. No changes have occurred unless specified.
--- NOTE | 2021-12-23 07:08 | P.CONAN_ITS ---
[facility] Active Problems Active Problems: All Active Problems (Updated 11/19/21 @ 20:47 by GARY Prater) Major depressive disorder, recurrent episode, severe with anxious distress (Acute) Hyponatremia (Acute) Major depressive disorder, severe (Acute) Past Medical History Medical History Breast cancer Family History Family history of problems with anesthesia: No Surgical History Surgical History H/O mastectomy History of Problems with Anesthesia: No Social History Social History Household Members: Spouse Housing: House Do you presently have visiting nurse or other home services: No Patient Tobacco Use Status: Never used Tobacco e-Cigarette/Vaping Use: Never Used Second Hand Smoke Exposure: Yes Advance Directives: No Advance Directives Information Provided: Yes service: No Sexual orientation: Straight/Heterosexual Meds Allergies Allergy/AdvReac Type Severity Reaction Status Date / Time erythromycin base Allergy Hives Verified 11/19/21 18:34 Exam Exam Date and Time: December 23, 2021 0708 Height,Weight and Vital Signs: Height 5 ft 2 in Weight 43.091 kg Last Vital Signs Temp 98.1 F 12/23/21 06:27 Pulse 57 12/23/21 06:27 Resp 16 12/23/21 06:27 BP 137/60 12/23/21 06:27 Pulse Ox 97 12/23/21 06:27 Pertinent Lab Results Pertinent Lab Results: Laboratory Tests 12/23/21 06:12 COVID-19 (AV) Negative COVID-19 Clin Com See Note Airway Mallampati Class: III TM Dist: >3cm Neck ROM: Full Loose/Missing/Broken Teeth: No Heart: RRR Lungs: CTA Assessment and Plan Assessment Anesthesia Assessment: Anesthesia Plan Discussed and Chart Reviewed Final Anesthetic Review Family History of Problems with Anesthesia: No History of Problems with Anesthesia: No NPO: Yes ASA Class: II Final Preanesthetic Review: Meds/Allgs Chart Reviewed, Consent Obtained/Reviewed and Anes Risks/Benef Reviewed Patient Risk: Low Procedure Risk: Intermediate Anesthetic Plan Anesthetic Plan: GA Disposition: Standard PACU
--- NOTE | 2021-12-23 07:21 | HO.ECTPROC ---
ECT Procedure Note Diagnosis/Treatment Date of Service: 12/23/21 Diagnosis: Major Depressive Disorder Previous ECT Date: 12/16/21 Current Treatment Number: 8 Treatment: Maintenance Interval Clinical Notes: Pt generally stable minimal breakthrough ECT Settings Device: THYMATRON DGx Electrode Placement: Right Unilateral Program/Pulse Width: 0.25 Energy Percent: 20 Seizure Duration By EEG (in seconds): 88 Medications Administration General Anesthetic: Etomidate (10) Muscle Relaxant: Succinylcholine (80) Ancillary Medications Miscillaneous Medications: Propofol (30) and Flumazenil Treatment Recommendations Notes: can d/c flumazenil f/u tx 1 week Pt Tolerated Procedure w/o Issue: Yes
== END 2021-12-23 09:38 | disposition home or self-care (01) ==
PROVIDERS: PCP Internal Medicine; Visit Provider Psychiatry & Neurology Psychiatry
PROC: (CPT 90870; principal; 2021-12-23 07:00)
DX: F33.9 Major depressive disorder, recurrent, unspecified (principal); Z20.822 Contact with and (suspected) exposure to COVID-19
CPT/HCPCS: 87635; 90870; J0330; J2405

== ENCOUNTER 2022-01-04 05:55 | Day surgery (SDC) | payer MEDICARE, SELFPAY ==
[2022-01-04] VITALS (8 sets, daily range): BP systolic 136–165; BP diastolic 57–87; PULSE 64–78; RESP 10–18; TEMP 36.5–37.2; O2SAT 95–98; BMI 17.4
--- NOTE | 2022-01-04 06:44 | P.CONAN_ITS ---
[facility] Active Problems Active Problems: All Active Problems (Updated 11/19/21 @ 20:47 by GARY Prater) Major depressive disorder, recurrent episode, severe with anxious distress (Acute) Hyponatremia (Acute) Major depressive disorder, severe (Acute) Past Medical History Medical History Breast cancer Family History Family history of problems with anesthesia: No Surgical History Surgical History H/O mastectomy History of Problems with Anesthesia: No Social History Social History Household Members: Spouse Housing: House Do you presently have visiting nurse or other home services: No Patient Tobacco Use Status: Never used Tobacco e-Cigarette/Vaping Use: Never Used Second Hand Smoke Exposure: Yes Advance Directives: No Advance Directives Information Provided: Yes service: No Sexual orientation: Straight/Heterosexual Meds Allergies Allergy/AdvReac Type Severity Reaction Status Date / Time erythromycin base Allergy Hives Verified 11/19/21 18:34 Exam Exam Date and Time: January 04, 2022 0644 Height,Weight and Vital Signs: Height 5 ft 2 in Weight 43.091 kg Last Vital Signs Temp 98.0 F 01/04/22 06:38 Pulse 64 01/04/22 06:38 Resp 16 01/04/22 06:38 BP 149/69 H 01/04/22 06:38 Pulse Ox 98 01/04/22 06:38 Airway Mallampati Class: II TM Dist: >3cm Neck ROM: Full Heart: rrr Lungs: cta Assessment and Plan Assessment Anesthesia Assessment: Anesthesia Plan Discussed and Chart Reviewed Final Anesthetic Review Family History of Problems with Anesthesia: No History of Problems with Anesthesia: No NPO: Yes ASA Class: III Final Preanesthetic Review: No Changes in Pt Med Stat, Meds/Allgs Chart Reviewed and Consent Obtained/Reviewed Patient Risk: Intermediate Procedure Risk: Intermediate Anesthetic Plan Anesthetic Plan: GA Disposition: Standard PACU
[2022-01-04 07:07] LABS: COVID-19 Test Negative (Negative); IDNOW Serial# 16C4AD1C
--- NOTE | 2022-01-04 07:09 | MHC.SHP ---
Pre-Procedural Eval Section A Date of Service: 01/04/22 Changes since office visit: Yes Patient answered all questions; No Cold of Flu in the past 2 weeks, No New Medical Problems and No Changes in Medication The History & Physical has been completed within 30 days and I have reviewed it.: Yes Section B Chief Complaint: depression Allergies: Allergies Allergy/AdvReac Type Severity Reaction Status Date / Time erythromycin base Allergy Hives Verified 11/19/21 18:34 Review of Systems Sugical H&P ROS: Negative: Constitution, Cardiovascular and Respiratory and Yes, Specify: Psychiatric (some dysphoria ) Exam Surgical H&P Exam: Normal: Heart, Normal: Lungs and Normal: Neurological Plan Diagnosis/Plan: Unchanged I have reviewed the history and physical and performed a pertinent physical examination on my patient. No changes have occurred unless specified.
--- NOTE | 2022-01-04 07:24 | HO.ECTPROC ---
ECT Procedure Note Diagnosis/Treatment Date of Service: 01/04/22 Diagnosis: Major Depressive Disorder Previous ECT Date: 12/23/21 Current Treatment Number: 9 Treatment: Maintenance Interval Clinical Notes: pt with some breakthrough anxiety mild depressive sx ECT Settings Device: THYMATRON DGx Electrode Placement: Right Unilateral Program/Pulse Width: 0.25 Energy Percent: 25 Seizure Duration By EEG (in seconds): 78 Medications Administration General Anesthetic: Etomidate (10) Muscle Relaxant: Succinylcholine (80) Ancillary Medications Miscillaneous Medications: Propofol (30mg) and Flumazenil (250) Airway Management Airway Management: Bag Mask Ventilation Treatment Recommendations No Changes Recommended: No change Notes: f/u tx in 1 week sooner if needed Pt Tolerated Procedure w/o Issue: Yes
== END 2022-01-04 08:47 | disposition home or self-care (01) ==
PROVIDERS: PCP Internal Medicine; Visit Provider Psychiatry & Neurology Psychiatry
PROC: (CPT 90870; principal; 2022-01-04 07:30)
DX: F33.2 Major depressive disorder, recurrent severe without psychotic features (principal); F41.8 Other specified anxiety disorders; E87.1 Hypo-osmolality and hyponatremia; Z85.3 Personal history of malignant neoplasm of breast; Z79.899 Other long term (current) drug therapy; Z88.1 Allergy status to other antibiotic agents; Z20.822 Contact with and (suspected) exposure to COVID-19
CPT/HCPCS: 87635; 90870; J0330; J2405

== ENCOUNTER 2022-01-11 05:58 | Day surgery (SDC) | payer MEDICARE, SELFPAY ==
[2022-01-11 06:39] VITALS: BP 159/72; PULSE 61; RESP 18; TEMP 36.7; O2SAT 99; BMI 17.4
[2022-01-11 06:41] LABS: COVID-19 Test Negative (Negative); IDNOW Serial# 55D5AD1C
--- NOTE | 2022-01-11 06:49 | HO.ANESPROP2 ---
[facility] Active Problems Active Problems: All Active Problems (Updated 11/19/21 @ 20:47 by GARY Prater) Major depressive disorder, recurrent episode, severe with anxious distress (Acute) Hyponatremia (Acute) Major depressive disorder, severe (Acute) Past Medical History Medical History Breast cancer Family History Family history of problems with anesthesia: No Surgical History Surgical History H/O mastectomy History of Problems with Anesthesia: No Social History Social History Household Members: Spouse Housing: House Do you presently have visiting nurse or other home services: No Patient Tobacco Use Status: Never used Tobacco e-Cigarette/Vaping Use: Never Used Second Hand Smoke Exposure: Yes Advance Directives: No Advance Directives Information Provided: Yes service: No Sexual orientation: Straight/Heterosexual Meds Allergies Allergy/AdvReac Type Severity Reaction Status Date / Time erythromycin base Allergy Hives Verified 11/19/21 18:34 Active Medications: Current Medications Lactated Ringer's (Lr) 1,000 mls @ 50 mls/hr IVCONT .Q20H JILLIAN Sodium Chloride (Ns) 1,000 mls @ 50 mls/hr IVCONT .Q20H JILLIAN Exam Exam Date and Time: January 11, 2022 0649 Height,Weight and Vital Signs: Height 5 ft 2 in Weight 43.091 kg Last Vital Signs Temp 98.1 F 01/11/22 06:39 Pulse 61 01/11/22 06:39 Resp 18 01/11/22 06:39 BP 159/72 H 01/11/22 06:39 Pulse Ox 99 01/11/22 06:39 Pertinent Lab Results Pertinent Lab Results: Laboratory Tests 01/11/22 06:10 COVID-19 (AV) Negative COVID-19 Clin Com See Note Airway Mallampati Class: II (Bridge upper) TM Dist: >3cm Neck ROM: Full Heart: rrr Lungs: cta Assessment and Plan Assessment Anesthesia Assessment: Anesthesia Plan Discussed and Chart Reviewed Final Anesthetic Review Family History of Problems with Anesthesia: No History of Problems with Anesthesia: No NPO: Yes ASA Class: III Final Preanesthetic Review: No Changes in Pt Med Stat, Meds/Allgs Chart Reviewed and Consent Obtained/Reviewed Patient Risk: Intermediate Procedure Risk: Intermediate Anesthetic Plan Anesthetic Plan: GA Disposition: Standard PACU
--- NOTE | 2022-01-11 07:44 | MHC.SHP ---
Pre-Procedural Eval Section A Date of Service: 01/11/22 Changes since office visit: Yes Patient answered all questions; No Cold of Flu in the past 2 weeks, No New Medical Problems and No Changes in Medication The History & Physical has been completed within 30 days and I have reviewed it.: Yes Section B Chief Complaint: Major depressive disorder, recurrent, severe with Allergies: Allergies Allergy/AdvReac Type Severity Reaction Status Date / Time erythromycin base Allergy Hives Verified 11/19/21 18:34 Plan I have reviewed the history and physical and performed a pertinent physical examination on my patient. No changes have occurred unless specified.
--- NOTE | 2022-01-11 07:44 | HO.ECTPROC ---
ECT Procedure Note Diagnosis/Treatment Date of Service: 01/14/22 Previous ECT Date: 01/04/22 Current Treatment Number: 10 Treatment: Maintenance Interval Clinical Notes: Patient remains significantly improved from pre treatment but does have some anxiety rumination and Flattening. Has not been using Seroquel ECT Settings Device: THYMATRON DGx Electrode Placement: Right Unilateral Program/Pulse Width: 0.50 Energy Percent: 20 Seizure Duration By EEG (in seconds): 76 Medications Administration General Anesthetic: Etomidate (10) Muscle Relaxant: Succinylcholine (80) Ancillary Medications Anti-emetics: Zofran - Pre ECT Miscillaneous Medications: Flumazenil (250) Airway Management Airway Management: Bag Mask Ventilation Treatment Recommendations Energy Percent: 15 Notes: Monitor response to treatment see if patient shows improvement with pulse width of 0.5 program Pt Tolerated Procedure w/o Issue: Yes
[2022-01-11 07:57] VITALS: BP 176/83; PULSE 67; RESP 16; TEMP 36.6; O2SAT 100
[2022-01-11 08:02] VITALS: BP 159/74; PULSE 67; RESP 16; O2SAT 98
[2022-01-11 08:07] VITALS: BP 159/75; PULSE 73; RESP 18; O2SAT 98
[2022-01-11 08:12] VITALS: BP 131/81; PULSE 82; RESP 18; O2SAT 100
[2022-01-11 08:27] VITALS: BP 151/67; PULSE 75; RESP 18; TEMP 37.3; O2SAT 99
== END 2022-01-11 09:24 | disposition home or self-care (01) ==
PROVIDERS: PCP Internal Medicine; Visit Provider Psychiatry & Neurology Psychiatry
PROC: (CPT 90870; principal; 2022-01-11 07:30)
DX: F33.2 Major depressive disorder, recurrent severe without psychotic features (principal); F41.9 Anxiety disorder, unspecified; E87.1 Hypo-osmolality and hyponatremia; G47.00 Insomnia, unspecified; Z79.899 Other long term (current) drug therapy; Z88.8 Allergy status to other drugs, medicaments and biological substances; Z85.3 Personal history of malignant neoplasm of breast; Z90.10 Acquired absence of unspecified breast and nipple; Z20.822 Contact with and (suspected) exposure to COVID-19
CPT/HCPCS: 87635; 90870; J0330; J2405

== ENCOUNTER 2022-01-20 06:00 | Day surgery (SDC) | payer MEDICARE, SELFPAY ==
[2022-01-20 06:46] LABS: COVID-19 Test Negative (Negative)
--- NOTE | 2022-01-20 07:59 | MHC.SHP ---
Pre-Procedural Eval Section A Date of Service: 01/20/22 Changes since office visit: Yes Patient answered all questions; No Cold of Flu in the past 2 weeks, No New Medical Problems and No Changes in Medication The History & Physical has been completed within 30 days and I have reviewed it.: Yes Section B Chief Complaint: depression Allergies: Allergies Allergy/AdvReac Type Severity Reaction Status Date / Time erythromycin base Allergy Hives Verified 11/19/21 18:34 Plan I have reviewed the history and physical and performed a pertinent physical examination on my patient. No changes have occurred unless specified.
[2022-01-20 08:28] VITALS: BP 142/84; PULSE 82; RESP 16; TEMP 36.7; O2SAT 100
--- NOTE | 2022-01-20 08:31 | HO.ECTPROC ---
ECT Procedure Note Diagnosis/Treatment Date of Service: 01/20/22 Diagnosis: Major Depressive Disorder Previous ECT Date: 01/20/22 Current Treatment Number: 11 Treatment: Series Interval Clinical Notes: Generally improved but some residual depressive and anxiety symptoms generally improved with some residual depressive and anxiety symptoms has not been taking Seroquel ECT Settings Device: THYMATRON DGx Electrode Placement: Right Unilateral Program/Pulse Width: 0.50 Energy Percent: 20 Medications Administration General Anesthetic: Etomidate Muscle Relaxant: Succinylcholine Ancillary Medications Miscillaneous Medications: Propofol and Flumazenil Airway Management Airway Management: Bag Mask Ventilation Treatment Recommendations No Changes Recommended: No change Notes: Next treatment scheduled for next week has residual symptoms have encouraged her to restart Seroquel Pt Tolerated Procedure w/o Issue: Yes
[2022-01-20 08:33] VITALS: BP 150/74; PULSE 95; RESP 20; O2SAT 100
[2022-01-20 08:38] VITALS: BP 155/88; PULSE 105; RESP 21; O2SAT 100
[2022-01-20 08:43] VITALS: BP 170/82; PULSE 105; RESP 18; O2SAT 100
[2022-01-20 08:58] VITALS: BP 168/86; PULSE 109; RESP 19; O2SAT 100
[2022-01-20 09:13] VITALS: BP 146/80; PULSE 96; RESP 19; TEMP 37; O2SAT 100
== END 2022-01-20 09:37 | disposition home or self-care (01) ==
PROVIDERS: PCP Internal Medicine; Visit Provider Psychiatry & Neurology Psychiatry
PROC: (CPT 90870; principal; 2022-01-20 07:30)
DX: F33.9 Major depressive disorder, recurrent, unspecified (principal); F41.1 Generalized anxiety disorder; Z85.3 Personal history of malignant neoplasm of breast; Z79.899 Other long term (current) drug therapy; Z20.822 Contact with and (suspected) exposure to COVID-19
CPT/HCPCS: 87635; 90870; J0330; J2405

== ENCOUNTER 2022-01-27 05:59 | Day surgery (SDC) | payer MEDICARE, BC, SELFPAY ==
[2022-01-27] VITALS (9 sets, daily range): BP systolic 107–177; BP diastolic 66–91; PULSE 57–85; RESP 14–20; TEMP 36.7–36.9; O2SAT 95–100; BMI 17.4
[2022-01-27 06:52] LABS: COVID-19 Test Negative (Negative)
--- NOTE | 2022-01-27 07:33 | MHC.SHP ---
Pre-Procedural Eval Section A Date of Service: 01/27/22 Section B Chief Complaint: depression Details of Present Illness: recurrent depression Relevant Family History (Specify if Yes): No Relevant Social History: None Present Medications: see Short Stay Collaborative assessment Medical History: No relevant PMH History of Previous Operations: Relevant previous surgery/procedure and date(s) (ect) Allergies: Allergies Allergy/AdvReac Type Severity Reaction Status Date / Time erythromycin base Allergy Hives Verified 11/19/21 18:34 Review of Systems Sugical H&P ROS: Negative: Cardiovascular, Respiratory and Neurological Exam Surgical H&P Exam: Normal: Heart (rr no murn=mur ), Normal: Lungs (clear ) and Normal: Neurological (eom full no focal wkness ) Plan Diagnosis/Plan: Unchanged I have reviewed the history and physical and performed a pertinent physical examination on my patient. No changes have occurred unless specified.
--- NOTE | 2022-01-27 07:38 | P.CONAN_ITS ---
HPI - Anesthesia Eval Consult details Narrative: 81yo female patient for ECT PMFSH Active Problems Active Problems: All Active Problems (Updated 11/19/21 @ 20:47 by GARY Prater) Major depressive disorder, recurrent episode, severe with anxious distress (Acute) Hyponatremia (Acute) Major depressive disorder, severe (Acute) Past Medical History Medical History Breast cancer Family History Family history of problems with anesthesia: No Surgical History Surgical History H/O mastectomy History of Problems with Anesthesia: No Social History Social History Household Members: Spouse Housing: House Do you presently have visiting nurse or other home services: No Patient Tobacco Use Status: Never used Tobacco e-Cigarette/Vaping Use: Never Used Second Hand Smoke Exposure: Yes Advance Directives: No Advance Directives Information Provided: Yes service: No Sexual orientation: Straight/Heterosexual Meds Allergies Allergy/AdvReac Type Severity Reaction Status Date / Time erythromycin base Allergy Hives Verified 11/19/21 18:34 Exam Exam Date and Time: January 27, 2022 0738 Height,Weight and Vital Signs: Height 5 ft 2 in Weight 43.091 kg Last Vital Signs Temp 98.1 F 01/27/22 06:34 Pulse 68 01/27/22 06:34 Resp 20 01/27/22 06:34 BP 174/68 H 01/27/22 06:34 Pulse Ox 96 01/27/22 06:34 Pertinent Lab Results Pertinent Lab Results: Laboratory Tests 01/27/22 06:10 COVID-19 (AV) Negative COVID-19 Clin Com See Note Airway Mallampati Class: II TM Dist: >3cm Neck ROM: Full Loose/Missing/Broken Teeth: Yes (Extraction top left. Fixed bridge top front- intact) Heart: RRR Lungs: CTAB Assessment and Plan Assessment Anesthesia Assessment: Anesthesia Plan Discussed and Chart Reviewed Final Anesthetic Review Family History of Problems with Anesthesia: No History of Problems with Anesthesia: No NPO: Yes ASA Class: II Final Preanesthetic Review: No Changes in Pt Med Stat, Meds/Allgs Chart Reviewed, Consent Obtained/Reviewed and Anes Risks/Benef Reviewed Patient Risk: Intermediate Procedure Risk: Intermediate Assessment/Block/Sedation in SS: Assess/Block/Sedation-SS Anesthetic Plan Anesthetic Plan: GA Disposition: Standard PACU
--- NOTE | 2022-01-27 08:03 | HO.ECTPROC ---
ECT Procedure Note Diagnosis/Treatment Date of Service: 01/27/22 Diagnosis: Major Depressive Disorder Previous ECT Date: 01/20/22 Current Treatment Number: 12 Treatment: Series Interval Clinical Notes: pt generally improved but flat ECT Settings Device: THYMATRON DGx Electrode Placement: Right Unilateral Program/Pulse Width: 0.50 Energy Percent: 20 Seizure Duration By EEG (in seconds): 78 Medications Administration General Anesthetic: Etomidate (10) Muscle Relaxant: Succinylcholine (80) Ancillary Medications Anti-emetics: Zofran - Pre ECT Miscillaneous Medications: Flumazenil (250) Airway Management Airway Management: Bag Mask Ventilation Treatment Recommendations No Changes Recommended: No change Notes: will try and do mini series to improve response consider [employer] response has residual sx Pt Tolerated Procedure w/o Issue: Yes
[2022-01-27] MEDS: LORazepam 0.5 MG TABLET PO (08:31)
== END 2022-01-27 09:00 | disposition home or self-care (01) ==
PROVIDERS: PCP Internal Medicine; Visit Provider Psychiatry & Neurology Psychiatry
PROC: (CPT 90870; principal; 2022-01-27 07:30)
DX: F33.3 Major depressive disorder, recurrent, severe with psychotic symptoms (principal); Z79.899 Other long term (current) drug therapy; Z20.822 Contact with and (suspected) exposure to COVID-19
CPT/HCPCS: 87635; 90870; J0330; J2060; J2405

== ENCOUNTER 2022-01-29 06:06 | Day surgery (SDC) | payer MEDICARE, SELFPAY ==
[2022-01-29 06:39] VITALS: BP 154/79; PULSE 74; RESP 18; TEMP 36.6; O2SAT 97; BMI 17.9
[2022-01-29 06:48] LABS: COVID-19 Test Negative (Negative)
--- NOTE | 2022-01-29 07:50 | MHC.SHP ---
Pre-Procedural Eval Section A Date of Service: 01/29/22 The patient is an INPATIENT: No Changes since office visit: Yes Cold of Flu in the past 2 weeks, Yes New Medical Problems, Yes Changes in Medication and Yes Patient answered all questions The History & Physical has been completed within 30 days and I have reviewed it.: Yes Section B Chief Complaint: depression Details of Present Illness: On maintenance ECT Relevant Family History (Specify if Yes): No Relevant Social History: None Present Medications: None Medical History: No relevant PMH History of Previous Operations: No relevant previous surgery Allergies: Allergies Allergy/AdvReac Type Severity Reaction Status Date / Time erythromycin base Allergy Hives Verified 11/19/21 18:34 Review of Systems Sugical H&P ROS: Negative: Constitution, Cardiovascular, Respiratory, Neurological, Psychiatric, Hem-Onc, Allergic/Immunologic, Gastrointestinal, Genitourinary, Musculoskeletal, Integumentary, Endocrine and Eyes/Ears/Nose/Throat Exam Surgical H&P Exam: Normal: HEENT, Normal: Heart, Normal: Lungs, Normal: Extremities, Normal: Abdomen, Normal: Skin and Normal: Neurological Plan Diagnosis/Plan: Unchanged I have reviewed the history and physical and performed a pertinent physical examination on my patient. No changes have occurred unless specified.
--- NOTE | 2022-01-29 07:51 | HO.ECTPROC ---
ECT Procedure Note Diagnosis/Treatment Date of Service: 01/29/22 Diagnosis: Major Depressive Disorder Previous ECT Date: 01/27/22 Current Treatment Number: 13 Interval Clinical Notes: The patient reported exacerbation of dysphoria, mildly depressed. She took Ativan today AM ECT Settings Device: THYMATRON DGx Electrode Placement: Right Unilateral Program/Pulse Width: 0.50 Energy Percent: 20 Seizure Duration By EEG (in seconds): 58 By Motor Observation (in seconds): 0 Medications Administration General Anesthetic: Etomidate (10) Muscle Relaxant: Succinylcholine (80) Ancillary Medications Analgesics: Torodol - Pre ECT Anti-emetics: Zofran - Pre ECT Miscillaneous Medications: Flumazenil Airway Management Airway Management: Bag Mask Ventilation Treatment Recommendations No Changes Recommended: No change Pt Tolerated Procedure w/o Issue: Yes
[2022-01-29 08:10] VITALS: BP 155/73; PULSE 77; RESP 21; TEMP 36.6; O2SAT 98
[2022-01-29 08:15] VITALS: BP 152/80; PULSE 74; RESP 15; O2SAT 97
[2022-01-29 08:20] VITALS: BP 152/80; PULSE 70; RESP 17; O2SAT 98
[2022-01-29 08:35] VITALS: BP 157/79; PULSE 73; RESP 18; O2SAT 95
--- NOTE | 2022-01-29 08:37 | HO.ANESPROP2 ---
[facility] Active Problems Active Problems: All Active Problems (Updated 11/19/21 @ 20:47 by GARY Prater) Major depressive disorder, recurrent episode, severe with anxious distress (Acute) Hyponatremia (Acute) Major depressive disorder, severe (Acute) Past Medical History Medical History Breast cancer Family History Family history of problems with anesthesia: No Surgical History Surgical History H/O mastectomy History of Problems with Anesthesia: No Social History Social History Household Members: Spouse Housing: House Do you presently have visiting nurse or other home services: No Patient Tobacco Use Status: Never used Tobacco e-Cigarette/Vaping Use: Never Used Second Hand Smoke Exposure: Yes Advance Directives: No Advance Directives Information Provided: Yes service: No Sexual orientation: Straight/Heterosexual Meds Allergies Allergy/AdvReac Type Severity Reaction Status Date / Time erythromycin base Allergy Hives Verified 11/19/21 18:34 Exam Exam Date and Time: January 29, 2022 0837 Height,Weight and Vital Signs: Height 5 ft 1 in Weight 43.091 kg Last Vital Signs Temp 97.8 F 01/29/22 08:10 Pulse 73 01/29/22 08:35 Resp 18 01/29/22 08:35 BP 157/79 H 01/29/22 08:35 Pulse Ox 95 01/29/22 08:35 Pertinent Lab Results Pertinent Lab Results: Laboratory Tests 01/29/22 06:20 COVID-19 (AV) Negative COVID-19 Clin Com See Note Airway Mallampati Class: II TM Dist: >3cm Neck ROM: Full Loose/Missing/Broken Teeth: No Heart: RRR Lungs: CTA Assessment and Plan Final Anesthetic Review Family History of Problems with Anesthesia: No History of Problems with Anesthesia: No ASA Class: II Final Preanesthetic Review: Consent Obtained/Reviewed and Anes Risks/Benef Reviewed Patient Risk: Low Procedure Risk: Low Anesthetic Plan Anesthetic Plan: GA Disposition: Standard PACU
[2022-01-29 08:50] VITALS: BP 156/72; PULSE 65; RESP 18; TEMP 36.1; O2SAT 97
== END 2022-01-29 09:04 | disposition home or self-care (01) ==
PROVIDERS: Psychiatry & Neurology Psychiatry; PCP Internal Medicine; Visit Provider Psychiatry & Neurology Psychiatry
PROC: (CPT 90870; principal; 2022-01-29 08:00)
DX: F33.3 Major depressive disorder, recurrent, severe with psychotic symptoms (principal); F34.1 Dysthymic disorder; Z85.3 Personal history of malignant neoplasm of breast; Z99.89 Dependence on other enabling machines and devices; Z88.1 Allergy status to other antibiotic agents; Z20.822 Contact with and (suspected) exposure to COVID-19
CPT/HCPCS: 87635; 90870; J0330; J2405

== ENCOUNTER 2022-02-03 06:00 | Day surgery (SDC) | payer MEDICARE, SELFPAY ==
[2022-02-03] VITALS (9 sets, daily range): BP systolic 118–178; BP diastolic 55–81; PULSE 56–72; RESP 15–19; TEMP 36.3; O2SAT 96–100; BMI 16.8
[2022-02-03 06:47] LABS: COVID-19 Test Negative (Negative)
--- NOTE | 2022-02-03 06:51 | HO.ANESPROP2 ---
[facility] Active Problems Active Problems: All Active Problems (Updated 11/19/21 @ 20:47 by GARY Prater) Major depressive disorder, recurrent episode, severe with anxious distress (Acute) Hyponatremia (Acute) Major depressive disorder, severe (Acute) Past Medical History Medical History Breast cancer Family History Family history of problems with anesthesia: No Surgical History Surgical History H/O mastectomy History of Problems with Anesthesia: No Social History Social History Household Members: Spouse Housing: House Do you presently have visiting nurse or other home services: No Patient Tobacco Use Status: Never used Tobacco e-Cigarette/Vaping Use: Never Used Second Hand Smoke Exposure: Yes Advance Directives: No Advance Directives Information Provided: Yes service: No Sexual orientation: Straight/Heterosexual Meds Allergies Allergy/AdvReac Type Severity Reaction Status Date / Time erythromycin base Allergy Hives Verified 11/19/21 18:34 Exam Exam Date and Time: February 03, 2022 0651 Height,Weight and Vital Signs: Height 5 ft 3 in Weight 43.091 kg Last Vital Signs Temp 97.3 F 02/03/22 06:46 Pulse 61 02/03/22 06:46 Resp 18 02/03/22 06:46 BP 178/81 H 02/03/22 06:46 Pulse Ox 99 02/03/22 06:46 Pertinent Lab Results Pertinent Lab Results: Laboratory Tests 02/03/22 06:16 COVID-19 (AV) Negative COVID-19 Clin Com See Note Airway Mallampati Class: II TM Dist: >3cm Neck ROM: Full Heart: rrr Lungs: cta Assessment and Plan Assessment Anesthesia Assessment: Anesthesia Plan Discussed and Chart Reviewed Final Anesthetic Review Family History of Problems with Anesthesia: No History of Problems with Anesthesia: No NPO: Yes ASA Class: III Final Preanesthetic Review: No Changes in Pt Med Stat, Meds/Allgs Chart Reviewed and Consent Obtained/Reviewed Patient Risk: Intermediate Procedure Risk: Intermediate Anesthetic Plan Anesthetic Plan: GA Disposition: Standard PACU
--- NOTE | 2022-02-03 07:46 | MHC.SHP ---
Pre-Procedural Eval Section A Date of Service: 02/03/22 The patient is an INPATIENT: No Changes since office visit: Yes Cold of Flu in the past 2 weeks, Yes New Medical Problems, Yes Changes in Medication and Yes Patient answered all questions The History & Physical has been completed within 30 days and I have reviewed it.: Yes Section B Chief Complaint: depression Allergies: Allergies Allergy/AdvReac Type Severity Reaction Status Date / Time erythromycin base Allergy Hives Verified 11/19/21 18:34 Plan I have reviewed the history and physical and performed a pertinent physical examination on my patient. No changes have occurred unless specified.
--- NOTE | 2022-02-03 07:46 | HO.ECTPROC ---
ECT Procedure Note Diagnosis/Treatment Date of Service: 02/03/22 Diagnosis: Major Depressive Disorder Previous ECT Date: 01/29/22 Treatment: Series Interval Clinical Notes: The patient reported slight improvement of dysphoria, no side effects with previous ECT. ECT Settings Device: THYMATRON DGx Electrode Placement: Right Unilateral Program/Pulse Width: 0.50 Energy Percent: 20 Seizure Duration By EEG (in seconds): 78 By Motor Observation (in seconds): 0 Medications Administration General Anesthetic: Etomidate (10) Muscle Relaxant: Succinylcholine (80) Ancillary Medications Analgesics: Torodol - Pre ECT Anti-emetics: Zofran - Pre ECT Miscillaneous Medications: Flumazenil Airway Management Airway Management: Bag Mask Ventilation Treatment Recommendations No Changes Recommended: No change Pt Tolerated Procedure w/o Issue: Yes
== END 2022-02-03 09:42 | disposition home or self-care (01) ==
PROVIDERS: PCP Internal Medicine; Visit Provider Psychiatry & Neurology Psychiatry
PROC: (CPT 90870; principal; 2022-02-03 07:30)
DX: F33.2 Major depressive disorder, recurrent severe without psychotic features (principal); F41.1 Generalized anxiety disorder; E87.1 Hypo-osmolality and hyponatremia; Z88.1 Allergy status to other antibiotic agents; Z85.3 Personal history of malignant neoplasm of breast; Z79.899 Other long term (current) drug therapy; Z20.822 Contact with and (suspected) exposure to COVID-19
CPT/HCPCS: 87635; 90870; J0330; J1885; J2405

== ENCOUNTER 2022-02-05 06:01 | Day surgery (SDC) | payer MEDICARE, SELFPAY ==
[2022-02-05] VITALS (8 sets, daily range): BP systolic 130–168; BP diastolic 62–76; PULSE 56–71; RESP 14–18; TEMP 36.4–36.6; O2SAT 95–100; BMI 16.8
[2022-02-05 06:34] LABS: COVID-19 Test Negative (Negative); IDNOW Serial# 16C4AD1C
--- NOTE | 2022-02-05 06:41 | P.CONAN_ITS ---
[facility] Active Problems Active Problems: All Active Problems (Updated 11/19/21 @ 20:47 by GARY Prater) Major depressive disorder, recurrent episode, severe with anxious distress (Acute) Hyponatremia (Acute) Major depressive disorder, severe (Acute) Past Medical History Medical History Breast cancer Family History Family history of problems with anesthesia: No Surgical History Surgical History H/O mastectomy History of Problems with Anesthesia: No Social History Social History Household Members: Spouse Housing: House Do you presently have visiting nurse or other home services: No Patient Tobacco Use Status: Never used Tobacco e-Cigarette/Vaping Use: Never Used Second Hand Smoke Exposure: Yes Advance Directives: No Advance Directives Information Provided: Yes service: No Sexual orientation: Straight/Heterosexual Meds Allergies Allergy/AdvReac Type Severity Reaction Status Date / Time erythromycin base Allergy Hives Verified 11/19/21 18:34 Exam Exam Date and Time: February 05, 2022 0641 Pertinent Lab Results Pertinent Lab Results: Laboratory Tests 02/05/22 06:11 COVID-19 (AV) Negative COVID-19 Clin Com See Note Airway Mallampati Class: II (Missing one, ) TM Dist: >3cm Neck ROM: Full Heart: rrr Lungs: cta Assessment and Plan Assessment Anesthesia Assessment: Anesthesia Plan Discussed and Chart Reviewed Final Anesthetic Review Family History of Problems with Anesthesia: No History of Problems with Anesthesia: No NPO: Yes ASA Class: III Final Preanesthetic Review: No Changes in Pt Med Stat, Meds/Allgs Chart Reviewed and Consent Obtained/Reviewed Patient Risk: Intermediate Procedure Risk: Intermediate Anesthetic Plan Anesthetic Plan: GA Disposition: Standard PACU
--- NOTE | 2022-02-05 07:00 | MHC.SHP ---
Pre-Procedural Eval Section A Date of Service: 02/05/22 The patient is an INPATIENT: No Changes since office visit: Yes Cold of Flu in the past 2 weeks, Yes New Medical Problems, Yes Changes in Medication and Yes Patient answered all questions The History & Physical has been completed within 30 days and I have reviewed it.: Yes Section B Chief Complaint: depression Allergies: Allergies Allergy/AdvReac Type Severity Reaction Status Date / Time erythromycin base Allergy Hives Verified 11/19/21 18:34 Plan I have reviewed the history and physical and performed a pertinent physical examination on my patient. No changes have occurred unless specified.
--- NOTE | 2022-02-05 07:03 | HO.ECTPROC ---
ECT Procedure Note Diagnosis/Treatment Date of Service: 02/05/22 Diagnosis: Major Depressive Disorder Previous ECT Date: 02/03/22 Treatment: Maintenance Interval Clinical Notes: The patient's mood is much better with a brighter affect and broader range of affect. No side effects with previous ECT. ECT Settings Device: THYMATRON DGx Electrode Placement: Right Unilateral Program/Pulse Width: 0.50 Energy Percent: 20 Seizure Duration By EEG (in seconds): 47 By Motor Observation (in seconds): 37 Medications Administration General Anesthetic: Etomidate (10) Muscle Relaxant: Succinylcholine (80) Ancillary Medications Analgesics: Torodol - Pre ECT Anti-emetics: Zofran - Pre ECT Miscillaneous Medications: Flumazenil Airway Management Airway Management: Bag Mask Ventilation Treatment Recommendations No Changes Recommended: No change Pt Tolerated Procedure w/o Issue: Yes
== END 2022-02-05 07:45 | disposition home or self-care (01) ==
PROVIDERS: PCP Internal Medicine; Visit Provider Psychiatry & Neurology Psychiatry
PROC: (CPT 90870; principal; 2022-02-05 07:30)
DX: F33.2 Major depressive disorder, recurrent severe without psychotic features (principal); F41.9 Anxiety disorder, unspecified; E87.1 Hypo-osmolality and hyponatremia; Z85.3 Personal history of malignant neoplasm of breast; Z79.899 Other long term (current) drug therapy; Z88.1 Allergy status to other antibiotic agents; Z20.822 Contact with and (suspected) exposure to COVID-19
CPT/HCPCS: 87635; 90870; J0330; J1885; J2405

== ENCOUNTER 2022-02-12 06:05 | Day surgery (SDC) | payer MEDICARE, SELFPAY ==
[2022-02-12 06:33] VITALS: BMI 18.5
[2022-02-12 06:40] LABS: COVID-19 Test Negative (Negative)
--- NOTE | 2022-02-12 06:43 | P.CONAN_ITS ---
[facility] Active Problems Active Problems: All Active Problems (Updated 11/19/21 @ 20:47 by GARY Prater) Major depressive disorder, recurrent episode, severe with anxious distress (Acute) Hyponatremia (Acute) Major depressive disorder, severe (Acute) Past Medical History Medical History Breast cancer Family History Family history of problems with anesthesia: No Surgical History Surgical History H/O mastectomy History of Problems with Anesthesia: No Social History Social History Household Members: Spouse Housing: House Do you presently have visiting nurse or other home services: No Patient Tobacco Use Status: Never used Tobacco e-Cigarette/Vaping Use: Never Used Second Hand Smoke Exposure: Yes Advance Directives: No Advance Directives Information Provided: Yes service: No Sexual orientation: Straight/Heterosexual Meds Allergies Allergy/AdvReac Type Severity Reaction Status Date / Time erythromycin base Allergy Hives Verified 11/19/21 18:34 Exam Exam Date and Time: February 12, 2022 0643 Height,Weight and Vital Signs: Height 5 ft Weight 43.091 kg Pertinent Lab Results Pertinent Lab Results: Laboratory Tests 02/12/22 06:14 COVID-19 (AV) Negative COVID-19 Clin Com See Note Airway Mallampati Class: II (Connecting bridge ontop) TM Dist: >3cm Neck ROM: Full Heart: rrr Lungs: cta Assessment and Plan Assessment Anesthesia Assessment: Anesthesia Plan Discussed and Chart Reviewed Final Anesthetic Review Family History of Problems with Anesthesia: No History of Problems with Anesthesia: No NPO: Yes ASA Class: III Final Preanesthetic Review: No Changes in Pt Med Stat, Meds/Allgs Chart Reviewed and Consent Obtained/Reviewed Patient Risk: Intermediate Procedure Risk: Intermediate Anesthetic Plan Anesthetic Plan: GA Disposition: Standard PACU
--- NOTE | 2022-02-12 06:49 | MHC.SHP ---
Pre-Procedural Eval Section A Date of Service: 02/12/22 The patient is an INPATIENT: No Changes since office visit: Yes Cold of Flu in the past 2 weeks, Yes New Medical Problems, Yes Changes in Medication and Yes Patient answered all questions The History & Physical has been completed within 30 days and I have reviewed it.: No Section B Chief Complaint: depression Allergies: Allergies Allergy/AdvReac Type Severity Reaction Status Date / Time erythromycin base Allergy Hives Verified 11/19/21 18:34 Plan I have reviewed the history and physical and performed a pertinent physical examination on my patient. No changes have occurred unless specified.
[2022-02-12 07:20] VITALS: BP 153/71; PULSE 63; RESP 15; TEMP 36.8; O2SAT 99
[2022-02-12 07:25] VITALS: BP 137/61; PULSE 56; RESP 17; O2SAT 97
[2022-02-12 07:30] VITALS: BP 152/72; PULSE 70; RESP 17; O2SAT 99
[2022-02-12 07:35] VITALS: BP 157/83; PULSE 79; RESP 16; O2SAT 100
[2022-02-12 07:50] VITALS: BP 165/79; PULSE 74; RESP 21; O2SAT 100
--- NOTE | 2022-02-12 08:06 | HO.ECTPROC ---
ECT Procedure Note Diagnosis/Treatment Date of Service: 02/12/22 Diagnosis: Major Depressive Disorder Treatment: Series Interval Clinical Notes: The patient reported improvement of mood with the last ECT. No new symptoms, no side effects. ECT Settings Device: THYMATRON DGx Electrode Placement: Right Unilateral Program/Pulse Width: 0.50 Energy Percent: 20 Seizure Duration By EEG (in seconds): 60 By Motor Observation (in seconds): 0 Medications Administration General Anesthetic: Etomidate (10) Muscle Relaxant: Succinylcholine (80) Ancillary Medications Analgesics: Torodol - Pre ECT Anti-emetics: Zofran - Pre ECT Miscillaneous Medications: Flumazenil Airway Management Airway Management: Bag Mask Ventilation Treatment Recommendations No Changes Recommended: No change Notes: Change ECT to once a week Pt Tolerated Procedure w/o Issue: Yes
[2022-02-12 08:08] VITALS: BP 161/76; PULSE 76; RESP 20; TEMP 36.8; O2SAT 99
== END 2022-02-12 08:45 | disposition home or self-care (01) ==
PROVIDERS: PCP Internal Medicine; Visit Provider Psychiatry & Neurology Psychiatry
PROC: (CPT 90870; principal; 2022-02-12 07:00)
DX: F33.2 Major depressive disorder, recurrent severe without psychotic features (principal); E87.1 Hypo-osmolality and hyponatremia; Z20.822 Contact with and (suspected) exposure to COVID-19; Z79.899 Other long term (current) drug therapy; Z85.3 Personal history of malignant neoplasm of breast
CPT/HCPCS: 87635; 90870; J0330; J1885; J2405

== ENCOUNTER 2022-02-19 08:03 | Day surgery (SDC) | payer MEDICARE, SELFPAY ==
[2022-02-19] VITALS (7 sets, daily range): BP systolic 132–197; BP diastolic 8–142; PULSE 67–90; RESP 16–24; TEMP 36.4–37; O2SAT 96–99; BMI 16.8
--- NOTE | 2022-02-19 08:20 | HO.ANESPROP2 ---
[facility] Active Problems Active Problems: All Active Problems (Updated 11/19/21 @ 20:47 by GARY Prater) Major depressive disorder, recurrent episode, severe with anxious distress (Acute) Hyponatremia (Acute) Major depressive disorder, severe (Acute) Past Medical History Medical History Breast cancer Family History Family history of problems with anesthesia: No Surgical History Surgical History H/O mastectomy History of Problems with Anesthesia: No Social History Social History Household Members: Spouse Housing: House Do you presently have visiting nurse or other home services: No Patient Tobacco Use Status: Never used Tobacco e-Cigarette/Vaping Use: Never Used Second Hand Smoke Exposure: Yes Advance Directives: No Advance Directives Information Provided: Yes service: No Sexual orientation: Straight/Heterosexual Meds Allergies Allergy/AdvReac Type Severity Reaction Status Date / Time erythromycin base Allergy Hives Verified 11/19/21 18:34 Exam Exam Date and Time: February 19, 2022 0820 Height,Weight and Vital Signs: Height 5 ft 3 in Weight 43.091 kg Last Vital Signs Temp 98.2 F 02/19/22 08:16 Pulse 67 02/19/22 08:16 Resp 20 02/19/22 08:16 BP 166/82 H 02/19/22 08:16 Pulse Ox 98 02/19/22 08:16 O2 Del Method 02/19/22 08:16 Airway Mallampati Class: II TM Dist: >3cm Neck ROM: Full Loose/Missing/Broken Teeth: No (Fixed bridge upper) Heart: RRR Lungs: CTA Assessment and Plan Assessment Anesthesia Assessment: Anesthesia Plan Discussed and Chart Reviewed Final Anesthetic Review Family History of Problems with Anesthesia: No History of Problems with Anesthesia: No NPO: Yes ASA Class: II Final Preanesthetic Review: Meds/Allgs Chart Reviewed, Consent Obtained/Reviewed and Anes Risks/Benef Reviewed Patient Risk: Low Procedure Risk: Intermediate Anesthetic Plan Anesthetic Plan: GA Disposition: Standard PACU
[2022-02-19 08:36] LABS: COVID-19 Test Negative (Negative); IDNOW Serial# 9DB6401D
--- NOTE | 2022-02-19 08:53 | MHC.SHP ---
Pre-Procedural Eval Section A Date of Service: 02/19/22 The patient is an INPATIENT: No Changes since office visit: No Cold of Flu in the past 2 weeks, No New Medical Problems, No Changes in Medication and No Patient answered all questions The History & Physical has been completed within 30 days and I have reviewed it.: Yes Section B Chief Complaint: depression Allergies: Allergies Allergy/AdvReac Type Severity Reaction Status Date / Time erythromycin base Allergy Hives Verified 11/19/21 18:34 Plan I have reviewed the history and physical and performed a pertinent physical examination on my patient. No changes have occurred unless specified.
--- NOTE | 2022-02-19 08:53 | HO.ECTPROC ---
ECT Procedure Note Diagnosis/Treatment Date of Service: 02/19/22 Diagnosis: Major Depressive Disorder Previous ECT Date: 02/12/22 Treatment: Maintenance ECT Settings Device: THYMATRON DGx Electrode Placement: Right Unilateral Program/Pulse Width: 0.50 Energy Percent: 20 Seizure Duration By EEG (in seconds): 60 By Motor Observation (in seconds): 0 Medications Administration General Anesthetic: Etomidate (10) Muscle Relaxant: Succinylcholine (80) Ancillary Medications Analgesics: Torodol - Pre ECT Anti-emetics: Zofran - Pre ECT Miscillaneous Medications: Flumazenil Airway Management Airway Management: Bag Mask Ventilation Treatment Recommendations No Changes Recommended: No change Pt Tolerated Procedure w/o Issue: Yes
== END 2022-02-19 10:20 | disposition home or self-care (01) ==
PROVIDERS: PCP Internal Medicine; Visit Provider Psychiatry & Neurology Psychiatry
PROC: (CPT 90870; principal; 2022-02-19 09:00)
DX: F33.2 Major depressive disorder, recurrent severe without psychotic features (principal); F41.3 Other mixed anxiety disorders; E87.1 Hypo-osmolality and hyponatremia; Z88.1 Allergy status to other antibiotic agents; Z20.822 Contact with and (suspected) exposure to COVID-19; Z85.3 Personal history of malignant neoplasm of breast
CPT/HCPCS: 87635; 90870; J0330; J1885; J2405

== ENCOUNTER 2022-03-03 06:02 | Day surgery (SDC) | payer MEDICARE, SELFPAY ==
[2022-03-03] VITALS (10 sets, daily range): BP systolic 158–198; BP diastolic 71–100; PULSE 58–87; RESP 14–24; TEMP 36.6–36.8; O2SAT 97–100; BMI 17.4
[2022-03-03 06:37] LABS: COVID-19 Test Negative (Negative)
--- NOTE | 2022-03-03 06:54 | P.CONAN_ITS ---
[facility] Active Problems Active Problems: All Active Problems (Updated 11/19/21 @ 20:47 by GARY Prater) Major depressive disorder, recurrent episode, severe with anxious distress (Acute) Hyponatremia (Acute) Major depressive disorder, severe (Acute) Past Medical History Medical History Breast cancer Family History Family history of problems with anesthesia: No Surgical History Surgical History H/O mastectomy History of Problems with Anesthesia: No Social History Social History Household Members: Spouse Housing: House Do you presently have visiting nurse or other home services: No Patient Tobacco Use Status: Never used Tobacco e-Cigarette/Vaping Use: Never Used Second Hand Smoke Exposure: Yes Are you DNR?: No Advance Directives: No Advance Directives Information Provided: Yes service: No Sexual orientation: Straight/Heterosexual Meds Allergies Allergy/AdvReac Type Severity Reaction Status Date / Time erythromycin base Allergy Hives Verified 11/19/21 18:34 Exam Exam Date and Time: March 03, 2022 0654 Height,Weight and Vital Signs: Height 5 ft 2 in Weight 43.091 kg Last Vital Signs Temp 98.3 F 03/03/22 06:27 Pulse 58 03/03/22 06:27 Resp 20 03/03/22 06:27 BP 158/93 H 03/03/22 06:27 Pulse Ox 99 03/03/22 06:27 O2 Del Method 03/03/22 06:27 Pertinent Lab Results Pertinent Lab Results: Laboratory Tests 03/03/22 06:09 COVID-19 (AV) Negative COVID-19 Clin Com See Note Airway Mallampati Class: II (Permanent upper bridge next to loose tooth) TM Dist: >3cm Neck ROM: Full Heart: rrr Lungs: cta Assessment and Plan Assessment Anesthesia Assessment: Anesthesia Plan Discussed and Chart Reviewed Final Anesthetic Review Family History of Problems with Anesthesia: No History of Problems with Anesthesia: No NPO: Yes ASA Class: III Final Preanesthetic Review: No Changes in Pt Med Stat, Meds/Allgs Chart Reviewed and Consent Obtained/Reviewed Patient Risk: Intermediate Procedure Risk: Intermediate Anesthetic Plan Anesthetic Plan: GA Disposition: Standard PACU
--- NOTE | 2022-03-03 07:29 | MHC.SHP ---
Pre-Procedural Eval Section A Date of Service: 03/03/22 The patient is an INPATIENT: No Changes since office visit: Yes Patient answered all questions; No Cold of Flu in the past 2 weeks, No New Medical Problems and No Changes in Medication The History & Physical has been completed within 30 days and I have reviewed it.: No Section B Chief Complaint: depression Details of Present Illness: recurrent depression Relevant Social History: None Present Medications: see Short Stay Collaborative assessment Medical History: No relevant PMH History of Previous Operations: No relevant previous surgery (ect) Allergies: Allergies Allergy/AdvReac Type Severity Reaction Status Date / Time erythromycin base Allergy Hives Verified 11/19/21 18:34 Review of Systems Sugical H&P ROS: Negative: Cardiovascular, Respiratory and Psychiatric (depressed ) Exam Surgical H&P Exam: Normal: Heart and Normal: Lungs Plan Diagnosis/Plan: Unchanged I have reviewed the history and physical and performed a pertinent physical examination on my patient. No changes have occurred unless specified.
--- NOTE | 2022-03-03 07:48 | HO.ECTPROC ---
ECT Procedure Note Diagnosis/Treatment Date of Service: 03/03/22 Diagnosis: Major Depressive Disorder Previous ECT Date: 02/19/22 Current Treatment Number: 15 Treatment: Maintenance Interval Clinical Notes: Patient keeps breaking through the maintenance schedule with right unilateral in spite of adequate seizure was seen outpatient is depressed internally preoccupied ruminating but functioning better in taking care of herself better than prior to initial treatment reviewed different treatment options patient treated today with bi frontal ECT treatment ECT Settings Device: THYMATRON DGx Electrode Placement: Bifrontal Program/Pulse Width: 0.50 Seizure Duration By EEG (in seconds): 91 Medications Administration General Anesthetic: Etomidate (10) Muscle Relaxant: Succinylcholine (80) Ancillary Medications Analgesics: Torodol - Pre ECT Anti-emetics: Zofran - Pre ECT Miscillaneous Medications: Propofol (30 to stop seizure) and Flumazenil Airway Management Airway Management: Bag Mask Ventilation Treatment Recommendations Notes: The patient was initially treated at 30% did not have a seizure despite changing to bifrontal then treated at 100% and received propofol had approximately 60 seconds had a total seizure of 98 seconds patient has not had an maintenance response to treatment plan was to try brief bifrontal and if that did not get a response would do bitemporal have discussed possibility of more cognitive side effects n please note flumazenil was given case has been reviewed with Dr. Oksana torres patient's outpatient psychiatrist will coordinate further treatment with patient
== END 2022-03-03 10:09 | disposition home or self-care (01) ==
PROVIDERS: PCP Internal Medicine; Visit Provider Psychiatry & Neurology Psychiatry
PROC: (CPT 90870; principal; 2022-03-03 07:30)
DX: F33.3 Major depressive disorder, recurrent, severe with psychotic symptoms (principal); Z79.899 Other long term (current) drug therapy; Z88.1 Allergy status to other antibiotic agents; Z20.822 Contact with and (suspected) exposure to COVID-19
CPT/HCPCS: 87635; 90870; J0330; J1885; J2405

== ENCOUNTER 2022-03-10 05:58 | Day surgery (SDC) | payer MEDICARE, SELFPAY ==
[2022-03-10] VITALS (8 sets, daily range): BP systolic 138–175; BP diastolic 64–82; PULSE 58–82; RESP 16–20; TEMP 36.7–36.8; O2SAT 95–99; BMI 16.8
--- NOTE | 2022-03-10 06:28 | HO.ANESPROP2 ---
HPI - Anesthesia Eval Consult details Narrative: Major depressive disorder [facility] Active Problems Active Problems: All Active Problems (Updated 11/19/21 @ 20:47 by GARY Prater) Major depressive disorder, recurrent episode, severe with anxious distress (Acute) Hyponatremia (Acute) Major depressive disorder, severe (Acute) Past Medical History Medical History Breast cancer Family History Family history of problems with anesthesia: No Surgical History Surgical History H/O mastectomy History of Problems with Anesthesia: No Social History Social History Household Members: Spouse Housing: House Do you presently have visiting nurse or other home services: No Patient Tobacco Use Status: Never used Tobacco e-Cigarette/Vaping Use: Never Used Second Hand Smoke Exposure: Yes Advance Directives: No Advance Directives Information Provided: Yes service: No Sexual orientation: Straight/Heterosexual Meds Allergies Allergy/AdvReac Type Severity Reaction Status Date / Time erythromycin base Allergy Hives Verified 11/19/21 18:34 Exam Exam Date and Time: March 10, 2022 0628 Airway Mallampati Class: II TM Dist: >3cm Neck ROM: Full Loose/Missing/Broken Teeth: No (fixed upper bridge) Heart: rrr+[id number] Lungs: cta b/l Assessment and Plan Assessment Anesthesia Assessment: Anesthesia Plan Discussed and Chart Reviewed Final Anesthetic Review Family History of Problems with Anesthesia: No History of Problems with Anesthesia: No NPO: Yes ASA Class: III Final Preanesthetic Review: No Changes in Pt Med Stat, Meds/Allgs Chart Reviewed, Consent Obtained/Reviewed and Anes Risks/Benef Reviewed Patient Risk: Intermediate Procedure Risk: Intermediate Assessment/Block/Sedation in SS: Assess/Block/Sedation-SS Anesthetic Plan Anesthetic Plan: GA and Agree w/ Assess. and Plan Disposition: Standard PACU
[2022-03-10 07:01] LABS: COVID-19 Test Negative (Negative); IDNOW Serial# 16C4AD1C
--- NOTE | 2022-03-10 21:56 | HO.ECTPROC ---
ECT Procedure Note Diagnosis/Treatment Date of Service: 03/10/22 Diagnosis: Major Depressive Disorder Previous ECT Date: 03/03/22 Current Treatment Number: 15 Treatment: Maintenance Interval Clinical Notes: change to r temp l frontal has only partial resonse ECT Settings Device: THYMATRON DGx Electrode Placement: Rt temporal/ Lt frontal Program/Pulse Width: 0.50 Energy Percent: 55 Seizure Duration By EEG (in seconds): 64 Medications Administration General Anesthetic: Etomidate (10) Muscle Relaxant: Succinylcholine (80) Ancillary Medications Analgesics: Torodol - Pre ECT Anti-emetics: Zofran - Pre ECT Miscillaneous Medications: Propofol (30 to stop seizure) Airway Management Airway Management: Bag Mask Ventilation Treatment Recommendations No Changes Recommended: No change Notes: pt felt markedly better post tx cont rtlf or bt monitor for cognitive side effects Pt Tolerated Procedure w/o Issue: Yes
== END 2022-03-10 09:01 | disposition home or self-care (01) ==
PROVIDERS: PCP Internal Medicine; Visit Provider Psychiatry & Neurology Psychiatry
PROC: (CPT 90870; principal; 2022-03-10 08:00)
DX: F33.3 Major depressive disorder, recurrent, severe with psychotic symptoms (principal); Z79.899 Other long term (current) drug therapy; Z85.3 Personal history of malignant neoplasm of breast; Z90.10 Acquired absence of unspecified breast and nipple; Z20.822 Contact with and (suspected) exposure to COVID-19
CPT/HCPCS: 87635; 90870; J0330; J1885; J2405

== ENCOUNTER 2022-03-12 05:58 | Day surgery (SDC) | payer MEDICARE, SELFPAY ==
[2022-03-12] VITALS (8 sets, daily range): BP systolic 130–194; BP diastolic 61–103; PULSE 62–107; RESP 16–22; TEMP 36.6–37.2; O2SAT 95–99; BMI 16.8
[2022-03-12 06:42] LABS: COVID-19 Test Negative (Negative); IDNOW Serial# 55D5AD1C
--- NOTE | 2022-03-12 06:56 | HO.ANESPROP2 ---
[facility]ACED BY [facility] Active Problems Active Problems: All Active Problems (Updated 11/19/21 @ 20:47 by GARY Prater) Major depressive disorder, recurrent episode, severe with anxious distress (Acute) Hyponatremia (Acute) Major depressive disorder, severe (Acute) Past Medical History Medical History Breast cancer Family History Family history of problems with anesthesia: No Surgical History Surgical History H/O mastectomy History of Problems with Anesthesia: No Social History Social History Household Members: Spouse Housing: House Do you presently have visiting nurse or other home services: No Patient Tobacco Use Status: Never used Tobacco e-Cigarette/Vaping Use: Never Used Second Hand Smoke Exposure: Yes Advance Directives: No Advance Directives Information Provided: Yes service: No Sexual orientation: Straight/Heterosexual Meds Allergies Allergy/AdvReac Type Severity Reaction Status Date / Time erythromycin base Allergy Hives Verified 11/19/21 18:34 Active Medications: Current Medications Lactated Ringer's (Lr) 1,000 mls @ 50 mls/hr IVCONT .Q20H JILLIAN Exam Exam Date and Time: March 12, 2022 0656 Height,Weight and Vital Signs: Height 5 ft 3 in Weight 43.091 kg Last Vital Signs Temp 98 F 03/12/22 06:37 Pulse 62 03/12/22 06:37 Resp 18 03/12/22 06:37 BP 154/74 H 03/12/22 06:37 Pulse Ox 98 03/12/22 06:37 O2 Del Method 03/12/22 06:37 Pertinent Lab Results Pertinent Lab Results: Laboratory Tests 03/12/22 06:17 COVID-19 (AV) Negative COVID-19 Clin Com See Note Airway Mallampati Class: II (Permanent bridge loose tooth next to it) TM Dist: >3cm Neck ROM: Full Heart: rrr Lungs: cta Assessment and Plan Assessment Anesthesia Assessment: Anesthesia Plan Discussed and Chart Reviewed Final Anesthetic Review Family History of Problems with Anesthesia: No History of Problems with Anesthesia: No NPO: Yes ASA Class: III Final Preanesthetic Review: No Changes in Pt Med Stat, Meds/Allgs Chart Reviewed and Consent Obtained/Reviewed Patient Risk: Intermediate Procedure Risk: Intermediate Anesthetic Plan Anesthetic Plan: GA Disposition: Standard PACU
--- NOTE | 2022-03-12 07:05 | MHC.SHP ---
Pre-Procedural Eval Section A Date of Service: 03/12/22 The patient is an INPATIENT: No Changes since office visit: Yes Cold of Flu in the past 2 weeks, Yes New Medical Problems, Yes Changes in Medication and Yes Patient answered all questions The History & Physical has been completed within 30 days and I have reviewed it.: Yes Section B Chief Complaint: depression Allergies: Allergies Allergy/AdvReac Type Severity Reaction Status Date / Time erythromycin base Allergy Hives Verified 11/19/21 18:34 Plan I have reviewed the history and physical and performed a pertinent physical examination on my patient. No changes have occurred unless specified.
--- NOTE | 2022-03-12 07:27 | HO.ECTPROC ---
ECT Procedure Note Diagnosis/Treatment Date of Service: 03/12/22 Diagnosis: Major Depressive Disorder Previous ECT Date: 03/10/22 Current Treatment Number: Other (16) Treatment: Maintenance Interval Clinical Notes: The patient showed a brighter range of affect, smiling and joking with staff, no side effects with previous ECT. ECT Settings Device: THYMATRON DGx Electrode Placement: Rt temporal/ Lt frontal Program/Pulse Width: 0.50 Energy Percent: 55 Seizure Duration By EEG (in seconds): 60 By Motor Observation (in seconds): 0 Medications Administration General Anesthetic: Etomidate (10) Muscle Relaxant: Succinylcholine (80) Ancillary Medications Analgesics: Torodol - Pre ECT Anti-emetics: Zofran - Pre ECT Miscillaneous Medications: Flumazenil Airway Management Airway Management: Bag Mask Ventilation Treatment Recommendations No Changes Recommended: No change Pt Tolerated Procedure w/o Issue: Yes
== END 2022-03-12 09:20 | disposition home or self-care (01) ==
PROVIDERS: PCP Internal Medicine; Visit Provider Psychiatry & Neurology Psychiatry
PROC: (CPT 90870; principal; 2022-03-12 07:30)
DX: F33.2 Major depressive disorder, recurrent severe without psychotic features (principal); Z20.822 Contact with and (suspected) exposure to COVID-19; E87.1 Hypo-osmolality and hyponatremia; Z85.3 Personal history of malignant neoplasm of breast; Z90.10 Acquired absence of unspecified breast and nipple; Z79.899 Other long term (current) drug therapy; Z88.1 Allergy status to other antibiotic agents
CPT/HCPCS: 87635; 90870; J0330; J1885; J2405

== ENCOUNTER 2022-03-17 06:03 | Day surgery (SDC) | payer MEDICARE, SELFPAY ==
[2022-03-17] VITALS (7 sets, daily range): BP systolic 132–169; BP diastolic 74–84; PULSE 66–80; RESP 14–22; TEMP 36.8–37.3; O2SAT 95–100; BMI 17.7
--- NOTE | 2022-03-17 06:25 | MHC.SHP ---
Pre-Procedural Eval Section A Date of Service: 03/17/22 The patient is an INPATIENT: No Changes since office visit: Yes Patient answered all questions; No Cold of Flu in the past 2 weeks, No New Medical Problems and No Changes in Medication The History & Physical has been completed within 30 days and I have reviewed it.: Yes Section B Chief Complaint: depression Details of Present Illness: rceurrent depression Relevant Social History: None Present Medications: see Short Stay Collaborative assessment Medical History: No relevant PMH History of Previous Operations: Relevant previous surgery/procedure and date(s) (ect) Allergies: Allergies Allergy/AdvReac Type Severity Reaction Status Date / Time erythromycin base Allergy Hives Verified 11/19/21 18:34 Review of Systems Sugical H&P ROS: Negative: Constitution and Respiratory and Yes, Specify: Psychiatric (dep sx ) Exam Surgical H&P Exam: Normal: Heart and Normal: Lungs Plan Diagnosis/Plan: Unchanged I have reviewed the history and physical and performed a pertinent physical examination on my patient. No changes have occurred unless specified.
--- NOTE | 2022-03-17 06:39 | HO.ANESPROP2 ---
[facility] Active Problems Active Problems: All Active Problems (Updated 11/19/21 @ 20:47 by GARY Prater) Major depressive disorder, recurrent episode, severe with anxious distress (Acute) Hyponatremia (Acute) Major depressive disorder, severe (Acute) Past Medical History Medical History Breast cancer Family History Family history of problems with anesthesia: No Surgical History Surgical History H/O mastectomy History of Problems with Anesthesia: No Social History Social History Household Members: Spouse Housing: House Do you presently have visiting nurse or other home services: No Patient Tobacco Use Status: Never used Tobacco e-Cigarette/Vaping Use: Never Used Second Hand Smoke Exposure: Yes Are you DNR?: No Advance Directives: No Advance Directives Information Provided: Yes service: No Sexual orientation: Straight/Heterosexual Meds Allergies Allergy/AdvReac Type Severity Reaction Status Date / Time erythromycin base Allergy Hives Verified 11/19/21 18:34 Exam Exam Date and Time: March 17, 2022 0639 Height,Weight and Vital Signs: Height 5 ft 2 in Weight 43.998 kg Last Vital Signs Temp 98.3 F 03/17/22 06:28 Pulse 66 03/17/22 06:28 Resp 20 03/17/22 06:28 BP 144/74 H 03/17/22 06:28 Pulse Ox 98 03/17/22 06:28 O2 Del Method 03/17/22 06:28 Airway Mallampati Class: II (Upper bridge with loose tooth) TM Dist: >3cm Neck ROM: Full Heart: rrr Lungs: cta Assessment and Plan Assessment Anesthesia Assessment: Anesthesia Plan Discussed and Chart Reviewed Final Anesthetic Review Family History of Problems with Anesthesia: No History of Problems with Anesthesia: No NPO: Yes ASA Class: III Final Preanesthetic Review: No Changes in Pt Med Stat, Meds/Allgs Chart Reviewed and Consent Obtained/Reviewed Patient Risk: Intermediate Procedure Risk: Intermediate Anesthetic Plan Anesthetic Plan: GA Disposition: Standard PACU
[2022-03-17 06:49] LABS: COVID-19 Test Negative (Negative); IDNOW Serial# 08D9AD1C
--- NOTE | 2022-03-17 07:07 | P.PCN_ITS ---
ECT Procedure Note Diagnosis/Treatment Date of Service: 03/17/22 Diagnosis: Major Depressive Disorder Previous ECT Date: 03/12/22 Treatment: Maintenance (17) Interval Clinical Notes: Patient has done significantly better since changed to right temporal left frontal no significant cognitive side effects noted by patient. Increase range of emotion and motivation I have reviewed with Dr. Zack torres and patient see ing if there could be a significant medication class change that might allow less frequent dependency ECT ECT Settings Device: THYMATRON DGx Electrode Placement: Rt temporal/ Lt frontal Program/Pulse Width: 0.50 Energy Percent: 55 Seizure Duration By EEG (in seconds): 73 Medications Administration General Anesthetic: Etomidate (10) Muscle Relaxant: Succinylcholine (80) Ancillary Medications Analgesics: Torodol - Pre ECT Anti-emetics: Zofran - Pre ECT Miscillaneous Medications: Flumazenil Airway Management Airway Management: Bag Mask Ventilation Treatment Recommendations Electrode Placement: Bitemporal Program/Pulse Width: 0.50 Energy Percent: 50 Notes: If not needed to discontinue seizure would avoid propofol post Would consider Brando Veras or [facility] follow-up treatment in 1 week will also touch base with patient outpatient Pt Tolerated Procedure w/o Issue: Yes
== END 2022-03-17 09:30 | disposition home or self-care (01) ==
PROVIDERS: PCP Internal Medicine; Visit Provider Psychiatry & Neurology Psychiatry
PROC: (CPT 90870; principal; 2022-03-17 08:00)
DX: F33.2 Major depressive disorder, recurrent severe without psychotic features (principal); E87.1 Hypo-osmolality and hyponatremia; Z79.899 Other long term (current) drug therapy; Z85.3 Personal history of malignant neoplasm of breast; Z90.10 Acquired absence of unspecified breast and nipple; Z20.822 Contact with and (suspected) exposure to COVID-19; Z88.1 Allergy status to other antibiotic agents
CPT/HCPCS: 87635; 90870; J0330; J1885; J2405

== ENCOUNTER 2022-03-24 05:58 | Day surgery (SDC) | payer MEDICARE, SELFPAY ==
[2022-03-24] VITALS (7 sets, daily range): BP systolic 141–158; BP diastolic 67–77; PULSE 63–79; RESP 16–20; TEMP 36.6–37; O2SAT 95–100; BMI 17.7
[2022-03-24 06:44] LABS: COVID-19 Test Negative (Negative)
--- NOTE | 2022-03-24 07:20 | MHC.SHP ---
Pre-Procedural Eval Section A Date of Service: 03/24/22 Changes since office visit: Yes Patient answered all questions; No Cold of Flu in the past 2 weeks, No New Medical Problems and No Changes in Medication The History & Physical has been completed within 30 days and I have reviewed it.: Yes Section B Chief Complaint: depression Relevant Social History: None Present Medications: see Short Stay Collaborative assessment Allergies: Allergies Allergy/AdvReac Type Severity Reaction Status Date / Time erythromycin base Allergy Hives Verified 11/19/21 18:34 Review of Systems Sugical H&P ROS: Negative: Cardiovascular and Respiratory and Yes, Specify: Psychiatric (dep sx) Exam Surgical H&P Exam: Normal: Heart and Normal: Lungs Plan Diagnosis/Plan: Unchanged I have reviewed the history and physical and performed a pertinent physical examination on my patient. No changes have occurred unless specified.
--- NOTE | 2022-03-24 07:23 | P.CONAN_ITS ---
HPI - Anesthesia Eval Consult details Narrative: Major Depression [facility] Active Problems Active Problems: All Active Problems (Updated 11/19/21 @ 20:47 by GARY Prater) Major depressive disorder, recurrent episode, severe with anxious distress (Acute) Hyponatremia (Acute) Major depressive disorder, severe (Acute) Past Medical History Medical History Breast cancer Family History Family history of problems with anesthesia: No Surgical History Surgical History H/O mastectomy History of Problems with Anesthesia: No Social History Social History Household Members: Spouse Housing: House Do you presently have visiting nurse or other home services: No Patient Tobacco Use Status: Never used Tobacco e-Cigarette/Vaping Use: Never Used Second Hand Smoke Exposure: Yes Are you DNR?: No Advance Directives: No Advance Directives Information Provided: Yes service: No Sexual orientation: Straight/Heterosexual Meds Allergies Allergy/AdvReac Type Severity Reaction Status Date / Time erythromycin base Allergy Hives Verified 11/19/21 18:34 Exam Exam Date and Time: March 24, 2022722 Height,Weight and Vital Signs: Height 5 ft 2 in Weight 43.998 kg Last Vital Signs Temp 97.9 F 03/24/22 06:45 Pulse 63 03/24/22 06:45 Resp 16 03/24/22 06:45 BP 146/68 H 03/24/22 06:45 Pulse Ox 95 03/24/22 06:45 O2 Del Method 03/24/22 06:45 Pertinent Lab Results Pertinent Lab Results: Laboratory Tests 03/24/22 06:18 COVID-19 (AV) Negative COVID-19 Clin Com See Note Airway Mallampati Class: II TM Dist: >3cm Neck ROM: Full Loose/Missing/Broken Teeth: No (fixed upper bridge) Heart: rrr+[id number] Lungs: cta b/l Assessment and Plan Assessment Anesthesia Assessment: Anesthesia Plan Discussed and Chart Reviewed Final Anesthetic Review Family History of Problems with Anesthesia: No History of Problems with Anesthesia: No NPO: Yes ASA Class: III Final Preanesthetic Review: No Changes in Pt Med Stat, Meds/Allgs Chart Reviewed, Consent Obtained/Reviewed and Anes Risks/Benef Reviewed Patient Risk: Intermediate Procedure Risk: Intermediate Assessment/Block/Sedation in SS: Assess/Block/Sedation-SS Anesthetic Plan Anesthetic Plan: GA Disposition: Standard PACU
--- NOTE | 2022-03-24 07:35 | HO.ECTPROC ---
ECT Procedure Note Diagnosis/Treatment Date of Service: 03/24/22 Diagnosis: Major Depressive Disorder Previous ECT Date: 03/19/22 Treatment: Maintenance Interval Clinical Notes: some inc range affect ECT Settings Device: THYMATRON DGx Electrode Placement: Bitemporal Program/Pulse Width: 0.50 Energy Percent: 100 Seizure Duration By EEG (in seconds): 73 Medications Administration General Anesthetic: Etomidate (10) Muscle Relaxant: Succinylcholine (80) Ancillary Medications Analgesics: Torodol - Pre ECT Anti-emetics: Zofran - Pre ECT Miscillaneous Medications: Flumazenil Airway Management Airway Management: Bag Mask Ventilation Treatment Recommendations Electrode Placement: Bitemporal Program/Pulse Width: 0.50 Energy Percent: 50 Notes: If not needed to discontinue seizure would avoid propofol post Would consider M Rito or Rogers follow-up treatment in 1 week will also touch base with patient outpatient f/u 1 week Pt Tolerated Procedure w/o Issue: Yes
== END 2022-03-24 08:51 | disposition home or self-care (01) ==
PROVIDERS: PCP Internal Medicine; Visit Provider Psychiatry & Neurology Psychiatry
PROC: (CPT 90870; principal; 2022-03-24 08:00)
DX: F33.2 Major depressive disorder, recurrent severe without psychotic features (principal); E87.1 Hypo-osmolality and hyponatremia; Z79.899 Other long term (current) drug therapy; Z88.1 Allergy status to other antibiotic agents; Z20.822 Contact with and (suspected) exposure to COVID-19; Z85.3 Personal history of malignant neoplasm of breast; Z90.10 Acquired absence of unspecified breast and nipple
CPT/HCPCS: 87635; 90870; J0330; J1885; J2405

== ENCOUNTER 2022-03-31 06:09 | Day surgery (SDC) | payer MEDICARE, SELFPAY ==
[2022-03-31] VITALS (8 sets, daily range): BP systolic 141–169; BP diastolic 69–96; PULSE 69–722; RESP 16–20; TEMP 36.8–36.9; O2SAT 95–100; BMI 16.8
--- NOTE | 2022-03-31 06:45 | P.CONAN_ITS ---
[facility] Active Problems Active Problems: All Active Problems (Updated 11/19/21 @ 20:47 by GARY Prater) Major depressive disorder, recurrent episode, severe with anxious distress (Acute) Hyponatremia (Acute) Major depressive disorder, severe (Acute) Past Medical History Medical History Breast cancer Family History Family history of problems with anesthesia: No Surgical History Surgical History H/O mastectomy History of Problems with Anesthesia: No Social History Social History Household Members: Spouse Housing: House Do you presently have visiting nurse or other home services: No Patient Tobacco Use Status: Never used Tobacco e-Cigarette/Vaping Use: Never Used Second Hand Smoke Exposure: Yes Advance Directives: No Advance Directives Information Provided: No service: No Sexual orientation: Straight/Heterosexual Meds Allergies Allergy/AdvReac Type Severity Reaction Status Date / Time erythromycin base Allergy Hives Verified 11/19/21 18:34 Active Medications: Current Medications Lactated Ringer's (Lr) 1,000 mls @ 50 mls/hr IVCONT .Q20H JILLIAN Exam Exam Date and Time: March 31, 2022 0645 Airway Mallampati Class: II (Perm bridge attached to loose tooth) TM Dist: >3cm Neck ROM: Full Heart: rrr Lungs: cta Assessment and Plan Assessment Anesthesia Assessment: Anesthesia Plan Discussed and Chart Reviewed Final Anesthetic Review Family History of Problems with Anesthesia: No History of Problems with Anesthesia: No NPO: Yes ASA Class: III Final Preanesthetic Review: No Changes in Pt Med Stat, Meds/Allgs Chart Reviewed and Consent Obtained/Reviewed Patient Risk: Intermediate Procedure Risk: Intermediate Anesthetic Plan Anesthetic Plan: GA Disposition: Standard PACU
--- NOTE | 2022-03-31 07:06 | MHC.SHP ---
Pre-Procedural Eval Section A Date of Service: 03/31/22 The patient is an INPATIENT: No Changes since office visit: Yes Patient answered all questions; No Cold of Flu in the past 2 weeks, No New Medical Problems and No Changes in Medication The History & Physical has been completed within 30 days and I have reviewed it.: No Section B Chief Complaint: depression Details of Present Illness: recurrent depression Relevant Social History: None Present Medications: see Short Stay Collaborative assessment Allergies: Allergies Allergy/AdvReac Type Severity Reaction Status Date / Time erythromycin base Allergy Hives Verified 11/19/21 18:34 Review of Systems Sugical H&P ROS: Negative: Cardiovascular and Respiratory and Yes, Specify: Psychiatric (flat) Exam Surgical H&P Exam: Normal: Heart and Normal: Lungs Plan Diagnosis/Plan: Unchanged I have reviewed the history and physical and performed a pertinent physical examination on my patient. No changes have occurred unless specified.
--- NOTE | 2022-03-31 07:07 | HO.ECTPROC ---
ECT Procedure Note Diagnosis/Treatment Date of Service: 04/02/22 Diagnosis: Major Depressive Disorder Previous ECT Date: 03/24/22 Treatment: Maintenance Interval Clinical Notes: some inc range affect out of house but flat ongoing ECT Settings Device: THYMATRON DGx Electrode Placement: Bitemporal Program/Pulse Width: 0.50 Energy Percent: 60 Seizure Duration By EEG (in seconds): 72 Medications Administration General Anesthetic: Etomidate (10) Muscle Relaxant: Succinylcholine (80) Ancillary Medications Anti-emetics: Zofran - Pre ECT Miscillaneous Medications: Flumazenil Airway Management Airway Management: Bag Mask Ventilation Treatment Recommendations Electrode Placement: Bitemporal Program/Pulse Width: 0.50 Energy Percent: 40 Pt Tolerated Procedure w/o Issue: Yes
[2022-03-31 07:11] LABS: COVID-19 Test Negative (Negative); IDNOW Serial# 9DB6401D
== END 2022-03-31 08:49 | disposition home or self-care (01) ==
PROVIDERS: PCP Internal Medicine; Visit Provider Psychiatry & Neurology Psychiatry
PROC: (CPT 90870; principal; 2022-03-31 07:00)
DX: F33.2 Major depressive disorder, recurrent severe without psychotic features (principal); E87.1 Hypo-osmolality and hyponatremia; Z85.3 Personal history of malignant neoplasm of breast; Z90.10 Acquired absence of unspecified breast and nipple; Z20.822 Contact with and (suspected) exposure to COVID-19
CPT/HCPCS: 87635; 90870; J0330; J1885; J2405

== ENCOUNTER 2022-04-09 05:59 | Day surgery (SDC) | payer MEDICARE, SELFPAY ==
[2022-04-09] VITALS (8 sets, daily range): BP systolic 129–161; BP diastolic 74–93; PULSE 70–88; RESP 17–23; TEMP 36.8–37.2; O2SAT 96–100; BMI 16.8
--- NOTE | 2022-04-09 06:34 | HO.ANESPROP2 ---
[facility] Active Problems Active Problems: All Active Problems (Updated 11/19/21 @ 20:47 by GARY Prater) Major depressive disorder, recurrent episode, severe with anxious distress (Acute) Hyponatremia (Acute) Major depressive disorder, severe (Acute) Past Medical History Medical History Breast cancer Family History Family history of problems with anesthesia: No Surgical History Surgical History H/O mastectomy History of Problems with Anesthesia: No Social History Social History Household Members: Spouse Housing: House Do you presently have visiting nurse or other home services: No Patient Tobacco Use Status: Never used Tobacco e-Cigarette/Vaping Use: Never Used Second Hand Smoke Exposure: Yes Advance Directives: No Advance Directives Information Provided: Yes service: No Sexual orientation: Straight/Heterosexual Meds Allergies Allergy/AdvReac Type Severity Reaction Status Date / Time erythromycin base Allergy Hives Verified 11/19/21 18:34 Exam Exam Date and Time: April 09, 2022 0634 Airway Mallampati Class: II TM Dist: >3cm Neck ROM: Full Heart: rrr Lungs: cta Assessment and Plan Assessment Anesthesia Assessment: Anesthesia Plan Discussed Final Anesthetic Review Family History of Problems with Anesthesia: No History of Problems with Anesthesia: No NPO: Yes ASA Class: III Final Preanesthetic Review: No Changes in Pt Med Stat, Meds/Allgs Chart Reviewed and Consent Obtained/Reviewed Patient Risk: Intermediate Procedure Risk: Intermediate Anesthetic Plan Anesthetic Plan: GA Disposition: Standard PACU
[2022-04-09 06:42] LABS: COVID-19 Test Negative (Negative); IDNOW Serial# 55D5AD1C
--- NOTE | 2022-04-09 07:08 | MHC.SHP ---
Pre-Procedural Eval Section A Date of Service: 04/09/22 The patient is an INPATIENT: No Changes since office visit: Yes Cold of Flu in the past 2 weeks, Yes New Medical Problems, Yes Changes in Medication and Yes Patient answered all questions The History & Physical has been completed within 30 days and I have reviewed it.: Yes Section B Chief Complaint: depression Allergies: Allergies Allergy/AdvReac Type Severity Reaction Status Date / Time erythromycin base Allergy Hives Verified 11/19/21 18:34 Plan I have reviewed the history and physical and performed a pertinent physical examination on my patient. No changes have occurred unless specified.
--- NOTE | 2022-04-09 07:24 | HO.ECTPROC ---
ECT Procedure Note Diagnosis/Treatment Date of Service: 04/09/22 Diagnosis: Major Depressive Disorder Previous ECT Date: 04/02/22 Treatment: Maintenance Interval Clinical Notes: The patient admitted some dysphoria but improvement. ECT Settings Device: THYMATRON DGx Electrode Placement: Bitemporal Program/Pulse Width: 0.50 Energy Percent: 60 Seizure Duration By EEG (in seconds): 78 By Motor Observation (in seconds): 0 Medications Administration General Anesthetic: Etomidate (10) Muscle Relaxant: Succinylcholine (80) Ancillary Medications Analgesics: Torodol - Pre ECT Anti-emetics: Zofran - Pre ECT Miscillaneous Medications: Flumazenil Airway Management Airway Management: Bag Mask Ventilation Treatment Recommendations Electrode Placement: Bitemporal Program/Pulse Width: 0.50 Energy Percent: 50 Pt Tolerated Procedure w/o Issue: Yes
== END 2022-04-09 08:45 | disposition home or self-care (01) ==
PROVIDERS: PCP Internal Medicine; Visit Provider Psychiatry & Neurology Psychiatry
PROC: (CPT 90870; principal; 2022-04-09 08:00)
DX: F33.2 Major depressive disorder, recurrent severe without psychotic features (principal); E87.1 Hypo-osmolality and hyponatremia; Z85.3 Personal history of malignant neoplasm of breast; Z90.10 Acquired absence of unspecified breast and nipple; Z88.1 Allergy status to other antibiotic agents; Z20.822 Contact with and (suspected) exposure to COVID-19
CPT/HCPCS: 87635; 90870; J0330; J1885; J2405

== ENCOUNTER 2022-04-23 08:01 | Day surgery (SDC) | payer MEDICARE, SELFPAY ==
[2022-04-23] VITALS (8 sets, daily range): BP systolic 146–168; BP diastolic 74–131; PULSE 72–94; RESP 16–20; TEMP 36.9–37.1; O2SAT 95–100; BMI 17.9
--- NOTE | 2022-04-23 08:33 | HO.ANESPROP2 ---
[facility] Active Problems Active Problems: All Active Problems (Updated 11/19/21 @ 20:47 by GARY Prater) Major depressive disorder, recurrent episode, severe with anxious distress (Acute) Hyponatremia (Acute) Major depressive disorder, severe (Acute) Past Medical History Medical History Breast cancer Family History Family history of problems with anesthesia: No Surgical History Surgical History H/O mastectomy History of Problems with Anesthesia: No Social History Social History Household Members: Spouse Housing: House Do you presently have visiting nurse or other home services: No Patient Tobacco Use Status: Never used Tobacco e-Cigarette/Vaping Use: Never Used Second Hand Smoke Exposure: Yes Advance Directives: No Advance Directives Information Provided: Yes service: No Sexual orientation: Straight/Heterosexual Meds Allergies Allergy/AdvReac Type Severity Reaction Status Date / Time erythromycin base Allergy Hives Verified 11/19/21 18:34 Exam Exam Date and Time: April 23, 2022 0833 Airway Mallampati Class: II (Tooth attached to partial weak/loose) TM Dist: >3cm Neck ROM: Full Partial: Upper Heart: rrr Lungs: cta Assessment and Plan Assessment Anesthesia Assessment: Anesthesia Plan Discussed and Chart Reviewed Final Anesthetic Review Family History of Problems with Anesthesia: No History of Problems with Anesthesia: No NPO: Yes ASA Class: III Final Preanesthetic Review: No Changes in Pt Med Stat, Meds/Allgs Chart Reviewed and Consent Obtained/Reviewed Patient Risk: Intermediate Procedure Risk: Intermediate Anesthetic Plan Anesthetic Plan: GA Disposition: Standard PACU
[2022-04-23 08:35] LABS: COVID-19 Test Negative (Negative); IDNOW Serial# 16C4AD1C
--- NOTE | 2022-04-23 09:08 | MHC.SHP ---
Pre-Procedural Eval Section A Date of Service: 04/23/22 Changes since office visit: Yes Patient answered all questions; No Cold of Flu in the past 2 weeks, No New Medical Problems and No Changes in Medication The History & Physical has been completed within 30 days and I have reviewed it.: No Section B Chief Complaint: depression Details of Present Illness: recurrent dep Relevant Social History: None Present Medications: see Short Stay Collaborative assessment Medical History: No relevant PMH History of Previous Operations: Relevant previous surgery/procedure and date(s) (ect) Allergies: Allergies Allergy/AdvReac Type Severity Reaction Status Date / Time erythromycin base Allergy Hives Verified 11/19/21 18:34 Review of Systems Sugical H&P ROS: Negative: Cardiovascular and Respiratory and Yes, Specify: Constitution (low energy) Exam Surgical H&P Exam: Normal: Heart and Normal: Lungs Plan Diagnosis/Plan: Unchanged I have reviewed the history and physical and performed a pertinent physical examination on my patient. No changes have occurred unless specified.
--- NOTE | 2022-04-23 09:10 | HO.ECTPROC ---
ECT Procedure Note Diagnosis/Treatment Date of Service: 04/28/22 Diagnosis: Major Depressive Disorder Previous ECT Date: 04/09/22 Treatment: Maintenance Interval Clinical Notes: The patient admitted some dysphoria but improved generally ECT Settings Device: THYMATRON DGx Electrode Placement: Bitemporal Program/Pulse Width: 0.50 Energy Percent: 40 Seizure Duration By EEG (in seconds): 79 Medications Administration General Anesthetic: Etomidate (10) Muscle Relaxant: Succinylcholine (80) Ancillary Medications Analgesics: Torodol - Pre ECT Anti-emetics: Zofran - Pre ECT Miscillaneous Medications: Flumazenil Airway Management Airway Management: Bag Mask Ventilation Treatment Recommendations Electrode Placement: Bitemporal Program/Pulse Width: 0.50 Energy Percent: 30 Pt Tolerated Procedure w/o Issue: Yes
== END 2022-04-23 10:46 | disposition home or self-care (01) ==
PROVIDERS: PCP Internal Medicine; Visit Provider Psychiatry & Neurology Psychiatry
PROC: (CPT 90870; principal; 2022-04-23 09:00)
DX: F33.2 Major depressive disorder, recurrent severe without psychotic features (principal); Z88.1 Allergy status to other antibiotic agents; E87.1 Hypo-osmolality and hyponatremia; Z85.3 Personal history of malignant neoplasm of breast; Z90.10 Acquired absence of unspecified breast and nipple; Z79.899 Other long term (current) drug therapy; Z20.822 Contact with and (suspected) exposure to COVID-19
CPT/HCPCS: 87635; 90870; J0330; J1885; J2405

== ENCOUNTER 2022-05-05 05:58 | Day surgery (SDC) | payer MEDICARE, SELFPAY ==
[2022-05-05] VITALS (12 sets, daily range): BP systolic 119–158; BP diastolic 67–88; PULSE 80–130; RESP 18–19; TEMP 36.1–36.7; O2SAT 98–100; BMI 17.9
--- NOTE | 2022-05-05 06:31 | P.CONAN_ITS ---
[facility] Active Problems Active Problems: All Active Problems (Updated 11/19/21 @ 20:47 by GARY Prater) Major depressive disorder, recurrent episode, severe with anxious distress (Acute) Hyponatremia (Acute) Major depressive disorder, severe (Acute) Past Medical History Medical History Breast cancer Family History Family history of problems with anesthesia: No Surgical History Surgical History H/O mastectomy History of Problems with Anesthesia: No Social History Social History Household Members: Spouse Housing: House Do you presently have visiting nurse or other home services: No Patient Tobacco Use Status: Never used Tobacco e-Cigarette/Vaping Use: Never Used Second Hand Smoke Exposure: Yes Advance Directives: No Advance Directives Information Provided: Yes service: No Sexual orientation: Straight/Heterosexual Meds Allergies Allergy/AdvReac Type Severity Reaction Status Date / Time erythromycin base Allergy Hives Verified 11/19/21 18:34 Exam Exam Date and Time: May 05, 2022 0631 Airway Mallampati Class: II (Perm partial upper with weak connecting tooth) TM Dist: >3cm Neck ROM: Full Heart: rrr Lungs: cta Assessment and Plan Assessment Anesthesia Assessment: Anesthesia Plan Discussed and Chart Reviewed Final Anesthetic Review Family History of Problems with Anesthesia: No History of Problems with Anesthesia: No NPO: Yes ASA Class: III Final Preanesthetic Review: No Changes in Pt Med Stat, Meds/Allgs Chart Reviewed and Consent Obtained/Reviewed Patient Risk: Intermediate Procedure Risk: Intermediate Anesthetic Plan Anesthetic Plan: GA Disposition: Standard PACU
[2022-05-05 06:53] LABS: COVID-19 Test Negative (Negative); IDNOW Serial# 16C4AD1C
--- NOTE | 2022-05-05 07:03 | MHC.SHP ---
Pre-Procedural Eval Section A Date of Service: 05/05/22 Changes since office visit: Yes Patient answered all questions; No Cold of Flu in the past 2 weeks, No New Medical Problems and No Changes in Medication Section B Chief Complaint: depression Allergies: Allergies Allergy/AdvReac Type Severity Reaction Status Date / Time erythromycin base Allergy Hives Verified 11/19/21 18:34 Plan I have reviewed the history and physical and performed a pertinent physical examination on my patient. No changes have occurred unless specified.
--- NOTE | 2022-05-05 07:04 | HO.ECTPROC ---
ECT Procedure Note Diagnosis/Treatment Date of Service: 05/05/22 Diagnosis: Major Depressive Disorder Previous ECT Date: 04/23/22 Treatment: Maintenance Interval Clinical Notes: pt preoccupied depressed ECT Settings Device: THYMATRON DGx Electrode Placement: Bitemporal Program/Pulse Width: 0.50 Energy Percent: 30 Seizure Duration By EEG (in seconds): 82 Medications Administration General Anesthetic: Etomidate (10) Muscle Relaxant: Succinylcholine (80) Ancillary Medications Analgesics: Torodol - Pre ECT Anti-emetics: Zofran - Pre ECT Miscillaneous Medications: Flumazenil Airway Management Airway Management: Bag Mask Ventilation Treatment Recommendations Electrode Placement: Bitemporal Program/Pulse Width: 0.50 Energy Percent: 30 Notes: f/u tx in 1 week ck nortrip level Pt Tolerated Procedure w/o Issue: Yes
--- NOTE | 2022-05-05 07:57 | ECG_ITS ---
Test Reason : 9 Blood Pressure : / mmHG Vent. Rate : 089 BPM Atrial Rate : 089 BPM P-R Int : 206 ms QRS Dur : 070 ms QT Int : 362 ms P-R-T Axes : 077 078 046 degrees QTc Int : 440 ms Sinus rhythm with marked sinus arrhythmia Septal infarct , age undetermined Abnormal ECG When compared with ECG of 19-NOV-2021 18:53, No significant change was found Referred By: Rajwinder Schneider Electronically Signed By:TABITHA SAUCEDA
[2022-05-05 08:40] LABS: TSH reflex Free T4 3.26 uIU/mL (0.32-4.0)
[2022-05-09 06:33] LABS: Nortriptyline 15 mcg/L (50-150)
== END 2022-05-05 08:47 | disposition home or self-care (01) ==
PROVIDERS: PCP Internal Medicine; Visit Provider Psychiatry & Neurology Psychiatry
PROC: (CPT 90870; principal; 2022-05-05 07:30)
DX: F33.9 Major depressive disorder, recurrent, unspecified (principal); Z85.3 Personal history of malignant neoplasm of breast; Z90.10 Acquired absence of unspecified breast and nipple; Z88.1 Allergy status to other antibiotic agents; Z20.822 Contact with and (suspected) exposure to COVID-19
CPT/HCPCS: 36415; 80335; 84443; 87635; 90870; 93005; J0330; J1885; J2405

== ENCOUNTER 2022-05-14 06:00 | Day surgery (SDC) | payer MEDICARE, SELFPAY ==
[2022-05-14] VITALS (8 sets, daily range): BP systolic 131–160; BP diastolic 73–83; PULSE 77–98; RESP 12–20; TEMP 36.6; O2SAT 95–100; BMI 17.4
--- NOTE | 2022-05-14 06:35 | HO.ANESPROP2 ---
[facility] Active Problems Active Problems: All Active Problems (Updated 11/19/21 @ 20:47 by GARY Prater) Major depressive disorder, recurrent episode, severe with anxious distress (Acute) Hyponatremia (Acute) Major depressive disorder, severe (Acute) Past Medical History Medical History Breast cancer Family History Family history of problems with anesthesia: No Surgical History Surgical History H/O mastectomy History of Problems with Anesthesia: No Social History Social History Household Members: Spouse Housing: House Do you presently have visiting nurse or other home services: No Patient Tobacco Use Status: Never used Tobacco e-Cigarette/Vaping Use: Never Used Second Hand Smoke Exposure: Yes Advance Directives: No Advance Directives Information Provided: Yes service: No Sexual orientation: Straight/Heterosexual Meds Allergies Allergy/AdvReac Type Severity Reaction Status Date / Time erythromycin base Allergy Hives Verified 11/19/21 18:34 Exam Exam Date and Time: May 14, 2022 0635 Airway Mallampati Class: II (Loose tooth with bridge on top) TM Dist: >3cm Neck ROM: Full Heart: rrr Lungs: cta Assessment and Plan Assessment Anesthesia Assessment: Anesthesia Plan Discussed and Chart Reviewed Final Anesthetic Review Family History of Problems with Anesthesia: No History of Problems with Anesthesia: No NPO: Yes ASA Class: III Final Preanesthetic Review: No Changes in Pt Med Stat, Meds/Allgs Chart Reviewed and Consent Obtained/Reviewed Patient Risk: Intermediate Procedure Risk: Intermediate Anesthetic Plan Anesthetic Plan: GA Disposition: Standard PACU
[2022-05-14 06:50] LABS: COVID-19 Test Negative (Negative); IDNOW Serial# 9DB6401D
--- NOTE | 2022-05-14 07:00 | MHC.SHP ---
Pre-Procedural Eval Section A Date of Service: 05/14/22 The patient is an INPATIENT: No Changes since office visit: Yes Patient answered all questions; No Cold of Flu in the past 2 weeks, No New Medical Problems and No Changes in Medication The History & Physical has been completed within 30 days and I have reviewed it.: No Section B Chief Complaint: depression Details of Present Illness: recurrent depression Relevant Social History: None Present Medications: see Short Stay Collaborative assessment Allergies: Allergies Allergy/AdvReac Type Severity Reaction Status Date / Time erythromycin base Allergy Hives Verified 11/19/21 18:34 Review of Systems Sugical H&P ROS: Negative: Cardiovascular, Respiratory and Neurological and Yes, Specify: Psychiatric (improved range) Exam Surgical H&P Exam: Normal: Heart and Normal: Lungs Plan Diagnosis/Plan: Unchanged I have reviewed the history and physical and performed a pertinent physical examination on my patient. No changes have occurred unless specified.
--- NOTE | 2022-05-14 07:24 | HO.ECTPROC ---
ECT Procedure Note Diagnosis/Treatment Date of Service: 05/14/22 Diagnosis: Major Depressive Disorder Previous ECT Date: 04/23/22 Treatment: Maintenance Interval Clinical Notes: pt with liu range of affect ECT Settings Device: THYMATRON DGx Electrode Placement: Bitemporal Program/Pulse Width: 0.50 Energy Percent: 30 Seizure Duration By EEG (in seconds): 73 Medications Administration General Anesthetic: Etomidate (10) Muscle Relaxant: Succinylcholine (80) Ancillary Medications Anti-emetics: Zofran - Pre ECT Cardiovascular Medications: Esmolol (30 mg pre tx ) Airway Management Airway Management: Bag Mask Ventilation Treatment Recommendations Electrode Placement: Bitemporal Program/Pulse Width: 0.50 Energy Percent: 25 Notes: no flumazenil used did well with esmolol Pt Tolerated Procedure w/o Issue: Yes
--- NOTE | 2022-05-14 21:46 | HO.ECTPROC ---
ECT Procedure Note Diagnosis/Treatment Date of Service: 05/14/22 Diagnosis: Major Depressive Disorder Previous ECT Date: 04/23/22 Treatment: Maintenance Interval Clinical Notes: pt with ilu range of affect enjoys watching sports nortrip level low ECT Settings Device: THYMATRON DGx Electrode Placement: Bitemporal Program/Pulse Width: 0.50 Energy Percent: 30 Seizure Duration By EEG (in seconds): 63 Medications Administration General Anesthetic: Etomidate (10) Muscle Relaxant: Succinylcholine (80) Ancillary Medications Anti-emetics: Zofran - Pre ECT Cardiovascular Medications: Esmolol (30 mg pre tx ) Airway Management Airway Management: Bag Mask Ventilation Treatment Recommendations Electrode Placement: Bitemporal Program/Pulse Width: 0.50 Energy Percent: 25 Notes: no flumazenil used did well with esmolol for tachycardia Pt Tolerated Procedure w/o Issue: Yes
== END 2022-05-14 08:55 | disposition home or self-care (01) ==
PROVIDERS: PCP Internal Medicine; Visit Provider Psychiatry & Neurology Psychiatry
PROC: (CPT 90870; principal; 2022-05-14 08:00)
DX: F33.9 Major depressive disorder, recurrent, unspecified (principal); Z85.3 Personal history of malignant neoplasm of breast; Z90.10 Acquired absence of unspecified breast and nipple; Z88.1 Allergy status to other antibiotic agents; Z20.822 Contact with and (suspected) exposure to COVID-19
CPT/HCPCS: 87635; 90870; J0330; J1885; J2405

== ENCOUNTER 2022-05-28 05:58 | Day surgery (SDC) | payer MEDICARE, SELFPAY ==
[2022-05-28] VITALS (8 sets, daily range): BP systolic 134–162; BP diastolic 71–94; PULSE 70–83; RESP 15–20; TEMP 36.8; O2SAT 94–100; BMI 16.8
[2022-05-28 06:39] LABS: COVID-19 Test Negative (Negative); IDNOW Serial# 55D5AD1C
--- NOTE | 2022-05-28 06:48 | P.CONAN_ITS ---
[facility] Active Problems Active Problems: All Active Problems (Updated 11/19/21 @ 20:47 by GARY Prater) Major depressive disorder, recurrent episode, severe with anxious distress (Acute) Hyponatremia (Acute) Major depressive disorder, severe (Acute) Past Medical History Medical History Breast cancer Family History Family history of problems with anesthesia: No Surgical History Surgical History H/O mastectomy History of Problems with Anesthesia: No Social History Social History Household Members: Spouse Housing: House Do you presently have visiting nurse or other home services: No Patient Tobacco Use Status: Never used Tobacco e-Cigarette/Vaping Use: Never Used Second Hand Smoke Exposure: Yes Advance Directives: No Advance Directives Information Provided: Yes service: No Sexual orientation: Straight/Heterosexual Meds Allergies Allergy/AdvReac Type Severity Reaction Status Date / Time erythromycin base Allergy Hives Verified 11/19/21 18:34 Active Medications: Current Medications Lactated Ringer's (Lr) 1,000 mls @ 50 mls/hr IVCONT .Q20H JILLIAN Exam Exam Date and Time: May 28, 2022 0648 Height,Weight and Vital Signs: Height 5 ft 3 in Weight 43.091 kg Last Vital Signs Temp 98.2 F 05/28/22 06:34 Pulse 81 05/28/22 06:34 Resp 20 05/28/22 06:34 BP 162/82 H 05/28/22 06:34 Pulse Ox 98 05/28/22 06:34 O2 Del Method 05/28/22 06:34 Pertinent Lab Results Pertinent Lab Results: Laboratory Tests 05/28/22 06:10 COVID-19 (AV) Negative COVID-19 Clin Com See Note Airway Mallampati Class: II (Permanent bridge) TM Dist: >3cm Neck ROM: Full Heart: rrr Lungs: cta Assessment and Plan Assessment Anesthesia Assessment: Anesthesia Plan Discussed and Chart Reviewed Final Anesthetic Review Family History of Problems with Anesthesia: No History of Problems with Anesthesia: No NPO: Yes ASA Class: III Final Preanesthetic Review: No Changes in Pt Med Stat, Meds/Allgs Chart Reviewed and Consent Obtained/Reviewed Patient Risk: Intermediate Procedure Risk: Intermediate Anesthetic Plan Anesthetic Plan: GA Disposition: Standard PACU
[2022-05-28 06:51] LABS: Hematocrit 40.1 % (37.0-47.0); Hemoglobin 13.3 g/dl (12.0-16.0); Mean Corpuscular HGB Conc 33.2 g/dl (31.0-35.0); Mean Corpuscular Hemoglobin 31.3 pg (27.0-33.0); Mean Corpuscular Volume 94.4 fL (80.0-98.0); Mean Platelet Volume 8.7 fL (9.4-12.3); Platelet Count 225 X10*3/uL (160-400); Red Blood Count 4.25 X10*6/uL (4.20-5.50); White Blood Count 4.8 X10*3/uL (4.8-10.8)
--- NOTE | 2022-05-28 06:55 | MHC.SHP ---
Pre-Procedural Eval Section A Date of Service: 05/28/22 Section B Chief Complaint: depression Details of Present Illness: recurrent depression Relevant Social History: None Present Medications: see Short Stay Collaborative assessment Allergies: Allergies Allergy/AdvReac Type Severity Reaction Status Date / Time erythromycin base Allergy Hives Verified 11/19/21 18:34 Review of Systems Sugical H&P ROS: Negative: Cardiovascular and Respiratory and Yes, Specify: Psychiatric (some inc range of affect) Exam Surgical H&P Exam: Normal: Heart and Normal: Lungs Plan Diagnosis/Plan: Unchanged I have reviewed the history and physical and performed a pertinent physical examination on my patient. No changes have occurred unless specified.
[2022-05-28 07:28] LABS: Anion Gap 19 (12-20); Blood Urea Nitrogen 18 mg/dL (9-16); Carbon Dioxide 19 mmol/L (22-29); Chloride 101 mmol/L (96-108); Creatinine Clr Calc Pharmacy 40.8; Estimated Glomerular Filt Rate > 60; Glucose Fasting 92 mg/dL (60-99); Potassium 4.5 mmol/L (3.3-5.1); Sodium 134 mmol/L (135-145)
--- NOTE | 2022-05-28 07:36 | HO.ECTPROC ---
ECT Procedure Note Diagnosis/Treatment Date of Service: 05/30/22 Diagnosis: Major Depressive Disorder Previous ECT Date: 04/23/22 Current Treatment Number: 13 Treatment: Maintenance Interval Clinical Notes: pt with liu range of affect enjoys watching sports nortrip level low ECT Settings Device: THYMATRON DGx Electrode Placement: Bitemporal Program/Pulse Width: 0.50 Energy Percent: 30 Seizure Duration By EEG (in seconds): 67 Medications Administration General Anesthetic: Etomidate (10) Muscle Relaxant: Succinylcholine (80) Ancillary Medications Anti-emetics: Zofran - Pre ECT Cardiovascular Medications: Esmolol (30 mg pre tx ) and Glycopyrrolate Airway Management Airway Management: Bag Mask Ventilation Treatment Recommendations Electrode Placement: Bitemporal Program/Pulse Width: 0.50 Energy Percent: 25 Notes: no flumazenil used did well with esmolol for tachycardia Pt Tolerated Procedure w/o Issue: Yes
== END 2022-05-28 08:45 | disposition home or self-care (01) ==
PROVIDERS: Nurse Practitioner; PCP Internal Medicine; Visit Provider Psychiatry & Neurology Psychiatry
PROC: (CPT 90870; principal; 2022-05-28 07:00)
DX: F33.2 Major depressive disorder, recurrent severe without psychotic features (principal); Z20.822 Contact with and (suspected) exposure to COVID-19; Z85.3 Personal history of malignant neoplasm of breast; Z90.10 Acquired absence of unspecified breast and nipple
CPT/HCPCS: 36415; 80048; 85027; 87635; 90870; J0330; J1885; J2405

== ENCOUNTER 2022-06-11 05:59 | Day surgery (SDC) | payer MEDICARE, SELFPAY ==
[2022-06-11] VITALS (9 sets, daily range): BP systolic 148–175; BP diastolic 79–94; PULSE 81–100; RESP 16–23; TEMP 36.5–36.9; O2SAT 95–100; BMI 16.8
--- NOTE | 2022-06-11 06:38 | P.CONAN_ITS ---
[facility] Active Problems Active Problems: All Active Problems (Updated 11/19/21 @ 20:47 by GARY Prater) Major depressive disorder, recurrent episode, severe with anxious distress (Acute) Hyponatremia (Acute) Major depressive disorder, severe (Acute) Past Medical History Medical History Breast cancer Family History Family history of problems with anesthesia: No Surgical History Surgical History H/O mastectomy History of Problems with Anesthesia: No Social History Social History Household Members: Spouse Housing: House Do you presently have visiting nurse or other home services: No Patient Tobacco Use Status: Never used Tobacco e-Cigarette/Vaping Use: Never Used Second Hand Smoke Exposure: Yes Advance Directives: No Advance Directives Information Provided: Yes service: No Sexual orientation: Straight/Heterosexual Meds Allergies Allergy/AdvReac Type Severity Reaction Status Date / Time erythromycin base Allergy Hives Verified 11/19/21 18:34 Active Medications: Current Medications Lactated Ringer's (Lr) 1,000 mls @ 50 mls/hr IVCONT .Q20H JILLIAN Exam Exam Date and Time: June 11, 2022 0638 Height,Weight and Vital Signs: Height 5 ft 3 in Weight 43.091 kg Airway Mallampati Class: II (Partial perm attached to weakened tooth) TM Dist: >3cm Neck ROM: Full Heart: rrr Lungs: cta Assessment and Plan Assessment Anesthesia Assessment: Anesthesia Plan Discussed and Chart Reviewed Final Anesthetic Review Family History of Problems with Anesthesia: No History of Problems with Anesthesia: No NPO: Yes ASA Class: III Final Preanesthetic Review: No Changes in Pt Med Stat, Meds/Allgs Chart Reviewed and Consent Obtained/Reviewed Patient Risk: Intermediate Procedure Risk: Intermediate Anesthetic Plan Anesthetic Plan: GA Disposition: Standard PACU
[2022-06-11 06:40] LABS: COVID-19 Test Negative (Negative)
--- NOTE | 2022-06-11 07:05 | MHC.SHP ---
Pre-Procedural Eval Section A Date of Service: 06/11/22 The patient is an INPATIENT: No Changes since office visit: No Cold of Flu in the past 2 weeks, No New Medical Problems, No Changes in Medication and No Patient answered all questions The History & Physical has been completed within 30 days and I have reviewed it.: Yes Section B Chief Complaint: Major depressive disorder, recurrent Allergies: Allergies Allergy/AdvReac Type Severity Reaction Status Date / Time erythromycin base Allergy Hives Verified 11/19/21 18:34 Plan I have reviewed the history and physical and performed a pertinent physical examination on my patient. No changes have occurred unless specified.
--- NOTE | 2022-06-11 07:21 | HO.ECTPROC ---
ECT Procedure Note Diagnosis/Treatment Date of Service: 06/11/22 Diagnosis: Major Depressive Disorder Previous ECT Date: 05/31/22 Current Treatment Number: 14 Treatment: Maintenance Interval Clinical Notes: The patient has been more dysphoric in the last days, she has noticed ECT keeps her well only for a few days and then later, she has depressive symptoms. No safety concerns at this moment. ECT Settings Device: THYMATRON DGx Electrode Placement: Bitemporal Program/Pulse Width: 0.50 Energy Percent: 30 Seizure Duration By EEG (in seconds): 79 By Motor Observation (in seconds): 0 Medications Administration General Anesthetic: Etomidate (10) Muscle Relaxant: Succinylcholine (80) Ancillary Medications Analgesics: Torodol - Pre ECT Anti-emetics: Zofran - Pre ECT Cardiovascular Medications: Esmolol Miscillaneous Medications: Flumazenil Airway Management Airway Management: Bag Mask Ventilation Treatment Recommendations No Changes Recommended: No change Notes: Patient needed Flumazenil since she took Ativan at AM Pt Tolerated Procedure w/o Issue: Yes
[2022-06-11] MEDS: LORazepam 0.5 MG TABLET 0.25 MG PO (08:38)
== END 2022-06-11 08:52 | disposition home or self-care (01) ==
PROVIDERS: PCP Internal Medicine; Visit Provider Psychiatry & Neurology Psychiatry
PROC: (CPT 90870; principal; 2022-06-11 07:30)
DX: F33.2 Major depressive disorder, recurrent severe without psychotic features (principal); Z85.3 Personal history of malignant neoplasm of breast; Z90.10 Acquired absence of unspecified breast and nipple; Z20.822 Contact with and (suspected) exposure to COVID-19; Z88.1 Allergy status to other antibiotic agents; Z79.899 Other long term (current) drug therapy
CPT/HCPCS: 87635; 90870; J0330; J1885; J2405